=== PATIENT | female | born 1955 | race Caucasian/White ===

== ENCOUNTER → 2020-09-11 09:34 | Outpatient (CLI) | payer MEDICARE, MEDICAID, SELFPAY ==
[2020-09-11 12:25] LABS: Absolute Lymphocyte Count 1.82 X10^3/uL (0.83-4.51); Absolute Neutrophil Count 4.3 X10^3/uL (2.0-7.7); Basophil# 0.05 X10^3/uL; Basophil% 0.7 % (0-1); Eosinophil# 0.11 X10^3/uL; Eosinophils% 1.6 % (0-5); Hematocrit 48.1 % (37-47); Hemoglobin 15.7 g/dL (12.0-15.0); Lymphocyte # 1.82 X10^3/ul (4.0); Lymphocyte % 26.1 % (19-41); Mean Corp Hgb Conc 32.6 g/dL (32-36); Mean Corpuscular Hgb 29.3 pg (27.0-32.0); Mean Corpuscular Volume 89.9 fL (81-99); Mean Platelet Vol. 11.1 fl (6.2-12.0); Monocyte# 0.64 X10^3/uL; Monocyte% 9.2 % (0-10); NRBC Flagged by Analyzer 0 % (0-5); Neutrophil # 4.32 X10^3/uL (2.7-7.7); Neutrophil % 61.8 % (47-70); Platelet Count 268 K/mm3 (150-450); RBC Distribution Width CV 13.7 % (11.6-14.6); RBC Distribution Width SD 45.1 fl (35.1-43.9); Red Blood Count 5.35 M/mm3 (4.2-5.4)
[2020-09-11 13:03] LABS: ALB/GLOB Ratio 0.9 RATIO (0.9-2.4); AST(SGOT) 15 U/L (15-37); Alanine Aminotransfer ALT/SGPT 29 U/L (13-56); Albumin, Serum 3.7 g/dL (3.2-5.0); Alkaline Phosphatase 86 U/L (45-117); Anion Gap 6 (5-15); BUN 16 mg/dL (7-18); BUN/Creat Ratio 22.8 RATIO (10-20); Chloride 103 mmol/L (98-107); Cholesterol 235 mg/dL (200); EST Glomerular Filtration Rate 88 mL/min (>60); Est Glom Filt Rate - Afr Amer 107 mL/min (>60); Globulin 3.9 g/dL (2.2-4.2); Glucose 95 mg/dL (74-106); High Density Lipoprotein 44 mg/dL; Potassium 4.4 mmol/L (3.5-5.1); Protein, Total 7.6 g/dL (6.4-8.2); Sodium Level 137 mmol/L (136-145); Triglycerides 235 mg/dL; Very Low Density Lipoprotein 47 mg/dL (5-40)
== END ==
PROVIDERS: PCP Family Medicine; Visit Provider Family Medicine
DX: I10 Essential (primary) hypertension (principal); J44.9 Chronic obstructive pulmonary disease, unspecified
CPT/HCPCS: 36415; 80053; 80061; 85025

== ENCOUNTER → 2020-10-17 13:01 | Outpatient (CLI) | payer MEDICARE, MEDICAID, SELFPAY ==
--- NOTE | 2020-10-17 13:05 | ART_ITS ---
Reason For Study: pain in RLE with walking Procedure A bilateral lower extremity continuous wave Doppler with analog waveform analysis and ankle brachial indexes. Left Segmental Pressures Left brachial= 149mmHg. Left posterior tibial artery = 156mmHg. Left dorsalis pedis artery = 146mmHg. The left posterior tibial artery waveforms are triphasic. The left dorsalis pedis waveforms are biphasic. Right Segmental Pressures Right brachial= 151mmHg. Right posterior tibial artery = 139mmHg. Right dorsalis pedis artery = 140mmHg. The right dorsalis pedis waveforms are biphasic. The right posterior tibial artery waveforms are biphasic. Indices The right ankle brachial index by the dorsalis pedis is .93. The right ankle brachial index by the posterior tibial artery is .92. The left ankle brachial index by the posterior tibial artery is 1.03. The left ankle brachial index by the dorsalis pedis is .97. VL/Ankle Brachial Index Interpretation Summary Biphasic Doppler waveforms are noted at ankle level on the right. Triphasic and biphasic Doppler waveforms are noted at ankle level on the left. Pulse-volume recordings appear satisfactory at ankle level bilaterally. Resting ankle-brachial indices are normal bilaterally. There is no evidence of significant arterial occlusive disease in the lower ext remities bilaterally. Ordering Physician: Xena Chan Performed By: ZEHRA BOSS RVT
== END ==
PROVIDERS: PCP Family Medicine; Referring Provider Family Medicine; Visit Provider Family Medicine
DX: I73.9 Peripheral vascular disease, unspecified (principal); R52 Pain, unspecified
CPT/HCPCS: 93922

== ENCOUNTER → 2020-10-21 11:48 | Outpatient (CLI) | payer MEDICARE, MEDICAID, SELFPAY ==
--- NOTE | 2020-10-21 13:15 | NEURO_ITS ---
NCS and/or EMG Patient Report Ordering Doctor: Xena Chan DATE OF SERVICE: 10/21/20 Indications: Numbness and pain of the medial left hand as well as digits 4/5. Evaluate for ulnar neuropathy. Findings: Nerve conduction studies were performed in the right upper extremity. The right median motor study recording the abductor pollicis brevis showed a normal amplitude, normal distal latency and normal conduction velocity. The right ulnar motor study recording the abductor digiti minimi showed a normal amplitude, no rmal distal latency and normal conduction velocity. Conduction block and focal slowing was present across the elbow. The right ulnar motor study recording the first dorsal interosseous showed a normal amplitude, normal distal latency and normal conduction velocity. Conduction block and focal slowing was present across the elbow. The right median sensory response recording digit two showed a normal amplitude, latency and conduction velocity. The right ulnar sensory response recording digit five showed a normal amplitude, latency and conduction velocity. The right radial sensory response recording over the extensor snuff box showed a normal amplitude, normal latency and borderline conduction velocity. Needle EMG of the right upper extremity and cervical paraspinal muscles was performed. No denervation was seen in any muscle. Occasional fasciculation potentials were seen in the first dorsal interosseous. In the first dorsal interosseous and flexor digitorum profundus (IV) motor units were normal morphology, but recruitment was mildly reduced. All other examined muscled demonstrated normal motor unit morphology, activation and recruitment patterns. Impression: This is an abnormal study. There is electrophysiologic evidence of an ulnar neuropathy across the left elbow. The pathophysiology is that of acquired demyelination. There are no findings to suggest acute or chronic secondary axonal injury. In addition, there is no electrophysiologic evidence of a median neuropathy or superimposed cervical radiculopathy in the left upper extremity. Salvatore Khan D.O.
== END ==
PROVIDERS: PCP Family Medicine; Referring Provider Family Medicine; Visit Provider Family Medicine
DX: G56.22 Lesion of ulnar nerve, left upper limb (principal)
CPT/HCPCS: 95886; 95910

== ENCOUNTER → 2020-12-17 07:23 | Outpatient (CLI) | payer MEDICARE, MEDICAID, SELFPAY ==
[2020-11-11 13:48] VITALS: BMI 30.4
[2020-12-17 08:53] LABS: Cholesterol 242 mg/dL (200); High Density Lipoprotein 49 mg/dL; Triglycerides 248 mg/dL; Very Low Density Lipoprotein 50 mg/dL (5-40)
== END ==
PROVIDERS: PCP Family Medicine; Visit Provider Family Medicine
DX: E78.5 Hyperlipidemia, unspecified (principal)
CPT/HCPCS: 36415; 80061

== ENCOUNTER → 2021-02-11 13:23 | Outpatient (CLI) | payer MEDICARE, MEDICAID, SELFPAY ==
[2020-11-11 13:48] VITALS: BMI 30.4
--- NOTE | 2021-02-11 13:25 | RAD_ITS ---
STUDY: X-RAY CHEST REASON FOR EXAM: Female, 65 years old. COPD/COVID TECHNIQUE: Frontal and lateral views of the chest. COMPARISON: None. FINDINGS: Lungs are hyperaerated. Increased interstitial markings especially in the lower lung jenkins. There is no demonstrated pleural abnormality. Normal size heart. Normal mediastinum and inge. Normal visualized pulmonary arteries. Normal visualized aortic arch and descending thoracic aorta. Mild kyphosis. Normal visualized ribs, clavicles, and shoulders. There is no demonstrated abnormality of the visualized soft tissue structures of the upper abdomen. RAD/Chest PA and Lateral IMPRESSION: COPD. Possible interstitial lung disease or bibasilar interstitial infiltrates. Electronically Signed: Jorgito Saenz MD at 16:48 EDT , Service support ,
== END ==
PROVIDERS: PCP Family Medicine; Referring Provider Family Medicine; Visit Provider Family Medicine
DX: J44.0 Chronic obstructive pulmonary disease with (acute) lower respiratory infection (principal)
CPT/HCPCS: 71046

== ENCOUNTER → 2021-02-12 | Outpatient (CLI) | payer MEDICARE, MEDICAID, SELFPAY ==
[2020-11-11 13:48] VITALS: BMI 30.4
[2021-02-12 16:56] LABS: Probe Check PASS; Specimen Processing Control PASS
== END | disposition home or self-care (01) ==
PROVIDERS: PCP Family Medicine; Referring Provider Family Medicine; Visit Provider Family Medicine
DX: Z20.828 Contact with and (suspected) exposure to other viral communicable diseases (principal)
CPT/HCPCS: 87635; U0005; U0003

== ENCOUNTER → 2021-04-28 | Outpatient (CLI) | payer MEDICARE, MEDICAID, SELFPAY | END | disposition home or self-care (01) | PROVIDERS: PCP Family Medicine; Referring Provider Family Medicine; Visit Provider Family Medicine | DX: Z20.822 Contact with and (suspected) exposure to COVID-19 (principal) | CPT/HCPCS: 87635; U0005; U0003 ==

== ENCOUNTER → 2021-12-08 | Outpatient (CLI) | payer MEDICARE, MEDICAID, SELFPAY | END | disposition home or self-care (01) | PROVIDERS: PCP Family Medicine; Visit Provider Family Medicine | DX: Z20.822 Contact with and (suspected) exposure to COVID-19 (principal) | CPT/HCPCS: 87635; U0003; U0005 ==

== ENCOUNTER → 2021-12-19 | Outpatient (CLI) | payer MEDICARE, MEDICAID, SELFPAY ==
--- NOTE | 2021-12-19 14:16 | RAD_ITS ---
STUDY: X-RAY CHEST REASON FOR EXAM: Female, 66 years old. COUGH TECHNIQUE: XR Chest 2 Views COMPARISON: 02.11.21 FINDINGS: There is no demonstrated pleural abnormality. Normal size heart. Normal mediastinum and inge. Normal visualized pulmonary arteries. There is atherosclerotic calcification of the aortic arch with tortuosity. There are diffuse degenerative changes of the visualized thoracic spine. There is degenerative osteoarthritis of the bilateral shoulders. There is no demonstrated abnormality of the visualized soft tissue structures of the upper abdomen. RAD/Chest PA and Lateral IMPRESSION: There are no acute findings. Electronically Signed: Ghulam Irvin MD at 16:52 EDT ,
== END | disposition home or self-care (01) ==
PROVIDERS: PCP Family Medicine; Referring Provider Family Medicine; Visit Provider Family Medicine
DX: J20.9 Acute bronchitis, unspecified (principal)
CPT/HCPCS: 71046

== ENCOUNTER → 2022-01-26 | Outpatient (CLI) | payer MEDICARE, MEDICAID, SELFPAY ==
[2022-01-26 13:56] LABS: CREATININE FINGERSTICK < 0.9 mg/dL (0.55-1.02); EGFR FINGERSTICK > 60.0000 mL/min (>60)
--- NOTE | 2022-01-26 14:00 | CT_ITS ---
STUDY: CTA HEAD AND NECK WITH CONTRAST REASON FOR EXAM: Female, 66 years old. VISUAL DISTURBANCE/R/O CAROTID DISEASE/ANEURYSM RADIATION DOSAGE (If Supplied By Facility): CTDIvol = ( 29.61 ) mGy, DLP = ( 1538.00 ) mGycm TECHNIQUE: CT angiography was performed with a multi-detector CT scanner. Data acquisition was obtained from the skull base through the vertex following intravenous administration of IV 100mL Isovue-370. MIP images were reconstructed from the axial data set. Post-processing of the angiographic images was performed, with multiplanar reformation and 3D reconstruction. Individualized dose optimization techniques were used for this CT. COMPARISON: No relevant priors. FINDINGS: Normal bilateral petrous carotid arteries. There is calcified plaque formation of the right cavernous carotid artery, without a cross-sectional luminal stenosis. There is calcified plaque formation of the left cavernous carotid artery, without a cross-sectional luminal stenosis. Normal right A1 segments of the anterior cerebral artery. Normal left A1 segments of the anterior cerebral artery. Normal intact anterior communicating artery (ACOM). Normal bilateral A2 segments of the anterior cerebral arteries. Normal right M1 and M2 segments of the middle cerebral arteries, with a normal M1 bifurcation. Normal left M1 and M2 segments of the middle cerebral arteries, with a normal M1 bifurcation. Normal right posterior communicating artery (PCOM). Normal left posterior communicating artery (PCOM). Normal bilateral vertebral arteries. Normal basilar artery with a normal basilar bifurcation. The visualized bilateral superior cerebellar (SCA) arteries are normal. Normal bilateral P1, P2 and visualized P3 segments of the posterior cerebral arteries. There is no demonstrated aneurysm of the [place]. There is no demonstrated abnormality of the visualized brain. AORTIC ARCH: There is atherosclerotic calcific plaque formation of the aortic arch and great vessels arising from the aortic arch, without a hemodynamically significant stenosis. There is a normal origin of the brachiocephalic, left common carotid, and left subclavian arteries. Atherosclerotic plaque formation at the origin of the left subclavian artery. RIGHT CAROTID ARTERIES: Normal right common carotid artery (CCA). Normal right common carotid bulb. There is mild atherosclerotic plaque formation of the origin of the right internal carotid artery with less than 50% cross sectional diameter stenosis. Normal visualized cervical portion of the right internal carotid artery. Normal origin of the right external carotid artery (ECA). LEFT CAROTID ARTERIES: Normal left common carotid artery (CCA). Normal left common carotid bulb. There is mild atherosclerotic plaque formation of the origin of the left internal carotid artery with less than 50% cross sectional diameter stenosis. Normal visualized cervical portion of the left internal carotid artery. Normal origin of the left external carotid artery (ECA). VERTEBRAL ARTERIES: Normal bilateral vertebral arteries. CT/CTA Head AND Neck W/ Contrast IMPRESSION: Mild atherosclerotic plaque formation at the origin of the right and left internal carotid arteries. Electronically Signed: Rodrick Lizarraga MD at 15:13 EDT ,
--- NOTE | 2022-01-26 14:00 | CT_ITS ---
STUDY: LOW DOSE CT LUNG CANCER SCREENING REASON FOR EXAM: Female, 66 years old. LUNG CA SCREENING RADIATION DOSAGE (If Supplied By Facility): CTDIvol = ( 3.02 ) mGy, DLP = ( 95.53 ) mGycm TECHNIQUE: No contrast was administered. Low dose technique was utilized (average mAS-38 and kVp 120). 1.25 mm axial source images with a slice interval of 1.25-mm were reconstructed in lung windows. 2.5 mm axial source images with a slice interval of 2.5-mm were reconstructed in lung windows. 5.0 mm axial source images with a slice interval of 5.0-mm were reconstructed in soft tissue windows. COMPARISON: None. NODULES: No suspicious nodules are seen. Emphysema: Hyperinflation. Diffuse emphysematous changes with centrilobular emphysema in both lungs worse in the upper lobes. Linear scarring is seen in the lingular segment of the left upper lobe. Mild scarring in the medial aspect of the right middle lobe. Endobronchial lesion: None Aorta: Atherosclerotic plaque calcification. CORONARY ARTERIES: Coronary artery calcification is seen. Heart: Unremarkable Pulmonary artery: Unremarkable Mediastinal nodes: Small mediastinal lymph nodes. Other chest and abdominal findings: CT/Low Dose CT Lung Screening IMPRESSION: Lung-RADS category 2 - Continue annual screening with LDCT in 12 months. IMPORTANT NOTES FOR USE: ACR Lung-RADS Version 1.1 Assessment Categories Release Date: 2018 Category: Coded 0-4 bases on nodule(s) with highest degree of suspicion. Negative screen is defined as categories 1 and 2; a positive screen is defined as categories 3 and 4. Category 3 and 4A nodules that are unchanged on interval CT should be coded as category 2, and individuals returned to screening in 12 months. Category 4X: Category 3 or 4 nodules with additional imaging findings that increase the suspicion of lung cancer, such as spiculation, GGN that doubles in size in 1 year, enlarged lymph notes, etc. Category Modifiers: S (significant finding unrelated to lung cancer) Electronically Signed: Rodrick Lizarraga MD at 15:23 EDT ,
== END | disposition home or self-care (01) ==
LOC: CT 13:12
PROVIDERS: PCP Family Medicine; Visit Provider Family Medicine
DX: I65.23 Occlusion and stenosis of bilateral carotid arteries (principal); Z12.2 Encounter for screening for malignant neoplasm of respiratory organs; H53.9 Unspecified visual disturbance; I25.10 Atherosclerotic heart disease of native coronary artery without angina pectoris; F17.210 Nicotine dependence, cigarettes, uncomplicated
CPT/HCPCS: 70496; 70498; 71271; Q9967

== ENCOUNTER → 2022-02-12 | Outpatient (CLI) | payer MEDICARE, MEDICAID, SELFPAY ==
[2022-02-12 10:38] LABS: Absolute Lymphocyte Count 2.01 X10^3/uL (0.83-4.51); Absolute Neutrophil Count 4.8 X10^3/uL (2.0-7.7); Basophil# 0.06 X10^3/uL; Basophil% 0.8 % (0-1); Eosinophil# 0.15 X10^3/uL; Eosinophils% 1.9 % (0-5); Hematocrit 46.6 % (37-47); Hemoglobin 15.4 g/dL (12.0-15.0); Lymphocyte # 2.01 X10^3/ul (0.83-4.51); Lymphocyte % 25.6 % (19-41); Mean Corpuscular Hgb 29.8 pg (27.0-32.0); Mean Corpuscular Volume 90.1 fL (81-99); Mean Platelet Vol. 10.7 fl (6.2-12.0); Monocyte# 0.74 X10^3/uL; Monocyte% 9.4 % (0-10); NRBC Flagged by Analyzer 0 % (0-5); Neutrophil # 4.84 X10^3/uL (2.7-7.7); Neutrophil % 61.8 % (47-70); Platelet Count 254 K/mm3 (150-450); RBC Distribution Width CV 13.4 % (11.6-14.6); RBC Distribution Width SD 44.6 fl (35.1-43.9); Red Blood Count 5.17 M/mm3 (4.2-5.4); White Blood Count 7.8 K/mm3 (4.4-11.0)
[2022-02-12 11:26] LABS: ALB/GLOB Ratio 0.9 RATIO (0.9-2.4); AST(SGOT) 14 U/L (15-37); Alanine Aminotransfer ALT/SGPT 24 U/L (13-56); Albumin, Serum 3.5 g/dL (3.2-5.0); Alkaline Phosphatase 78 U/L (45-117); Anion Gap 5 (5-15); BUN 14 mg/dL (7-18); BUN/Creat Ratio 19.5 RATIO (10-20); Calcium,Total 8.7 mg/dL (8.5-10.1); Chloride 102 mmol/L (98-107); Cholesterol 215 mg/dL (200); Creatinine, Serum 0.72 mg/dL (0.55-1.02); EST Glomerular Filtration Rate 86 mL/min (>60); Est Glom Filt Rate - Afr Amer 104 mL/min (>60); Glucose 104 mg/dL (74-106); High Density Lipoprotein 47 mg/dL; Potassium 4.5 mmol/L (3.5-5.1); Protein, Total 7.5 g/dL (6.4-8.2); Sodium Level 135 mmol/L (136-145); Triglycerides 263 mg/dL; Very Low Density Lipoprotein 53 mg/dL (5-40)
== END | disposition home or self-care (01) ==
LOC: LAB 09:48
PROVIDERS: PCP Family Medicine; Referring Provider Family Medicine; Visit Provider Family Medicine
DX: I10 Essential (primary) hypertension (principal); E78.5 Hyperlipidemia, unspecified
CPT/HCPCS: 36415; 80053; 80061; 85025

== ENCOUNTER 2022-06-10 20:15 | Inpatient (IN) | payer MEDICARE, MEDICAID, SELFPAY ==
[2022-06-10 20:16] VITALS: BP 137/70; PULSE 99; RESP 18; TEMP 36.8; O2SAT 94; BMI 34.7
--- NOTE | 2022-06-10 22:18 | CT_ITS ---
STUDY: CT ABDOMEN AND PELVIS WITH CONTRAST REASON FOR EXAM: Female, 66 years old. Abdominal pain. Nausea and vomiting. TECHNIQUE: IV Contrast: 100mL Isovue-370 Enteric contrast: Administered. Axial images obtained. Coronal and sagittal reformatted images provided. Individualized dose optimization techniques were used for this CT. COMPARISON: No relevant priors. FINDINGS: Partially visualized lower chest: Severe emphysema partially visible lung bases. Liver: Diffuse steatosis and mild hepatomegaly. No focal lesions are evident. Gallbladder and biliary tree: Status post cholecystectomy. Likely compensatory common bile duct dilation. No gallstones are visible. No biliary ductal dilation. Pancreas: No pancreatic lesions or inflammation. Spleen: Normal size, no splenic lesions. Adrenal glands: No concerning masses. Kidneys and ureters: No hydronephrosis or obstructing renal stones. No concerning masses. No ureteral dilation. Tiny right renal cysts. Punctate nonobstructing stone anterior calyx upper pole left kidney. Bowel: Progressive dilation of fluid-filled small bowel loops which become grouped in the anterior lower abdomen, protruding through a wide necked anterior abdominal wall hernia. Transition point were the bowel enters and then exits a smaller more cephalad right of midline anterior abdominal wall hernia containing a small knuckle of bowel. Decompressed small bowel then extends into the right lower abdomen. More distal ileum decompressed. Right colon mildly distended with stool. Left colon relatively decompressed. Left colonic diverticulosis, no diverticulitis. Distal colonic-colonic gas anastomosis upper rectum. Appendix not identified. No evidence of appendicitis. Urinary bladder: No stones or wall thickening. Reproductive: Status post hysterectomy. No suspicious pelvic mass. Vascular: No abdominal aortic aneurysm. Patent portal, mesenteric veins. Retroperitoneal and peritoneal spaces: No ascites or free air. No retroperitoneal lesions. Osseous: No acute osseous abnormality. Abdominal and pelvic wall: Extensive chronic postoperative changes anterior abdominal wall with diastases recti and wide necked hernia at the level of and below the umbilicus. Any findings described in the findings sections and not included in the impression are incidental and do not require imaging follow-up. CT/Abdomen/Pelvis WITH Contrast IMPRESSION: Small bowel obstruction secondary to a right of midline anterior abdominal wall hernia which contains a knuckle of small bowel. The bowel narrows as it enters and exits this hernia, and is dilated more proximally. Extensive adjacent chronic postoperative changes; there may be superimposed adhesions as well. Electronically Signed: Alvino Montilla MD at 2:00 EST ,
--- NOTE | 2022-06-10 22:19 | ED.VIS.GI ---
HPI HPI - GI History of Present Illness Chief Complaint: Constipation Detail of Chief Complaint: Abdominal pain and constipation Informant: patient Narrative Narrative: Patient presents the emergency department with complaint of not having a bowel movement in more than 4 days. Patient states that she is been using her Linzess and taking laxatives as well as milk of magnesia without any results. Patient started having lower abdominal pain around 4 AM this morning. She has had 1 episode of vomiting and several episodes of dry heaves. She denies fever. She denies urinary symptoms. She denies blood in her stool. Patient does have history of chronic constipation issues. Patient does have history of prior cholecystectomy and hysterectomy as well as history of perforated colon. [facility] Medical History (Updated 06/11/22 @ 06:[address] Urban Cantrell, ) Acute bronchitis, unspecified Aphthous ulcer ARDS (adult respiratory distress syndrome) COPD (chronic obstructive pulmonary disease) H/O sepsis History of coma History of ectopic HTN (hypertension) Hyperlipidemia Pneumonia Home Medications acetaminophen 325 mg capsule 325 mg PO ONCE PRN 11/11/20 [History Last Taken Unknown] albuterol sulfate 90 mcg/actuation aerosol inhaler inhalation 11/11/20 [History Last Taken Unknown] amitriptyline 25 mg tablet mg PO 11/11/20 [History Last Taken Unknown] budesonide-formoterol HFA 160 mcg-4.5 mcg/actuation aerosol inhaler inhalation 11/11/20 [History Last Taken Unknown] calcium carbonate 200 mg calcium (500 mg) chewable tablet (Tums) 200 mg PO BID 11/11/20 [History Last Taken Unknown] candesartan 4 mg tablet mg PO 11/11/20 [History Last Taken Unknown] cyclobenzaprine 10 mg tablet mg PO 11/11/20 [History Last Taken Unknown] docusate sodium 100 mg capsule (Colace) 100 mg PO BID 11/11/20 [History Last Taken Unknown] fluticasone propionate 50 mcg/actuation nasal spray,suspension intranasal 11/11/20 [History Last Taken Unknown] herbalife PO meal replacement 11/11/20 [History Last Taken Unknown] icey hot topical 11/11/20 [History Last Taken Unknown] magnesium oxide 500 mg tablet 500 mg PO DAILY 11/11/20 [History Last Taken Unknown] mecobalamin (vitamin B12) 1,000 mcg chewable tablet 1,000 mcg PO DAILY 11/11/20 [History Last Taken Unknown] phenylephrine HCl 10 mg tablet (Sinus Pressure-Congestion Relief PE) 10 mg PO ONCE 11/11/20 [History Last Taken Unknown] polyethylene glycol 3350 17 gram oral powder packet (ClearLax) 17 g PO DAILY PRN 11/11/20 [History Last Taken Unknown] polyethylene glycol 3350 17 gram oral powder packet (Miralax) 17 g PO DAILY PRN 11/11/20 [History Last Taken Unknown] red yeast rice 600 mg capsule 600 mg PO DAILY 11/11/20 [History Last Taken Unknown] levofloxacin 500 mg tablet 500 mg PO DAILY #10 tabs 03/06/21 [Rx Last Taken Unknown] Allergy/AdvReac Type Severity Reaction Status Date / Time morphine Allergy Swelling, Verified 06/10/22 21:15 Rash, Itching Penicillins Allergy Swelling, Verified 06/10/22 21:15 Rash, Itching All Cycline ATB's Allergy Swelling, Uncoded 06/10/22 21:15 Rash, Itching Family History Mother Hypertension Heart disease Pacemaker Cervical cancer Father Diabetes Aunt Colon cancer Aunt Breast cancer Uncle CHF (congestive heart failure) Surgical History H/O total hysterectomy with removal of both tubes and ovaries H/O tracheostomy H/O: hysterectomy History of cholecystectomy History of colon surgery Social History household members: other details: sister Smoking Status: Current every day smoker tobacco type: cigarettes alcohol intake: never what type of physical activity do you participate in: none do you feel safe at home: Yes ROS ROS ED Review of Systems ROS Unobtainable: other Constitutional Constitutional ED: Reports lethargy; Denies chills, fever(s), sweats or weight loss Eyes Eyes: Denies blurry vision, change in vision or diplopia ENT ENT ED: Denies rhinorrhea or sore throat Cardiovascular Cardiovascular: Denies chest pain, orthopnea or racing heartbeat Respiratory/Chest Respiratory/Chest: Denies cough, dyspnea, dyspnea on exertion, orthopnea or sputum Gastrointestinal Gastrointestinal: Reports abdominal pain, constipation, nausea and vomiting; Denies diarrhea Genitourinary Genitourinary ED: Denies dysuria, hematuria or urinary frequency Musculoskeletal Musculoskeletal: Denies arthralgias, back pain, myalgias or neck pain Integumentary Denies abscess, Abrasions or rash Neurologic Neurologic: Denies headache(s) or weakness Psychiatric Psychiatric: Denies anxiety, depression or suicidal thoughts Endocrine Endocrinology: Denies polydipsia, polyphagia or polyuria Hematologic/Lymphatic Hematologic/Lymphatic: Denies easy bleeding, easy bruising or lymphadenopathy Allergic/Immunologic Allergic/Immunologic ED: Denies mouth swelling, tongue swelling or urticaria EXAM Physical Exam Const Vital Signs: 06/10/22 20:16 06/10/22 23:33 06/11/22 01:30 Temperature 98.3 F Temperature Source Temporal Pulse Rate 99 100 Respiratory Rate 18 18 18 Blood Pressure 137/70 H 154/76 H Blood Pressure Mean 92 102 Pulse Ox 94 98 Oxygen Delivery Method Room Air Room Air Room Air 06/11/22 04:28 Temperature Temperature Source Pulse Rate 84 Respiratory Rate 18 Blood Pressure 136/70 H Blood Pressure Mean 92 Pulse Ox Oxygen Delivery Method Positive well nourished and well developed General Appearance ED: well developed and NAD HEENT Reports TM's clear and moist mucous membranes normocephalic and atraumatic; Negative for trauma or tenderness Tympanic Membrane ED: Yes TM's clear Eyes PERRL and EOMs intact bilaterally General Eye ED: Negative for pale conjunctiva or scleral icterus Neck no lymphadenopathy, supple and no JVD General: Negative for tenderness Chest Wall inspection of chest normal and palpation of chest normal Chest: Negative for tenderness Resp normal respiratory effort and clear to auscultation bilaterally Effort and Inspection: Negative for respiratory distress or pain with movement Auscultation: Negative for rhonchi, wheezes or diminished lung sounds Cardio regular rate, regular rhythm, S1 normal heart sound, S2 normal heart sound and no murmurs Peripheral Pulses: pulses 2+ throughout GI normal to inspection, nondistended, normoactive bowel sounds, soft to palpation, non-distended and no masses GI Narrative: Tenderness palpation over the right lower quadrant as well as left lower quadrant with guarding. There is no rebound, rigidity, or peritoneal signs. Back/Spine no CVA tenderness and no thoracic nor lumbar tenderness Extremity normal to inspection General Extremety ED: Negative for edema General Extremity: Negative for edema Neuro oriented x3, CN's II-XII intact bilaterally, no sensory deficits noted and gait normal Sensorium / Orientation: awake, alert, oriented to person, oriented to place and oriented to time Motor Exam: strength 5/5 throughout and strength abnormal Psych mental status grossly normal Skin no rashes or lesions noted and no wounds MDM MDM MDM Narrative Medical decision making narrative: IV line established on arrival. Patient was medicated with Dilaudid and Zofran. Patient lab work-up obtained showed a white count of 13.9 hemoglobin of 18 and hematocrit of 52 and platelet count of 331. Chemistries unremarkable. Lactate was 1.8. LFTs unremarkable. Lipase was unremarkable. CT scan of the abdomen pelvis with IV and p.o. contrast ordered showed small bowel obstruction secondary to right midline anterior abdominal wall hernia which contains a knuckle of small bowel. Case was discussed with general surgeon on-call Dr. Fidel Nicole who evaluated patient in the emergency department and recommended transfer to higher level of care for definitive care. Patient did have an NG placed to low intermittent suction. Patient was not sure that she wanted to be transferred and is requesting time to decide if she wants anything done. Patient states she has been through multiple surgeries and is not sure that she wants to go through another one potentially. I did discuss case with [facility] transfer line and patient was accepted for transfer to their facility for definitive care. Patient was remedicated with Dilaudid and Zofran as she continued to have pain. Her NG was to low intermittent suction. At this time patient would also like to speak with somebody regarding her Medicaid and Medicare insurance as she has concerns about payment for the ambulance to [facility] and her treatment there. At this time we are awaiting a bed at [facility]. Care of patient turned over to morning physician awaiting transfer to their facility. Patient understands that she cannot remain here at [facility] given that our surgeon here determine patient requires treatment at a tertiary care center for her complicated condition. If patient refuses transfer she will have to sign out AGAINST MEDICAL ADVICE. Lab Data Labs: Laboratory Results - last 24 hr 06/10/22 06/10/22 06/10/22 23:07 23:07 23:07 WBC 13.9 H RBC 6.02 H Hgb 18.1 H* Hct 51.8 H MCV 86.0 MCH 30.1 MCHC 34.9 RDW Std Deviation 41.2 RDW Coeff of Chrissy 13.2 Plt Count 331 MPV 10.6 Immature Gran % (Auto) 1.200 H Neut % (Auto) 79.1 H Lymph % (Auto) 10.9 L [place] % (Auto) 8.3 Eos % (Auto) 0.1 Baso % (Auto) 0.4 Absolute Neuts (auto) 11.0 H Absolute Lymphs (auto) 1.51 Nucleated RBC % 0 Differential Comment SCANNED Diff Path Review May foll Sodium 132 L Potassium 4.0 Chloride 97 L Carbon Dioxide 30.0 Anion Gap 5 BUN 20 H Creatinine 0.82 Estim Creat Clear Calc 47.16 Est GFR (MDRD) Af Amer 89 Est GFR (MDRD) Non-Af 74 BUN/Creatinine Ratio 24.4 H Glucose 137 H Lactic Acid 1.8 Calcium 9.9 Total Bilirubin 0.40 AST 18 ALT 31 Alkaline Phosphatase 86 Total Protein 8.1 Albumin 3.8 Globulin 4.3 H Albumin/Globulin Ratio 0.9 Lipase 70 L Urine Color Urine Clarity Urine pH Ur Specific [place] Urine Protein Urine Glucose (UA) Urine Ketones Urine Occult Blood Urine Nitrite Urine Bilirubin Urine Urobilinogen Ur Leukocyte Esterase Urine RBC Urine WBC Ur Squamous Epith Cells Ur Renal Epithelial Cell Urine Bacteria Hyaline Casts Urine Mucus 06/11/22 00:44 WBC RBC Hgb Hct MCV MCH MCHC RDW Std Deviation RDW Coeff of Chrissy Plt Count MPV Immature Gran % (Auto) Neut % (Auto) Lymph % (Auto) [place] % (Auto) Eos % (Auto) Baso % (Auto) Absolute Neuts (auto) Absolute Lymphs (auto) Nucleated RBC % Differential Comment Diff Path Review Sodium Potassium Chloride Carbon Dioxide Anion Gap BUN Creatinine Estim Creat Clear Calc Est GFR (MDRD) Af Amer Est GFR (MDRD) Non-Af BUN/Creatinine Ratio Glucose Lactic Acid Calcium Total Bilirubin AST ALT Alkaline Phosphatase Total Protein Albumin Globulin Albumin/Globulin Ratio Lipase Urine Color Yellow Urine Clarity Clear Urine pH 6.0 Ur Specific [place] 1.020 Urine Protein 30 H Urine Glucose (UA) Normal Urine Ketones 5 H Urine Occult Blood 50 H Urine Nitrite Negative Urine Bilirubin 1 H Urine Urobilinogen Normal Ur Leukocyte Esterase 500 H Urine RBC 0-5 SEEN Urine WBC 5-10 SEEN Ur Squamous Epith Cells 0-5 SEEN Ur Renal Epithelial Cell 0-5 SEEN Urine Bacteria 1+ Hyaline Casts 10-25 SEEN Urine Mucus 0 SEEN Radiography Diagnostic Testing: Clinical Impression(s) from Imaging Studies Abdomen/Pelvis CT 06/10/22 22:18 IMPRESSION: Small bowel obstruction secondary to a right of midline anterior abdominal wall hernia which contains a knuckle of small bowel. The bowel narrows as it enters and exits this hernia, and is dilated more proximally. Extensive adjacent chronic postoperative changes; there may be superimposed adhesions as well. Electronically Signed: Alvino Montilla MD at 2:00 EST Reading Location ID and State: [address] [place] [address] Tel , Service support , KUB X-Ray 06/11/22 02:37 IMPRESSION: Interval placement of an enteric tube with the tip directed inferiorly in the mid stomach in the left mid abdomen. Electronically Signed: Alvino Montilla MD at 3:53 EST Reading Location ID and State: [address] [place] [address] Tel , Service support , 1 view KUB obtained interpreted myself as good placement of NG tube in the stomach. Radiology in agreement. Discharge Plan Triage Chief Complaint: Constipation ED Provider: Urban Cantrell Dx/Rx/DC Orders Clinical Impression: Abdominal pain, Complete small bowel obstruction, Abdominal wall hernia, Leukocytosis Prescriptions: No Action albuterol sulfate 90 mcg/actuation HFA aerosol inhaler inhalation amitriptyline 25 mg tablet PO candesartan 4 mg tablet PO cyclobenzaprine 10 mg tablet PO fluticasone propionate 50 mcg/actuation spray,suspension intranasal budesonide-formoterol 160-4.5 mcg/actuation HFA aerosol inhaler inhalation polyethylene glycol 3350 [Miralax] 17 gram powder in packet 17 g PO DAILY PRN polyethylene glycol 3350 [ClearLax] 17 gram powder in packet 17 g PO DAILY PRN docusate sodium [Colace] 100 mg capsule 100 mg PO BID magnesium oxide 500 mg tablet 500 mg PO DAILY mecobalamin (vitamin B12) 1,000 mcg tablet,chewable 1,000 mcg PO DAILY red yeast rice 600 mg capsule 600 mg PO DAILY Rx Instructions: give with meal/snack acetaminophen 325 mg capsule 325 mg PO ONCE PRN phenylephrine HCl [Sinus Pressure-Robe Relief PE] 10 mg tablet 10 mg PO ONCE herbalife PO icey hot topical calcium carbonate [Tums] 200 mg calcium (500 mg) tablet,chewable 200 mg PO BID levofloxacin 500 mg tablet 500 mg PO DAILY Qty: 10 0RF Primary Care Provider: Xena Chan Referrals: Xena Chan MD [Primary Care Provider] - Disposition Disposition: DC/Tx to Another Type of HCF
[2022-06-10] MEDS: 0.9% Normal Saline 1,000 ML 125 ML IV (23:16)
[2022-06-10] MEDS: Ondansetron 4 MG/2 ML Vial IV (23:17)
[2022-06-10] MEDS: HYDROmorphone 1 MG/ML Syringe IV (23:22)
[2022-06-10 23:29] LABS: Absolute Lymphocyte Count 1.51 X10^3/uL (0.83-4.51); Basophil# 0.06 X10^3/uL; Basophil% 0.4 % (0-1); Eosinophil# 0.02 X10^3/uL; Eosinophils% 0.1 % (0-5); Hematocrit 51.8 % (37-47); Lymphocyte # 1.51 X10^3/ul (0.83-4.51); Lymphocyte % 10.9 % (19-41); Mean Corp Hgb Conc 34.9 g/dL (32-36); Mean Corpuscular Hgb 30.1 pg (27.0-32.0); Mean Platelet Vol. 10.6 fl (6.2-12.0); Monocyte# 1.16 X10^3/uL; Monocyte% 8.3 % (0-10); NRBC Flagged by Analyzer 0 % (0-5); Neutrophil # 10.99 X10^3/uL (2.7-7.7); Neutrophil % 79.1 % (47-70); Platelet Count 331 K/mm3 (150-450); RBC Distribution Width CV 13.2 % (11.6-14.6); RBC Distribution Width SD 41.2 fl (35.1-43.9); Red Blood Count 6.02 M/mm3 (4.2-5.4); White Blood Count 13.9 K/mm3 (4.4-11.0)
[2022-06-10 23:31] LABS: ALB/GLOB Ratio 0.9 RATIO (0.9-2.4); AST(SGOT) 18 U/L (15-37); Alanine Aminotransfer ALT/SGPT 31 U/L (13-56); Albumin, Serum 3.8 g/dL (3.2-5.0); Alkaline Phosphatase 86 U/L (45-117); Anion Gap 5 (5-15); BUN 20 mg/dL (7-18); BUN/Creat Ratio 24.4 RATIO (10-20); Calcium,Total 9.9 mg/dL (8.5-10.1); Chloride 97 mmol/L (98-107); Creatinine, Serum 0.82 mg/dL (0.55-1.02); EST Glomerular Filtration Rate 74 mL/min (>60); Est Glom Filt Rate - Afr Amer 89 mL/min (>60); Estimated Creatinine Clearance 47.16 ml/min; Globulin 4.3 g/dL (2.2-4.2); Glucose 137 mg/dL (74-106); Lipase 70 U/L (73-393); Protein, Total 8.1 g/dL (6.4-8.2); Sodium Level 132 mmol/L (136-145)
[2022-06-10 23:33] VITALS: BP 154/76; PULSE 100; RESP 18; O2SAT 98
[2022-06-10 23:40] LABS: Differential Indicated SCAN CRITERIA MET; Hemoglobin 18.1 g/dL (12.0-15.0)
[2022-06-10 23:48] LABS: Lactic Acid 1.8 mmol/L (0.4-1.9)
[2022-06-11] VITALS (11 sets, daily range): BP systolic 123–148; BP diastolic 55–88; PULSE 75–99; RESP 15–18; TEMP 36.6–36.7; O2SAT 92–98; BMI 33.1
[2022-06-11 00:39] LABS: Differential Comment SCANNED
[2022-06-11 01:26] LABS: Mucous, Urine 0 SEEN /hpf (<or=2+)
[2022-06-11 01:28] LABS: Color, Urine Yellow (Yellow); Glucose, Dipstick Normal (Normal); Ketone-Dipstick 5 mg/dl (Negative); Leukocyte Esterase-Dipstick 500 /ul (Negative); Nitrite-Dipstick Negative (Negative); Occult Blood-Urine 50 /ul (Negative); Protein-Dipstick 30 mg/dl (Negative); Urine Clarity Clear (Clear); Urine Urobilinogen Normal (Normal)
[2022-06-11 01:42] LABS: Urine Bilirubin Dipstick 1 mg/dL (Negative)
[2022-06-11 01:51] LABS: Bacteria 1+ /hpf (None Seen); Hyaline Cast 10-25 SEEN /lpf (0-5); Red Blood Cells-Urine 0-5 SEEN /hpf (0-5); Renal Epithelial Cells 0-5 SEEN /hpf (0-5); Squamous Epithelial Cells - UA 0-5 SEEN /hpf (5-10); White Blood Cells 5-10 SEEN /hpf (0-5)
--- NOTE | 2022-06-11 02:37 | RAD_ITS ---
STUDY: RADIOGRAPH- ABDOMEN/PELVIS REASON FOR EXAM: Female, 66 years old. NG Insertion TECHNIQUE: AP portable upright COMPARISON: CT abdomen and pelvis same date FINDINGS: Interval placement of an enteric tube with the tip directed inferiorly in the mid stomach in the left mid abdomen. No apparent free air. Emphysematous changes lumbar bases. RAD/Abdomen Single View (Portable) IMPRESSION: Interval placement of an enteric tube with the tip directed inferiorly in the mid stomach in the left mid abdomen. Electronically Signed: Alvino Montilla MD at 3:53 EST Reading Location ID and State: [facility] / [place] Tel , Service support ,
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
[2022-06-11] MEDS: 0.9% Normal Saline 1,000 ML 125 ML IV ×3 (07:10→17:24)
[2022-06-11] MEDS: Ondansetron 4 MG/2 ML Vial IV ×3 (07:11→21:35)
[2022-06-11] MEDS: HYDROmorphone 1 MG/ML Syringe IV ×3 (07:12→23:39)
--- NOTE | 2022-06-11 07:43 | NURSING ---
CALLED [facility] TRANSFER LINE, TALKED TO RADHA. NO BED YET, THEY ARE FULL. WAITING ON DISCHARGES
--- NOTE | 2022-06-11 13:17 | PCM.HP.STD ---
HPI - General General Date of Admission: 06/11/22 Date of Service: 06/11/22 Chief Complaint: SBO HPI Narrative VIVEK ONEILL, is a 66 F who presents with the above. Patient is being admitted awaiting a bed to [facility] for surgical evaluation. Patient has past medical history of COPD, hypertension, history of multiple surgeries, initially for colon surgeries, bowel obstructions. Her surgeries were done in [place]. She moved up to [place] a couple of years ago. She comes in with constipation ongoing for 4 days. Patient stated that she has been using her Linzess and laxatives with no results. She had an episode of vomiting and dry heaving. Denied any fever or chills. She denies any chest pain or dizziness or palpitations In the ED, her vitals were stable. WBC count 13.9, hemoglobin 18.1, platelet count 331. Sodium is 132, potassium 4.2, chloride 97, bicarbonate 30, BUN 20, creatinine 0.82. LFTs are unremarkable. UA is unremarkable. CT abdominal pelvis shows small bowel obstruction secondary to midline anterior abdominal wall hernia. Patient was seen by general surgery in the emergency room and recommended to be transferred to tertiary institution. Patient has been accepted by the [facility] and is awaiting a bed. Patient has since been n.p.o., has an NG tube, being given pain meds as well as antiemetics. I explained to her very clearly that the general surgeon recommended that transfer to a tertiary institution. She knows that in the event of any worsening, she is at risk of worse complication including . I reached out to the [facility] transfer line and was told that there were no beds available today. Patient is being admitted per agreement between hospital medicine and the emergency room to accept patients pending bed availability and transfer. PFSH Medical History Acute bronchitis, unspecified Aphthous ulcer ARDS (adult respiratory distress syndrome) Cancer COPD (chronic obstructive pulmonary disease) DVT (deep venous thrombosis) H/O sepsis History of coma History of ectopic HTN (hypertension) Hyperlipidemia Pneumonia Smoker Home Medications acetaminophen 325 mg capsule 1,000 mg PO ONCE PRN Pain 11/11/20 [History Last Taken 06/10/22] albuterol sulfate 90 mcg/actuation aerosol inhaler 2 puff inhalation Q2H PRN PRN Shortness Of Breath 11/11/20 [History Last Taken 06/10/22] amitriptyline 25 mg tablet 25 mg PO QHS sleep 11/11/20 [History Last Taken 06/10/22] budesonide-formoterol HFA 160 mcg-4.5 mcg/actuation aerosol inhaler 1 puff inhalation BID copd 11/11/20 [History Last Taken 06/10/22] calcium carbonate 200 mg calcium (500 mg) chewable tablet (Tums) 200 mg PO Q2H PRN PRN gerd 11/11/20 [History Last Taken Unknown] candesartan 4 mg tablet 4 mg PO QHS bp 11/11/20 [History Last Taken 06/09/22] cyclobenzaprine 10 mg tablet 10 mg PO TID pain 11/11/20 [History Last Taken 06/09/22] docusate sodium 100 mg capsule (Colace) 100 mg PO BID PRN Constipation 11/11/20 [History Last Taken 06/09/22] fluticasone propionate 50 mcg/actuation nasal spray,suspension 2 spray intranasal DAILY allergies 11/11/20 [History Last Taken 06/09/22] herbalife PO meal replacement 11/11/20 [History Last Taken Unknown] icey hot topical 11/11/20 [History Last Taken Unknown] mecobalamin (vitamin B12) 1,000 mcg chewable tablet 1,000 mcg PO DAILY supplement 11/11/20 [History Last Taken 06/09/22] polyethylene glycol 3350 17 gram oral powder packet (Miralax) 17 g PO DAILY PRN Constipation 11/11/20 [History Last Taken Unknown] red yeast rice 600 mg capsule 600 mg PO DAILY supplment 11/11/20 [History Last Taken 06/09/22] linaclotide 290 mcg capsule (Linzess) 290 mcg PO DAILY constipation 06/11/22 [History Last Taken 06/09/22] Allergy/AdvReac Type Severity Reaction Status Date / Time morphine Allergy Swelling, Verified 06/10/22 21:15 Rash, Itching Penicillins Allergy Swelling, Verified 06/10/22 21:15 Rash, Itching All Cycline ATB's Allergy Swelling, Uncoded 06/10/22 21:15 Rash, Itching Family History Mother Hypertension Heart disease Pacemaker Cervical cancer Father Diabetes Aunt Colon cancer Aunt Breast cancer Uncle CHF (congestive heart failure) Surgical History H/O total hysterectomy with removal of both tubes and ovaries H/O tracheostomy H/O: hysterectomy History of cholecystectomy History of colon surgery Social History household members: other details: sister Smoking Status: Current every day smoker tobacco type: cigarettes alcohol intake: never what type of physical activity do you participate in: none do you feel safe at home: Yes ROS ROS Narrative Constitutional: Denies: Anorexia, Chills, Fever, Night Sweats, Weight Change Eyes: Denies: Blurred vision, Cataracts, Conjunctivae Inflammation, Pain, Redness, Vision Change HEENT: Denies: Difficulty Hearing, Difficulty Swallowing, Head Aches, Hearing Changes, Sinus Congestion, Sinus Drainage Cardiovascular: Denies: Chest Pain, Orthopnea, Palpitations Respiratory: Denies: Cough, Shortness of breath at rest, Sputum production Gastrointestinal: See HPI Genitourinary: Denies: Dysuria Musculoskeletal: Denies: Joint Pain, Joint stiffness, Joint swelling, Joint Tenderness Skin: Denies: Rash, Wounds Neurological: Denies: Numbness, Tingling, Focal weakness Vital Signs Vital Signs Vital Signs: 06/10/22 20:16 06/10/22 23:33 06/11/22 01:30 Temperature 98.3 F Temperature Source Temporal Pulse Rate 99 100 Respiratory Rate 18 18 18 Blood Pressure 137/70 H 154/76 H Blood Pressure Mean 92 102 Pulse Ox 94 98 Oxygen Delivery Method Room Air Room Air Room Air 06/11/22 04:28 06/11/22 08:37 06/11/22 11:14 Temperature Temperature Source Pulse Rate 84 76 75 Respiratory Rate 18 15 16 Blood Pressure 136/70 H 139/88 H 142/69 H Blood Pressure Mean 92 105 93 Pulse Ox 98 97 Oxygen Delivery Method Room Air Weight Weight: 80.739 kg Body Mass Index (BMI) 34.7 Physical Exam Narrative Physical exam: General: Alert, Oriented x3, Cooperative, appears unwell, NG tube in side, dark reddish aspirate HEENT: Atraumatic Oral: Moist Mucosa Neck: Supple Lungs: Diminished to auscultation Cardiovascular: HS I+II, regular, no murmurs Abdomen: Midline scar, obese anterior abdominal wall, slight tenderness in the right lower abdomen bowel Sounds hypoactive, Soft, Extremities: No edema Skin: No rashes, No breakdown Neurological: Grossly intact Psych/Mental Status: Appropriate Results Lab / Micro Data Result Diagrams: 06/10/22 23:07 06/10/22 23:07 Labs: Laboratory Results - last 24 hr 06/10/22 23:07: WBC 13.9 H, RBC 6.02 H, Hgb 18.1 H*, Hct 51.8 H, MCV 86.0, MCH 30.1, MCHC 34.9, RDW Std Deviation 41.2, RDW Coeff of Chrissy 13.2, Plt Count 331, MPV 10.6, Immature Gran % (Auto) 1.200 H, Neut % (Auto) 79.1 H, Lymph % (Auto) 10.9 L, [place] % (Auto) 8.3, Eos % (Auto) 0.1, Baso % (Auto) 0.4, Absolute Neuts (auto) 11.0 H, Absolute Lymphs (auto) 1.51, Nucleated RBC % 0, Differential Comment SCANNED, Diff Path Review November06/10/22 23:07: Sodium 132 L, Potassium 4.0, Chloride 97 L, Carbon Dioxide 30.0, Anion Gap 5, BUN 20 H, Creatinine 0.82, Estim Creat Clear Calc 47.16, Est GFR (MDRD) Af Amer 89, Est GFR (MDRD) Non-Af 74, BUN/Creatinine Ratio 24.4 H, Glucose 137 H, Calcium 9.9, Total Bilirubin 0.40, AST 18, ALT 31, Alkaline Phosphatase 86, Total Protein 8.1, Albumin 3.8, Globulin 4.3 H, Albumin/Globulin Ratio 0.9, Lipase 70 L 06/10/22 23:07: Lactic Acid 1.8 06/11/22 00:44: Urine Color Yellow, Urine Clarity Clear, Urine pH 6.0, Ur Specific [place] 1.020, Urine Protein 30 H, Urine Glucose (UA) Normal, Urine Ketones 5 H, Urine Occult Blood 50 H, Urine Nitrite Negative, Urine Bilirubin 1 H, Urine Urobilinogen Normal, Ur Leukocyte Esterase 500 H, Urine RBC 0-5 SEEN, Urine WBC 5-10 SEEN, Ur Squamous Epith Cells 0-5 SEEN, Ur Renal Epithelial Cell 0-5 SEEN, Urine Bacteria 1+, Hyaline Casts 10-25 SEEN, Urine Mucus 0 SEEN Micro: Microbiology 06/11/22 04:20 Nasal Secretion SARS-CoV-2 Antigen (Rapid) - Final Radiology Impression Abdomen/Pelvis CT 06/10/22 22:18 IMPRESSION: Small bowel obstruction secondary to a right of midline anterior abdominal wall hernia which contains a knuckle of small bowel. The bowel narrows as it enters and exits this hernia, and is dilated more proximally. Extensive adjacent chronic postoperative changes; there may be superimposed adhesions as well. Electronically Signed: Alvino Montilla MD at 2:00 EST Reading Location ID and State: [address] [place] [address] Tel , Service support , KUB X-Ray 06/11/22 02:37 IMPRESSION: Interval placement of an enteric tube with the tip directed inferiorly in the mid stomach in the left mid abdomen. Electronically Signed: Alvino Montilla MD at 3:53 EST Reading Location ID and State: [facility] Tel , Service support , Assessment & Plan Assessment/Plan (1) Incisional hernia of anterior abdominal wall with obstruction: PLAN: Plan 1. Acute SBO secondary to anterior abdominal wall hernia Seen on CT abdomen/pelvis, status post NG tube placement Patient was seen by general surgery and recommended transfer to [facility]; awaiting bed We will keep n.p.o., continue with IV fluids, pain control, repeat blood work in a.m. 2. COPD, not in acute exacerbation, Continue with as needed breathing treatments 3. Hypertension, controlled, will hold candersartan, Will monitor with hydralazine prn 4. DVT PPx- Lovenox SC Charges/Coding Visit Charges Inpatient E&M: 49503 Init Hosp L3
--- NOTE | 2022-06-11 13:25 | NURSING ---
DR OTIS MEJIAS
--- NOTE | 2022-06-11 13:37 | NURSING ---
DR BERG IN ROOM
--- NOTE | 2022-06-11 13:44 | NURSING ---
CALLED [facility] ABOUT BED STATUS. TALKED TO JOCELYNE.
--- NOTE | 2022-06-11 14:46 | NURSING ---
[facility]
[2022-06-12] VITALS (7 sets, daily range): BP systolic 135–152; BP diastolic 65–72; PULSE 82–86; RESP 16–17; TEMP 36.6–37.1; O2SAT 89–98
[2022-06-12] MEDS: 0.9% Normal Saline 1,000 ML 125 ML IV ×3 (01:19→17:01)
[2022-06-12] MEDS: Ondansetron 4 MG/2 ML Vial IV ×2 (05:26→17:06)
[2022-06-12] MEDS: HYDROmorphone 1 MG/ML Syringe IV ×2 (05:27→17:00)
--- NOTE | 2022-06-12 06:03 | PN.SURG_ITS ---
Subjective Subjective The patient notes that 2 canisters of NG tube fluid have been removed. She notes resumption of significant flatus per rectum. She notes generalized improved abdominal discomfort but still complains of mild generalized soreness and point focal soreness right periumbilical mid abdomen at site of incision suspected incarcerated hernia Objective Data Objective Data Vital Signs: Vital Signs Temp Pulse Resp BP Pulse Ox O2 Del Method O2 Flow Rate 97.8 F 82 17 151/71 H 94 Nasal Cannula 2 06/12/22 02:40 06/12/22 02:40 06/12/22 02:40 06/12/22 02:40 06/12/22 02:40 06/12/22 02:45 06/12/22 02:45 Oxygen Flow Rate (L/min) 2 Oxygen Delivery Method Nasal Cannula Weight: 184 lb Body Mass Index (BMI) 33.1 Intake & Output: Intake and Output for Last 24 Hours 06/10/22 06/11/22 06/12/22 23:59 23:59 23:59 Intake Total 2280.83 / 2280.83 989.58 / 989.58 Output Total 900 / 1600 700 / 700 Balance 1380.83 / 680.83 289.58 / 289.58 Lab / Micro Data Result Diagrams: 06/10/22 23:07 06/10/22 23:07 Labs: Laboratory Results - last 24 hr 06/12/22 05:22: WBC Cancelled, Corrected WBC Cancelled, RBC Cancelled, Hgb Cancelled, Hct Cancelled, MCV Cancelled, MCH Cancelled, MCHC Cancelled, RDW Std Deviation Cancelled, RDW Coeff of Chrissy Cancelled, Plt Count Cancelled, MPV Cancelled, Immature Gran % (Auto) Cancelled, Neut % (Auto) Cancelled, Lymph % (Auto) Cancelled, [place] % (Auto) Cancelled, Eos % (Auto) Cancelled, Baso % (Auto) Cancelled, Absolute Neuts (auto) Cancelled, Absolute Lymphs (auto) Cancelled, Total Counted Cancelled, Neutrophils % (Manual) Cancelled, Band Neutrophils % Cancelled, Lymphocytes % (Manual) Cancelled, Monocytes % (Manual) Cancelled, Eosinophils % (Manual) Cancelled, Basophils % (Manual) Cancelled, Metamyelocytes % Cancelled, Myelocytes % Cancelled, Promyelocytes % Cancelled, Blast Cells % Cancelled, Plasma Cell % (Manual) Cancelled, Other Cells % Cancelled, Nucleated RBC % Cancelled, Nucleated RBCs/100 WBC Cancelled, Differential Comment Cancelled, Diff Path Review Cancelled, Hypersegmented Neuts Cancelled, Atypical Lymphocytes Cancelled, Reactive Lymphocytes Cancelled, Smudge Cells Cancelled, Toxic Granulation Cancelled, Toxic Vacuolation Cancelled, Dohle Bodies Cancelled, [place] Rods Cancelled, Platelet Estimate Cancelled, Plt Morphology Comment Cancelled, RBC Morphology Cancelled, Polychromasia Cancelled, Hypochromasia Cancelled, Poikilocytosis Cancelled, Basophilic Stippling Cancelled, Anisocytosis Cancelled, Microcytosis Cancelled, Macrocytosis Cancel led, Spherocytes Cancelled, Sickle Cells Cancelled, Target Cells Cancelled, Tear Drop Cells Cancelled, Ovalocytes Cancelled, Stomatocytes Cancelled, [place] Bodies Cancelled, [place] Cells Cancelled, Bite Cells Cancelled, Crenated Cell Cancelled, Acanthocytes (Spur) Cancelled, Rouleaux Cancelled, Schistocytes Cancelled Micro: Microbiology 06/11/22 04:20 Nasal Secretion SARS-CoV-2 Antigen (Rapid) - Final Physical Exam GI GI Narrative: Abdomen is clearly less distended and clearly less tender. Mild focal point tenderness right periumbilical at suspected site of incarcerated bowel. Bowel sounds are currently present and much more active. Bilious NG tube return noted Assessment & Plan Assessment/Plan (1) Incisional hernia of anterior abdominal wall with obstruction: PLAN: 20-minute consultative appointment with the patient Clearly she is improved. The area of suspected incarcerated small bowel right periumbilical remains tender to palpation. Still awaiting tertiary transfer Fidel Nicole M.D., F.A.C.S.
[2022-06-12 06:51] LABS: Absolute Lymphocyte Count 1.71 X10^3/uL (0.83-4.51); Absolute Neutrophil Count 4.4 X10^3/uL (2.0-7.7); Basophil# 0.05 X10^3/uL; Basophil% 0.7 % (0-1); Eosinophil# 0.12 X10^3/uL; Eosinophils% 1.7 % (0-5); Hematocrit 41.6 % (37-47); Hemoglobin 13.5 g/dL (12.0-15.0); Lymphocyte # 1.71 X10^3/ul (0.83-4.51); Lymphocyte % 23.9 % (19-41); Mean Corp Hgb Conc 32.5 g/dL (32-36); Mean Corpuscular Hgb 29.9 pg (27.0-32.0); Mean Corpuscular Volume 92.2 fL (81-99); Mean Platelet Vol. 10.6 fl (6.2-12.0); Monocyte# 0.81 X10^3/uL; Monocyte% 11.3 % (0-10); NRBC Flagged by Analyzer 0 % (0-5); Neutrophil # 4.44 X10^3/uL (2.7-7.7); Neutrophil % 62.1 % (47-70); Platelet Count 196 K/mm3 (150-450); RBC Distribution Width CV 13.6 % (11.6-14.6); RBC Distribution Width SD 46.9 fl (35.1-43.9); Red Blood Count 4.51 M/mm3 (4.2-5.4); White Blood Count 7.2 K/mm3 (4.4-11.0)
[2022-06-12 07:16] LABS: ALB/GLOB Ratio 0.9 RATIO (0.9-2.4); AST(SGOT) 15 U/L (15-37); Alanine Aminotransfer ALT/SGPT 24 U/L (13-56); Albumin, Serum 2.8 g/dL (3.2-5.0); Alkaline Phosphatase 61 U/L (45-117); Anion Gap 4 (5-15); BUN 12 mg/dL (7-18); BUN/Creat Ratio 21.9 RATIO (10-20); Calcium,Total 7.6 mg/dL (8.5-10.1); Chloride 108 mmol/L (98-107); Creatinine, Serum 0.55 mg/dL (0.55-1.02); EST Glomerular Filtration Rate 117 mL/min (>60); Est Glom Filt Rate - Afr Amer 141 mL/min (>60); Estimated Creatinine Clearance 42.59 ml/min; Globulin 3.1 g/dL (2.2-4.2); Glucose 110 mg/dL (74-106); Potassium 3.8 mmol/L (3.5-5.1); Protein, Total 5.9 g/dL (6.4-8.2); Sodium Level 139 mmol/L (136-145)
[2022-06-12 09:48] LABS: Pathologist Review Reviewed
[2022-06-12] MEDS: Fluticasone 0.05% 1 SPRAY NASAL.SRY 2 SPRAY NASAL (10:28)
[2022-06-12] MEDS: Enoxaparin 40 MG/0.4 ML Syringe SC (10:34)
--- NOTE | 2022-06-12 10:53 | CASEMGMT ---
RN CM assessment deferred as pt is transferring to tertiary facility.
--- NOTE | 2022-06-12 15:21 | PCM.PN.HOSP ---
Subjective Subjective Feeling much better today, she has been passing gas and her NG output has slowed down. Objective Data Objective Data Vital Signs: Vital Signs Temp Pulse Resp BP Pulse Ox O2 Del Method O2 Flow Rate 98.5 F 83 16 135/65 H 89 Room Air 2 06/12/22 14:11 06/12/22 14:11 06/12/22 14:11 06/12/22 14:11 06/12/22 14:11 06/12/22 14:11 06/12/22 09:00 Oxygen Flow Rate (L/min) 2 Oxygen Delivery Method Room Air Weight: 184 lb Body Mass Index (BMI) 33.1 Intake & Output: Intake and Output for Last 24 Hours 06/11/22 06/12/22 06/13/22 03:59 03:59 03:59 Intake Total 3270.41 / 3270.41 1110 / 1110 Output Total 1600 / 1600 400 / 400 Balance 1670.41 / 1670.41 710 / 710 Lab / Micro Data Result Diagrams: 06/12/22 06:40 06/12/22 06:40 Labs: Laboratory Results - last 24 hr 06/10/22 23:07: Diff Path Review Reviewed 06/12/22 05:22: WBC Cancelled, Corrected WBC Cancelled, RBC Cancelled, Hgb Cancelled, Hct Cancelled, MCV Cancelled, MCH Cancelled, MCHC Cancelled, RDW Std Deviation Cancelled, RDW Coeff of Chrissy Cancelled, Plt Count Cancelled, MPV Cancelled, Immature Gran % (Auto) Cancelled, Neut % (Auto) Cancelled, Lymph % (Auto) Cancelled, [place] % (Auto) Cancelled, Eos % (Auto) Cancelled, Baso % (Auto) Cancelled, Absolute Neuts (auto) Cancelled, Absolute Lymphs (auto) Cancelled, Total Counted Cancelled, Neutrophils % (Manual) Cancelled, Band Neutrophils % Cancelled, Lymphocytes % (Manual) Cancelled, Monocytes % (Manual) Cancelled, Eosinophils % (Manual) Cancelled, Basophils % (Manual) Cancelled, Metamyelocytes % Cancelled, Myelocytes % Cancelled, Promyelocytes % Cancelled, Blast Cells % Cancelled, Plasma Cell % (Manual) Cancelled, Other Cells % Cancelled, Nucleated RBC % Cancelled, Nucleated RBCs/100 WBC Cancelled, Differential Comment Cancelled, Diff Path Review Cancelled, Hypersegmented Neuts Cancelled, Atypical Lymphocytes Cancelled, Reactive Lymphocytes Cancelled, Smudge Cells Cancelled, Toxic Granulation Cancelled, Toxic Vacuolation Cancelled, Dohle Bodies Cancelled, Tigre Rods Cancelled, Platelet Estimate Cancelled, Plt Morphology Comment Cancelled, RBC Morphology Cancelled, Polychromasia Cancelled, Hypochromasia Cancelled, Poikilocytosis Cancelled, Basophilic Stippling Cancelled, Anisocytosis Cancelled, Microcytosis Cancelled, Macrocytosis Cancelled, Spherocytes Cancelled, Sickle Cells Cancelled, Target Cells Cancelled, Tear Drop Cells Cancelled, Ovalocytes Cancelled, Stomatocytes Cancelled, [place] Bodies Cancelled, [place] Cells Cancelled, Bite Cells Cancelled, Crenated Cell Cancelled, Acanthocytes (Spur) Cancelled, Rouleaux Cancelled, Schistocytes Cancelled 06/12/22 05:22: Sodium Cancelled, Potassium Cancelled, Chloride Cancelled, Carbon Dioxide Cancelled, Anion Gap Cancelled, BUN Cancelled, Creatinine Cancelled, Estim Creat Clear Calc Cancelled, Est GFR (MDRD) Af Amer Cancelled, Est GFR (MDRD) Non-Af Cancelled, BUN/Creatinine Ratio Cancelled, Glucose Cancelled, Calcium Cancelled, Total Bilirubin Cancelled, AST Cancelled, ALT Cancelled, Alkaline Phosphatase Cancelled, Total Protein Cancelled, Albumin Cancelled, Globulin Cancelled, Albumin/Globulin Ratio Cancelled 06/12/22 06:40: WBC 7.2, RBC 4.51, Hgb 13.5, Hct 41.6, MCV 92.2 D, MCH 29.9, MCHC 32.5 D, RDW Std Deviation 46.9 H, RDW Coeff of Chrissy 13.6, Plt Count 196, MPV 10.6, Immature Gran % (Auto) 0.300, Neut % (Auto) 62.1, Lymph % (Auto) 23.9, [place] % (Auto) 11.3 H, Eos % (Auto) 1.7, Baso % (Auto) 0.7, Absolute Neuts (auto) 4.4, Absolute Lymphs (auto) 1.71, Nucleated RBC % 0 06/12/22 06:40: Sodium 139, Potassium 3.8, Chloride 108 H, Carbon Dioxide 27.0, Anion Gap 4 L, BUN 12, Creatinine 0.55, Estim Creat Clear Calc 42.59, Est GFR (MDRD) Af Amer 141, Est GFR (MDRD) Non-Af 117, BUN/Creatinine Ratio 21.9 H, Glucose 110 H, Calcium 7.6 L, Total Bilirubin 0.30, AST 15, ALT 24, Alkaline Phosphatase 61, Total Protein 5.9 L, Albumin 2.8 L, Globulin 3.1, Albumin/Globulin Ratio 0.9 Micro: Microbiology 06/11/22 04:20 Nasal Secretion SARS-CoV-2 Antigen (Rapid) - Final Physical Exam Narrative General: Alert, Oriented x3, Cooperative, No apparent distress HEENT: Atraumatic, PERRLA, EOMI, Normocephalic Oral: Moist Mucosa, NG tube in place Neck: Supple, No JVD Lungs: Clear to auscultation, Normal air movement, No rhonchi, No wheeze, No rales Cardiovascular: Regular rate, Regular Rhythm, Normal S1, Normal S2, No murmurs Abdomen: Soft, Non Tender, Non-Distended, No Hepato-splenomegaly, fascial defect lateral to midline scar Extremities: No edema, Capillary Refill Less than 3 Seconds Skin: No rashes, No breakdown Musculoskeletal: No Tenderness to Palpation of Joints or Extremities Neurological: Cranial nerves II-XII grossly intact, Motor Exam 5/5 strength throughout, Sensory exam intact to light touch and pain Psych/Mental Status: Normal Affect, Appropriate Assessment & Plan Assessment/Plan (1) Incisional hernia of anterior abdominal wall with obstruction: PLAN: Plan 1. Acute SBO secondary to anterior abdominal wall hernia ? Continue with NG tube to low intermittent wall suction ? Appreciate surgery's backup while awaiting transfer to [facility] ? We will allow her to take her amitriptyline at night as she is not sleeping but otherwise she will be strict n.p.o. ? Continue with PPI 2. COPD, not in acute exacerbation, ?Stable ? Continue with as needed breathing treatments 3. Hypertension ? Will hold candersartan as she is n.p.o. will monitor ?Continue with as needed hydralazine DVT: Lovenox Charges/Coding Visit Charges Inpatient E&M: 43256 Subs Hosp L2
[2022-06-12] MEDS: 0.9% Saline Lock 10 ML Syringe IV (17:00)
[2022-06-12] MEDS: Amitriptyline 100 MG Tablet PO (22:28)
[2022-06-13 04:15] VITALS: BP 158/81; PULSE 84; RESP 16; TEMP 36.8; O2SAT 92
--- NOTE | 2022-06-13 05:35 | PN.SURG_ITS ---
Subjective Subjective Pt passing flatus, much less uncomfortable. Some residual c/o pain but more of a mild diffuse tenderness Objective Data Objective Data Vital Signs: Vital Signs Temp Pulse Resp BP Pulse Ox O2 Del Method O2 Flow Rate 98.7 F 86 17 152/70 H 94 Room Air 2 06/12/22 22:15 06/12/22 22:15 06/12/22 22:15 06/12/22 22:15 06/12/22 22:15 06/12/22 22:15 06/12/22 16:00 Oxygen Flow Rate (L/min) 2 Oxygen Delivery Method Room Air Weight: 184 lb Body Mass Index (BMI) 33.1 Intake & Output: Intake and Output for Last 24 Hours 06/11/22 06/12/22 06/13/22 23:59 23:59 23:59 Intake Total 2280.83 / 2280.83 3624.16 / 3624.16 0 / 0 Output Total 900 / 1600 1300 / 1350 50 / 50 Balance 1380.83 / 680.83 2324.16 / 2274.16 -50 / -50 Lab / Micro Data Result Diagrams: 06/12/22 06:40 06/12/22 06:40 Labs: Laboratory Results - last 24 hr 06/10/22 23:07: Diff Path Review Reviewed 06/12/22 05:22: WBC Cancelled, Corrected WBC Cancelled, RBC Cancelled, Hgb Cancelled, Hct Cancelled, MCV Cancelled, MCH Cancelled, MCHC Cancelled, RDW Std Deviation Cancelled, RDW Coeff of Chrissy Cancelled, Plt Count Cancelled, MPV Cancelled, Immature Gran % (Auto) Cancelled, Neut % (Auto) Cancelled, Lymph % (Auto) Cancelled, [place] % (Auto) Cancelled, Eos % (Auto) Cancelled, Baso % (Auto) Cancelled, Absolute Neuts (auto) Cancelled, Absolute Lymphs (auto) Cancelled, Total Counted Cancelled, Neutrophils % (Manual) Cancelled, Band Neutrophils % Cancelled, Lymphocytes % (Manual) Cancelled, Monocytes % (Manual) Cancelled, Eosinophils % (Manual) Cancelled, Basophils % (Manual) Cancelled, Metamyelocytes % Cancelled, Myelocytes % Cancelled, Promyelocytes % Cancelled, Blast Cells % Cancelled, Plasma Cell % (Manual) Cancelled, Other Cells % Cancelled, Nucleated RBC % Cancelled, Nucleated RBCs/100 WBC Cancelled, Differential Comment Cancelled, Diff Path Review Cancelled, Hypersegmented Neuts Cancelled, Atypical Lymphocytes Cancelled, Reactive Lymphocytes Cancelled, Smudge Cells Cancelled, Toxic Granulation Cancelled, Toxic Vacuolation Cancelled, Dohle Bodies Cancelled, [place]re Rods Cancelled, Platelet Estimate Cancelled, Plt Morphology Comment Cancelled, RBC Morphology Cancelled, Polychromasia Cancelled, Hypochromasia Cancelled, Poikilocytosis Cancelled, Basophilic Stippling Cancelled, Anisocytosis Cancelled, Microcytosis Cancelled, Macrocytosis Cancelled, Spherocytes Cancelled, Sickle Cells Cancelled, Target Cells Cancelled, Tear Drop Cells Cancelled, Ovalocytes Cancelled, Stomatocytes Cancel led, [place] Bodies Cancelled, [place] Cells Cancelled, Bite Cells Cancelled, Crenated Cell Cancelled, Acanthocytes (Spur) Cancelled, Rouleaux Cancelled, Schistocytes Cancelled 06/12/22 05:22: Sodium Cancelled, Potassium Cancelled, Chloride Cancelled, Carbon Dioxide Cancelled, Anion Gap Cancelled, BUN Cancelled, Creatinine Cancelled, Estim Creat Clear Calc Cancelled, Est GFR (MDRD) Af Amer Cancelled, Est GFR (MDRD) Non-Af Cancelled, BUN/Creatinine Ratio Cancelled, Glucose Cancelled, Calcium Cancelled, Total Bilirubin Cancelled, AST Cancelled, ALT Cancelled, Alkaline Phosphatase Cancelled, Total Protein Cancelled, Albumin Cancelled, Globulin Cancelled, Albumin/Globulin Ratio Cancelled 06/12/22 06:40: WBC 7.2, RBC 4.51, Hgb 13.5, Hct 41.6, MCV 92.2 D, MCH 29.9, MCHC 32.5 D, RDW Std Deviation 46.9 H, RDW Coeff of Chrissy 13.6, Plt Count 196, MPV 10.6, Immature Gran % (Auto) 0.300, Neut % (Auto) 62.1, Lymph % (Auto) 23.9, [place] % (Auto) 11.3 H, Eos % (Auto) 1.7, Baso % (Auto) 0.7, Absolute Neuts (auto) 4.4, Absolute Lymphs (auto) 1.71, Nucleated RBC % 0 06/12/22 06:40: Sodium 139, Potassium 3.8, Chloride 108 H, Carbon Dioxide 27.0, Anion Gap 4 L, BUN 12, Creatinine 0.55, Estim Creat Clear Calc 42.59, Est GFR (MDRD) Af Amer 141, Est GFR (MDRD) Non-Af 117, BUN/Creatinine Ratio 21.9 H, Glucose 110 H, Calcium 7.6 L, Total Bilirubin 0.30, AST 15, ALT 24, Alkaline Phosphatase 61, Total Protein 5.9 L, Albumin 2.8 L, Globulin 3.1, Albumin/Globulin Ratio 0.9 Micro: Microbiology 06/11/22 04:20 Nasal Secretion SARS-CoV-2 Antigen (Rapid) - Final Physical Exam GI GI Narrative: soft, low BS, very mild diffuse tenderness, focal hernia site asphalt still operator to deeper palpation Assessment & Plan Assessment/Plan (1) Incisional hernia of anterior abdominal wall with obstruction: PLAN: I recommend removing the NG tube and initiating her on clear liquids. The NG tube output has significantly diminished. She continues to actively pass flatus. We will then plan advancing her diet to full liquids. If she tolerates that well then I would think that she could potentially be discharged later today. Would then recommend a follow-up outpatient appointment/consultation with Dr. Chidi Gonzalez at the [facility] regarding her incisional hernia. Obviously if she fails the clear liquid challenge then maintaining the more ur gent transfer to [facility] would be pertinent I appreciate the opportunity of assisting with her surgical care. I will not be available for rounds tomorrow. I will be back on June 15 if needed Fidel Nicole M.D., F.A.C.S.
[2022-06-13 07:46] LABS: Absolute Lymphocyte Count 1.08 X10^3/uL (0.83-4.51); Absolute Neutrophil Count 6.1 X10^3/uL (2.0-7.7); Basophil# 0.04 X10^3/uL; Basophil% 0.5 % (0-1); Eosinophil# 0.13 X10^3/uL; Eosinophils% 1.6 % (0-5); Hematocrit 38.5 % (37-47); Hemoglobin 12.5 g/dL (12.0-15.0); Lymphocyte # 1.08 X10^3/ul (0.83-4.51); Lymphocyte % 13.2 % (19-41); Mean Corp Hgb Conc 32.5 g/dL (32-36); Mean Corpuscular Hgb 29.3 pg (27.0-32.0); Mean Corpuscular Volume 90.2 fL (81-99); Mean Platelet Vol. 10.9 fl (6.2-12.0); Monocyte# 0.76 X10^3/uL; Monocyte% 9.3 % (0-10); NRBC Flagged by Analyzer 0 % (0-5); Neutrophil # 6.08 X10^3/uL (2.7-7.7); Neutrophil % 74.5 % (47-70); Platelet Count 189 K/mm3 (150-450); RBC Distribution Width CV 13.3 % (11.6-14.6); RBC Distribution Width SD 43.8 fl (35.1-43.9); Red Blood Count 4.27 M/mm3 (4.2-5.4); White Blood Count 8.2 K/mm3 (4.4-11.0)
--- NOTE | 2022-06-13 07:47 | PCA ---
Call placed to [facility] transfer line to check on bed status, still waiting for a bed. .
[2022-06-13] MEDS: Fluticasone 0.05% 1 SPRAY NASAL.SRY 2 SPRAY NASAL (08:01)
[2022-06-13] MEDS: Enoxaparin 40 MG/0.4 ML Syringe SC (08:01)
[2022-06-13 08:09] LABS: Anion Gap 5 (5-15); BUN 7 mg/dL (7-18); Calcium,Total 7.7 mg/dL (8.5-10.1); Chloride 108 mmol/L (98-107); EST Glomerular Filtration Rate 130 mL/min (>60); Est Glom Filt Rate - Afr Amer 157 mL/min (>60); Estimated Creatinine Clearance 42.59 ml/min; Glucose 100 mg/dL (74-106); Potassium 3.6 mmol/L (3.5-5.1); Sodium Level 138 mmol/L (136-145)
[2022-06-13 08:20] VITALS: BP 169/75; PULSE 81; RESP 18; TEMP 36.8; O2SAT 94
[2022-06-13 09:36] VITALS: BP 169/75; PULSE 81; RESP 18; TEMP 36.8; O2SAT 94
[2022-06-13] MEDS: 0.9% Normal Saline 1,000 ML 125 ML IV (12:56)
--- NOTE | 2022-06-13 13:43 | PCM.DC ---
Discharge Instructions Diet Discharge Diet: Light diet - advance as tolerated Activity Discharge Activity: Return to Normal Activity Dressing / Incision Call your doctor if you observe: Fever of 101 or Higher, Shortness of breath, Dizziness, Fainting spells, Swelling in the ankles, Chest pain and Increased palpitations (irregular heartbeat) Follow Up Care Test Results: Test results from this visit will be discussed in further detail at your follow-up appointment, if applicable. Discharge Plan Admission Admit Date/Time: 06/11/22 13:14 Attending Provider: Tejinder Minor Primary Care Provider: Xena Chan Consulting Providers: Fidel Nicole Ama Discharge Orders/Prescriptions Prescriptions: Continued albuterol sulfate 90 mcg/actuation HFA aerosol inhaler 2 puff inhalation Q2H PRN PRN (Reason: Shortness Of Breath) amitriptyline 25 mg tablet 100 mg PO QHS candesartan 4 mg tablet 4 mg PO QHS cyclobenzaprine 10 mg tablet 10 mg PO TID fluticasone propionate 50 mcg/actuation spray,suspension 2 spray intranasal DAILY budesonide-formoterol 160-4.5 mcg/actuation HFA aerosol inhaler 1 puff inhalation BID polyethylene glycol 3350 [Miralax] 17 gram powder in packet 17 g PO DAILY PRN (Reason: Constipation) docusate sodium [Colace] 100 mg capsule 100 mg PO BID PRN (Reason: Constipation) mecobalamin (vitamin B12) 1,000 mcg tablet,chewable 1,000 mcg PO DAILY red yeast rice 600 mg capsule 600 mg PO DAILY Rx Instructions: give with meal/snack acetaminophen 325 mg capsule 1,000 mg PO ONCE PRN (Reason: Pain) herbalife PO icey hot topical calcium carbonate [Tums] 200 mg calcium (500 mg) tablet,chewable 200 mg PO Q2H PRN PRN (Reason: gerd) Linzess 290 mcg Capsule 290 mcg PO DAILY Referrals / Follow Up: Chidi Gonzalez [Other] - Within 3 Months ([facility]) Xena Chan MD [Primary Care Provider] - Within 1 Week Disposition Disposition (needs filled in before D/C Order can be placed): Home, Self Care
[2022-06-13 14:15] VITALS: BP 163/74; PULSE 86; RESP 18; TEMP 36.4; O2SAT 93
--- NOTE | 2022-06-13 14:18 | PCM.DC.SUM ---
Providers Date of Admission: 06/11/22 Primary Care Physician: Dr. Xena Chan MD Consultations 06/11/22 16:06 Consult: General Surgery Routine Consulting Provider: Fidel Nicole Reason for Consult: SBO EMERGENT Consult: No MD Notified: Yes Date Notified: 06/11/22 Time Notified: 16:03 Method of Notification: ED Physician Initiated Reason For Visit: SBO Diagnosis Discharge Diagnosis (1) Incisional hernia of anterior abdominal wall with obstruction: Status: Acute Code(s): K43.0 - Incisional hernia with obstruction, without gangrene Plan 1. Acute SBO secondary to anterior abdominal wall hernia ? Continue with NG tube to low intermittent wall suction ? Appreciate surgery's backup while awaiting transfer to [facility] ? We will allow her to take her amitriptyline at night as she is not sleeping but otherwise she will be strict n.p.o. ? Continue with PPI 2. COPD, not in acute exacerbation, ?Stable ? Continue with as needed breathing treatments 3. Hypertension ? Will hold candersartan as she is n.p.o. will monitor ?Continue with as needed hydralazine DVT: Lovenox Medications at Discharge Home Medications acetaminophen 325 mg capsule 1,000 mg PO ONCE PRN Pain 11/11/20 albuterol sulfate 90 mcg/actuation aerosol inhaler 2 puff inhalation Q2H PRN PRN Shortness Of Breath 11/11/20 amitriptyline 25 mg tablet 100 mg PO QHS sleep 11/11/20 budesonide-formoterol HFA 160 mcg-4.5 mcg/actuation aerosol inhaler 1 puff inhalation BID copd 11/11/20 calcium carbonate 200 mg calcium (500 mg) chewable tablet (Tums) 200 mg PO Q2H PRN PRN gerd 11/11/20 candesartan 4 mg tablet 4 mg PO QHS bp 11/11/20 cyclobenzaprine 10 mg tablet 10 mg PO TID pain 11/11/20 docusate sodium 100 mg capsule (Colace) 100 mg PO BID PRN Constipation 11/11/20 fluticasone propionate 50 mcg/actuation nasal spray,suspension 2 spray intranasal DAILY allergies 11/11/20 herbalife PO meal replacement 11/11/20 icey hot topical 11/11/20 mecobalamin (vitamin B12) 1,000 mcg chewable tablet 1,000 mcg PO DAILY supplement 11/11/20 polyethylene glycol 3350 17 gram oral powder packet (Miralax) 17 g PO DAILY PRN Constipation 11/11/20 red yeast rice 600 mg capsule 600 mg PO DAILY supplment 11/11/20 linaclotide 290 mcg capsule (Linzess) 290 mcg PO DAILY constipation 06/11/22 Hospital Course Operations None Procedures None Summary of Care Provided Minutes Spent on Discharge: 40 Hospital Course: Per HPI: VIVEK ONEILL, is a 66 F who presents with the above.? Patient is being admitted awaiting a bed to [facility] for surgical evaluation.? Patient has past medical history of COPD, hypertension, history of multiple surgeries, initially for colon surgeries, bowel obstructions.? Her surgeries were done in [place].? She moved up to [place] a couple of years ago. She comes in with constipation ongoing for 4 days.? Patient stated that she has been using her Linzess and laxatives with no results.? She had an episode of vomiting and dry heaving.? Denied any fever or chills.? She denies any chest pain or dizziness or palpitations In the ED, her vitals were stable.? WBC count 13.9, hemoglobin 18.1, platelet count 331.? Sodium is 132, potassium 4.2, chloride 97, bicarbonate 30, BUN 20, creatinine 0.82.? LFTs are unremarkable.? UA is unremarkable. CT abdominal pelvis shows small bowel obstruction secondary to midline anterior abdominal wall hernia. Patient was seen by general surgery in the emergency room and recommended to be transferred to tertiary institution.? Patient has been accepted by the [facility] and is awaiting a bed.? Patient has since been n.p.o., has an NG tube, being given pain meds as well as antiemetics.? I explained to her very clearly that the general surgeon recommended that transfer to a tertiary institution.? She knows that in the event of any worsening, she is at risk of worse complication including . I reached out to the [facility] transfer line and was told that there were no beds available today.? Patient is being admitted per agreement between hospital medicine and the emergency room to accept patients pending bed availability and transfer. Hospital Course: 1. Acute SBO secondary to anterior abdominal wall hernia?66-year-old female with a history of small bowel obstructions as well as previous hernia repairs presents to the hospital with another small bowel obstruction. She was pending transfer to [facility] given the high acuity of her abdomen and the fact that she would need probably be more intensive surgical care, she was admitted secondary to a lack of beds and was placed on conservative management with an NG tube and n.p.o. She had significant output from her NG tube, upon insertion by the next day she was having return of bowel function with flatus. On the day of discharge surgery evaluated her and given her soft abdomen and her lack of nausea and continued bowel function, the NG tube was pulled and she was started on a clear liquid diet. She is tolerated the clear liquid diet for breakfast and was advanced to a full liquid diet which she also tolerated. Surgery felt that if she was able to tolerate the full liquid diet for lunch that she would be stable for discharge. I discussed with her the plan for discharge today and she expressed understanding of the risk and benefits of going home and would like to go home today. She will need to see a general surgeon the [facility] system specializes in hernia repairs and his name has been provided to her. I recommend that she follow-up with her PCP in 3 to 5 days. 2. COPD, hypertension all chronic medical conditions which complicate her care. Her home medications were continued where appropriate Physical Exam Narrative General: Alert, Oriented x3, Cooperative, No apparent distress HEENT: Atraumatic, PERRLA, EOMI, Normocephalic Oral: Moist Mucosa, NG tube in place Neck: Supple, No JVD Lungs: Clear to auscultation, Normal air movement, No rhonchi, No wheeze, No rales Cardiovascular: Regular rate, Regular Rhythm, Normal S1, Normal S2, No murmurs Abdomen: Soft, Non Tender, Non-Distended, No Hepato-splenomegaly, fascial defect lateral to midline scar Extremities: No edema, Capillary Refill Less than 3 Seconds Skin: No rashes, No breakdown Musculoskeletal: No Tenderness to Palpation of Joints or Extremities Neurological: Cranial nerves II-XII grossly intact, Motor Exam 5/5 strength throughout, Sensory exam intact to light touch and pain Psych/Mental Status: Normal Affect, Appropriate Weight / BMI Weight Weight: 187 lb 6.287 oz Body Mass Index (BMI) 33.1 ABG / Lab / Microbiology Data Result Diagrams: 06/13/22 07:12 06/13/22 07:12 Laboratory: Laboratory Results - last 24 hr 06/13/22 07:12: WBC 8.2, RBC 4.27, Hgb 12.5, Hct 38.5, MCV 90.2, MCH 29.3, MCHC 32.5, RDW Std Deviation 43.8, RDW Coeff of Chrissy 13.3, Plt Count 189, MPV 10.9, Immature Gran % (Auto) 0.900, Neut % (Auto) 74.5 H, Lymph % (Auto) 13.2 L, Izard % (Auto) 9.3, Eos % (Auto) 1.6, Baso % (Auto) 0.5, Absolute Neuts (auto) 6.1, Absolute Lymphs (auto) 1.08, Nucleated RBC % 0 06/13/22 07:12: Sodium 138, Potassium 3.6, Chloride 108 H, Carbon Dioxide 25.0, Anion Gap 5, BUN 7, Creatinine 0.50 L, Estim Creat Clear Calc 42.59, Est GFR (MDRD) Af Amer 157, Est GFR (MDRD) Non-Af 130, BUN/Creatinine Ratio 14.0, Glucose 100, Calcium 7.7 L Microbiology: Microbiology 06/11/22 04:20 Nasal Secretion SARS-CoV-2 Antigen (Rapid) - Final D/C Instructions Discharge Diet: Light diet - advance as tolerated Call your doctor if you observe: Fever of 101 or Higher, Shortness of breath, Dizziness, Fainting spells, Swelling in the ankles, Chest pain and Increased palpitations (irregular heartbeat) Meaningful Use Info Meaningful Use Diagnoses (Choose all that apply): None applicable Discharge Plan Admission Admit Date/Time: 06/11/22 13:14 Attending Provider: Tejinder Minor Primary Care Provider: Xena Chan Consulting Providers: Fidel Nicole Ama Discharge Orders/Prescriptions Prescriptions: Continued albuterol sulfate 90 mcg/actuation HFA aerosol inhaler 2 puff inhalation Q2H PRN PRN (Reason: Shortness Of Breath) amitriptyline 25 mg tablet 100 mg PO QHS candesartan 4 mg tablet 4 mg PO QHS cyclobenzaprine 10 mg tablet 10 mg PO TID fluticasone propionate 50 mcg/actuation spray,suspension 2 spray intranasal DAILY budesonide-formoterol 160-4.5 mcg/actuation HFA aerosol inhaler 1 puff inhalation BID polyethylene glycol 3350 [Miralax] 17 gram powder in packet 17 g PO DAILY PRN (Reason: Constipation) docusate sodium [Colace] 100 mg capsule 100 mg PO BID PRN (Reason: Constipation) mecobalamin (vitamin B12) 1,000 mcg tablet,chewable 1,000 mcg PO DAILY red yeast rice 600 mg capsule 600 mg PO DAILY Rx Instructions: give with meal/snack acetaminophen 325 mg capsule 1,000 mg PO ONCE PRN (Reason: Pain) herbalife PO icey hot topical calcium carbonate [Tums] 200 mg calcium (500 mg) tablet,chewable 200 mg PO Q2H PRN PRN (Reason: gerd) Linzess 290 mcg Capsule 290 mcg PO DAILY Referrals / Follow Up: Chidi Gonzalez [Other] - Within 3 Months ([facility]) Xena Chan MD [Primary Care Provider] - Within 1 Week Disposition Disposition (needs filled in before D/C Order can be placed): Home, Self Care Charges/Coding Visit Charges Inpatient E&M: 84156 Disch Hosp
== END 2022-06-13 15:00 | disposition home or self-care (01) | DRG 395 ==
LOC: ED 06-11 14:30 → MS3 06-11 14:54
PROVIDERS: Admitting Provider Internal Medicine; Emergency Provider Emergency Medicine; PCP Family Medicine; Visit Provider Family Medicine
DX: K43.0 Incisional hernia with obstruction, without gangrene (principal); E78.5 Hyperlipidemia, unspecified; J44.9 Chronic obstructive pulmonary disease, unspecified; I10 Essential (primary) hypertension; F17.210 Nicotine dependence, cigarettes, uncomplicated; T21.12XA Burn of first degree of abdominal wall, initial encounter; X16.XXXA Contact with hot heating appliances, radiators and pipes, initial encounter; Z20.822 Contact with and (suspected) exposure to COVID-19; Z79.899 Other long term (current) drug therapy; Z90.49 Acquired absence of other specified parts of digestive tract; Z90.710 Acquired absence of both cervix and uterus
CPT/HCPCS: 36415; 74018; 74177; 80048; 80053; 81001; 83605; 83690; 85025; 87811; 96374; 96375; 97802; 99251; 99285; J7030; Q9967; A4216; G0463; J2405

== ENCOUNTER 2022-06-16 00:29 | Emergency (ER) | payer MEDICARE, MEDICAID, SELFPAY ==
[2022-06-16 00:30] VITALS: BP 174/88; PULSE 92; RESP 15; TEMP 36.1; O2SAT 97; BMI 36.1
--- NOTE | 2022-06-16 03:14 | ED.VIS.GI ---
HPI HPI - GI History of Present Illness Chief Complaint: Constipation Informant: patient Abdominal Pain/Flank Pain Onset: Yesterday Context: Gradual Onset Timing: Intermittent Quality: Aching Location: - (Lower abdomen when my colon spasms) Current Severity: Mild Maximum Severity: Mild Worsened by: - (Trying to have BM) Relieved by: Nothing Nausea/Vomiting/Emesis GI Symptom: Negative for Nausea or Vomiting Diarrhea/Melena/Hematochezia GI Symptom: Positive for Hematochezia (Small amount only after patient try to disimpact herself manually and felt like she scratched herself perianally); Negative for Diarrhea or Melena Onset: Today Associated Symptoms Associated Symptoms: Negative for Dysuria, Frequency, Hematuria or Urgency Narrative Narrative: Patient states she has a longstanding history of constipation related to prior abdominal surgeries and adhesions. She states she was recently admitted for a bowel obstruction had an NG tube, discharged 3 days ago or so. She states since then she feels like her bowels are trying to move, she has had several bowel movements but now feels like there is a very large amount of stool in her distal colon that she cannot get out, she is having some bowel spasms but no nausea or vomiting or symptoms like when she had the bowel obstruction. She did not have surgery this past week when she was admitted. She states she feels like she needs to be disimpacted. PFSH PFSH Medical History Acute bronchitis, unspecified Aphthous ulcer ARDS (adult respiratory distress syndrome) Cancer COPD (chronic obstructive pulmonary disease) DVT (deep venous thrombosis) H/O sepsis History of coma History of ectopic HTN (hypertension) Hyperlipidemia Pneumonia Smoker Home Medications acetaminophen 325 mg capsule 1,000 mg PO ONCE PRN Pain 11/11/20 [History Last Taken 06/10/22] albuterol sulfate 90 mcg/actuation aerosol inhaler 2 puff inhalation Q2H PRN PRN Shortness Of Breath 11/11/20 [History Last Taken 06/10/22] amitriptyline 25 mg tablet 100 mg PO QHS sleep 11/11/20 [History Last Taken 06/10/22] budesonide-formoterol HFA 160 mcg-4.5 mcg/actuation aerosol inhaler 1 puff inhalation BID copd 11/11/20 [History Last Taken 06/10/22] calcium carbonate 200 mg calcium (500 mg) chewable tablet (Tums) 200 mg PO Q2H PRN PRN gerd 11/11/20 [History Last Taken Unknown] candesartan 4 mg tablet 4 mg PO QHS bp 11/11/20 [History Last Taken 06/09/22] cyclobenzaprine 10 mg tablet 10 mg PO TID pain 11/11/20 [History Last Taken 06/09/22] docusate sodium 100 mg capsule (Colace) 100 mg PO BID PRN Constipation 11/11/20 [History Last Taken 06/09/22] fluticasone propionate 50 mcg/actuation nasal spray,suspension 2 spray intranasal DAILY allergies 11/11/20 [History Last Taken 06/09/22] herbalife PO meal replacement 11/11/20 [History Last Taken Unknown] icey hot topical 11/11/20 [History Last Taken Unknown] mecobalamin (vitamin B12) 1,000 mcg chewable tablet 1,000 mcg PO DAILY supplement 11/11/20 [History Last Taken 06/09/22] polyethylene glycol 3350 17 gram oral powder packet (Miralax) 17 g PO DAILY PRN Constipation 11/11/20 [History Last Taken Unknown] red yeast rice 600 mg capsule 600 mg PO DAILY supplment 11/11/20 [History Last Taken 06/09/22] linaclotide 290 mcg capsule (Linzess) 290 mcg PO DAILY constipation 06/11/22 [History Last Taken 06/09/22] Allergy/AdvReac Type Severity Reaction Status Date / Time morphine Allergy Swelling, Verified 06/16/22 00:32 Rash, Itching Penicillins Allergy Swelling, Verified 06/16/22 00:32 Rash, Itching All Cycline ATB's Allergy Swelling, Uncoded 06/16/22 00:32 Rash, Itching Family History Mother Hypertension Heart disease Pacemaker Cervical cancer Father Diabetes Aunt Colon cancer Aunt Breast cancer Uncle CHF (congestive heart failure) Surgical History H/O total hysterectomy with removal of both tubes and ovaries H/O tracheostomy H/O: hysterectomy History of cholecystectomy History of colon surgery Social History household members: other details: sister Smoking Status: Current every day smoker tobacco type: cigarettes alcohol intake: never what type of physical activity do you participate in: none do you feel safe at home: Yes ROS ROS ED Constitutional Constitutional ED: Denies chills or fever(s) Eyes Eyes: Denies change in vision or diplopia ENT ENT ED: Denies rhinorrhea or sore throat Cardiovascular Cardiovascular: Denies chest pain or palpitations Respiratory/Chest Respiratory/Chest: Denies cough or dyspnea Gastrointestinal Gastrointestinal: Reports abdominal pain and constipation; Denies diarrhea, nausea or vomiting Genitourinary Genitourinary ED: Denies dysuria or hematuria Musculoskeletal Musculoskeletal: Denies back pain or neck pain Integumentary Denies abscess or rash Neurologic Neurologic: Denies headache(s), paresthesias or weakness Psychiatric Psychiatric: Denies anxiety or suicidal thoughts EXAM Physical Exam Const Vital Signs: 06/16/22 00:30 Temperature 96.9 F L Temperature Source Temporal Pulse Rate 92 Respiratory Rate 15 Blood Pressure 174/88 H Blood Pressure Mean 116 Pulse Ox 97 Oxygen Delivery Method Room Air Positive well nourished, well developed and obese General Appearance ED: well developed and NAD Nutritional Appearance: obese HEENT Reports moist mucous membranes normocephalic and atraumatic Eyes PERRL and EOMs intact bilaterally Neck full ROM and supple Resp normal respiratory effort and clear to auscultation bilaterally Cardio regular rate, regular rhythm and no murmurs GI non-tender and non-distended GI Narrative: On rectal exam, there is no evidence of a perianal injury or fissure or blood or melena. No tenderness. No palpable hard stool in the short distance I am able to insert my finger. Examined with assistant oceanographer. Auscultation: normoactive bowel sounds Palpation: soft Back/Spine no CVA tenderness General Back: other FROM Extremity normal to inspection General Extremety ED: Negative for edema, pulses abnormal or tenderness General Extremity: Negative for edema or pulses abnormal Neuro oriented x3, CN's II-XII intact bilaterally and no sensory deficits noted Sensorium / Orientation: awake and alert Motor Exam: strength 5/5 throughout Skin no rashes or lesions noted and no wounds MDM MDM MDM Narrative Medical decision making narrative: Patient states this is happened many times or in the past. She feels like she just needs to have an enema to clean things out. Rectal exam I was not able to palpate any hard stool. She was initially given half of a bag of soapsuds enema, she passed a small amount of stool but did not have major relief. Tried the rectal exam and it was uneventful no palpable hard stool there, so we repeated the soapsuds enema without significant effect. I reviewed the patient's recent hospital stay, it appears she had a small right abdominal incisional hernia causing small bowel obstruction, surgery recommended transfer to a specialty center [facility] but they did not have any beds available so she was admitted here and observed and treated until a bed became available, which never happened. She began passing clears and having flatus and was discharged, and sounds like she was improving at home until the last day or so. She states she is not having that pain anymore, it was terrible pain that she was having then, and her abdomen is benign now. Since she is not able to pass anything and she does not have obstipation that is palpable in her rectum I began discussing repeating her CT/work-up considering other possible causes such as a bowel obstruction but the patient refuses and states she has had this off and on for 10 years and knows that she just has a large stool ball in her colon that she is having trouble passing. She wants to try another enema, and just prior to this she dug some more stool out of her own rectum and said that she was feeling much better as a result. Therefore I instructed nursing to give her the soapsuds enema and left lateral decubitus and some light Trendelenburg positioning to try to increase its efficacy and hold it in as long she is able, at least 30 minutes if able. Patient did this, she passed more stool, she felt much better, she had no abdominal pain or tenderness, and wants to go home which I think is fine, follow-up advised. Discharge Plan Triage Chief Complaint: Constipation ED Provider: Aba Lam Dx/Rx/DC Orders Clinical Impression: Constipation, Fecal impaction in rectum Instructions: ED Fecal Impaction, Treated Prescriptions: No Action albuterol sulfate 90 mcg/actuation HFA aerosol inhaler 2 puff inhalation Q2H PRN PRN (Reason: Shortness Of Breath) amitriptyline 25 mg tablet 100 mg PO QHS candesartan 4 mg tablet 4 mg PO QHS cyclobenzaprine 10 mg tablet 10 mg PO TID fluticasone propionate 50 mcg/actuation spray,suspension 2 spray intranasal DAILY budesonide-formoterol 160-4.5 mcg/actuation HFA aerosol inhaler 1 puff inhalation BID polyethylene glycol 3350 [Miralax] 17 gram powder in packet 17 g PO DAILY PRN (Reason: Constipation) docusate sodium [Colace] 100 mg capsule 100 mg PO BID PRN (Reason: Constipation) mecobalamin (vitamin B12) 1,000 mcg tablet,chewable 1,000 mcg PO DAILY red yeast rice 600 mg capsule 600 mg PO DAILY Rx Instructions: give with meal/snack acetaminophen 325 mg capsule 1,000 mg PO ONCE PRN (Reason: Pain) herbalife PO icey hot topical calcium carbonate [Tums] 200 mg calcium (500 mg) tablet,chewable 200 mg PO Q2H PRN PRN (Reason: gerd) Linzess 290 mcg Capsule 290 mcg PO DAILY Primary Care Provider: Xena Chan Referrals: Xena Chan MD [Primary Care Provider] - 1-2 Days if not improving Disposition Disposition: Home, Self Care
--- NOTE | 2022-06-16 05:35 | ED.RN ---
Pt retained total of 1800 cc of soap suds enema over multiple attempts. Pt digitally removed small ball of stool herself after last attempt with enema.
[2022-06-16 05:48] VITALS: BP 138/75; PULSE 78; RESP 18; O2SAT 96
== END 2022-06-16 05:49 | disposition home or self-care (01) ==
PROVIDERS: Emergency Provider Emergency Medicine; PCP Family Medicine; Visit Provider Emergency Medicine
DX: K56.41 Fecal impaction (principal); J44.9 Chronic obstructive pulmonary disease, unspecified; I10 Essential (primary) hypertension; K43.2 Incisional hernia without obstruction or gangrene; E78.5 Hyperlipidemia, unspecified; E66.9 Obesity, unspecified; F17.210 Nicotine dependence, cigarettes, uncomplicated
CPT/HCPCS: 99285

== ENCOUNTER → 2022-08-31 | Outpatient (CLI) | payer MEDICARE, MEDICAID, SELFPAY ==
--- NOTE | 2022-08-31 12:47 | CDU_ITS ---
Reason For Study: Carotid stenosis Rt. Velocities/BP Lt. Velocities/BP Prox CCA 80.6/15.4 cm/sec. Prox CCA 87.6/18.8 cm/sec. Mid CCA 85.3/18.2 cm/sec. Mid CCA 75.3/13.9 cm/sec. Dist CCA 78.7/17.3 cm/sec. Dist CCA 75.3/22.5 cm/sec. Prox ICA 69.6/13.5 cm/sec. Prox ICA 65.2/14.6 cm/sec. Mid ICA 64.1/20.1 cm/sec. Mid ICA 76.9/19 cm/sec. Dist ICA 58.6/19 cm/sec. Dist ICA 64.1/20.1 cm/sec. Rt. ICA/CCA = 0.86. Lt. ICA/CCA = 1.02. Prox ECA 93.8/13.5 cm/sec. Prox ECA 128.4/17 cm/sec. Rt. Vert. 55.3/11.3 cm/sec. Lt. Vert. 86.1/20.1 cm/sec. Right Extracranial There is homogeneous, smooth atherosclerotic plaque noted in the right common carotid artery. There is heterogeneous, irregular atherosclerotic plaque noted in the right internal carotid artery. There is intimal thickening but no significant atherosclerotic plaque noted in the right external carotid artery. Antegrade flow is noted in the right vertebral artery. Left Extracranial There is homogeneous, smooth atherosclerotic plaque noted in the left common carotid artery. There is heterogeneous, irregular atherosclerotic plaque noted in the left internal carotid artery. There is heterogeneous, irregular atherosclerotic plaque noted in the left external carotid artery. Antegrade flow is noted in the left vertebral artery. Procedure Carotid Duplex 02138. This is a Carotid Duplex examination using B-mode, color flow and specral Doppler. This is a venous duplex using B-mode, color flow and spectral Doppler. VL/Carotid Duplex Ultrasound Interpretation Summary Heterogenous irregular plaque at the proximal right internal carotid artery wit h less than 50% stenosis Less than 50% stenosis right external carotid artery Irregular plaque at the proximal left internal carotid artery with less than 50 % stenosis Less than 50% stenosis left external carotid artery Patent and antegrade vertebral arteries bilaterally Ordering Physician: Lawrence Chan Referring Physician: Xena Chan Performed By: Maegan Deal RVT
== END | disposition home or self-care (01) ==
PROVIDERS: PCP Family Medicine; Referring Provider Ophthalmology; Visit Provider Ophthalmology
DX: I65.23 Occlusion and stenosis of bilateral carotid arteries (principal); H53.10 Unspecified subjective visual disturbances
CPT/HCPCS: 93880

== ENCOUNTER → 2022-09-10 | Outpatient (CLI) | payer MEDICARE, MEDICAID, SELFPAY ==
--- NOTE | 2022-09-10 15:32 | MRI_ITS ---
EXAM: MR HEAD WITHOUT AND WITH INTRAVENOUS CONTRAST CLINICAL INDICATION: VISUAL DISTURBANCES TECHNIQUE: Multiplanar and multisequence MR images of the brain were obtained without and with intravenous contrast. This report was created using [employer] report generation technology. CONTRAST: 15ML IV CLARISCAN COMPARISON: None. FINDINGS: BRAIN AND EXTRA-AXIAL SPACES: Periventricular small vessel ischemic change. No midline shift or hydrocephalus. Diffuse parenchymal atrophy. Posterior fossa structures are unremarkable. Basal cisterns are patent. No acute intracranial hemorrhage, mass effect or edema. No evidence of acute cortical stroke. SELLA: Unremarkable. Normal sella turcica, pituitary gland, infundibular stalk, optic chiasm and hypothalamus. AUDITORY SYSTEM: Unremarkable. The internal auditory canals are patent. BONES/JOINTS: Unremarkable. No discrete lytic or blastic abnormalities. SINUSES: Unremarkable as visualized. Clear. MASTOID AIR CELLS: Visualized sinuses and mastoid air cells are clear. ORBITS: Unremarkable as visualized. Both globes, extraocular muscles, optic nerves and retrobulbar fat appear unremarkable. VASCULATURE: Unremarkable as visualized. Normal flow voids in the major intracranial circulation. MRI/Brain W/WO Contrast IMPRESSION: 1. No evidence of acute intracranial pathology. 2. Diffuse involutional changes and chronic ischemic small vessel white matter disease. Electronically Signed: Omari Lal MD at 22:39 EST ,
== END | disposition home or self-care (01) ==
LOC: MRI 15:17
PROVIDERS: PCP Family Medicine; Visit Provider Ophthalmology
DX: H53.9 Unspecified visual disturbance (principal); R51.9 Headache, unspecified
CPT/HCPCS: 70553; A9575

== ENCOUNTER 2024-12-18 05:45 | Emergency (ER) | payer MEDICARE, MEDICAID, SELFPAY ==
[2024-12-18 05:47] VITALS: BP 151/74; PULSE 82; RESP 22; TEMP 36.7; O2SAT 94; O2SAT 96; BMI 33.3
--- NOTE | 2024-12-18 06:16 | CT_ITS ---
PROCEDURE: ABDOMEN/PELVIS W IV CONT ONLY 12/18/2024 REASON FOR EXAM: ABD PAIN ?? SBO VS OTHER TECHNIQUE: ABDOMEN/PELVIS W IV CONT ONLY. Coronal and Sagittal reconstruction series were provided. ORAL CONTRAST TYPE: None. AMOUNT: mL CONTRAST: Isovue-350 VOLUME: 100 mL One or more dose reduction techniques were used (e.g., Automated exposure control, adjustment of the mA and/or kV according to patient size, use of iterative reconstruction technique. RADIATION DOSE SUMMARY: CTDlvol: 22.7 mGy DLP: 1144 mGycm COMPARISON: 06/11/2022. FINDINGS: Prior cholecystectomy. Moderate recurrent partial small bowel obstruction. Transition zone in the right lower quadrant without evidence of bowel perforation or pneumatosis intestinalis. Moderate amount of fecal residue in the large bowels. Calcified atheromatous plaques of the aorta and iliac arteries. Scattered right renal simple cysts are noted with the largest measuring 1.2 cm. Benign chronic finding. No follow-up is needed. Left lateral anterior abdominal wall hernia containing nonincarcerated segment of the descending colon on the current exam. Infraumbilical anterior abdominal wall hernia containing nonincarcerated small bowel loop. Surgical changes of the anterior abdominal wall. Prior cholecystectomy. Surgical changes of the distal colon, unchanged. Diffuse spondylosis. Mild emphysema. Normal liver. Normal spleen. Normal pancreas. Normal bilateral adrenal glands. Normal size of the right kidney. There is no right renal mass. There are no right renal calculi. There is no right hydronephrosis. Normal visualized right ureter. Normal size of the left kidney. There is no left renal mass. There are no left renal calculi. There is no left hydronephrosis. Normal visualized left ureter. There is no demonstrated peritoneal fluid. Normal inferior vena cava. Normal retroperitoneum. Normal urinary bladder. There is no pelvic mass lesion or lymphadenopathy. There is no pelvic fluid. CT/Abdomen/Pelvis W IV Cont ONLY IMPRESSION: Prior cholecystectomy. Moderate recurrent partial small bowel obstruction. Transition zone in the right lower quadrant without evidence of bowel perforati on or pneumatosis intestinalis. Moderate amount of fecal residue in the large bowels. Calcified atheromatous plaques of the aorta and iliac arteries. Scattered right renal simple cysts are noted with the largest measuring 1.2 cm. Benign chronic finding. No follow-up is needed. Left lateral anterior abdominal wall hernia containing nonincarcerated segment of the descending colon on the current exam. Infraumbilical anterior abdominal wall hernia containing nonincarcerated small bowel loop. Surgical changes of the anterior abdominal wall. Prior cholecystectomy. Surgical changes of the distal colon, unchanged. Diffuse spondylosis. Reading Location: [place] [id number]
--- NOTE | 2024-12-18 06:18 | CT_ITS ---
PROCEDURE: BRAIN/HEAD WITHOUT CONTRAST 12/18/2024 REASON FOR EXAM: FALL WITH POSTERIOR HEAD TRAUMA. SCALP HEMATOMA. TECHNIQUE: BRAIN/HEAD WITHOUT CONTRAST Coronal and Sagittal reconstruction series were provided. One or more dose reduction techniques were used (e.g., Automated exposure control, adjustment of the mA and/or kV according to patient size, use of iterative reconstruction technique. RADIATION DOSE SUMMARY: CTDlvol: 8.3 MGy DLP: 812.98 mGycm COMPARISON: MRI of the head on 09/10/2022. FINDINGS: Mild right parietal acute subgaleal soft tissue hematoma. Mild diffuse cortical atrophy, commensurate with the patient's age. Scattered hypodense foci in the periventricular and subcortical white matter suggestive of chronic ischemic white matter disease. Normal size of the ventricles and extra-axial spaces for the patient's age. Normal basal ganglia and thalami. Normal brainstem. Normal cerebellum. There is no demonstrated extra-axial, intraparenchymal, or intraventricular hemorrhage. There are no findings of an acute ischemic infarction. Normal calvarium. There is no demonstrated fracture. Normal soft tissue structures. Normal visualized paranasal sinuses. CT/Brain/Head without Contrast IMPRESSION: Mild right parietal acute subgaleal soft tissue hematoma. No CT evidence of an acute traumatic brain abnormality. Reading Location: [id number]
--- NOTE | 2024-12-18 06:19 | EDS_ITS ---
HPI HPI - GI History of Present Illness Chief Complaint: Fall Detail of Chief Complaint: Abdominal pain and fall. Informant: patient Abdominal Pain/Flank Pain Onset: Today Context: Gradual Onset Timing: Continuous Quality: Aching Location: Diffuse Current Severity: Moderate Maximum Severity: Moderate Worsened by: Nothing Relieved by: Nothing Nausea/Vomiting/Emesis GI Symptom: Positive for Nausea Onset: Today Severity: Mild Diarrhea/Melena/Hematochezia GI Symptom: Positive for - (Chronic constipation history. Last bowel movement yesterday.); Negative for Diarrhea, Melena or Hematochezia Associated Symptoms Associated Symptoms: Negative for Dysuria, Frequency, Hematuria or Urgency Narrative Narrative: 69-year-old female history of COPD chronic constipation prior bowel o bstructions. Prior cholecystectomy and hysterectomy. States she still has her appendix. She has been constipated. She took 3 suppositories at home without relief. She states 11 PM last night pain got a lot worse. Pain is diffuse. Aching. Also epigastric. Denies any dysuria. Her last significant bowel movement was yesterday. She denies any fever. She has had 8 prior abdominal surgeries she states. Prior similar symptoms: No Recent Illness/Hospitalization: No PFSH PFS Medical History Cancer DVT (deep venous thrombosis) Smoker Incisional hernia of anterior abdominal wall with obstruction Aphthous ulcer Acute bronchitis, unspecified ARDS (adult respiratory distress syndrome) Pneumonia COPD (chronic obstructive pulmonary disease) Hyperlipidemia HTN (hypertension) History of coma H/O sepsis History of ectopic Home Medications ?Medication ?Instructions ?Recorded ?Last Taken ?Type acetaminophen 325 mg capsule 1,000 mg PO ONCE PRN Pain 11/11/20 06/10/22 History albuterol sulfate 90 mcg/actuation 2 puff inhalation Q 2H PRN PRN 11/11/20 06/10/22 History aerosol inhaler Shortness Of Breath amitriptyline 25 mg tablet 100 mg PO QHS sleep 1 06/10/22 History budesonide-formoterol HFA 160 1 puff inhalation BID co pd 11/11/20 06/10/22 History mcg-4.5 mcg/actuation aerosol inhaler calcium carbonate (Tums) 200 mg PO Q2H PRN PRN gerd 0 11/11/20 Unknown History candesartan 4 mg tablet 4 mg PO QHS bp 11/11/20 12/0 12/24 History cyclobenzaprine 10 mg tablet 10 mg PO TID pain 1 06/09/22 History docusate sodium 100 mg capsule 100 mg PO BID PRN Const ipation 11/11/20 06/09/22 History (Colace) fluticasone propionate 50 2 spray intranasal DAILY all ergies 11/11/20 06/09/22 History mcg/actuation nasal spray,suspension herbalife PO meal replacement 11/11/20 Unknown History icey hot topical 11/11/20 Unknown His tory mecobalamin (vitamin B12) 1,000 1,000 mcg PO DAILY sup plement 11/11/20 06/09/22 History mcg chewable tablet polyethylene glycol 3350 17 gram 17 g PO DAILY PRN Con stipation 11/11/20 Unknown History oral powder packet (Miralax) red yeast rice 600 mg capsule 600 mg PO DAILY supplmen t 11/11/20 06/09/22 History linaclotide 290 mcg capsule 290 mcg PO DAILY constipat ion 06/11/22 06/09/22 History (Linzess) Allergy/AdvReac Type Severity Reaction Status Date / Time morphine Allergy Swelling, Verified 12/18/24 05:46 Rash, Itching Penicillins Allergy Swelling, Verified 12/18/24 05:46 Rash, Itching Family History Mother Hypertension Heart disease Pacemaker Cervical cancer Father Diabetes Aunt Colon cancer Aunt Breast cancer Uncle CHF (congestive heart failure) Surgical History H/O tracheostomy History of colon surgery H/O: hysterectomy H/O total hysterectomy with removal of both tubes and ovaries History of cholecystectomy Social History household members: other details: sister Smoking Status: Current every day smoker tobacco type: cigarettes alcohol intake: never what type of physical activity do you participate in: none do you feel safe at home: Yes ROS ROS ED ROS Narrative Abdominal pain. Nausea. Fall with head injury. Brief LOC. Constitutional Constitutional ED: Denies chills or fever(s) ENT ENT ED: Denies ear pain Cardiovascular Cardiovascular: Denies chest pain Respiratory/Chest Respiratory/Chest: Denies cough or dyspnea Gastrointestinal Gastrointestinal: Reports abdominal pain, constipation and nausea; Denies diarrhea, melena or vomiting Genitourinary Genitourinary ED: Denies dysuria, hematuria or urinary frequency Musculoskeletal Musculoskeletal: Denies arthralgias or back pain Integumentary Denies abscess Neurologic Neurologic: Denies paresthesias Psychiatric Psychiatric: Denies anxiety or depression Endocrine Endocrinology: Denies polydipsia Hematologic/Lymphatic Hematologic/Lymphatic: Denies easy bleeding or easy bruising Allergic/Immunologic Allergic/Immunologic ED: Denies mouth swelling, tongue swelling or urticaria EXAM Physical Exam Narrative Exam Narrative: 69-year-old female vital signs are stable afebrile. Pulse ox 94% on room air no hypoxia. H EENT exam pupils round react to light. Moist mucous membranes. No trauma to her face. Posterior scalp has a 2 inch hematoma. No laceration. No blood. C-spine and neck nontender. Back and spine nontender. Lungs clear to auscultation bilaterally. Heart regular rhythm rate about 80 no murmur. Chest wall ribs nontender. Abdomen soft diffusely tender. Mildly distended. Positive bowel sounds. No mass. No pulsatile mass. Moving all 4 extremities. Nontender no deformity. Normal community engagement manager strength. Normal dorsi plantarflexion. Neurologically she is awake alert. Answer questions following commands. GCS of 15. Const Vital Signs: 12/18/24 05:47 12/18/24 05:47 Temperature 98.1 F Temperature Source Oral Pulse Rate 82 Respiratory Rate 22 H Respiratory Effort Normal Respiratory Depth Normal Respiratory Pattern Normal Blood Pressure 151/74 H Blood Pressure Mean 99 Pulse Ox 94 96 Oxygen Delivery Method Room Air Positive well nourished and well developed; Negative for cachectic, contractures or unkempt General Appearance ED: well developed and NAD; Negative for unkempt, cachectic or contractures Nutritional Appearance: Negative for cachectic HEENT Reports moist mucous membranes HEENT Narrative: Posterior scalp 2 inch diameter hematoma no laceration. Tender. normocephalic, trauma and tenderness Eyes PERRL and EOMs intact bilaterally General Eye ED: Negative for pale conjunctiva or scleral icterus Neck no lymphadenopathy, supple and no JVD General: Negative for tenderness Carotids: Negative for other Resp normal respiratory effort and clear to auscultation bilaterally Effort and Inspection: Negative for respiratory distress Auscultation: Negative for rales, rhonchi or wheezes Cardio regular rate, regular rhythm, S1 normal heart sound, S2 normal heart sound and no murmurs Rate: Negative for bradycardia or tachycardic Rhythm: Negative for abnormal rhythm GI no masses; Negative for non-tender or non-distended GI Narrative: Mildly distended tender abdomen. Diffusely tender. Bowel sounds present. No pulsatile mass. No right upper or right lower quadrant specific tenderness. Inspection: abdominal distention Auscultation: hypoactive bowel sounds Palpation: soft and tender; Negative for guarding, rigid, hepatomegaly, splenomegaly, hernia, mass, pulsatile mass or rebound tenderness present Back/Spine no CVA tenderness General Back: Negative for CVA tenderness Cervical Spine: Negative for cervical spine tenderness Thoracic Spine / Upper Back: Negative for thoracic spinal tenderness Lumbar Spine / Lower Back: Negative for lumbar spinal tenderness Extremity full ROM General Extremety ED: Negative for edema or tenderness General Extremity: Negative for edema Neuro CN's II-XII intact bilaterally and moves all extremities Sensorium / Orientation: alert, oriented to person, oriented to place and hiren ented to time; Negative for orientation impaired, confused or lethargic Motor Exam: strength 5/5 throughout Psych mental status grossly normal and thought process normal Appearance: Negative for unkempt Attitude: No agitated Mood & Affect: Negative for depressed, anxious or tearful Skin no wounds General Skin Exam: Negative for jaundice Lesions: no lesions Rashes: no rashes MDM MDM MDM Narrative Medical decision making narrative: 69-year-old female tripped and fell going in the bathroom hit the back of her head with a hematoma. Brief LOC. Obtain a CAT scan of her brain. Primary reason she is here though is that she has had abdominal pain since 11 PM last night. She has a history of bowel obstructions and multiple abdominal surgeries. CAT scan and labs will be obtained for that. She will be given Dilaudid for pain and Zofran for nausea. Repeat exam patient is doing better at 7:30 AM. She did have a small amount of emesis. We are awaiting her CAT scan interpretations. I did review them. She also requested she had outpatient labs ordered which we have already done a CBC and a CMP. She was open we could do the lipid profile and a TSH which I added to her labs but are not specific to today's workup. This can be followed up as an outpatient by her primary care physician. Awaiting CT abdomen results. Patient be turned over to the a.m. physician. He will check the official CAT scan read from the radiologist to make final disposition. History & Record Review Discussion w/independent historian: Patient Additional record(s) reviewed:: Prior inpatient record, Prior outpatient record, Prior ED visit and Prior labs Lab Data Attestation: I reviewed the patient's lab results. Lab results narrative: CBC shows an elevated white count of 15.8. H&H of 17 and 51. Platelets 276. Chemistry shows sodium 134. Gap 15. Normal BUN and creatinine of 18 and 0.7. Glucose 123. Liver enzymes are normal. Amylase 60. Lipase normal at 19. CT brain shows soft tissue hematoma posterior scalp. No acute bleed. Reviewed by me and read by the radiologist. Labs: Laboratory Results - last 24 hr 12/18/24 06:38 WBC 15.8 H RBC 5.91 H Hgb 17.8 H Hct 51.7 H MCV 87.5 MCH 30.1 MCHC 34.4 RDW Std Deviation 42.9 RDW Coeff of Chrissy 13.4 Plt Count 276 MPV 10.7 Immature Gran % (Auto) 0.600 Neut % (Auto) 84.4 H Lymph % (Auto) 8.0 L [place] % (Auto) 5.9 Eos % (Auto) 0.3 Baso % (Auto) 0.8 Absolute Neuts (auto) 13.4 H Absolute Lymphs (auto) 1.26 Nucleated RBC % 0 Sodium 134 Potassium 4.5 Chloride 97 L Carbon Dioxide 22.1 Anion Gap 15 BUN 18 Creatinine 0.76 Estim Creat Clear Calc 64.25 Est GFR (MDRD) Non-Af 84 BUN/Creatinine Ratio 23.6 H Glucose 123 H Lactic Acid 1.7 Calcium 10.0 Total Bilirubin 0.26 AST 21 ALT 20 Alkaline Phosphatase 85 Total Protein 7.8 Albumin 4.4 Globulin 3.4 Albumin/Globulin Ratio 1.3 Amylase 60 Lipase 19 Radiography Diagnostic Testing: Clinical Impression(s) from Imaging Studies Abdomen/Pelvis CT 12/18/24 06:16 IMPRESSION: Prior cholecystectomy. Moderate recurrent partial small bowel obstruction. Transition zone in the right lower quadrant without evidence of bowel perforation or pneumatosis intestinalis. Moderate amount of fecal residue in the large bowels. Calcified atheromatous plaques of the aorta and iliac arteries. Scattered right renal simple cysts are noted with the largest measuring 1.2 cm. Benign chronic finding. No follow-up is needed. Left lateral anterior abdominal wall hernia containing nonincarcerated segment of the descending colon on the current exam. Infraumbilical anterior abdominal wall hernia containing nonincarcerated small bowel loop. Surgical changes of the anterior abdominal wall. Prior cholecystectomy. Surgical changes of the distal colon, unchanged. Diffuse spondylosis. Reading Location: [id number] Brain CT 12/18/24 06:18 IMPRESSION: Mild right parietal acute subgaleal soft tissue hematoma. No CT evidence of an acute traumatic brain abnormality. Reading Location: [id number] Discharge Plan Dx/Rx/DC Orders Clinical Impression: Fall, Abdominal pain, Acute head trauma, Contusion of scalp, Leukocytosis Disposition Disposition: Acute Care Hospital [facility]
--- OUTSIDE RECORDS SUMMARY | 2024-12-18 06:24 | XMS RPT_ITS | CCD ---
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 Comment: Speci men Type: BLOOD SPECIMENOrdering Facility: [facility] Address: [address] Performed By: #### 2 777-1, , ####[facility] [id number] [place] [address] [place] ESTIMATED GLOMERULAR FILTRATION RATE 95 mL/min/1.73m??? Normal >=60 [facility] Comment on above: Order Comment: Speci men Type: BLOOD SPECIMENOrdering Facility: [facility] Address: [address] [address] Result Comment: Annmarie mated Glomerular Filtration Rate (eGFR) is calculated using the 2020 CKD-EPI creatinine equation. This equation utilizes serum creatinine, sex, and age as parameters. The creatinine assay has traceable calibration to isotope dilution-mass spectrometry. Refer to KDIGO guidelines for clinical interpretation. In patients with unstable renal function, e.g. those with acute kidney injury, the eGFR may not accurately reflect actual GFR. Performed By: #### 2 777-1, , ####[facility] LABIA [id number] [place] [address] [place] Glucose [Mass/Vol] 133 mg/dL High 74-99 [facility] Comment on above: Order Comment: Speci men Type: BLOOD SPECIMENOrdering Facility: [facility] Address: [address] Result Comment: The [place] [employer] (ADA) provides guidance for cutoff values for fasting glucose and random glucose. The ADA defines fasting as no caloric intake for at least 8 hours. Fasting plasma glucose results between 100 to 125 mg/dL indicate increased risk for diabetes (prediabetes). Fasting plasma glucose results greater than or equal to 126 mg/dL meet the criteria for diagnosis of diabetes. In the absence of unequivocal hyperglycemia, results should be confirmed by repeat testing. In a patient with classic symptoms of hyperglycemia or hyperglycemic crisis, random plasma glucose results greater than or equal to 200 mg/dL meet the criteria for diagnosis of diabetes. Reference: Standards of Medical Care in Diabetes 2016, [place] [employer]. Diabetes Care. 2016.39(Suppl 1). Performed By: #### 2 777-1, , ####[facility] LABIA [id number] [place] [address] [place] Potassium [Moles/Vol] 3.6 mmol/L Low 3.7-5.1 [facility] Comment on above: Order Comment: Speci men Type: BLOOD SPECIMENOrdering Facility: [facility] Address: [address] [place] [address] Performed By: #### 2 777-1, , ####[facility] LABIA [id number] [place] [address] [place] Protein [Mass/Vol] 5.9 g/dL Low 6.3-8.0 [facility] Comment on above: Order Comment: Speci men Type: BLOOD SPECIMENOrdering Facility: [facility] Address: [address] [phone] Performed By: #### 2 777-1, , ####[facility] LABIA [id number] [place] [address] [place] Sodium [Moles/Vol] 137 mmol/L Normal 136-144 [facility] Comment on above: Order Comment: Speci men Type: BLOOD SPECIMENOrdering Facility: [facility] Address: [address] [place] Performed By: #### 2 777-1, , ####[facility] LABCLIA [id number] [place] [address] [place] Urea nitrogen [Mass/Vol] 10 mg/dL Normal 7-21 [facility] Comment on above: Order Comment: Speci men Type: BLOOD SPECIMENOrdering Facility: [facility] Address: [address] [place] [address] Performed By: #### 2 777-1, , ####[facility] LABIA [id number] [place] [id number] [place] Magnesium SerPl-ncon 11-06 Magnesium [Mass/Vol] 2.1 mg/dL Normal 1.7-2.3 [facility] Comment on above: Order Comment: Speci men Type: BLOOD SPECIMENOrdering Facility: [facility] Address: [address] [place] [address] Performed By: #### 2 777-1, , ####[facility] LABIA [id number] [address] [place] Phosphate SerPl-mCncon 11-06 Phosphate [Mass/Vol] 2.0 mg/dL Low 2.7-4.8 [facility] Comment on above: Order Comment: Speci men Type: BLOOD SPECIMENOrdering Facility: [facility] Address: [address] [place], [place] [address] Performed By: #### 2 777-1, , ####[facility] LABIA [id number] [place] [address] [place] CBC panel Auto (Bld)on 11-05 Erythrocyte distribution width (RBC) [Ratio] 12.8 % Normal 11.5-15.0 [facility] Comment on above: Order Comment: Speci men Type: BLOOD SPECIMENOrdering Facility: [facility] Address: [address] Performed By: #### 5 8410-2 ####[facility] LABCLIA [id number] [address] OF [facility] Hematocrit (Bld) [Volume fraction] 40.2 % Normal 36.0-46.0 [facility] Comment on above: Order Comment: Speci men Type: BLOOD SPECIMENOrdering Facility: [facility] Address: [address] [address] Performed By: #### 5 8410-2 ####[facility] LABIA [id number] [address] [place] Hemoglobin (Bld) [Mass/Vol] 13.5 g/dL Normal 11.5-15.5 [facility] Comment on above: Order Comment: Speci men Type: BLOOD SPECIMENOrdering Facility: [facility] Address: [address] [place] [address] Performed By: #### 5 8410-2 ####[facility] LABIA [id number] [address] [place] MCH (RBC) [Entitic mass] 29.5 pg Normal 26.0-34.0 [facility] Comment on above: Order Comment: Speci men Type: BLOOD SPECIMENOrdering Facility: [facility] Address: [address] Performed By: #### 5 8410-2 ####[facility] LABCLIA [id number] [place] [address] [place] MCHC (RBC) [Mass/Vol] 33.6 g/dL Normal 30.5-36.0 [facility] Comment on above: Order Comment: Speci men Type: BLOOD SPECIMENOrdering Facility: [facility] Address: [address] [place], [place] [address] Performed By: #### 5 8410-2 ####[facility] LABCLIA [id number] [place] [address] [place] MCV (RBC) [Entitic vol] 88.0 fL Normal 80.0-100.0 [facility] Comment on above: Order Comment: Speci men Type: BLOOD SPECIMENOrdering Facility: [facility] Address: [address] [place] [address] Performed By: #### 5 8410-2 ####[facility] LABIA [id number] [address] [place] Nucleated RBC (Bld) [#/Vol] 10*3/uL Normal <0.01 [facility] Comment on above: Order Comment: Speci men Type: BLOOD SPECIMENOrdering Facility: [facility] Address: [address] [place] [address] Performed By: #### 5 8410-2 ####[facility] [id number] [address] OF [facility] Platelet mean volume (Bld) [Entitic vol] 10.8 fL Normal 9.0-12.7 [facility] Comment on above: Order Comment: Speci men Type: BLOOD SPECIMENOrdering Facility: [facility] Address: [address] [place], [place] [address] Performed By: #### 5 8410-2 ####[facility] [id number] [address] [place] Platelets (Bld) [#/Vol] 187 10*3/uL Normal 150-400 [facility] Comment on above: Order Comment: Speci men Type: BLOOD SPECIMENOrdering Facility: [facility] Address: [address] [place], [place] [address] Performed By: #### 5 8410-2 ####[facility] LABW[facility] [id number] [place] [address] [place] RBC (Bld) [#/Vol] 4.57 10*6/uL Normal 3.90-5.20 [facility] Comment on above: Order Comment: Speci men Type: BLOOD SPECIMENOrdering Facility: [facility] Address: [address] [place], [place] [address] Performed By: #### 5 8410-2 ####[facility] LABCLIA [id number] [place] [address] [place] [facility] WBC (Bld) [#/Vol] 7.42 10*3/uL Normal 3.70-11.00 [facility] Comment on above: Order Comment: Speci men Type: BLOOD SPECIMENOrdering Facility: [facility] Address: [address] [place] [address] Performed By: #### 5 8410-2 ####[facility] LABCLIA [id number] [place] [address] [place] [facility] Comprehensive metabolic 2000 panelon 11-05-2022 Albumin [Mass/Vol] 3.5 g/dL Low 3.9-4.9 [facility] Comment on above: Order Comment: Speci men Type: BLOOD SPECIMENOrdering Facility: [facility] Address: [address] [place], [place] [address] Performed By: #### 2 4323-8, , 2776- ####[facility] LABCLIA [id number] [place] [address] [place] ALP [Catalytic activity/Vol] 75 U/L Normal 34-123 [facility] Comment on above: Order Comment: Speci men Type: BLOOD SPECIMENOrdering Facility: [facility] Address: [address] [place], [place] [address] Performed By: #### 2 4323-8, , 2776- ####[facility] LABCLIA [id number] [place] [address] [place] ALT [Catalytic activity/Vol] 48 U/L High 7-38 [facility] Comment on above: Order Comment: Speci men Type: BLOOD SPECIMENOrdering Facility: [facility] Address: [address] [address] Result Comment: Resu lts may be falsely increased due to interference from hemolysis. Suggest reorder as clinically indicated. Performed By: #### 2 4323-8, , 2776- ####[facility] LABCLIA [id number] [place] [address] [place] Anion gap [Moles/Vol] 12 mmol/L Normal 9-18 [facility] Comment on above: Order Comment: Speci men Type: BLOOD SPECIMENOrdering Facility: [facility] Address: [address] [place] [address] Performed By: #### 2 4323-8, , 2776-07 ####[facility] LABCLIA [id number] [place] [address] [place] AST [Catalytic activity/Vol] 44 U/L High 13-35 [facility] Comment on above: Order Comment: Speci men Type: BLOOD SPECIMENOrdering Facility: [facility] Address: [address] [address] Result Comment: Resu lts may be falsely increased due to interference from hemolysis. Suggest reorder as clinically indicated. Performed By: #### 2 4323-8, , 2776-07 ####[facility] LABCLIA [id number] [place] [address] [place] Bilirubin [Mass/Vol] 0.4 mg/dL Normal 0.2-1.3 [facility] Comment on above: Order Comment: Speci men Type: BLOOD SPECIMENOrdering Facility: [facility] Address: [address] [place] [address] Performed By: #### 2 4323-8, , 2776-07 ####[facility] LABCLIA [id number] [place] [address] [place] Calcium [Mass/Vol] 8.8 mg/dL Normal 8.5-10.2 [facility] Comment on above: Order Comment: Speci men Type: BLOOD SPECIMENOrdering Facility: [facility] Address: [address] [place] [address] Performed By: #### 2 4323-8, , 2776-07 ####[facility] LABCLIA [id number] [place] [address] [place] Chloride [Moles/Vol] 99 mmol/L Normal 97-105 [facility] Comment on above: Order Comment: Speci men Type: BLOOD SPECIMENOrdering Facility: [facility] Address: [address] [place] [address] Performed By: #### 2 432-8, , 2776-07 ####[facility] LABCLIA [id number] [place] [address] [place] CO2 [Moles/Vol] 27 mmol/L Normal 22-30 [facility] Comment on above: Order Comment: Speci men Type: BLOOD SPECIMENOrdering Facility: [facility] Address: [address] [place] [address] Performed By: #### 2 4323-8, , 2776-07 ####[facility] LABCLIA [id number] [place] [address] [place] Creatinine [Mass/Vol] 0.61 mg/dL Normal 0.58-0.96 [facility] Comment on above: Order Comment: Speci men Type: BLOOD SPECIMENOrdering Facility: [facility] Address: [address] [place], [place] [address] Performed By: #### 2 4323-8, , 2776-07 ####[facility] LABCLIA [id number] [place] [address] [place] ESTIMATED GLOMERULAR FILTRATION RATE 97 mL/min/1.73m??? Normal >=60 [facility] Comment on above: Order Comment: Jessica rich Type: BLOOD SPECIMENOrdering Facility: [facility] Address: [address] [place] [phone] Result Comment: Annmarie mated Glomerular Filtration Rate (eGFR) is calculated using the 2020 CKD-EPI creatinine equation. This equation utilizes serum creatinine, sex, and age as parameters. The creatinine assay has traceable calibration to isotope dilution-mass spectrometry. Refer to KDIGO guidelines for clinical interpretation. In patients with unstable renal function, e.g. those with acute kidney injury, the eGFR may not accurately reflect actual GFR. Performed By: #### 2 4323-8, , 2776-07 ####[facility] LABIA [id number] [place] [id number] [place] Glucose [Mass/Vol] 70 mg/dL Low 74-99 [facility] Comment on above: Order Comment: Jessica rich Type: BLOOD SPECIMENOrdering Facility: [facility] Address: [address] [place] [phone] Result Comment: The [place] Diabetes Association (ADA) provides guidance for cutoff values for fasting glucose and random glucose. The ADA defines fasting as no caloric intake for at least 8 hours. Fasting plasma glucose results between 100 to 125 mg/dL indicate increased risk for diabetes (prediabetes). Fasting plasma glucose results greater than or equal to 126 mg/dL meet the criteria for diagnosis of diabetes. In the absence of unequivocal hyperglycemia, results should be confirmed by repeat testing. In a patient with classic symptoms of hyperglycemia or hyperglycemic crisis, random plasma glucose results greater than or equal to 200 mg/dL meet the criteria for diagnosis of diabetes. Reference: Standards of Medical Care in Diabetes 2016, [place] [employer]. Diabetes Care. 2016.39(Suppl 1). Performed By: #### 2 4323-8, 64641-4, 2776- ####[facility] LABIA [id number] [address] [address] [place] Potassium [Moles/Vol] Normal [facility] Comment on above: Order Comment: Speci men Type: BLOOD SPECIMENOrdering Facility: [facility] Address: [address] [address] Result Comment: Unab le to assay due to interference from hemolysis. Suggest reorder as clinically indicated. Performed By: #### 2 4323-8, , 2776-07 ####[facility] LABCLIA [id number] [place] [address] [place] Protein [Mass/Vol] 6.2 g/dL Low 6.3-8.0 [facility] Comment on above: Order Comment: Speci men Type: BLOOD SPECIMENOrdering Facility: [facility] Address: [address] [place] [address] Performed By: #### 2 4323-8, , 2776-07 ####[facility] LABCLIA [id number] [place] [address] [place] Sodium [Moles/Vol] 138 mmol/L Normal 136-144 [facility] Comment on above: Order Comment: Speci men Type: BLOOD SPECIMENOrdering Facility: [facility] Address: [address] [place] [address] Performed By: #### 2 4323-8, , 2776-07 ####[facility] LABCLIA [id number] [place] [address] [place] Urea nitrogen [Mass/Vol] 11 mg/dL Normal 7-21 [facility] Comment on above: Order Comment: Speci men Type: BLOOD SPECIMENOrdering Facility: [facility] Address: [address] [address] Performed By: #### 2 4323-8, , 2776-07 ####[facility] LABCLIA [id number] [place] [id number] [place] ECG COMPLETEon 11-05-2022 ECG COMPLETE Ventricular Rate : 7 9 BPM Atrial Rate : 79 BPM P-R Interval : 150 ms QRS Duration : 92 ms Q-T Interval : 378 ms QTC Calculation(Bazett) : 433 ms Calculated P [place] : 86 degrees Calculated R [place] : 3 degrees Calculated T [place] : 49 degrees NORMAL SINUS RHYTHM WITH SINUS ARRHYTHMIA NORMAL ECG Confirmed by MD ORTIZ TAMANNA ([id number]) on 11/09/2022 11:28:23 AM NAME : LIDIA ONEILL PID : [id number] : 1955 Gender : Female Race : ORD : [id number] Procedure Date : Nov 05 2022 02:48:57 Edit Date : Nov 09 2022 11:28:24 Diagnosis: NORMAL SINUS RHYTHM WITH SINUS ARRHYTHMIA NORMAL ECG Confirmed by MD ORTIZ TAMANNA ([id number]) on 11/09/2022 11:28:23 AM Test Reason : Chest Pain Location : 97 : G90 G090-29 Overread By : MD ORTIZ TAMANNA Edited By : MD ORTIZ TAMANNA Referred By : , Acquired by : SALVATORE TORRES Normal [facility] Magn[facility] Magnesium [Mass/Vol] 2.2 mg/dL Normal 1.7-2.3 [facility] Comment on above: Order Comment: Speci men Type: BLOOD SPECIMENOrdering Facility: [facility] Address: [address] [place] [address] Performed By: #### 2 4323-8, 64242-0, 2777-1 ####[facility] LABCLIA [id number] [place] [address] [place] NURSING PROGon 11-05-2022 NURSING PROG HNO ID: [id number] Author: Trevin Nunez RN Service: ? Author Type: Registered Nurse Type: Nursing Progress Note Filed: 11/05/2022 6:25 AM Note Text: Patient denies any chest pain/discomfort, only complaint is moderate back pain which is not new. Repositioned patient to provide relief of back pain. Normal [facility] NURSING PROG HNO ID: [id number] Author: Trevin Nunez RN Service: ? Author Type: Registered Nurse Type: Nursing Progress Note Filed: 11/05/2022 2:35 AM Note Text: Patient complaining of chest pain between breast rates 6/10 worsens with inspiration. Patient describes pain feeling as like indigestion. Vital signs WNL. Pager [phone] made aware, orders placed. Normal [facility] Phosphate SerPl-mCncon 11-05 Phosphate [Mass/Vol] 2.9 mg/dL Normal 2.7-4.8 [facility] Comment on above: Order Comment: Speci men Type: BLOOD SPECIMENOrdering Facility: [facility] Address: [address] [place] [address] Performed By: #### 2 4323-8, 18396-7, 2777-1 ####[facility] LABIA [id number] [place] [address] [place] CBC panel Auto (Bld)on 11-04 Erythrocyte distribution width (RBC) [Ratio] 13.2 % Normal 11.5-15.0 [facility] Comment on above: Order Comment: Speci men Type: BLOOD SPECIMENOrdering Facility: [facility] Address: [address] [place] [address] Performed By: #### 5 8410-2 ####[facility] LABIA [id number] [place] [address] [place] Hematocrit (Bld) [Volume fraction] 41.5 % Normal 36.0-46.0 [facility] Comment on above: Order Comment: Speci men Type: BLOOD SPECIMENOrdering Facility: [facility] Address: [address] [place] [address] Performed By: #### 5 8410-2 ####[facility] LABIA [id number] [place] [address] [place] Hemoglobin (Bld) [Mass/Vol] 13.9 g/dL Normal 11.5-15.5 [facility] Comment on above: Order Comment: Speci men Type: BLOOD SPECIMENOrdering Facility: [facility] Address: [address] [place] [address] Performed By: #### 5 8410-2 ####[facility] [id number] [address] [place] [facility] MCH (RBC) [Entitic mass] 29.4 pg Normal 26.0-34.0 [facility] Comment on above: Order Comment: Speci men Type: BLOOD SPECIMENOrdering Facility: [facility] Address: [address] [place] [address] Performed By: #### 5 8410-2 ####[facility] [id number] [address] [place] MCHC (RBC) [Mass/Vol] 33.5 g/dL Normal 30.5-36.0 [facility] Comment on above: Order Comment: Speci men Type: BLOOD SPECIMENOrdering Facility: [facility] Address: [address] [place] [address] Performed By: #### 5 8410-2 ####[facility] [id number] [address] [place] MCV (RBC) [Entitic vol] 87.9 fL Normal 80.0-100.0 [facility] Comment on above: Order Comment: Speci men Type: BLOOD SPECIMENOrdering Facility: [facility] Address: [address] [place] [phone] Performed By: #### 5 8410-2 ####[facility] [id number] [address] Nucleated RBC (Bld) [#/Vol] 10*3/uL Normal <0.01 [facility] Comment on above: Order Comment: Speci men Type: BLOOD SPECIMENOrdering Facility: [facility] Address: [address] [place] [address] Performed By: #### 5 8410-2 ####[facility] [id number] [address] [id number] [address] [place] Platelet mean volume (Bld) [Entitic vol] 10.4 fL Normal 9.0-12.7 [facility] Comment on above: Order Comment: Speci men Type: BLOOD SPECIMENOrdering Facility: [facility] Address: [address] [place] [address] Performed By: #### 5 8410-2 ####[facility] LABCLIA [id number] [place] [address] [place] Platelets (Bld) [#/Vol] 197 10*3/uL Normal 150-400 [facility] Comment on above: Order Comment: Speci men Type: BLOOD SPECIMENOrdering Facility: [facility] Address: [address] [place], [place] [address] Performed By: #### 5 8410-2 ####[facility] LABIA [id number] [place] [address] [place] RBC (Bld) [#/Vol] 4.72 10*6/uL Normal 3.90-5.20 [facility] Comment on above: Order Comment: Speci men Type: BLOOD SPECIMENOrdering Facility: [facility] Address: [address] [place], [place] [address] Performed By: #### 5 8410-2 ####[facility] LABIA [id number] [place] [address] [place] WBC (Bld) [#/Vol] 6.84 10*3/uL Normal 3.70-11.00 [facility] Comment on above: Order Comment: Speci men Type: BLOOD SPECIMENOrdering Facility: [facility] Address: [address] [place], [place] [address] Performed By: #### 5 8410-2 ####[facility] LABCLIA [id number] [place] [address] [place] CONSULT PROGon 11-04-2022 CONSULT PROG HNO ID: [id number] Author: Kassandra Banks MD Service: General Surgery Author Type: Resident Type: Consult Progress Note Filed: 11/04/2022 10:46 AM Note Text: GENERAL SURGERY PROGRESS NOTE Service Date: November 04, 2022 Assessment and Plan: Lidia Oneill is a 67 year old female admitted for SBO 2/2 incarcerated ventral pelvic hernia. She has a complex abdominal surgical history including xlap x 4, partial colectomies with ostomy creation s/p takedown x2, ventral hernia repair with mesh, and recent SBO managed nonoperatively 06/25. We will aim for non-operative management if at all possible with NG decompression, bowel rest. Interval: -S/P SBFT showing resolving SBO, however she is not yet showing signs of ROBF and NG remains high output. Plan: - maintain NPO, NG to LIWS - Will attempt clamp trial when having some ROBF - mIVF - MM pain control - [facility] Kassandra Banks MD Acute Care Surgery ([facility]) Day Floor Pager: [phone] Acute Care Surgery ([facility]) Day Consults Pager: [phone] On nights (6 pm to 6 am) and on Weekends/Holidays, please page the on-call pager: [phone] Subjective: Denies N/V gas or BM Pain under control, improved from days prior Physical Exam: BP 118/51 Pulse 91 Temp (Src) 97.9 (Oral) Resp 18 Ht 5' 2.5 (1.59m) Wt 183 lb 13.8 oz (83.4kg) SpO2 96% BMI 33.07 kg/(m2). O2 Therapy: Nasal Cannula GENERAL: awake; alert and oriented; no acute distress LUNGS: non-labored breathing, no shortness of breath CARDIAC: RRR, warm and well perfused throughout ABDOMEN: soft, tender in the lower midline over hernia, non distended, numerous well healed surgical incisions Labs: CBC, BMP, MG, PHOS Recent Labs 11/04/22 0519 11/03/22 0632 11/02/22 1222 WBC 6.84 9.68 19.77* HB 13.9 15.8* 18.1* HCT 41.5 47.0* 51.2* PLT 197 289 352 NA 138 136 132* K 4.0 4.4 5.0 CHLOR 102 98 93* CO2 25 20* 22 BUN 13 15 21 CREAT 0.70 0.76 0.83 GLUC 85 120* 159* CA 8.8 9.5 10.9* MG 2.1 2.0 -- P 2.6* 3.8 -- Liver Function, Amylase, AND Lipase Recent Labs 11/04/22 0519 11/03/22 0632 11/02/22 1612 11/02/22 1222 TPROT 6.1* 6.6 -- 8.2* ALB 3.3* 3.8* -- 4.7 ALT 28 29 -- 32 AST 20 25 -- 28 ALKPHOS 71 73 -- 94 TBILI 0.4 0.4 -- 0.4 LACT -- -- 2.1* -- Coags Recent Labs 11/02/22 1222 APTT 30.0 INR 1.1 Cardiac Enzymes Imaging: SBFT: IMPRESSION: LOW-GRADE/RESOLVING SMALL BOWEL OBSTRUCTION. Intake and Output: Date 11/03/22699 - 11/04/2265811/04/22699 - 11/05/22 0659 Shift 1876-8290 2857-3595 7022-0328 24 Hour Total 0002-7506 9773-8253 8032-8418 24 Hour Total INTAKE IV 400 267 959 2159 Volume (mL) (lactated ringers iv infusion) 400 692 311 5544 Shift Total 400 296 541 0570 OUTPUT Urine 200 400 600 Void (ml) 200 400 600 Urine Not Saved. 1 x 1 x 1 x 1 x Tubes 0 700 200 900 Output (GI Feed 11/02/22 1642 Assessment Gastric Left Naris 16 Fr) 0 700 200 900 Shift Total 0 256 044 0466 Weight (kg) 83.4 83.4 83.4 83.4 83.4 83.4 83.4 83.4 Current Medications: Current Facility-Administered Medications Medication Dose Route Frequency iv contrast (radiology procedure) INTRAVENOUS DIRECTED PRN nicotine 21 mg/24 hr 1 Patch (NICODERM) 1 Patch TRANSDERMAL DAILY And nicotine -- REMOVE patch OTHER DAILY And nicotine - verify patch OTHER q 8 H NaCl 0.9% iv flush bag 20 mL INTRAVENOUS PRN amitriptyline 75 mg tab(s) (ELAVIL) 75 mg ORAL AT BEDTIME potassium chloride ER 20-40 mEq tab(s) (KLOR-CON) 20-40 mEq ORAL PRN Or potassium chloride iv piggyback 20 mEq/100 mL 20 mEq INTRAVENOUS PRN magnesium sulfate iv piggyback in sterile water 2 g 50 mL 2 g INTRAVENOUS PRN(NO DISPENSE) phosphorus 500 mg tab(s) (K PHOS NEUTRAL) 500 mg ORAL/FEEDING TUBE PRN(NO DISPENSE) heparin 5,000 Units injection 5,000 Units SUBCUTANEOUS q 12 H lactated ringers iv infusion 100 mL/hr INTRAVENOUS CONTINUOUS ondansetron (PF) 4 mg injection (ZOFRAN) 4 mg INTRAVENOUS q 6 H PRN metoclopramide HCl 5 mg injection (REGLAN) 5 mg INTRAVENOUS q 6 H PRN albuterol 2.5 mg /3 mL (0.083 %) 2.5 mg (PROVENTIL) 2.5 mg INHALATION q 4 H PRN hydrALAZINE 10 mg injection (APRESOLINE) 10 mg INTRAVENOUS q 3 H PRN metoprolol 10 mg injection (LOPRESSOR) 10 mg INTRAVENOUS q 4 H PRN acetaminophen 650 mg tab(s) (TYLENOL) 650 mg ORAL q 6 H PRN fentaNYL 50 mcg/mL 25 mcg injection (SUBLIMAZE) 25 mcg INTRAVENOUS q 2 H PRN lidocaine 4 % 1 Patch (SALONPAS) 1 Patch TRANSDERMAL DAILY AT 9 PM And lidocaine patch - REMOVE OTHER DAILY And lidocaine - VERIFY PATCH OTHER q 8 H Normal [facility] metabolic 2000 panelon 11-04-2022 Albumin [Mass/Vol] 3.3 g/dL Low 3.9-4.9 [facility] Comment on above: Order Comment: Speci men Type: BLOOD SPECIMENOrdering Facility: [facility] Address: [address] [address] Performed By: #### 2 4323-8, 64145-0, 2776- ####[facility] LABCLIA [id number] [place] [address] [place] ALP [Catalytic activity/Vol] 71 U/L Normal 34-123 [facility] Comment on above: Order Comment: Speci men Type: BLOOD SPECIMENOrdering Facility: [facility] Address: [address] [address] Performed By: #### 2 4323-8, , 2776-07 ####[facility] LABCLIA [id number] [address] [place] ALT [Catalytic activity/Vol] 28 U/L Normal 7-38 [facility] Comment on above: Order Comment: Speci men Type: BLOOD SPECIMENOrdering Facility: [facility] Address: [address] [place] [address] Performed By: #### 2 4323-8, , 2776-07 ####[facility] LABIA [id number] [place] [address] [place] Anion gap [Moles/Vol] 11 mmol/L Normal 9-18 [facility] Comment on above: Order Comment: Speci men Type: BLOOD SPECIMENOrdering Facility: [facility] Address: [address] [place], [place] [address] Performed By: #### 2 4323-8, , 2776-07 ####[facility] LABCLIA [id number] [place] [address] [place] AST [Catalytic activity/Vol] 20 U/L Normal 13-35 [facility] Comment on above: Order Comment: Speci men Type: BLOOD SPECIMENOrdering Facility: [facility] Address: [address] Performed By: #### 2 4323-8, , 2776-07 ####[facility] LABCLIA [id number] [place] [address] [place] Bilirubin [Mass/Vol] 0.4 mg/dL Normal 0.2-1.3 [facility] Comment on above: Order Comment: Speci men Type: BLOOD SPECIMENOrdering Facility: [facility] Address: [address] Performed By: #### 2 432-8, , 2776-07 ####[facility] LABCLIA [id number] [place] [address] [place] Calcium [Mass/Vol] 8.8 mg/dL Normal 8.5-10.2 [facility] Comment on above: Order Comment: Speci men Type: BLOOD SPECIMENOrdering Facility: [facility] Address: [address] Performed By: #### 2 432-8, , 2776-07 ####[facility] LABCLIA [id number] [place] [address] [place] Chloride [Moles/Vol] 102 mmol/L Normal 97-105 [facility] Comment on above: Order Comment: Speci men Type: BLOOD SPECIMENOrdering Facility: [facility] Address: [address] [place], [place] [address] Performed By: #### 2 432-8, , 2776-07 ####[facility] LABCLIA [id number] [place] [address] [place] CO2 [Moles/Vol] 25 mmol/L Normal 22-30 [facility] Comment on above: Order Comment: Speci men Type: BLOOD SPECIMENOrdering Facility: [facility] Address: [address] Performed By: #### 2 4323-8, , 2776-07 ####[facility] LABCLIA [id number] [address] [address] [place] Creatinine [Mass/Vol] 0.70 mg/dL Normal 0.58-0.96 [facility] Comment on above: Order Comment: Jessica rich Type: BLOOD SPECIMENOrdering Facility: [facility] Address: [address] [address] Performed By: #### 2 4323-8, , 2776-07 ####[facility] LABCLIA [id number] [place] [address] [place] ESTIMATED GLOMERULAR FILTRATION RATE 94 mL/min/1.73m??? Normal >=60 [facility] Comment on above: Order Comment: Jessica rich Type: BLOOD SPECIMENOrdering Facility: [facility] Address: [address] [address] Result Comment: Annmarie mated Glomerular Filtration Rate (eGFR) is calculated using the 2020 CKD-EPI creatinine equation. This equation utilizes serum creatinine, sex, and age as parameters. The creatinine assay has traceable calibration to isotope dilution-mass spectrometry. Refer to KDIGO guidelines for clinical interpretation. In patients with unstable renal function, e.g. those with acute kidney injury, the eGFR may not accurately reflect actual GFR. Performed By: #### 2 4323-8, , 2776-07 ####[facility] LABIA [id number] [address] [place] [id number] [place] Glucose [Mass/Vol] 85 mg/dL Normal 74-99 [facility] Comment on above: Order Comment: Speci hilario Type: BLOOD SPECIMENOrdering Facility: [facility] Address: [address] [address] Result Comment: The [place] [employer] (ADA) provides guidance for cutoff values for fasting glucose and random glucose. The ADA defines fasting as no caloric intake for at least 8 hours. Fasting plasma glucose results between 100 to 125 mg/dL indicate increased risk for diabetes (prediabetes). Fasting plasma glucose results greater than or equal to 126 mg/dL meet the criteria for diagnosis of diabetes. In the absence of unequivocal hyperglycemia, results should be confirmed by repeat testing. In a patient with classic symptoms of hyperglycemia or hyperglycemic crisis, random plasma glucose results greater than or equal to 200 mg/dL meet the criteria for diagnosis of diabetes. Reference: Standards of Medical Care in Diabetes 2016, [place] [employer]. Diabetes Care. 2016.39(Suppl 1). Performed By: #### 2 4323-8, , 2776-07 ####[facility] LABCLIA [id number] [address] [address] [place] Potassium [Moles/Vol] 4.0 mmol/L Normal 3.7-5.1 [facility] Comment on above: Order Comment: Speci men Type: BLOOD SPECIMENOrdering Facility: [facility] Address: [address] [place] [address] Performed By: #### 2 4323-8, , 2776-07 ####[facility] LABCLIA [id number] [place] [address] [place] Protein [Mass/Vol] 6.1 g/dL Low 6.3-8.0 [facility] Comment on above: Order Comment: Jessica rich Type: BLOOD SPECIMENOrdering Facility: [facility] Address: [address] [place], [place] [address] Performed By: #### 2 4323-8, , 2776-07 ####[facility] LABCLIA [id number] [place] [address] [place] Sodium [Moles/Vol] 138 mmol/L Normal 136-144 [facility] Comment on above: Order Comment: Speci men Type: BLOOD SPECIMENOrdering Facility: [facility] Address: [address] [place], [place] [address] Performed By: #### 2 4323-8, , 2776-07 ####[facility] LABCLIA [id number] [place] [address] OF [facility] Urea nitrogen [Mass/Vol] 13 mg/dL Normal 7-21 [facility] Comment on above: Order Comment: Speci men Type: BLOOD SPECIMENOrdering Facility: [facility] Address: [address] [address] Performed By: #### 2 4323-8, 75927-5, 2777-1 ####[facility] LABCLIA [id number] [address] OF [facility] MEDICAL EMERon 11-04-2022 [facility] [place] HNO ID: [id number] Author: Abhilash Bland APRN.CNP Service: Sepsis Emergency Response Team Author Type: Nurse Practitioner Type: Chg in Clinical Condition Filed: 11/04/2022 1:12 AM Note Text: SERT (SEPSIS EMERGENCY RESPONSE TEAM) 24 HOUR FOLLOW-UP NOTE Date/Time of Last Fired SERT BPA: 11/03/2022 3:14 AM 24 HOUR FOLLOW-UP: Date and Time: 11/04/2022 1:11 AM Sepsis Identified During SERT Activation: No At Time of 24 Hour Review, Agree With Assessment at SERT Activation: Yes Comments: Leukocytosis resolved (19k>9k). BP, HR, SpO2 all improved. Off antibiotics. SERT to signoff at this time. SERT BPA in Last 24 Hours Sepsis SERT Notifications Date Triggers 11/03/22 0314 File Doc Flowsheets Pulse: 108 Pulse: 113 MAP Non Invasive (Mean Arterial Pressure): 63 MAP Non Invasive (Mean Arterial Pressure): 63 BP: 165 BP: 114 Rule: [facility] NO DISCHARGE DATE [912567] WBC result: 19.77 k/uL SIGNATURE: Abhilash Bland APRN.PULLMAN CLERK PATIENT NAME: Lidia Oneill DATE: November 04, 2022 TIME: 1:11 AM Normal [facility] Magnesium SerPl-mCncon 11-04 Magnesium [Mass/Vol] 2.1 mg/dL Normal 1.7-2.3 [facility] Comment on above: Order Comment: Speci men Type: BLOOD SPECIMENOrdering Facility: [facility] Address: [address] [phone] Performed By: #### 2 4323-8, 77673-3, 2777-1 ####[facility] LABCLIA [id number] [place] [address] [place] Phosphate SerPl-mCncon 11-04 Phosphate [Mass/Vol] 2.6 mg/dL Low 2.7-4.8 [facility] Comment on above: Order Comment: Speci men Type: BLOOD SPECIMENOrdering Facility: [facility] Address: [address] Performed By: #### 2 4323-8, 69955-0, 2777-1 ####[facility] LABIA [id number] [address] [place] CBC panel Auto (Bld)on 11-03 Erythrocyte distribution width (RBC) [Ratio] 13.3 % Normal 11.5-15.0 [facility] Comment on above: Order Comment: Speci men Type: BLOOD SPECIMENOrdering Facility: [facility] Address: [address] [place] [address] Performed By: #### 5 8410-2 ####[facility] LABIA [id number] [address] [place] Hematocrit (Bld) [Volume fraction] 47.0 % High 36.0-46.0 [facility] Comment on above: Order Comment: Speci men Type: BLOOD SPECIMENOrdering Facility: [facility] Address: [address] Performed By: #### 5 8410-2 ####[facility] LABIA [id number] [place] [address] [place] Hemoglobin (Bld) [Mass/Vol] 15.8 g/dL High 11.5-15.5 [facility] Comment on above: Order Comment: Speci men Type: BLOOD SPECIMENOrdering Facility: [facility] Address: [address] Performed By: #### 5 8410-2 ####[facility] LABIA [id number] [address] MCH (RBC) [Entitic mass] 29.7 pg Normal 26.0-34.0 [facility] Comment on above: Order Comment: Speci men Type: BLOOD SPECIMENOrdering Facility: [facility] Address: [address] [address] Performed By: #### 5 8410-2 ####[facility] LABIA [id number] [address] [place] MCHC (RBC) [Mass/Vol] 33.6 g/dL Normal 30.5-36.0 [facility] Comment on above: Order Comment: Speci men Type: BLOOD SPECIMENOrdering Facility: [facility] Address: [address] [place], [place] [address] Performed By: #### 5 8410-2 ####[facility] LABIA [id number] [address] [place] MCV (RBC) [Entitic vol] 88.3 fL Normal 80.0-100.0 [facility] Comment on above: Order Comment: Speci men Type: BLOOD SPECIMENOrdering Facility: [facility] Address: [address] [place], [place] [address] Performed By: #### 5 8410-2 ####[facility] LABIA [id number] [address] [place] Nucleated RBC (Bld) [#/Vol] 10*3/uL Normal <0.01 [facility] Comment on above: Order Comment: Speci men Type: BLOOD SPECIMENOrdering Facility: [facility] Address: [address] [place] [address] Performed By: #### 5 8410-2 ####[facility] LABCLIA [id number] [place] [address] [place] Platelet mean volume (Bld) [Entitic vol] 10.5 fL Normal 9.0-12.7 [facility] Comment on above: Order Comment: Speci men Type: BLOOD SPECIMENOrdering Facility: [facility] Address: [address] [place] [address] Performed By: #### 5 8410-2 ####[facility] LABCLIA [id number] [place] [address] [place] Platelets (Bld) [#/Vol] 289 10*3/uL Normal 150-400 [facility] Comment on above: Order Comment: Speci men Type: BLOOD SPECIMENOrdering Facility: [facility] Address: [address] [place], [place] [address] Performed By: #### 5 8410-2 ####[facility] LABIA [id number] [place] [address] [place] RBC (Bld) [#/Vol] 5.32 10*6/uL High 3.90-5.20 [facility] Comment on above: Order Comment: Speci men Type: BLOOD SPECIMENOrdering Facility: [facility] Address: [address] [place], [place] [address] Performed By: #### 5 8410-2 ####[facility] LABIA [id number] [place] [address] [place] WBC (Bld) [#/Vol] 9.68 10*3/uL Normal 3.70-11.00 [facility] Comment on above: Order Comment: Speci men Type: BLOOD SPECIMENOrdering Facility: [facility] Address: [address] [place], [place] [address] Performed By: #### 5 8410-2 ####[facility] LABCLIA [id number] [place] [address] [place] CONSULT PROGon 11-03-2022 CONSULT PROG HNO ID: [id number] Author: Kassandra Banks MD Service: General Surgery Author Type: Resident Type: Consult Progress Note Filed: 11/03/2022 11:55 AM Note Text: GENERAL SURGERY PROGRESS NOTE Service Date: November 03, 2022 Assessment and Plan: Lidia Oneill is a 67 year old female admitted for SBO 08/06 incarcerated ventral pelvic hernia. She has a complex abdominal surgical history including xlap x 4, partial colectomies with ostomy creation s/p takedown x2, ventral hernia repair with mesh, and recent SBO managed nonoperatively 06/25. We will aim for non-operative management if at all possible with NG decompression, bowel rest. Interval: -SBFT ordered 11/03 Plan: - maintain NPO, NG to LIWS - f/u SBFT - mIVF - MM pain control - [facility] Kassandra Banks MD Acute Care Surgery (ACS) Day Floor Pager: [phone] Acute Care Surgery ([facility]) Day Consults Pager: [phone] On nights (6 pm to 6 am) and on Weekends/Holidays, please page the on-call pager: [phone] Subjective: Patient complaining of significant pain today on exam of hernia. No N/V. Physical Exam: BP 114/55 Pulse 100 Temp (Src) 97.9 (Oral) Resp 18 Ht 5' 2.5 (1.59m) Wt 183 lb 13.8 oz (83.4kg) SpO2 94% BMI 33.07 kg/(m2). O2 Therapy: Room Air, Liters: 2.00 GENERAL: awake; alert and oriented; no acute distress LUNGS: non-labored breathing, no shortness of breath CARDIAC: RRR, warm and well perfused throughout ABDOMEN: soft, tender in the lower midline over hernia, non distended, numerous well healed surgical incisions Labs: CBC, BMP, MG, PHOS Recent Labs 11/03/22 0632 11/02/22 1222 WBC 9.68 19.77* HB 15.8* 18.1* HCT 47.0* 51.2* PLT 289 352 NA 136 132* K 4.4 5.0 CHLOR 98 93* CO2 20* 22 BUN 15 21 CREAT 0.76 0.83 GLUC 120* 159* CA 9.5 10.9* MG 2.0 -- P 3.8 -- Liver Function, Amylase, AND Lipase Recent Labs 11/03/22 0632 11/02/22 1612 11/02/22 1222 TPROT 6.6 -- 8.2* ALB 3.8* -- 4.7 ALT 29 -- 32 AST 25 -- 28 ALKPHOS 73 -- 94 TBILI 0.4 -- 0.4 LACT -- 2.1* -- Coags Recent Labs 11/02/22 1222 APTT 30.0 INR 1.1 Cardiac Enzymes Imaging: IMPRESSION: Small bowel obstruction with transition point in the region of the midline ventral pelvic hernia as described. Mild associated enteritis of the involved segments. Intake and Output: Date 11/02/22699 - 11/03/2265811/03/22 07 - 11/04/22 0659 Shift 4994-7008 0546-4094 1945-1877 24 Hour Total 2834-3535 1127-1730 0722-6466 24 Hour Total INTAKE IV 400 400 Volume (mL) (lactated ringers iv infusion) 400 400 Shift Total 400 400 OUTPUT Urine 400 400 Void (ml) 400 400 Tubes 500 500 Output (GI Feed 11/02/22 1642 Assessment Gastric Left Naris 16 Fr) 500 500 Shift Total 900 900 Weight (kg) 79.8 79.8 83.4 83.4 83.4 83.4 83.4 83.4 Current Medications: Current Facility-Administered Medications Medication Dose Route Frequency iv contrast (radiology procedure) INTRAVENOUS DIRECTED PRN And enteric contrast (radiology procedure) ORAL DIRECTED PRN nicotine 21 mg/24 hr 1 Patch (NICODERM) 1 Patch TRANSDERMAL DAILY And nicotine -- REMOVE patch OTHER DAILY And nicotine - verify patch OTHER q 8 H NaCl 0.9% iv flush bag 20 mL INTRAVENOUS PRN amitriptyline 75 mg tab(s) (ELAVIL) 75 mg ORAL AT BEDTIME potassium chloride ER 20-40 mEq tab(s) (KLOR-CON) 20-40 mEq ORAL PRN Or potassium chloride iv piggyback 20 mEq/100 mL 20 mEq INTRAVENOUS PRN magnesium sulfate iv piggyback in sterile water 2 g 50 mL 2 g INTRAVENOUS PRN(NO DISPENSE) phosphorus 500 mg tab(s) (K PHOS NEUTRAL) 500 mg ORAL/FEEDING TUBE PRN(NO DISPENSE) heparin 5,000 Units injection 5,000 Units SUBCUTANEOUS q 12 H lactated ringers iv infusion 100 mL/hr INTRAVENOUS CONTINUOUS ondansetron (PF) 4 mg injection (ZOFRAN) 4 mg INTRAVENOUS q 6 H PRN metoclopramide HCl 5 mg injection (REGLAN) 5 mg INTRAVENOUS q 6 H PRN albuterol 2.5 mg /3 mL (0.083 %) 2.5 mg (PROVENTIL) 2.5 mg INHALATION q 4 H PRN hydrALAZINE 10 mg injection (APRESOLINE) 10 mg INTRAVENOUS q 3 H PRN metoprolol 10 mg injection (LOPRESSOR) 10 mg INTRAVENOUS q 4 H PRN acetaminophen 650 mg tab(s) (TYLENOL) 650 mg ORAL q 6 H PRN fentaNYL 50 mcg/mL 25 mcg injection (SUBLIMAZE) 25 mcg INTRAVENOUS q 2 H PRN lidocaine 4 % 1 Patch (SALONPAS) 1 Patch TRANSDERMAL DAILY AT 9 PM And [START ON 11/04/2022] lidocaine patch - REMOVE OTHER DAILY And lidocaine - VERIFY PATCH OTHER q 8 H Normal [facility] Comprehensive metabolic 2000 panelon 11-03-2022 Albumin [Mass/Vol] 3.8 g/dL Low 3.9-4.9 [facility] Comment on above: Order Comment: Speci men Type: BLOOD SPECIMENOrdering Facility: [facility] Address: [address] [place] [address] Performed By: #### 2 4323-8, 17051-5, 2777-1 ####[facility] LABCLIA [id number] [place] [address] [place] ALP [Catalytic activity/Vol] 73 U/L Normal 34-123 [facility] Comment on above: Order Comment: Speci men Type: BLOOD SPECIMENOrdering Facility: [facility] Address: [address] [place] [address] Performed By: #### 2 4323-8, 03176-1, 2776- ####[facility] LABCLIA [id number] [address] [place] ALT [Catalytic activity/Vol] 29 U/L Normal 7-38 [facility] Comment on above: Order Comment: Speci men Type: BLOOD SPECIMENOrdering Facility: [facility] Address: [address] [place] [address] Performed By: #### 2 4323-8, , 2776- ####[facility] LABCLIA [id number] [place] [address] [place] Anion gap [Moles/Vol] 18 mmol/L Normal 9-18 [facility] Comment on above: Order Comment: Speci men Type: BLOOD SPECIMENOrdering Facility: [facility] Address: [address] [place] [address] Performed By: #### 2 4323-8, , 2776-07 ####[facility] LABIA [id number] [address] STATES OF [facility] AST [Catalytic activity/Vol] 25 U/L Normal 13-35 [facility] Comment on above: Order Comment: Speci men Type: BLOOD SPECIMENOrdering Facility: [facility] Address: [address] [place] [address] Result Comment: Resu lts may be falsely increased due to interference from hemolysis. Suggest reorder as clinically indicated. Performed By: #### 2 4323-8, 89628-6, 277- ####[facility] LABCLIA [id number] [place] [address] [place] Bilirubin [Mass/Vol] 0.4 mg/dL Normal 0.2-1.3 [facility] Comment on above: Order Comment: Speci men Type: BLOOD SPECIMENOrdering Facility: [facility] Address: [address] [place] [address] Performed By: #### 2 4323-8, , 2776-07 ####[facility] LABCLIA [id number] [place] [address] [place] Calcium [Mass/Vol] 9.5 mg/dL Normal 8.5-10.2 [facility] Comment on above: Order Comment: Speci men Type: BLOOD SPECIMENOrdering Facility: [facility] Address: [address] [place] [address] Performed By: #### 2 432-8, , 2776-07 ####[facility] LABCLIA [id number] [place] [address] [place] Chloride [Moles/Vol] 98 mmol/L Normal 97-105 [facility] Comment on above: Order Comment: Speci men Type: BLOOD SPECIMENOrdering Facility: [facility] Address: [address] [place] [address] Performed By: #### 2 4323-8, , 2776-07 ####[facility] LABCLIA [id number] [place] [address] [place] CO2 [Moles/Vol] 20 mmol/L Low 22-30 [facility] Comment on above: Order Comment: Speci men Type: BLOOD SPECIMENOrdering Facility: [facility] Address: [address] [place], [place] [address] Performed By: #### 2 4323-8, , 2776-07 ####[facility] LABCLIA [id number] [place] [address] [place] [facility] Creatinine [Mass/Vol] 0.76 mg/dL Normal 0.58-0.96 [facility] Comment on above: Order Comment: Jessica rich Type: BLOOD SPECIMENOrdering Facility: [facility] Address: [address] [place] [address] Performed By: #### 2 4323-8, 58736-8, 2776-07 ####[facility] LABCLIA [id number] [address] OF [facility] ESTIMATED GLOMERULAR FILTRATION RATE 85 mL/min/1.73m??? Normal >=60 [facility] Comment on above: Order Comment: Jessica rich Type: BLOOD SPECIMENOrdering Facility: [facility] Address: [address] [place] [address] Result Comment: Annmarie mated Glomerular Filtration Rate (eGFR) is calculated using the 2020 CKD-EPI creatinine equation. This equation utilizes serum creatinine, sex, and age as parameters. The creatinine assay has traceable calibration to isotope dilution-mass spectrometry. Refer to KDIGO guidelines for clinical interpretation. In patients with unstable renal function, e.g. those with acute kidney injury, the eGFR may not accurately reflect actual GFR. Performed By: #### 2 4323-8, , 2776-07 ####[facility] LABCLIA [id number] [address] [place] Glucose [Mass/Vol] 120 mg/dL High 74-99 [facility] Comment on above: Order Comment: Jessica rich Type: BLOOD SPECIMENOrdering Facility: [facility] Address: [address] [place] [address] Result Comment: The [place] Diabetes Association (ADA) provides guidance for cutoff values for fasting glucose and random glucose. The ADA defines fasting as no caloric intake for at least 8 hours. Fasting plasma glucose results between 100 to 125 mg/dL indicate increased risk for diabetes (prediabetes). Fasting plasma glucose results greater than or equal to 126 mg/dL meet the criteria for diagnosis of diabetes. In the absence of unequivocal hyperglycemia, results should be confirmed by repeat testing. In a patient with classic symptoms of hyperglycemia or hyperglycemic crisis, random plasma glucose results greater than or equal to 200 mg/dL meet the criteria for diagnosis of diabetes. Reference: Standards of Medical Care in Diabetes 2016, [place] [employer] Association. Diabetes Care. 2016.39(Suppl 1). Performed By: #### 2 4323-8, , 2776-07 ####[facility] LABCLIA [id number] [address] [address] [place] Potassium [Moles/Vol] 4.4 mmol/L Normal 3.7-5.1 [facility] Comment on above: Order Comment: Speci men Type: BLOOD SPECIMENOrdering Facility: [facility] Address: [address] [place], [place] [address] Performed By: #### 2 432-8, , 2776-07 ####[facility] LABCLIA [id number] [place] [address] [place] Protein [Mass/Vol] 6.6 g/dL Normal 6.3-8.0 [facility] Comment on above: Order Comment: Speci men Type: BLOOD SPECIMENOrdering Facility: [facility] Address: [address] [address] Performed By: #### 2 8, , 2776-07 ####[facility] LABCLIA [id number] [place] [address] [place] Sodium [Moles/Vol] 136 mmol/L Normal 136-144 [facility] Comment on above: Order Comment: Speci men Type: BLOOD SPECIMENOrdering Facility: [facility] Address: [address] [place] [address] Performed By: #### 2 432-8, , 2776-07 ####[facility] LABCLIA [id number] [address] [address] [place] Urea nitrogen [Mass/Vol] 15 mg/dL Normal 7-21 [facility] Comment on above: Order Comment: Speci men Type: BLOOD SPECIMENOrdering Facility: [facility] Address: [address] [place] [address] Performed By: #### 2 4323-8, 71903-8, 2777-1 ####[facility] LABCLIA [id number] PAM NEUMANN [address] [place] MEDICAL EMERon 11-03-2022 MEDICAL [place] HNO ID: [id number] Author: Fauzia Mansfield APRN.PULLMAN CLERK Service: Sepsis Emergency Response Team Author Type: Nurse Practitioner Type: Chg in Clinical Condition Filed: 11/03/2022 3:41 AM Note Text: SERT (SEPSIS EMERGENCY RESPONSE TEAM) SCREENING NOTE Date and Time: 11/03/2022 3:18 AM Patient has been electronically reviewed by the Sepsis Emergency Response Team. After discussion with primary team, no indication for SERT activation at this time; will defer to primary team regarding continued monitoring and intervention. Briefly, this is a 67 yo female with a PMHx significant for HTN, COPD, and multiple prior abdominal surgeries ( hysterectomy, colon resection, open abdomen, hernia repair with mesh, fistulas). Sepsis BPA fired for HR 108-113, MAP 63, BP 114-165, WBC 19.77. Afebrile. HR on tele 98. Called and spoke with primary team. No concerns for sepsis at this time, believe all related to disease process/ dehydration. Given elevated WBC with no explanation (other than possible hemoconcentration), SERT will follow. SERT BPA in Last 24 Hours Sepsis SERT Notifications Date Triggers 11/03/22313 File Doc Flowsheets Pulse: 108 Pulse: 113 MAP Non Invasive (Mean Arterial Pressure): 63 MAP Non Invasive (Mean Arterial Pressure): 63 BP: 165 BP: 114 Rule: [facility] NO DISCHARGE DATE [677205] WBC result: 19.77 k/uL Trending of last 3 clinical abnormalities associated with Severe Sepsis or Septic Shock 11/02/2022 2330 11/03/2022 0046 11/03/2022313 Temp: -- 36.5 ?C (97.7 ?F) -- Pulse: 100 99 108 Resp: 17 -- BP: 181/86 165/84 114/48 MAP: 124 103 63 O2 Sat: 93 % 93 % -- Abnormal Labs Indicating Infection/Organ Failure in the Last 24 Hours WBC (k/uL) Date Value 11/02/2022 19.77 (H) Lactate (POCT) (mmol/L) Date Value 11/02/2022 2.1 (A) SIGNATURE: Fauzia Mansfield APRN.CNP PATIENT NAME: Lidia Oneill DATE: November 03, 2022 TIME: 3:37 AM Normal [facility] Magnesium SerPl-mCncon 11-03 Magnesium [Mass/Vol] 2.0 mg/dL Normal 1.7-2.3 [facility] Comment on above: Order Comment: Jessica rich Type: BLOOD SPECIMENOrdering Facility: [facility] Address: [address] [place] [address] Performed By: #### 2 4323-8, 42844-1, 2777-1 ####[facility] LABIA [id number] [address] OF [facility] Phosphate SerPl-mCncon 11-03 Phosphate [Mass/Vol] 3.8 mg/dL Normal 2.7-4.8 [facility] Comment on above: Order Comment: Jessica rich Type: BLOOD SPECIMENOrdering Facility: [facility] Address: [address] [place] [address] Performed By: #### 2 4323-8, 85214-1, 2777-1 ####[facility] LABIA [id number] [place] [address] [place] XR SMALL BOWEL SERIESon 050 XR SMALL BOWEL SERIES * * *Final Report* * * DATE OF EXAM: Nov 03 2022 3:30PM HGX [id number] - XR SMALL BOWEL SERIES / PROCEDURE REASON: Bowel obstruction suspected * * * * Physician Interpretation * * * * SMALL BOWEL SERIES (Timed small bowel protocol) CLINICAL INFORMATION: 67-year-old woman with a small bowel obstruction at the level of a ventral pelvic hernia on CT 11/02/2022. TECHNIQUE: Overhead images were obtained after the NG tube instillation of contrast material. Contrast: OTHER: 150 ml of OMNIPAQUE 350 RESULT: Tool Pusher radiograph: NG/OG tube terminates at the gastric body, with subdiaphragmatic sidehole. No dilated bowel. Right upper quadrant surgical clips. - Maximum small bowel diameter: 3.5 cm (rounded to nearest 0.5 cm) - Fold thickness: Normal - Time to colon: 120 mins - Transition point: Not visualized on the current exam, but a transition point was present in the anterior pelvis on CT 11/02/2022. IMPRESSION: LOW-GRADE/RESOLVING SMALL BOWEL OBSTRUCTION. Global Account Executive: PSCTonie Transcribe Date/Time: Nov 03 2022 3:34P Dictated by : CINDY ZARAGOZA MD This examination was interpreted and the report reviewed and electronically signed by: CINDY ZARAGOZA MD on Nov 03 2022 3:36PM EST [id number] Normal [facility] CBC W Auto Differential pane l (Bld)on 11-02-2022 Basophils (Bld) [#/Vol] 0.08 10*3/uL Normal <0.11 [facility] Comment on above: Order Comment: Speci men Type: BLOOD SPECIMENOrdering Facility: [facility] Address: [address] [place] [address] Performed By: #### 5 7021-8 ####[facility] LABCLIA [id number] [place] [address] [place] Basophils/100 WBC (Bld) 0.4 % Normal [facility] Comment on above: Order Comment: Speci men Type: BLOOD SPECIMENOrdering Facility: [facility] Address: [address] [place] [address] Performed By: #### 5 7021-8 ####[facility] LABCLIA [id number] [place] [address] [place] Differential cell count method Nom (Bld) Auto Normal [facility] Comment on above: Order Comment: Speci men Type: BLOOD SPECIMENOrdering Facility: [facility] Address: [address] [place] [address] Performed By: #### 5 7021-8 ####[facility] LABCLIA [id number] [place] [address] [place] Eosinophils (Bld) [#/Vol] 10*3/uL Normal <0.46 [facility] Comment on above: Order Comment: Speci men Type: BLOOD SPECIMENOrdering Facility: [facility] Address: [address] Performed By: #### 5 7021-8 ####[facility] LABCLIA [id number] [address] [place] Eosinophils/100 WBC (Bld) 0.0 % Normal [facility] Comment on above: Order Comment: Speci men Type: BLOOD SPECIMENOrdering Facility: [facility] Address: [address] Performed By: #### 5 7021-8 ####[facility] LABCLIA [id number] [place] [address] [place] Erythrocyte distribution width (RBC) [Ratio] 13.1 % Normal 11.5-15.0 [facility] Comment on above: Order Comment: Speci men Type: BLOOD SPECIMENOrdering Facility: [facility] Address: [address] Performed By: #### 5 7021-8 ####[facility] LABCLIA [id number] [address] [place] Hematocrit (Bld) [Volume fraction] 51.2 % High 36.0-46.0 [facility] Comment on above: Order Comment: Speci men Type: BLOOD SPECIMENOrdering Facility: [facility] Address: [address] Performed By: #### 5 7021-8 ####[facility] LABCLIA [id number] [place] [address] [id number] [address] [place] Hemoglobin (Bld) [Mass/Vol] 18.1 g/dL High 11.5-15.5 [facility] Comment on above: Order Comment: Speci men Type: BLOOD SPECIMENOrdering Facility: [facility] Address: [address] [place] [address] Performed By: #### 5 7021-8 ####[facility] LABCLIA [id number] [place] [address] [place] Immature granulocytes (Bld) [#/Vol] 0.11 10*3/uL High <0.10 [facility] Comment on above: Order Comment: Speci men Type: BLOOD SPECIMENOrdering Facility: [facility] Address: [address] [place] [address] Performed By: #### 5 7021-8 ####[facility] LABCLIA [id number] [address] [place] Immature granulocytes/100 WBC (Bld) 0.6 % Normal [facility] Comment on above: Order Comment: Speci men Type: BLOOD SPECIMENOrdering Facility: [facility] Address: [address] [place] [address] Performed By: #### 5 7021-8 ####[facility] LABCLIA [id number] [place] [address] [place] Lymphocytes (Bld) [#/Vol] 1.14 10*3/uL Normal 1.00-4.00 [facility] Comment on above: Order Comment: Speci men Type: BLOOD SPECIMENOrdering Facility: [facility] Address: [address] [place] [address] Performed By: #### 5 7021-8 ####[facility] LABCLIA [id number] [place] [address] [place] Lymphocytes/100 WBC (Bld) 5.8 % Normal [facility] Comment on above: Order Comment: Speci men Type: BLOOD SPECIMENOrdering Facility: [facility] Address: [address] Performed By: #### 5 7021-8 ####[facility] [id number] [address] MCH (RBC) [Entitic mass] 30.2 pg Normal 26.0-34.0 [facility] Comment on above: Order Comment: Speci men Type: BLOOD SPECIMENOrdering Facility: [facility] Address: [address] Performed By: #### 5 7021-8 ####[facility] [id number] [address] [place] MCHC (RBC) [Mass/Vol] 35.4 g/dL Normal 30.5-36.0 [facility] Comment on above: Order Comment: Speci men Type: BLOOD SPECIMENOrdering Facility: [facility] Address: [address] Performed By: #### 5 7021-8 ####[facility] [id number] [address] [place] MCV (RBC) [Entitic vol] 85.3 fL Normal 80.0-100.0 [facility] Comment on above: Order Comment: Speci men Type: BLOOD SPECIMENOrdering Facility: [facility] Address: [address] [place], [place] [address] Performed By: #### 5 7021-8 ####[facility] [id number] [place] [address] [place] Monocytes (Bld) [#/Vol] 0.94 10*3/uL High <0.87 [facility] Comment on above: Order Comment: Speci men Type: BLOOD SPECIMENOrdering Facility: [facility] Address: [address] [place], [place] [address] Performed By: #### 5 7021-8 ####[facility] LABCLIA [id number] [address] [address] [place] Monocytes/100 WBC (Bld) 4.8 % Normal [facility] Comment on above: Order Comment: Speci men Type: BLOOD SPECIMENOrdering Facility: [facility] Address: [address] [place], [place] [address] Performed By: #### 5 7021-8 ####[facility] LABCLIA [id number] [place] [address] [place] Neutrophils (Bld) [#/Vol] 17.50 10*3/uL High 1.45-7.50 [facility] Comment on above: Order Comment: Speci men Type: BLOOD SPECIMENOrdering Facility: [facility] Address: [address] [place] [address] Performed By: #### 5 7021-8 ####[facility] LABCLIA [id number] [place] [address] [place] Neutrophils/100 WBC (Bld) 88.4 % Normal [facility] Comment on above: Order Comment: Speci men Type: BLOOD SPECIMENOrdering Facility: [facility] Address: [address] [place] [address] Performed By: #### 5 7021-8 ####[facility] LABCLIA [id number] [place] [address] [place] Nucleated RBC (Bld) [#/Vol] 10*3/uL Normal <0.01 [facility] Comment on above: Order Comment: Speci men Type: BLOOD SPECIMENOrdering Facility: [facility] Address: [address] [place], [place] [address] Performed By: #### 5 7021-8 ####[facility] LABCLIA [id number] [place] [address] [place] Nucleated RBC/100 WBC (Bld) [Ratio] 0.0 /100 WBC Normal [facility] Comment on above: Order Comment: Speci men Type: BLOOD SPECIMENOrdering Facility: [facility] Address: [address] [place], [place] [address] Performed By: #### 5 7021-8 ####[facility] LABCLIA [id number] [place] [address] [place] Platelet mean volume (Bld) [Entitic vol] 10.5 fL Normal 9.0-12.7 [facility] Comment on above: Order Comment: Speci men Type: BLOOD SPECIMENOrdering Facility: [facility] Address: [address] [place], [place] [address] Performed By: #### 5 7021-8 ####[facility] LABCLIA [id number] [place] [address] [place] Platelets (Bld) [#/Vol] 352 10*3/uL Normal 150-400 [facility] Comment on above: Order Comment: Speci men Type: BLOOD SPECIMENOrdering Facility: [facility] Address: [address] [place], [place] [address] Performed By: #### 5 7021-8 ####[facility] LABIA [id number] [place] [address] [place] RBC (Bld) [#/Vol] 6.00 10*6/uL High 3.90-5.20 [facility] Comment on above: Order Comment: Speci men Type: BLOOD SPECIMENOrdering Facility: [facility] Address: [address] [place] [address] Performed By: #### 5 7021-8 ####[facility] LABCLIA [id number] [place] [address] [place] WBC (Bld) [#/Vol] 19.77 10*3/uL High 3.70-11.00 [facility] Comment on above: Order Comment: Speci men Type: BLOOD SPECIMENOrdering Facility: [facility] Address: [address] [place] [address] [place] [address] Performed By: #### 5 7021-8 ####[facility] AMADO [id number] PAM NEUMANN [id number] OF [facility] CONSULTon 11-02-2022 CONSULT HNO ID: [id number] Author: Kassandra Banks MD Service: General Surgery Author Type: Resident Type: Consults Filed: 11/02/2022 5:54 PM Note Text: Attestation signed by Tio Ferreira MD at 11/02/2022 6:26 PM Attending Note I evaluated the patient and personally participated in the marti components. I agree with the resident's findings and plan with the following revisions and/or additions: SBO - very complicated surgical history including hysterectomy, colon resection, open abdomen, hernia repair with mesh, fistulas. She now has a SBO. Will attempt NGT and conservative management for obvious reasons. Signature: Tio Ferreira MD Date: 11/02/2022 Time: 6:24 PM GENERAL SURGERY CONSULT NOTE HISTORY AND PHYSICAL EXAMINATION SERVICE DATE: 11/02/2022 SERVICE TIME: 1600 PRIMARY CARE PHYSICIAN: Xena Chan MD ASSESSMENT AND PLAN This is a 67 year old female who presents with 1 day of severe abdominal pain, N/V consistent with SBO- transition point in the midline ventral pelvic hernia. She has a complex abdominal surgical history including xlap x 4, partial colectomies with ostomy creation s/p takedown x2, ventral hernia repair with mesh, and recent SBO managed nonoperatively 06/25. Due to her surgical history and patient preference we will avoid operative intervention if at all possible. She will need NG decompression, bowel rest, and admission to ACS service. Plan: - NG to LIWS -> f/u post-placement KUB - NPO - Strict I/Os - mIVF - serial abdominal exams, trend lactate - DVT ppx to start 5/2 - multimodal pain regimen - Daily CBC/CMP All plans preliminary pending discussion with senior resident and communication engineer surgery staff Kassandra Banks MD Acute Care Surgery ([facility]) Day Floor Pager: [phone] Acute Care Surgery ([facility]) Day Consults Pager: [phone] On nights (6 pm to 6 am) and on Weekends/Holidays, please page the on-call pager: [phone] SUBJECTIVE CHIEF COMPLAINT: abdominal pain, nausea HPI: This is a 67 year old female who presents with 1 day of severe midline abdominal pain accompanied by incessant N/V overnight. She has a very complex surgical history including laparoscopic hysterectomy c/b colonic injury and open partial colectomies x2, ostomy creation s/p takedown x2, with prolonged hospitalization and ARDS requiring trach, now reversed. She also has a history of ventral hernia repair with mesh (2011), which she reports spans from flank to flank across her abdomen and was complicated by a fistula post-op. None of her operations have been at the [facility] and we have no outside records. She had a bowel obstruction in June also involving her midline hernia that resolved with non operative management. She was referred for follow-up at [facility] after this obstruction due to her complex abdominal surgical history, and was actually scheduled for a clinic visit with Dr. Gonzalez today. She has been told by surgeons at [facility] that she is not a surgical candidate due to her complex history. On review of imaging she has a SBO with transition point in the ventral hernia. The neck is wide. She is tachycardic and requiring 4L O2 which she is not on at home. She reports throwing up innumerous times throughout the night. Labs significant for WC of 19, though suspect a degree of hemoconcentration. Her abdomen is very tender over her lower midline overlying her hernia. She last ate yesterday mid day and last had a BM 10/30. IMPRESSION: Small bowel obstruction with transition point in the region of the midline ventral pelvic hernia as described. Mild associated enteritis of the involved segments. PAST MEDICAL HISTORY: PAST MEDICAL HISTORY PAST MEDICAL HISTORY Diagnosis Date COPD (chronic obstructive pulmonary disease) (HCC) HTN (hypertension) SBO (small bowel obstruction) (HCC) Ventral hernia with bowel obstruction PAST SURGICAL HISTORY: PAST SURGICAL HISTORY PAST SURGICAL HISTORY Procedure Laterality Date COLECTOMY PRTL W/COLOST/ILEOST AND MUCOFISTULA LAPAROSCOPIC HEMICOLECTOMY Open, x2 S LARGE, VENTRALEX HERNIA PATCH TOTAL ABDOM HYSTERECTOMY TRACHEOSTOMY PLANNED SEPARATE PROCEDURE FAMILY HISTORY: FAMILY HISTORY No family history on file. SOCIAL HISTORY: SOCIAL HISTORY MEDICATIONS: Prior to Admission Medications Prescriptions Prior to Admission No medications prior to admission. CURRENT ALLERGIES: ALLERGIES ALLERGIES Allergen Reactions Morphine Rash, Swelling Penicillins Rash, Swelling Tetracyclines Rash, Swelling COMPLETE REVIEW OF SYSTEMS: GENERAL: No weight loss, malaise or fevers RESPIRATORY: Negative for cough, hemoptysis, wheezing, COPD, dyspnea or shortness of breath CARDIOVASCULAR: Negative for chest pain, leg swelling, hypert (more content not included)... Normal [facility] CT ABD/PEL W IVCONon 023 CT ABD/PEL W IVCON * * *Final Report* * * DATE OF EXAM: Nov 02 2022 2:00PM [facility] 0530 - CT ABD/PEL W IVCON / PROCEDURE REASON: Bowel obstruction suspected * * * * Physician Interpretation * * * * EXAMINATION: CT ABDOMEN AND PELVIS WITH IV CONTRAST CLINICAL HISTORY: Nausea vomiting, no bowel movement since 10/30/2022. TECHNIQUE: CT of the abdomen and pelvis was performed using standard technique, scanning from just above the dome of the diaphragm to the symphysis pubis. MQ: CTAP_3 Contrast: IV: 100 ml of Omnipaque 350 Oral: 450 ml of Omni 240 10-25ml diluted with water CT Radiation dose: Integrated Dose-length product (DLP) for this visit = 754 mGy*cm. CT Dose Reduction Employed: Automated exposure control (AEC) COMPARISON: CT abdomen pelvis 06/11/2022 RESULT: Liver: Hepatic steatosis. Biliary: No bile duct dilation. Cholecystectomy. Spleen: No mass. No splenomegaly. Pancreas: No mass or duct dilation. Adrenals: No mass. Kidneys: Subcentimeter lesions that are too small to characterize but likely benign. No hydronephrosis. No calculus. GI tract: Small bowel is diffusely mildly dilated proximal to a transition point within the region of the repaired ventral pelvic hernia in the midline ventral pelvis (transition point could relate to the ventral midline pelvic laxity or tethering within this region from adhesive disease (2:113)). Distal ileum is decompressed. There are mild inflammatory changes of small bowel in the region of the obstruction with mural hyperenhancement and areas of mild thickening. Unremarkable appearance of the small bowel anastomosis in the anterior right lower quadrant. Left lower quadrant anterolateral abdominal wall hernia containing fat and short segment of nonobstructed colon (2:82). Otherwise unremarkable appearance of the colon with a rectal anastomosis. Lymph nodes: No abdominal or pelvic lymphadenopathy. Mesentery/Peritoneum: Midline ventral pelvic laxity/hernia with small bowel transition point near this level as above. No ascites or organized collection. Vasculature: - Abdominal aorta and iliac arteries: Atherosclerotic calcifications without aneurysm. - Celiac and SMA: Patent without stenosis. - Portal venous system (SMV, splenic vein, portal vein and branches): Patent. - Hepatic veins: Patent. Pelvis: Partially decompressed urinary bladder is unremarkable. No organized intrapelvic collection. Bones/Soft Tissues: No suspicious or destructive osseous lesions. Lower thorax: Unremarkable. Tool Pusher (topogram) images: No additional findings. IMPRESSION: Small bowel obstruction with transition point in the region of the midline ventral pelvic hernia as described. Mild associated enteritis of the involved segments. Global Account Executive: KWADWO Transcribe Date/Time: Nov 02 2022 2:01P Dictated by : KYRIE GRANADOS MD This examination was interpreted and the report reviewed and electronically signed by: MEGHAN PETERSEN DO on Nov 02 2022 2:59PM EST [id number] N Normal [facility] Comprehensive metabolic 2000 panelon 11-02-2022 Albumin [Mass/Vol] 4.7 g/dL Normal 3.9-4.9 [facility] Comment on above: Order Comment: Speci men Type: BLOOD SPECIMENOrdering Facility: [facility] Address: [address] [place] [address] Performed By: #### 2 4323-8 ####[facility] LABCLIA [id number] [place] [address] [place] ALP [Catalytic activity/Vol] 94 U/L Normal 34-123 [facility] Comment on above: Order Comment: Speci men Type: BLOOD SPECIMENOrdering Facility: [facility] Address: [address] [place] [address] Performed By: #### 2 4323-8 ####[facility] LABCLIA [id number] [place] [address] [place] ALT [Catalytic activity/Vol] 32 U/L Normal 7-38 [facility] Comment on above: Order Comment: Speci men Type: BLOOD SPECIMENOrdering Facility: [facility] Address: [address] [place] [address] Result Comment: Resu lts may be falsely increased due to interference from hemolysis. Suggest reorder as clinically indicated. Performed By: #### 2 4323-8 ####[facility] LABCLIA [id number] [place] [address] [place] Anion gap [Moles/Vol] 17 mmol/L Normal 9-18 [facility] Comment on above: Order Comment: Speci men Type: BLOOD SPECIMENOrdering Facility: [facility] Address: [address] [place] [address] Performed By: #### 2 4323-8 ####[facility] LABCLIA [id number] [place] [address] [place] AST [Catalytic activity/Vol] 28 U/L Normal 13-35 [facility] Comment on above: Order Comment: Speci men Type: BLOOD SPECIMENOrdering Facility: [facility] Address: [address] [place] [address] Result Comment: Resu lts may be falsely increased due to interference from hemolysis. Suggest reorder as clinically indicated. Performed By: #### 2 4323-8 ####[facility] LABCLIA [id number] [place] [address] [place] Bilirubin [Mass/Vol] 0.4 mg/dL Normal 0.2-1.3 [facility] Comment on above: Order Comment: Speci men Type: BLOOD SPECIMENOrdering Facility: [facility] Address: [address] [place], [place] [address] Performed By: #### 2 4323-8 ####[facility] LABCLIA [id number] [place] [address] [place] Calcium [Mass/Vol] 10.9 mg/dL High 8.5-10.2 [facility] Comment on above: Order Comment: Speci men Type: BLOOD SPECIMENOrdering Facility: [facility] Address: [address] [place], [place] [address] Performed By: #### 2 4323-8 ####[facility] LABCLIA [id number] [place] [address] [place] Chloride [Moles/Vol] 93 mmol/L Low 97-105 [facility] Comment on above: Order Comment: Speci men Type: BLOOD SPECIMENOrdering Facility: [facility] Address: [address] [place], [place] [address] Performed By: #### 2 4323-8 ####[facility] LABCLIA [id number] [place] [address] [place] CO2 [Moles/Vol] 22 mmol/L Normal 22-30 [facility] Comment on above: Order Comment: Speci men Type: BLOOD SPECIMENOrdering Facility: [facility] Address: [address] [place], [place] [address] Performed By: #### 2 4323-8 ####[facility] LABCLIA [id number] [place] [address] [place] Creatinine [Mass/Vol] 0.83 mg/dL Normal 0.58-0.96 [facility] Comment on above: Order Comment: Speci men Type: BLOOD SPECIMENOrdering Facility: [facility] Address: [address] [address] Performed By: #### 2 4323-8 ####[facility] LABCLIA [id number] [place] [address] [place] [facility] ESTIMATED GLOMERULAR FILTRATION RATE 76 mL/min/1.73m??? Normal >=60 [facility] Comment on above: Order Comment: Jessica rich Type: BLOOD SPECIMENOrdering Facility: [facility] Address: [address] [address] Result Comment: Annmarie mated Glomerular Filtration Rate (eGFR) is calculated using the 2020 CKD-EPI creatinine equation. This equation utilizes serum creatinine, sex, and age as parameters. The creatinine assay has traceable calibration to isotope dilution-mass spectrometry. Refer to KDIGO guidelines for clinical interpretation. In patients with unstable renal function, e.g. those with acute kidney injury, the eGFR may not accurately reflect actual GFR. Performed By: #### 2 4323-8 ####[facility] LABIA [id number] [place] [address] [place] Glucose [Mass/Vol] 159 mg/dL High 74-99 [facility] Comment on above: Order Comment: Jessica rich Type: BLOOD SPECIMENOrdering Facility: [facility] Address: [address] [place] [address] Result Comment: The [place] Diabetes Association (ADA) provides guidance for cutoff values for fasting glucose and random glucose. The ADA defines fasting as no caloric intake for at least 8 hours. Fasting plasma glucose results between 100 to 125 mg/dL indicate increased risk for diabetes (prediabetes). Fasting plasma glucose results greater than or equal to 126 mg/dL meet the criteria for diagnosis of diabetes. In the absence of unequivocal hyperglycemia, results should be confirmed by repeat testing. In a patient with classic symptoms of hyperglycemia or hyperglycemic crisis, random plasma glucose results greater than or equal to 200 mg/dL meet the criteria for diagnosis of diabetes. Reference: Standards of Medical Care in Diabetes 2016, [place] [employer]. Diabetes Care. 2016.39(Suppl 1). Performed By: #### 2 4323-8 ####[facility] LABIA [id number] [place] [address] [place] Potassium [Moles/Vol] 5.0 mmol/L Normal 3.7-5.1 [facility] Comment on above: Order Comment: Speci men Type: BLOOD SPECIMENOrdering Facility: [facility] Address: [address] [place] [address] Performed By: #### 2 4323-8 ####[facility] LABIA [id number] [place] [address] [place] Protein [Mass/Vol] 8.2 g/dL High 6.3-8.0 [facility] Comment on above: Order Comment: Speci men Type: BLOOD SPECIMENOrdering Facility: [facility] Address: [address] [place] [address] Performed By: #### 2 4323-8 ####[facility] LABIA [id number] [place] [address] [place] Sodium [Moles/Vol] 132 mmol/L Low 136-144 [facility] Comment on above: Order Comment: Speci men Type: BLOOD SPECIMENOrdering Facility: [facility] Address: [address] [place] [address] Performed By: #### 2 4323-8 ####[facility] LABIA [id number] [place] [address] [place] Urea nitrogen [Mass/Vol] 21 mg/dL Normal 7-21 [facility] Comment on above: Order Comment: Speci men Type: BLOOD SPECIMENOrdering Facility: [facility] Address: [address] [place] [address] Performed By: #### 2 4323-8 ####[facility] LABIA [id number] [place] [address] [place] ED NOTEon 11-02-2022 ED NOTE HNO ID: [id number] Author: Fauzia Connor RN Service: Emergency Medicine Author Type: Registered Nurse Type: ED Notes Filed: 11/02/2022 9:44 PM Note Text: Amitriptyline given at 21:43, suction to NG tube paused. Normal [facility] ED NOTE HNO ID: [id number] Author: Gerber Paz Service: Emergency Medicine Author Type: Marketing Administrator and Deicer Repairer Electric Type: ED Notes Filed: 11/02/2022 12:24 PM Note Text: Labs sent Normal [facility] ED PROV NOTEon 11-02-2022 ED PROV NOTE HNO ID: [id number] Author: Tejinder Church PA-C Service: Emergency Medicine Author Type: Physician Airport Location Manager Type: ED Provider Notes Filed: 11/02/2022 5:55 PM Note Text: Attestation signed by Rosio Chavez MD at 11/04/2022 8:41 AM Attending Note I have personally performed a face to face assessment of the patient and have reviewed the CARLITOS note. I performed a substantive portion of the visit including all aspects of the following. My marti findings include: Medical Decision Making The patient is a 67 yo female here for nausea, vomiting, and constipation with previous history of SBO. CT obtained given history of SBO and symptoms concerning for SBO vs ileus and is positive for SBO. NGT placed per surgery request. Patient well appearing in the ED and admitted to surgery for further management. Signature: Rosio Chavez MD Date: 11/04/2022 Time: 8:39 AM ED Provider Note Patient Name: Lidia ROCHAN: [id number] : 1955 SERVICE DATE: 11/02/22 History Patient presents with: Nausea AND Vomiting: Pt with hx of SBO. Reports nausea and vomiting since 0 yesterday; none on her trip up to [place]. Pt states has not had a BM since 10/30; but also has chronic constipation. Second Opinion 67yo F with PMH of HTN, COPD, multiple prior abdominal surgeries with prior SBO, ventral hernia, presents to the ED with c/o abdominal pain, nausea/vomiting beginning yesterday. Reports similar to prior bowel obstructions. Last BM around 10/30. No fever at home. PAST MEDICAL HISTORY Diagnosis Date COPD (chronic obstructive pulmonary disease) (HCC) HTN (hypertension) SBO (small bowel obstruction) (HCC) Ventral hernia with bowel obstruction PAST SURGICAL HISTORY Procedure Laterality Date COLECTOMY PRTL W/COLOST/ILEOST AND MUCOFISTULA LAPAROSCOPIC HEMICOLECTOMY Open, x2 S LARGE, VENTRALEX HERNIA PATCH TOTAL ABDOM HYSTERECTOMY TRACHEOSTOMY PLANNED SEPARATE PROCEDURE No family history on file. Social History Tobacco Use Smoking status: Not on file Smokeless tobacco: Not on file Substance and Sexual Activity Alcohol use: Not on file Drug use: Not on file Sexual activity: Not on file ALLERGIES Allergen Reactions Morphine Rash, Swelling Penicillins Rash, Swelling Tetracyclines Rash, Swelling Review of Systems Constitutional: Negative for fever. Respiratory: Negative for cough. Gastrointestinal: Positive for abdominal distention, abdominal pain, constipation, nausea and vomiting. Genitourinary: Negative for dysuria. Skin: Negative for rash. Allergic/Immunologic: Negative for immunocompromised state. Neurological: Negative for light-headedness. Hematological: Does not bruise/bleed easily. Psychiatric/Behaviora l: Negative for behavioral problems. Physical Exam Vitals [11/02/22 1138] BP Pulse Temp Temp src Resp SpO2 Weight Height 129/75 (!) 113 36.8 ?C (98.3 ?F) Oral 19 (!) 94 % 79.8 kg (176 lb) -- Physical Exam Vitals and nursing note reviewed. Constitutional: Appearance: She is well-developed. HENT: Head: Normocephalic and atraumatic. Mouth/Throat: Pharynx: Oropharynx is clear. Cardiovascular: Rate and Rhythm: Normal rate and regular rhythm. Pulmonary: Effort: Pulmonary effort is normal. Abdominal: General: There is distension. Palpations: Abdomen is soft. Tenderness: There is generalized abdominal tenderness. Skin: General: Skin is warm. Capillary Refill: Capillary refill takes less than 2 seconds. Neurological: Mental Status: She is alert. Diagnostic Testing ED Labs Ordered and Reviewed COMP METABOLIC PANEL - Abnormal; Notable for the following components: Result Value Ref Range Protein, Total 8.2 (*) 6.3 - 8.0 g/dL Calcium, Total 10.9 (*) 8.5 - 10.2 mg/dL Glucose 159 (*) 74 - 99 mg/dL Sodium 132 (*) 136 - 144 mmol/L Chloride 93 (*) 97 - 105 mmol/L All other components within normal limits CBC + DIFF - Abnormal; Notable for the following components: WBC 19.77 (*) 3.70 - 11.00 k/uL RBC 6.00 (*) 3.90 - 5.20 m/uL Hemoglobin 18.1 (*) 11.5 - 15.5 g/dL Hematocrit 51.2 (*) 36.0 - 46.0 % Abs Neut 17.50 (*) 1.45 - 7.50 k/uL Abs [place] 0.94 (*) <0.87 k/uL Abs Immature Gran 0.11 (*) <0.10 k/uL All other components within normal limits ED BG VENOUS/LAB PANELS - Abnormal; Notable for the following components: Lactate (POCT) 2.1 (*) 0.5 - 2.0 mmol/L All other components within normal limits Narrative: Meter ID:ED Location:ED [facility], [address] [place] [address], [address] PROTHROMBIN TIME/PT - Normal ACTIVATED PTT - Normal Narrative: Unfractionated Heparin Therapeutic Ranges: Standard Heparin Nomogram: 53 to 78 seconds (anti-Xa level of 0.3 to 0.7 U/ml) Low Dose/ACS Nomogram: 49 to 67 seconds (anti-Xa level of 0.2 to 0.5 (more content not included)... Normal [facility] PT panel Coag (PPP)on 2022 INR Coag (PPP) [Relative time] 1.1 {INR} Normal 0.9-1.3 [facility] Comment on above: Order Comment: Speci men Type: BLOOD SPECIMENOrdering Facility: [facility] Address: [address] [place] [address] Result Comment: Camille min K Antagonist (VKA) Therapeutic Range: INR 2 to 3 (Target INR of 2.5) Note: For patients treated with VKA drugs, such as warfarin, the [place] [employer] 2012 Guideline recommends a therapeutic INR range of 2 to 3 (target INR of 2.5). This recommendation includes high-risk patients with antiphospholipid syndrome with previous arterial or venous thromboembolism, current-generation mechanical or bioprosthetic aortic heart valve replacement. Note: Patients with mechanical aortic valve replacement and additional risk factors for thromboembolic events (atrial fibrillation, previous thromboembolism, LV dysfunction, hypercoagulable conditions) or an older generation mechanical AVR (i.e., ball in-Cage) or any mechanical MVR should have a INR therapeutic range of 2.5 to 3.5 (target INR of 3). Corazon GH, et al. Chest 2012, 141:7S-47S Kade RA, et al. [facility] 2017, 70: 252-289 Performed By: #### 3 4528-0, 09074-0 ####[facility] LABIA [id number] [place] [address] [place] PT Coag (PPP) [Time] 11.3 s Normal 9.7-13.0 [facility] Comment on above: Order Comment: Jessica rich Type: BLOOD SPECIMENOrdering Facility: [facility] Address: [address] [place] [address] Performed By: #### 3 4528-0, 23042-3 ####[facility] LABCLIA [id number] [place] [address] [place] TYPE + SCREENon 11-02-2022 ABO O Normal [facility] Comment on above: Order Comment: Jessica rich Type: BLOOD SPECIMENOrdering Facility: [facility] Address: [address] [place] [address] Performed By: #### T SCR ####[facility] BLOOD BANKCLIA [id number] HISTORICAL AB SCR STATUS Negative Normal [facility] Comment on above: Order Comment: Speci men Type: BLOOD SPECIMENOrdering Facility: [facility] Address: [address] [place] [address] Performed By: #### T SCR ####[facility] BLOOD BANKCLIA [id number] [address] Rh Nom (Bld) Positive Normal [facility] Comment on above: Order Comment: Speci men Type: BLOOD SPECIMENOrdering Facility: [facility] Address: [address] [place] [address] Performed By: #### T SCR ####[facility] BLOOD BANKCLIA [id number] [address] TYPE AND SCREEN EXPIRATION 11/05/2022 23:59 Normal [facility] Comment on above: Order Comment: Speci men Type: BLOOD SPECIMENOrdering Facility: [facility] Address: [address] [place] [address] Performed By: #### T SCR ####[facility] BLOOD BANKCLIA [id number] [address] XR ABDOMEN 1V SPECIFYon 05-0 XR ABDOMEN 1V SPECIFY * * *Final Report* * * DATE OF EXAM: Nov 02 2022 5:11PM EGX 5288 - XR ABDOMEN 1V SPECIFY / PROCEDURE REASON: Evaluate tube, line or lead position * * * * Physician Interpretation * * * * EXAMINATION: XR ABDOMEN 1V SPECIFY HISTORY: ng placement Evaluate tube, line or lead position. TECHNIQUE: XR ABDOMEN 1V SPECIFY Laterality: NOT APPLICABLE Number of different views (projections): 1 M: XB_1 COMPARISON: 06/11/2022 RESULT: There is a feeding tube with its tip overlying distal stomach. No bowel dilatation. No free air. Visualized lung bases are clear. No other significant abnormality. IMPRESSION: Feeding tube as described. Global Account Executive: KWADWO Transcribe Date/Time: Nov 02 2022 6:44P Dictated by : SKINNY CISNEROS MD This examination was interpreted and the report reviewed and electronically signed by: SKINNY CISNEROS MD on Nov 02 2022 6:45PM EST [id number] Normal [facility] aPTT PPPon 11-02-2022 aPTT Coag (PPP) [Time] 30.0 s Normal 23.0-32.4 Cl [facility] Comment on above: Order Comment: Speci men Type: BLOOD SPECIMENOrdering Facility: [facility] Address: [address] [place] [address] Performed By: #### 3 4528-0, 80183-5 ####[facility] LABCLIA [id number] [address] STATES [facility] Basophil percentageOrdered B y: Dr. Chan on 09-10-2022 Creatinine [Mass/Vol] 1.0 mg/dL 0.55-1.02 [place] Brain W/WO Contraston 2022 Brain W/WO Contrast [facility] Imaging Services [address] [place] [address] Brain W/WO Contrast MR#: [id number] Acct: [id number] Name: LIDIA ONEILL Rep #: [id number] : 1955 F 67 From: Omari Lal MD PCP: Dr. Xena Chan MD Status: REG CLI Study: Brain W/WO Contrast Date of Exam: 09/10/22 Exam# [id number] Ordering Dr: Lawrence Chan MD EXAM: MR HEAD WITHOUT AND WITH INTRAVENOUS CONTRAST CLINICAL INDICATION: VISUAL DISTURBANCES TECHNIQUE: Multiplanar and multisequence MR images of the brain were obtained without and with intravenous contrast. This report was created using [employer] report generation technology. CONTRAST: 15ML IV CLARISCAN COMPARISON: None. FINDINGS: BRAIN AND EXTRA-AXIAL SPACES: Periventricular small vessel ischemic change. No midline shift or hydrocephalus. Diffuse parenchymal atrophy. Posterior fossa structures are unremarkable. Basal cisterns are patent. No acute intracranial hemorrhage, mass effect or edema. No evidence of acute cortical stroke. SELLA: Unremarkable. Normal sella turcica, pituitary gland, infundibular stalk, optic chiasm and hypothalamus. AUDITORY SYSTEM: Unremarkable. The internal auditory canals are patent. BONES/JOINTS: Unremarkable. No discrete lytic or blastic abnormalities. SINUSES: Unremarkable as visualized. Clear. MASTOID AIR CELLS: Visualized sinuses and mastoid air cells are clear. ORBITS: Unremarkable as visualized. Both globes, extraocular muscles, optic nerves and retrobulbar fat appear unremarkable. VASCULATURE: Unremarkable as visualized. Normal flow voids in the major intracranial circulation. MRI/Brain W/WO Contrast IMPRESSION: 1. No evidence of acute intracranial pathology. 2. Diffuse involutional changes and chronic ischemic small vessel white matter disease. Electronically Signed: Omari Lal MD at 22:39 EST , CC: Dr. Lawrence Chan MD; Dr. Xena Chan MD Global Account Executive: Signed Normal [facility] CREATININE FINGERSTICKon Creatinine [Mass/Vol] 1.0 mg/dL Normal 0.55-1.02 [place] Comment on above: Performed By: #### L 9100.0200 ####[facility] [address] [facility]. [place], [place], [id number] GFR/1.73 sq M.predicted among non-blacks MDRD (S/P/Bld) [Vol rate/Area] 57.0000 mL/min/{1.73_m2} Low >60 [facility] Comment on above: Performed By: #### L 9100.0200 ####[facility] [address] [place], [place], [id number] Laboratory - Chemistry and C hemistry - challengeOrdered By: Dr. Chan on 09-10-2022 GFR/1.73 sq M.predicted among non-blacks MDRD (S/P/Bld) [Vol rate/Area] 57.0000 mL/min/{1.73_m2} >60 [facility] Carotid Duplex Ultrasoundon 08-31-2022 Carotid Duplex Ultrasound [facility] [place] [address] Carotid Duplex Ultrasound 08/31/22 1253 MR#: [id number] Acct: [id number] Name: LIDIA ONEILL Rep #: [id number] : 1955 67 From: Kyrie Nicole MD Attending Dr: Dr. Lawrence Chan MD Status: REG CLI Ordering Dr: Lawrence Chan MD Date: 08/31/22 Location: [facility] Sex: F C Admitted: Reason For Study: Carotid stenosis Rt. Velocities/BP Lt. Velocities/BP Prox CCA 80.6/15.4 cm/sec. Prox CCA 87.6/18.8 cm/sec. Mid CCA 85.3/18.2 cm/sec. Mid CCA 75.3/13.9 cm/sec. Dist CCA 78.7/17.3 cm/sec. Dist CCA 75.3/22.5 cm/sec. Prox ICA 69.6/13.5 cm/sec. Prox ICA 65.2/14.6 cm/sec. Mid ICA 64.1/20.1 cm/sec. Mid ICA 76.9/19 cm/sec. Dist ICA 58.6/19 cm/sec. Dist ICA 64.1/20.1 cm/sec. Rt. ICA/CCA = 0.86. Lt. ICA/CCA = 1.02. Prox ECA 93.8/13.5 cm/sec. Prox ECA 128.4/17 cm/sec. Rt. Vert. 55.3/11.3 cm/sec. Lt. Vert. 86.1/20.1 cm/sec. Right Extracranial There is homogeneous, smooth atherosclerotic plaque noted in the right common carotid artery. There is heterogeneous, irregular atherosclerotic plaque noted in the right internal carotid artery. There is intimal thickening but no significant atherosclerotic plaque noted in the right external carotid artery. Antegrade flow is noted in the right vertebral artery. Left Extracranial There is homogeneous, smooth atherosclerotic plaque noted in the left common carotid artery. There is heterogeneous, irregular atherosclerotic plaque noted in the left internal carotid artery. There is heterogeneous, irregular atherosclerotic plaque noted in the left external carotid artery. Antegrade flow is noted in the left vertebral artery. Procedure Carotid Duplex 79992. This is a Carotid Duplex examination using B-mode, color flow and specral Doppler. This is a venous duplex using B-mode, color flow and spectral Doppler. VL/Carotid Duplex Ultrasound Interpretation Summary Heterogenous irregular plaque at the proximal right internal carotid artery with less than 50% stenosis Less than 50% stenosis right external carotid artery Irregular plaque at the proximal left internal carotid artery with less than 50% stenosis Less than 50% stenosis left external carotid artery Patent and antegrade vertebral arteries bilaterally Ordering Physician: Lawrecne Chan Referring Physician: Xena Chan Performed By: Maegan Deal RVT 08/31/221651 Date Kyrie Nicole MD CC: Dr. Lawrence Chan MD; Dr. Xena Chan MD Date Dictated: 08/31/22 1253 Date Transcribed: 08/31/221651 Global Account Executive: Signed Normal [facility] Emergency Department Summary on 06-16-2022 Emergency Department Summary [facility] Medical Records Department [address] [place] [address] Emergency Department Summary 06/16/22 MR#: [id number] Acct: [id number] Name: LIDIA ONEILL Rep #: [id number] : 1955 66 From: Aba Lam MD PCP: Dr. Xena Chan MD Status:REG ER Location: ED HPI HPI - GI History of Present Illness Chief Complaint: Constipation Informant: patient Abdominal Pain/Flank Pain Onset: Yesterday Context: Gradual Onset Timing: Intermittent Quality: Aching Location: - (Lower abdomen when my colon spasms) Current Severity: Mild Maximum Severity: Mild Worsened by: - (Trying to have BM) Relieved by: Nothing Nausea/Vomiting/Emesi s GI Symptom: Negative for Nausea or Vomiting Diarrhea/Melena/Hemat ochezia GI Symptom: Positive for Hematochezia (Small amount only after patient try to disimpact herself manually and felt like she scratched herself perianally); Negative for Diarrhea or Melena Onset: Today Associated Symptoms Associated Symptoms: Negative for Dysuria, Frequency, Hematuria or Urgency Narrative Narrative: Patient states she has a longstanding history of constipation related to prior abdominal surgeries and adhesions. She states she was recently admitted for a bowel obstruction had an NG tube, discharged 3 days ago or so. She states since then she feels like her bowels are trying to move, she has had several bowel movements but now feels like there is a very large amount of stool in her distal colon that she cannot get out, she is having some bowel spasms but no nausea or vomiting or symptoms like when she had the bowel obstruction. She did not have surgery this past week when she was admitted. She states she feels like she needs to be disimpacted. PFSH PFSH Medical History Acute bronchitis, unspecified Aphthous ulcer ARDS (adult respiratory distress syndrome) Cancer COPD (chronic obstructive pulmonary disease) DVT (deep venous thrombosis) H/O sepsis History of coma History of ectopic HTN (hypertension) Hyperlipidemia Pneumonia Smoker Home Medications acetaminophen 325 mg capsule 1,000 mg PO ONCE PRN Pain 11/11/20 [History Last Taken 06/10/22] albuterol sulfate 90 mcg/actuation aerosol inhaler 2 puff inhalation Q2H PRN PRN Shortness Of Breath 11/11/20 [History Last Taken 06/10/22] amitriptyline 25 mg tablet 100 mg PO QHS sleep 11/11/20 [History Last Taken 06/10/22] budesonide-formoterol HFA 160 mcg-4.5 mcg/actuation aerosol inhaler 1 puff inhalation BID copd 11/11/20 [History Last Taken 06/10/22] calcium carbonate 200 mg calcium (500 mg) chewable tablet (Tums) 200 mg PO Q2H PRN PRN gerd 11/11/20 [History Last Taken Unknown] candesartan 4 mg tablet 4 mg PO QHS bp 11/11/20 [History Last Taken 06/09/22] cyclobenzaprine 10 mg tablet 10 mg PO TID pain 11/11/20 [History Last Taken 06/09/22] docusate sodium 100 mg capsule (Colace) 100 mg PO BID PRN Constipation 11/11/20 [History Last Taken 06/09/22] fluticasone propionate 50 mcg/actuation nasal spray,suspension 2 spray intranasal DAILY allergies 11/11/20 [History Last Taken 06/09/22] herbalife PO meal replacement 11/11/20 [History Last Taken Unknown] icey hot topical 11/11/20 [History Last Taken Unknown] mecobalamin (vitamin B12) 1,000 mcg chewable tablet 1,000 mcg PO DAILY supplement 11/11/20 [History Last Taken 06/09/22] polyethylene glycol 3350 17 gram oral powder packet (Miralax) 17 g PO DAILY PRN Constipation 11/11/20 [History Last Taken Unknown] red yeast rice 600 mg capsule 600 mg PO DAILY supplment 11/11/20 [History Last Taken 06/09/22] linaclotide 290 mcg capsule (Linzess) 290 mcg PO DAILY constipation 06/11/22 [History Last Taken 06/09/22] Allergy/AdvReac Type Severity Reaction Status Date / Time morphine Allergy Swelling, Verified 06/16/22 00:32 Rash, Itching Penicillins Allergy Swelling, Verified 06/16/22 00:32 Rash, Itching All Cycline ATB's Allergy Swelling, Uncoded 06/16/22 00:32 Rash, Itching Family History Mother Hypertension Heart disease Pacemaker Cervical cancer Father Diabetes Aunt Colon cancer Aunt Breast cancer Uncle CHF (congestive heart failure) Surgical History H/O total hysterectomy with removal of both tubes and ovaries H/O tracheostomy H/O: hysterectomy History of cholecystectomy History of colon surgery Social History household members: other details: sister Smoking Status: Current every day smoker tobacco type: cigarettes alcohol intake: never what type of physical activity do you participate in: none do you feel safe at home: Yes ROS ROS ED Constitutional Constitutional ED: Denies chills or fever(s) Eyes Eyes: Beau (more content not included)... Normal [facility] Absolute lymphocyte countOrd ered By: Dr. Minor on 06-13-2022 Lymphocytes Auto (Unsp spec) [#/Vol] 1.08 10*3/uL 0.83-4.51 [facility] Basic Metabolic Profile (BMP )on 06-13-2022 BUN/CRE 14.0 RATIO Normal 10-20 [facility] Comment on above: Performed By: #### L 500.2500, L100.0100 #### [facility] [address] [place], [address] CA,Total 7.7 mg/dL Low 8.5-10.1 [facility] Comment on above: Performed By: #### L 500.2500, L100.0100 #### [facility] [address] [place], [address] Chloride [Moles/Vol] 108 mmol/L High 98-107 [facility] Comment on above: Performed By: #### L 500.2500, L100.0100 #### [facility] [address] [place], [address] CO2 [Moles/Vol] 25.0 mmol/L Normal 21.0-32.0 [facility] Comment on above: Performed By: #### L 500.2500, L100.0100 #### [facility] [address] [place], [address] Creatinine [Mass/Vol] 0.50 mg/dL Low 0.55-1.02 [place] Comment on above: Result Comment: The validity of the calculated GFR GFRAA in patients over 70 years has not been determined. Clinical correlation is essential. Performed By: #### L 500.2500, L100.0100 #### [facility] [address] [place], [address] ECRCL 42.59 ml/min Normal [facility] Comment on above: Performed By: #### L 500.2500, L100.0100 #### [facility] [address] [place], [address] EST GFR - AA 157 mL/min Normal >60 [facility] Comment on above: Result Comment: Afri can Ethiopian GFR Calc Performed By: #### L 500.2500, L100.0100 #### [facility] [address] [place], [address] GAP 5 Normal 5-15 [facility] Comment on above: Performed By: #### L 500.2500, L100.0100 #### [facility] [address] [place], [address] GFR/1.73 sq M.predicted among non-blacks MDRD (S/P/Bld) [Vol rate/Area] 130 mL/min/{1.73_m2} Normal >60 [facility] Comment on above: Result Comment: Non- GFR Calc Performed By: #### L 500.2500, L100.0100 #### [facility] [address] [place], [address] Glucose [Mass/Vol] 100 mg/dL Normal 74-106 [facility] Comment on above: Result Comment: Fast ing Glucose result from 100 to 125 mg/dL suggests IMPAIRED HOMEOSTASIS per A.D.A. criteria. Performed By: #### L 500.2500, L100.0100 #### [facility] [address] [place], [address] Potassium [Moles/Vol] 3.6 mmol/L Normal 3.5-5.1 [place] Comment on above: Performed By: #### L 500.2500, L100.0100 #### [facility] [address] [place], [address] Sodium [Moles/Vol] 138 mmol/L Normal 136-145 [facility] Comment on above: Performed By: #### L 500.2500, L100.0100 #### [facility] [address] [place], [address] Urea nitrogen [Mass/Vol] 7 mg/dL Normal 7-18 [facility] Comment on above: Performed By: #### L 500.2500, L100.0100 #### [facility] [address] [place], [address] Basophil percentageOrdered B y: Dr. Minor on 06-13-2022 Basophils/100 WBC (Bld) 0.5 % 0-1 [facility] Chloride [Moles/Vol] 108 mmol/L 98-107 [facility] Eosinophils/100 WBC (Bld) 1.6 % 0-5 [facility] Glucose [Mass/Vol] 100 mg/dL 74-106 [facility] Comment on above: Fasting Glucose resu lt from 100 to 125 mg/dL suggests IMPAIRED HOMEOSTASIS per A.D.A. criteria. Neutrophils (Bld) [#/Vol] 6.1 10*3/uL 2.0-7.7 [facility] Neutrophils/100 WBC (Bld) 74.5 % 47-70 [facility] Potassium [Moles/Vol] 3.6 mmol/L 3.5-5.1 [place] Sodium [Moles/Vol] 138 mmol/L 136-145 [facility] WBC (Bld) [#/Vol] 8.2 10*3/uL 4.4-11.0 [facility] Blood erythrocytes count (nu mber/volume)Ordered By: Dr. Minor on 06-13-2022 RBC (Bld) [#/Vol] 4.27 10*6/uL 4.2-5.4 [facility] Blood hemoglobin measurement (mass/volume)Ordered By: Dr. Minor on 06-13-2022 Hemoglobin (Bld) [Mass/Vol] 12.5 g/dL 12.0-15.0 [facility] Blood lymphocytes/100 leukoc ytesOrdered By: Dr. Minor on 06-13-2022 Lymphocytes/100 WBC (Bld) 13.2 % 19-41 [facility] Blood monocytes/100 leukocyt esOrdered By: Dr. Minor on 06-13-2022 Monocytes/100 WBC (Bld) 9.3 % 0-10 [facility] Blood platelet mean volumeOr dered By: Dr. Minor on 06-13-2022 Platelet mean volume (Bld) [Entitic vol] 10.9 fL 6.2-12.0 [facility] CBC W/Diff, Automatedon --2021 Absolute Lymph 1.08 X10 3/uL Normal 0.83-4.51 [facility] Comment on above: Performed By: #### L 500.2500, L100.0100 #### [facility] [address] [place], [address] Absolute Neut 6.1 X10 3/uL Normal 2.0-7.7 [facility] Comment on above: Performed By: #### L 500.2500, L100.0100 #### [facility] [address] [place], [address] Basophils/100 WBC (Bld) 0.5 % Normal 0-1 [facility] Comment on above: Performed By: #### L 500.2500, L100.0100 #### [facility] [address] [place], [address] Eosinophils/100 WBC (Bld) 1.6 % Normal 0-5 [facility] Comment on above: Performed By: #### L 500.2500, L100.0100 #### [facility] [address] [place], [address] Erythrocyte distribution width (RBC) [Ratio] 13.3 % Normal 11.6-14.6 [facility] Comment on above: Performed By: #### L 500.2500, L100.0100 #### [facility] [address] [place], [address] Hematocrit (Bld) [Volume fraction] 38.5 % Normal 37-47 [facility] Comment on above: Performed By: #### L 500.2500, L100.0100 #### [facility] [address] [place], [address] Hemoglobin (Bld) [Mass/Vol] 12.5 g/dL Normal 12.0-15.0 [facility] Comment on above: Performed By: #### L 500.2500, L100.0100 #### [facility] [address] [place], [address] IG% 0.900 Normal 0.0-0.9 [facility] Comment on above: Result Comment: IG% - Immature Granulocytes (promyelocytes, myelocytes and metamyelocytes) > 1% indicates that a LEFT SHIFT is Present. Performed By: #### L 500.2500, L100.0100 #### [facility] [address] [place], [address] Lymphocytes/100 WBC (Bld) 13.2 % Low 19-41 [facility] Comment on above: Performed By: #### L 500.2500, L100.0100 #### [facility] [address] [place], [address] MCH (RBC) [Entitic mass] 29.3 pg Normal 27.0-32.0 [facility] Comment on above: Performed By: #### L 500.2500, L100.0100 #### [facility] [address] [place], [address] MCHC (RBC) [Mass/Vol] 32.5 g/dL Normal 32-36 [place] Comment on above: Performed By: #### L 500.2500, L100.0100 #### [facility] [address] [place], [address] MCV (RBC) [Entitic vol] 90.2 fL Normal 81-99 [facility] Comment on above: Performed By: #### L 500.2500, L100.0100 #### [facility] [address] [place], [address] Monocytes/100 WBC (Bld) 9.3 % Normal 0-10 [facility] Comment on above: Performed By: #### L 500.2500, L100.0100 #### [facility] [address] [place], [address] Neutrophils/100 WBC (Bld) 74.5 % High 47-70 [facility] Comment on above: Performed By: #### L 500.2500, L100.0100 #### [facility] [address] [place], [address] Nucleated RBC (Bld) [#/Vol] 0 10*3/uL Normal 0-5 [facility] Comment on above: Performed By: #### L 500.2500, L100.0100 #### [facility] [address] [place], [address] Platelet mean volume (Bld) [Entitic vol] 10.9 fL Normal 6.2-12.0 [facility] Comment on above: Performed By: #### L 500.2500, L100.0100 #### [facility] [address] [place], [address] Platelets (Bld) [#/Vol] 189 10*3/uL Normal 150-450 [facility] Comment on above: Performed By: #### L 500.2500, L100.0100 #### [facility] [address] [place], [address] RBC (Bld) [#/Vol] 4.27 10*6/uL Normal 4.2-5.4 [facility] Comment on above: Performed By: #### L 500.2500, L100.0100 #### [facility] [address] [place], [address] RDW SD 43.8 fl Normal 35.1-43.9 [facility] Comment on above: Performed By: #### L 500.2500, L100.0100 #### [facility] [address] [place], [address] WBC (Bld) [#/Vol] 8.2 10*3/uL Normal 4.4-11.0 [facility] Comment on above: Performed By: #### L 500.2500, L100.0100 #### [facility] [address] [place], [address] Determination of erythrocyte mean corpuscular volume (MCV)Ordered By: Dr. Minor on 06-13-2022 MCV (RBC) [Entitic vol] 90.2 fL 81-99 [facility] Discharge Instructionon 06-04 Discharge Instruction [facility] Medical Records Department [address] [place] [address] Instructions for Home/Discharge Instructions 06/13/22 1343 MR#: [id number] Acct: [id number] Name: LIDIA ONEILL Rep #: [id number] : 1955 66 From: Tejinder Minor MD PCP: Dr. Xena Chan MD Status:ADM IN Discharge Instructions Diet Discharge Diet: Light diet - advance as tolerated Activity Discharge Activity: Return to Normal Activity Dressing / Incision Call your doctor if you observe: Fever of 101 or Higher, Shortness of breath, Dizziness, Fainting spells, Swelling in the ankles, Chest pain and Increased palpitations (irregular heartbeat) Follow Up Care Test Results: Test results from this visit will be discussed in further detail at your follow-up appointment, if applicable. Discharge Plan Admission Admit Date/Time: 06/11/22 13:14 Attending Provider: Tejinder Minor Primary Care Provider: Xena Chan Consulting Providers: Kyrie Nicole Ama Discharge Orders/Prescriptions Prescriptions: Continued albuterol sulfate 90 mcg/actuation HFA aerosol inhaler 2 puff inhalation Q2H PRN PRN (Reason: Shortness Of Breath) amitriptyline 25 mg tablet 100 mg PO QHS candesartan 4 mg tablet 4 mg PO QHS cyclobenzaprine 10 mg tablet 10 mg PO TID fluticasone propionate 50 mcg/actuation spray,suspension 2 spray intranasal DAILY budesonide-formoterol 160-4.5 mcg/actuation HFA aerosol inhaler 1 puff inhalation BID polyethylene glycol 3350 [Miralax] 17 gram powder in packet 17 g PO DAILY PRN (Reason: Constipation) docusate sodium [Colace] 100 mg capsule 100 mg PO BID PRN (Reason: Constipation) mecobalamin (vitamin B12) 1,000 mcg tablet,chewable 1,000 mcg PO DAILY red yeast rice 600 mg capsule 600 mg PO DAILY Rx Instructions: give with meal/snack acetaminophen 325 mg capsule 1,000 mg PO ONCE PRN (Reason: Pain) herbalife PO icey hot topical calcium carbonate [Tums] 200 mg calcium (500 mg) tablet,chewable 200 mg PO Q2H PRN PRN (Reason: gerd) Linzess 290 mcg Capsule 290 mcg PO DAILY Referrals / Follow Up: Chidi Gonzalez [Other] - Within 3 Months ([facility]) Xena Chan MD [Primary Care Provider] - Within 1 Week Disposition Disposition (needs filled in before D/C Order can be placed): Home, Self Care 06/13/22 1349 Tejinder Minor MD CC: Dr. Alee Ocampo MD; Dr. Xena Chan MD; Dr. Kyrie Nicole MD Signed Normal [facility] Hematocrit Auto (Bld) [Volum e fraction]Ordered By: Dr. Minor on 06-13-2022 Hematocrit (Bld) [Volume fraction] 38.5 % 37-47 [facility] - Chemistry and C hemistry - challengeOrdered By: Dr. Minor on 06-13-2022 CO2 [Moles/Vol] 25.0 mmol/L 21.0-32.0 [facility] Urea nitrogen/Creatinine [Mass ratio] 14.0 mg/mg 10-20 [facility] - Hematology and Cell countsOrdered By: Dr. Minor on 06-13-2022 Erythrocyte distribution width (RBC) [Entitic vol] 43.8 fL 35.1-43.9 [facility] Erythrocyte distribution width (RBC) [Ratio] 13.3 % 11.6-14.6 [facility] Immature granulocytes/100 WBC (Bld) 0.900 % 0.0-0.9 [facility] Comment on above: IG% - Immature Granu locytes (promyelocytes, myelocytes and metamyelocytes) > 1% indicates that a LEFT SHIFT is Present. MCH (RBC) [Entitic mass] 29.3 pg 27.0-32.0 [facility] Nucleated RBC/100 WBC (Bld) [Ratio] 0 % 0-5 [facility] MCHC Auto (RBC) [Mass/Vol]Or dered By: Dr. Minor on 06-13-2022 MCHC (RBC) [Mass/Vol] 32.5 g/dL 32-36 [place] No Panel InformationOrdered By: Dr. Minor on 06-13-2022 Estimated Creatinine Clearance Calc 42.59 ml/min [facility] Estimated GFR (MDRD) Amer 157 mL/min >60 [facility] Comment on above: GFR Calc Estimated GFR (MDRD) Non-Af Amer 130 mL/min >60 [facility] Comment on above: Non- GFR Calc Platelets bldOrdered By: Dr. Minor on 06-13-2022 Platelets (Bld) [#/Vol] 189 10*3/uL 150-450 [facility] Serum or plasma calcium ag urement (mass/volume)Ordered By: Dr. Minor on 06-13-2022 Calcium [Mass/Vol] 7.7 mg/dL 8.5-10.1 [facility] Serum or plasma creatinine m easurement (mass/volume)Ordered By: Dr. Minor on 06-13-2022 Creatinine [Mass/Vol] 0.50 mg/dL 0.55-1.02 [place] Comment on above: The validity of the calculated GFR & GFRAA in patients over 70 years has not been determined. Clinical correlation is essential. Serum or plasma urea nitroge n measurement (mass/volume)Ordered By: Dr. Minor on 06-13-2022 Urea nitrogen [Mass/Vol] 7 mg/dL 7-18 [facility] Thin prep Papanicolaou smear with manual screeningOrdered By: Dr. Minor on 06-13-2022 Thin prep Papanicolaou smear with manual screening 5 5-15 [facility] Basophil percentageOrdered B y: Dr. Ocampo on 06-12-2022 Bilirubin [Mass/Vol] 0.30 mg/dL 0.20-1.00 [facility] Comment on above: For patients on eltr ombopag therapy, use of Dimension [place] TBIL is not recommended. Protein [Mass/Vol] 5.9 g/dL 6.4-8.2 [facility] CBC W/Diff, Automatedon PATH REV Reviewed Normal [facility] Comment on above: Result Comment: Neut rophilic leukocytosis. Polycythemia Clinical correlation necessary. Ivan Sanz M.D. 06/12/22 AMENDED REPORT 06/12/22947 PATH REV previously reported as: November Performed By: #### L 503.6005, L500.4050, L501.2450, L100.0100 ####[facility] [address] [place], [address] Absolute Lymph 1.71 X10 3/uL Normal 0.83-4.51 [facility] Comment on above: Order Comment: REDRA W. PREVIOUS SPECIMEN REJECTED DUE TOQNS/CLOT. 06/12/22 0546 Irving Herrera. Performed By: #### L 100.0100 ####[facility] [address] [place], [address] Absolute Neut 4.4 X10 3/uL Normal 2.0-7.7 [facility] Comment on above: Order Comment: REDRA W. PREVIOUS SPECIMEN REJECTED DUE TOQNS/CLOT. 06/12/22 0546 Irving Herrera. Performed By: #### L 100.0100 ####[facility] [address] [place], [address] Basophils/100 WBC (Bld) 0.7 % Normal 0-1 [facility] Comment on above: Order Comment: REDRA W. PREVIOUS SPECIMEN REJECTED DUE TOQNS/CLOT. 06/12/22 [facility] Irving Herrera. Performed By: #### L 100.0100 ####[facility] [address] [place], [address] Eosinophils/100 WBC (Bld) 1.7 % Normal 0-5 [facility] Comment on above: Order Comment: REDRA W. PREVIOUS SPECIMEN REJECTED DUE TOQNS/CLOT. 06/12/[address] [place], [place] [address]jadon Herrera. Performed By: #### L 100.0100 ####[facility] [address] [place], [address] Erythrocyte distribution width (RBC) [Ratio] 13.6 % Normal 11.6-14.6 [facility] Comment on above: Order Comment: REDRA W. PREVIOUS SPECIMEN REJECTED DUE TOQNS/CLOT. 06/12/[address] [place], [place] [address]jadon Herrera. Performed By: #### L 100.0100 ####[facility] [address] [place], [address] Hematocrit (Bld) [Volume fraction] 41.6 % Normal 37-47 [facility] Comment on above: Order Comment: REDRA W. PREVIOUS SPECIMEN REJECTED DUE TOQNS/CLOT. 06/12/22 [facility] Irving Herrera. Performed By: #### L 100.0100 ####[facility] [address] [place], [address] Hemoglobin (Bld) [Mass/Vol] 13.5 g/dL Normal 12.0-15.0 [facility] Comment on above: Order Comment: REDRA W. PREVIOUS SPECIMEN REJECTED DUE TOQNS/CLOT. 06/12/22 [facility] Irving Herrera. Performed By: #### L 100.0100 ####[facility] [address] [place], [address] IG% 0.300 Normal 0.0-0.9 [facility] Comment on above: Order Comment: REDRA W. PREVIOUS SPECIMEN REJECTED DUE TOQNS/CLOT. 06/12/22 [facility] Irving Herrera. Result Comment: IG% - Immature Granulocytes (promyelocytes, myelocytes and metamyelocytes) > 1% indicates that a LEFT SHIFT is Present. Performed By: #### L 100.0100 ####[facility] [address] [place], [address] Lymphocytes/100 WBC (Bld) 23.9 % Normal 19-41 [facility] Comment on above: Order Comment: REDRA W. PREVIOUS SPECIMEN REJECTED DUE TOQNS/CLOT. 06/12/22 [facility] Irving Herrera. Performed By: #### L 100.0100 ####[facility] [address] [place], [address] MCH (RBC) [Entitic mass] 29.9 pg Normal 27.0-32.0 [facility] Comment on above: Order Comment: REDRA W. PREVIOUS SPECIMEN REJECTED DUE TOQNS/CLOT. 06/12/22 [facility] Irving Herrera. Performed By: #### L 100.0100 ####[facility] [address] [place], [address] MCHC (RBC) [Mass/Vol] 32.5 g/dL Normal 32-36 [place] Comment on above: Order Comment: REDRA W. PREVIOUS SPECIMEN REJECTED DUE TOQNS/CLOT. 06/12/22 [facility] Irving Herrera. Performed By: #### L 100.0100 ####[facility] [address] [place], [address] MCV (RBC) [Entitic vol] 92.2 fL Normal 81-99 [facility] Comment on above: Order Comment: REDRA W. PREVIOUS SPECIMEN REJECTED DUE TOQNS/CLOT. 06/12/22 [facility] Irving Herrera. Performed By: #### L 100.0100 ####[facility] [address] [place], [address] Monocytes/100 WBC (Bld) 11.3 % High 0-10 [facility] Comment on above: Order Comment: REDRA W. PREVIOUS SPECIMEN REJECTED DUE TOQNS/CLOT. 06/12/22 [facility] Irving Hererra. Performed By: #### L 100.0100 ####[facility] [address] [place], [address] Neutrophils/100 WBC (Bld) 62.1 % Normal 47-70 [facility] Comment on above: Order Comment: REDRA W. PREVIOUS SPECIMEN REJECTED DUE TOQNS/CLOT. 06/12/22 [facility] Irving Herrera. Performed By: #### L 100.0100 ####[facility] [address] [place], [address] Nucleated RBC (Bld) [#/Vol] 0 10*3/uL Normal 0-5 [facility] Comment on above: Order Comment: REDRA W. PREVIOUS SPECIMEN REJECTED DUE TOQNS/CLOT. 06/12/22 [facility] Irving Herrera. Performed By: #### L 100.0100 ####[facility] [address] [place], [address] Platelet mean volume (Bld) [Entitic vol] 10.6 fL Normal 6.2-12.0 [facility] Comment on above: Order Comment: REDRA W. PREVIOUS SPECIMEN REJECTED DUE TOQNS/CLOT. 06/12/22 [facility] Irving Herrera. Performed By: #### L 100.0100 ####[facility] [address] [place], [address] Platelets (Bld) [#/Vol] 196 10*3/uL Normal 150-450 [facility] Comment on above: Order Comment: REDRA W. PREVIOUS SPECIMEN REJECTED DUE TOQNS/CLOT. 06/12/22 [facility] Irving Herrera. Performed By: #### L 100.0100 ####[facility] [address] [place], [address] RBC (Bld) [#/Vol] 4.51 10*6/uL Normal 4.2-5.4 [facility] Comment on above: Order Comment: REDRA W. PREVIOUS SPECIMEN REJECTED DUE TOQNS/CLOT. 06/12/22545 Irving Herrera. Performed By: #### L 100.0100 ####[facility] [address] [place], [address] RDW SD 46.9 fl High 35.1-43.9 [facility] Comment on above: Order Comment: REDRA W. PREVIOUS SPECIMEN REJECTED DUE TOQNS/CLOT. 06/12/22545 Irving Herrera. Performed By: #### L 100.0100 ####[facility] [address] [place], [address] WBC (Bld) [#/Vol] 7.2 10*3/uL Normal 4.4-11.0 [facility] Comment on above: Order Comment: REDRA W. PREVIOUS SPECIMEN REJECTED DUE TOQNS/CLOT. 06/12/22545 Irving Herrera. Performed By: #### L 100.0100 ####[facility] [address] [place], [address] Absolute Neut Normal 2.0-7.7 [facility] Comment on above: Result Comment: This specimen has been REJECTED due to Laboratory criteria: Quanity Not Sufficient. LAB has been notified of need of recollection. 06/12/22544 Irving Herrera Performed By: #### L 500.4050, L100.0100 #### [facility] [address] [place], [address] HCT Normal 37-47 [facility] Comment on above: Result Comment: This specimen has been REJECTED due to Laboratory criteria: Quanity Not Sufficient. LAB has been notified of need of recollection. 06/12/22544 Irving Herrera Performed By: #### L 500.4050, L100.0100 #### [facility] [address] [place], [address] HGB Normal 12.0-15.0 [facility] Comment on above: Result Comment: This specimen has been REJECTED due to Laboratory criteria: Quanity Not Sufficient. LAB has been notified of need of recollection. 06/12/2245 [place] Performed By: #### L 500.4050, L100.0100 #### [facility] [address] [place], [address] MCH Normal 27.0-32.0 [facility] Comment on above: Result Comment: This specimen has been REJECTED due to Laboratory criteria: Quanity Not Sufficient. LAB has been notified of need of recollection. 06/12/2245 Irving Herrera Performed By: #### L 500.4050, L100.0100 #### [facility] [address] [place], [address] MCHC Normal 32-36 [facility] Comment on above: Result Comment: This specimen has been REJECTED due to Laboratory criteria: Quanity Not Sufficient. LAB has been notified of need of recollection. 06/12/2245 Irving Herrera Performed By: #### L 500.4050, L100.0100 #### [facility] [address] [place], [address] MCV Normal 81-99 [facility] Comment on above: Result Comment: This specimen has been REJECTED due to Laboratory criteria: Quanity Not Sufficient. LAB has been notified of need of recollection. 06/12/2245 Irving Herrera Performed By: #### L 500.4050, L100.0100 #### [facility] [address] [place], [address] NEUT% Normal 47-70 [facility] Comment on above: Result Comment: This specimen has been REJECTED due to Laboratory criteria: Quanity Not Sufficient. LAB has been notified of need of recollection. 06/12/22544 Irving [place] Performed By: #### L 500.4050, L100.0100 #### [facility] [address] [place], [address] PLT Normal 150-450 [facility] Comment on above: Result Comment: This specimen has been REJECTED due to Laboratory criteria: Quanity Not Sufficient. LAB has been notified of need of recollection. 06/12/22544 Irving [place] Performed By: #### L 500.4050, L100.0100 #### [facility] [address] [place], [address] RBC Normal 4.2-5.4 [facility] Comment on above: Result Comment: This specimen has been REJECTED due to Laboratory criteria: Quanity Not Sufficient. LAB has been notified of need of recollection. 06/12/22544 Irving [place] Performed By: #### L 500.4050, L100.0100 #### [facility] [address] [place], [address] RDW CV Normal 11.6-14.6 [facility] Comment on above: Result Comment: This specimen has been REJECTED due to Laboratory criteria: Quanity Not Sufficient. LAB has been notified of need of recollection. 06/12/22544 Irving [place] Performed By: #### L 500.4050, L100.0100 #### [facility] [address] [place], [address] RDW SD Normal 35.1-43.9 [facility] Comment on above: Result Comment: This specimen has been REJECTED due to Laboratory criteria: Quanity Not Sufficient. LAB has been notified of need of recollection. 06/12/22544 Irving [place] Performed By: #### L 500.4050, L100.0100 #### [facility] [address] [place], [address] WBC Normal 4.4-11.0 [facility] Comment on above: Result Comment: This specimen has been REJECTED due to Laboratory criteria: Quanity Not Sufficient. LAB has been notified of need of recollection. 06/12/22 0545 Irving [place] Performed By: #### L 500.4050, L100.0100 #### [facility] [address] [place], [address] Comprehensive Metabolic Prof ilon 06-12-2022 Albumin [Mass/Vol] 2.8 g/dL Low 3.2-5.0 [facility] Comment on above: Order Comment: REDRA W. PREVIOUS SPECIMEN REJECTED DUE TO QNS. 06/12/22605 Irving [place]. Performed By: #### L 500.4050 #### [facility] [address] [place], [address] Albumin/Globulin [Mass ratio] 0.9 {ratio} Normal 0.9-2.4 [facility] Comment on above: Order Comment: REDRA W. PREVIOUS SPECIMEN REJECTED DUE TO QNS. 06/12/22605 Irving Sharon. Performed By: #### L 500.4050 #### [facility] [address] [place], [address] ALK P 61 U/L Normal 45-117 [facility] Comment on above: Order Comment: REDRA W. PREVIOUS SPECIMEN REJECTED DUE TO QNS. 06/12/22605 Irving Sharon. Performed By: #### L 500.4050 #### [facility] [address] [place], [address] ALT [Catalytic activity/Vol] 24 U/L Normal 13-56 [facility] Comment on above: Order Comment: REDRA W. PREVIOUS SPECIMEN REJECTED DUE TO QNS. 06/12/2206 Irving [place]. Performed By: #### L 500.4050 #### [facility] [address] [place], [address] AST [Catalytic activity/Vol] 15 U/L Normal 15-37 [facility] Comment on above: Order Comment: REDRA W. PREVIOUS SPECIMEN REJECTED DUE TO QNS. 06/12/22605 Irving [place]. Performed By: #### L 500.4050 #### [facility] [address] [place], [address] Bilirubin [Mass/Vol] 0.30 mg/dL Normal 0.20-1.00 [facility] Comment on above: Order Comment: REDRA W. PREVIOUS SPECIMEN REJECTED DUE TO QNS. 06/12/22605 Irving Herrera. Result Comment: For patients on eltrombopag therapy, use of Dimension [place] TBIL is not recommended. Performed By: #### L 500.4050 #### [facility] [address] [place], [address] BUN/CRE 21.9 RATIO High 10-20 [facility] Comment on above: Order Comment: REDRA W. PREVIOUS SPECIMEN REJECTED DUE TO QNS. 06/12/22605 Irving Herrera. Performed By: #### L 500.4050 #### [facility] [address] [place], [address] CA,Total 7.6 mg/dL Low 8.5-10.1 [facility] Comment on above: Order Comment: REDRA W. PREVIOUS SPECIMEN REJECTED DUE TO QNS. 06/12/22 Irving Sharon. Performed By: #### L 500.4050 #### [facility] [address] [place], [address] Chloride [Moles/Vol] 108 mmol/L High 98-107 [facility] Comment on above: Order Comment: REDRA W. PREVIOUS SPECIMEN REJECTED DUE TO QNS. 06/12/22 Irving Sharon. Performed By: #### L 500.4050 #### [facility] [address] [place], [address] CO2 [Moles/Vol] 27.0 mmol/L Normal 21.0-32.0 [facility] Comment on above: Order Comment: REDRA W. PREVIOUS SPECIMEN REJECTED DUE TO QNS. 06/12/2206 Irving [place]. Performed By: #### L 500.4050 #### [facility] [address] [place], [address] Creatinine [Mass/Vol] 0.55 mg/dL Normal 0.55-1.02 [place] Comment on above: Order Comment: REDRA W. PREVIOUS SPECIMEN REJECTED DUE TO QNS. 06/12/22605 Irving [place]. Result Comment: The validity of the calculated GFR GFRAA in patients over 70 years has not been determined. Clinical correlation is essential. Performed By: #### L 500.4050 #### [facility] [address] [place], [address] ECRCL 42.59 ml/min Normal [facility] Comment on above: Order Comment: REDRA W. PREVIOUS SPECIMEN REJECTED DUE TO QNS. 06/12/22605 Irving [place]. Performed By: #### L 500.4050 #### [facility] [address] [place], [address] EST GFR - AA 141 mL/min Normal >60 [facility] Comment on above: Order Comment: REDRA W. PREVIOUS SPECIMEN REJECTED DUE TO QNS. 06/12/22 06 Irving [place]. Result Comment: Afri can Ethiopian GFR Calc Performed By: #### L 500.4050 #### [facility] [address] [place], [address] GAP 4 Low 5-15 [facility] Comment on above: Order Comment: REDRA W. PREVIOUS SPECIMEN REJECTED DUE TO QNS. 06/12/22 06 Irving [place]. Performed By: #### L 500.4050 #### [facility] [address] [place], [address] GFR/1.73 sq M.predicted among non-blacks MDRD (S/P/Bld) [Vol rate/Area] 117 mL/min/{1.73_m2} Normal >60 [facility] Comment on above: Order Comment: REDRA W. PREVIOUS SPECIMEN REJECTED DUE TO QNS. 06/12/22605 Irving [place]. Result Comment: Non- GFR Calc Performed By: #### L 500.4050 #### [facility] [address] [place], [place], [id number] (501) Globulin (S) [Mass/Vol] 3.1 g/dL Normal 2.2-4.2 [facility] Comment on above: Order Comment: REDRA W. PREVIOUS SPECIMEN REJECTED DUE TO QNS. 06/12/22605 Irving [place]. Performed By: #### L 500.4050 #### [facility] [address] [place], [address] Glucose [Mass/Vol] 110 mg/dL High 74-106 [facility] Comment on above: Order Comment: REDRA W. PREVIOUS SPECIMEN REJECTED DUE TO QNS. 06/12/22605 Irving [place]. Result Comment: Fast ing Glucose result from 100 to 125 mg/dL suggests IMPAIRED HOMEOSTASIS per A.D.A. criteria. Performed By: #### L 500.4050 #### [facility] [address] [place], [address] Potassium [Moles/Vol] 3.8 mmol/L Normal 3.5-5.1 [place] Comment on above: Order Comment: REDRA W. PREVIOUS SPECIMEN REJECTED DUE TO QNS. 06/12/22605 Irving [place]. Performed By: #### L 500.4050 #### [facility] [address] [place], [address] Sodium [Moles/Vol] 139 mmol/L Normal 136-145 [facility] Comment on above: Order Comment: REDRA W. PREVIOUS SPECIMEN REJECTED DUE TO QNS. 06/12/22605 Irving [place]. Performed By: #### L 500.4050 #### [facility] [address] [place], [address] T PROT 5.9 g/dL Low 6.4-8.2 [facility] Comment on above: Order Comment: REDRA W. PREVIOUS SPECIMEN REJECTED DUE TO QNS. 06/12/22605 Irving Herrera. Performed By: #### L 500.4050 #### [facility] [address] [place], [address] Urea nitrogen [Mass/Vol] 12 mg/dL Normal 7-18 [facility] Comment on above: Order Comment: REDRA W. PREVIOUS SPECIMEN REJECTED DUE TO QNS. 06/12/22605 Irving Herrera. Performed By: #### L 500.4050 #### [facility] [address] [place], [address] ALB Normal 3.2-5.0 [facility] Comment on above: Result Comment: This specimen has been REJECTED due to Laboratory criteria: Quanity Not Sufficient. LAB has been notified of need of recollection. 06/12/22605 Irving Herrera Performed By: #### L 500.4050, L100.0100 #### [facility] [address] [place], [address] ALK P Normal 45-117 [facility] Comment on above: Result Comment: This specimen has been REJECTED due to Laboratory criteria: Quanity Not Sufficient. LAB has been notified of need of recollection. 06/12/22605 Irving Herrera Performed By: #### L 500.4050, L100.0100 #### [facility] [address] [place], [address] ALT Normal 13-56 [facility] Comment on above: Result Comment: This specimen has been REJECTED due to Laboratory criteria: Quanity Not Sufficient. LAB has been notified of need of recollection. 06/12/22605 Irving Herrera Performed By: #### L 500.4050, L100.0100 #### [facility] [address] [place], [address] AST Normal 15-37 [facility] Comment on above: Result Comment: This specimen has been REJECTED due to Laboratory criteria: Quanity Not Sufficient. LAB has been notified of need of recollection. 06/12/22605 Irving [place] Performed By: #### L 500.4050, L100.0100 #### [facility] [address] [place], [address] BUN Normal 7-18 [facility] Comment on above: Result Comment: This specimen has been REJECTED due to Laboratory criteria: Quanity Not Sufficient. LAB has been notified of need of recollection. 06/12/22605 Irving [place] Performed By: #### L 500.4050, L100.0100 #### [facility] [address] [place], [address] BUN/CRE Normal 10-20 [facility] Comment on above: Result Comment: This specimen has been REJECTED due to Laboratory criteria: Quanity Not Sufficient. LAB has been notified of need of recollection. 06/12/22605 Irving [place] Performed By: #### L 500.4050, L100.0100 #### [facility] [address] [place], [address] CA,Total Normal 8.5-10.1 [facility] Comment on above: Result Comment: This specimen has been REJECTED due to Laboratory criteria: Quanity Not Sufficient. LAB has been notified of need of recollection. 06/12/22605 Irving [place] Performed By: #### L 500.4050, L100.0100 #### [facility] [address] [place], [address] CL Normal 98-107 [facility] Comment on above: Result Comment: This specimen has been REJECTED due to Laboratory criteria: Quanity Not Sufficient. LAB has been notified of need of recollection. 06/12/22605 [place] Performed By: #### L 500.4050, L100.0100 #### [facility] [address] [place], [address] CO2 Normal 21.0-32.0 [facility] Comment on above: Result Comment: This specimen has been REJECTED due to Laboratory criteria: Quanity Not Sufficient. LAB has been notified of need of recollection. 06/12/22605 [place] Performed By: #### L 500.4050, L100.0100 #### [facility] [address] [place], [address] CREAT,SERUM Normal 0.55-1.02 [facility] Comment on above: Result Comment: This specimen has been REJECTED due to Laboratory criteria: Quanity Not Sufficient. LAB has been notified of need of recollection. 06/12/22605 Irving Herrera Performed By: #### L 500.4050, L100.0100 #### [facility] [address] [place], [address] EST GFR Normal >60 [facility] Comment on above: Result Comment: This specimen has been REJECTED due to Laboratory criteria: Quanity Not Sufficient. LAB has been notified of need of recollection. 06/12/22605 Irving Herrera Performed By: #### L 500.4050, L100.0100 #### [facility] [address] [place], [address] EST GFR - AA Normal >60 [facility] Comment on above: Result Comment: This specimen has been REJECTED due to Laboratory criteria: Quanity Not Sufficient. LAB has been notified of need of recollection. 06/12/22605 Irving Herrera Performed By: #### L 500.4050, L100.0100 #### [facility] [address] [place], [address] GAP Normal 5-15 [facility] Comment on above: Result Comment: This specimen has been REJECTED due to Laboratory criteria: Quanity Not Sufficient. LAB has been notified of need of recollection. 06/12/22605 [place] Performed By: #### L 500.4050, L100.0100 #### [facility] [address] [place], [address] GLU Normal 74-106 [facility] Comment on above: Result Comment: This specimen has been REJECTED due to Laboratory criteria: Quanity Not Sufficient. LAB has been notified of need of recollection. 06/12/22605 [place] Performed By: #### L 500.4050, L100.0100 #### [facility] [address] [place], [address] Potassium Normal 3.5-5.1 [facility] Comment on above: Result Comment: This specimen has been REJECTED due to Laboratory criteria: Quanity Not Sufficient. LAB has been notified of need of recollection. 06/12/22605 [place] Performed By: #### L 500.4050, L100.0100 #### [facility] [address] [place], [address] T BILI Normal 0.20-1.00 [facility] Comment on above: Result Comment: This specimen has been REJECTED due to Laboratory criteria: Quanity Not Sufficient. LAB has been notified of need of recollection. 06/12/22605 [place] Performed By: #### L 500.4050, L100.0100 #### [facility] [address] [place], [address] T PROT Normal 6.4-8.2 [facility] Comment on above: Result Comment: This specimen has been REJECTED due to Laboratory criteria: Quanity Not Sufficient. LAB has been notified of need of recollection. 06/12/22605 [place] Performed By: #### L 500.4050, L100.0100 #### [facility] [address] [place], [address] Comprehensive Metabolic Profil Normal 136-145 [facility] Comment on above: Result Comment: This specimen has been REJECTED due to Laboratory criteria: Quanity Not Sufficient. LAB has been notified of need of recollection. 06/12/22 0606 Irving Herrera Performed By: #### L 500.4050, L100.0100 #### [facility] [address] [place], [address] Laboratory - Chemistry and C hemistry - challengeOrdered By: Dr. Ocampo on 06-12-2022 ALP [Catalytic activity/Vol] 61 U/L 45-117 [facility] ALT [Catalytic activity/Vol] 24 U/L 13-56 [facility] Globulin (S) [Mass/Vol] 3.1 g/dL 2.2-4.2 [facility] Serum or plasma albumin ag urement (mass/volume)Ordered By: Dr. Ocampo on 06-12-2022 Albumin [Mass/Vol] 2.8 g/dL 3.2-5.0 [facility] Serum or plasma albumin/glob ulin mass ratioOrdered By: Dr. Ocampo on 06-12-2022 Albumin/Globulin [Mass ratio] 0.9 {ratio} 0.9-2.4 [facility] Thin prep Papanicolaou smear with manual screeningOrdered By: Dr. Ocampo on 06-12-2022 Thin prep Papanicolaou smear with manual screening 15 U/L 15-37 [facility] Abdomen Single View (Portabl e)on 06-11-2022 Abdomen Single View (Portable) [facility] Imaging Services [address] [place] [address] Abdomen Single View (Portable) MR#: [id number] Acct: [id number] Name: LIDIA ONEILL Rep #: [id number] : 1955 F 66 From: Alvino Mosley PCP: Dr. Xena Chan MD Status: REG ER Study: Abdomen Single View (Portable) Date of Exam: 1 08/12/21 Exam# [id number] Ordering Dr: Urban Cantrell DO STUDY: RADIOGRAPH- ABDOMEN/PELVIS REASON FOR EXAM: Female, 66 years old. NG Insertion TECHNIQUE: AP portable upright COMPARISON: CT abdomen and pelvis same date FINDINGS: Interval placement of an enteric tube with the tip directed inferiorly in the mid stomach in the left mid abdomen. No apparent free air. Emphysematous changes lumbar bases. RAD/Abdomen Single View (Portable) IMPRESSION: Interval placement of an enteric tube with the tip directed inferiorly in the mid stomach in the left mid abdomen. Electronically Signed: Alvino Montilla MD at 3:53 EST Reading Location ID and State: 1954 [place] Tel , Service support , CC: Dr. Xena Chan MD; Dr. Urban Cantrell DO Global Account Executive: Signed Normal [facility] Abdomen/Pelvis WITH Contrast on 06-11-2022 Abdomen/Pelvis WITH Contrast [facility] Imaging Services [address] [place] [id number] Abdomen/Pelvis WITH Contrast MR#: [id number] Acct: [id number] Name: LIDIA ONEILL Rep #: [id number] : 1955 F 66 From: Alvino Mosley PCP: Dr. Xena Chan MD Status: REG ER Study: Abdomen/Pelvis WITH Contrast Date of Exam: 01/23 Exam# [id number] Ordering Dr: Urban Cantrell DO STUDY: CT ABDOMEN AND PELVIS WITH CONTRAST REASON FOR EXAM: Female, 66 years old. Abdominal pain. Nausea and vomiting. TECHNIQUE: IV Contrast: 100mL Isovue-370 Enteric contrast: Administered. Axial images obtained. Coronal and sagittal reformatted images provided. Individualized dose optimization techniques were used for this CT. COMPARISON: No relevant priors. FINDINGS: Partially visualized lower chest: Severe emphysema partially visible lung bases. Liver: Diffuse steatosis and mild hepatomegaly. No focal lesions are evident. Gallbladder and biliary tree: Status post cholecystectomy. Likely compensatory common bile duct dilation. No gallstones are visible. No biliary ductal dilation. Pancreas: No pancreatic lesions or inflammation. Spleen: Normal size, no splenic lesions. Adrenal glands: No concerning masses. Kidneys and ureters: No hydronephrosis or obstructing renal stones. No concerning masses. No ureteral dilation. Tiny right renal cysts. Punctate nonobstructing stone anterior calyx upper pole left kidney. Bowel: Progressive dilation of fluid-filled small bowel loops which become grouped in the anterior lower abdomen, protruding through a wide necked anterior abdominal wall hernia. Transition point were the bowel enters and then exits a smaller more cephalad right of midline anterior abdominal wall hernia containing a small knuckle of bowel. Decompressed small bowel then extends into the right lower abdomen. More distal ileum decompressed. Right colon mildly distended with stool. Left colon relatively decompressed. Left colonic diverticulosis, no diverticulitis. Distal colonic-colonic gas anastomosis upper rectum. Appendix not identified. No evidence of appendicitis. Urinary bladder: No stones or wall thickening. Reproductive: Status post hysterectomy. No suspicious pelvic mass. Vascular: No abdominal aortic aneurysm. Patent portal, mesenteric veins. Retroperitoneal and peritoneal spaces: No ascites or free air. No retroperitoneal lesions. Osseous: No acute osseous abnormality. Abdominal and pelvic wall: Extensive chronic postoperative changes anterior abdominal wall with diastases recti and wide necked hernia at the level of and below the umbilicus. Any findings described in the findings sections and not included in the impression are incidental and do not require imaging follow-up. CT/Abdomen/Pelvis WITH Contrast IMPRESSION: Small bowel obstruction secondary to a right of midline anterior abdominal wall hernia which contains a knuckle of small bowel. The bowel narrows as it enters and exits this hernia, and is dilated more proximally. Extensive adjacent chronic postoperative changes; there may be superimposed adhesions as well. Electronically Signed: Alvino Montilla MD at 2:00 EST Reading Location ID and State: 1954 [place] Tel , Service support , CC: Dr. Xena Chan MD; Dr. Urban Cantrell DO Global Account Executive: Signed Normal [facility] Basophil percentageOrdered B y: Dr. Cantrell on 06-11-2022 Basophil percentage 5-10 SEEN /hpf 0-5 [facility] Bilirubin Test strip Ql (U)O rdered By: Dr. Cantrell on 06-11-2022 Bilirubin Ql (U) 1 mg/dL Negative [facility] Comment on above: COLOR OF URINE MAY A FFECT DIPSTICK RESULTS. COVID 19 AG RAPID (KENZIE Jorge)on 06-11-2022 SARS-CoV-2 (COVID-19) RNA ANI+probe Ql (Unsp spec) *Negative results from patients with symptom onset beyond five days should be treated as presumptive and confirmed by a molecular assay if clinically necessary. Negative results should not be used as the sole basis for treatment or for patient management. SARS-CoV-2 Ag Resp Ql IA.rapid *Positive results do not differentiate between SARS-CoV and SARS-CoV-2. If differentiation of the specific SARS virus is desired an additional sample and an additional order is required. SARS-CoV-2 Ag Resp Ql IA.rapid * This test has not been FDA cleared or approved; the test has been authorized by FDA under an Emergency Use Authorization (EAU) for use by laboratories certified under CLIA that meet the requirements to perform moderate, high, or waived complexity tests. SARS-CoV-2 Ag Resp Ql IA.rapid Normal Reference Range: Negative SARS-CoV-2 (COVID 19) Negative RAPID METHOD [employer] COVID19 Ag Card Normal [facility] Comment on above: Performed By: #### M 100.505 ####[facility] [address] [facility] [place], [place], [id number] COVID-19 virus antigen assay Ordered By: Dr. Cantrell on 06-11-2022 SARS-CoV-2 (COVID-19) Ag IA.rapid Ql (Resp) [facility] Comprehensive Metabolic Prof ilon 06-11-2022 Albumin [Mass/Vol] 3.8 g/dL Normal 3.2-5.0 [facility] Comment on above: Performed By: #### L 503.6005, L500.4050, L501.2450, L100.0100 ####[facility] [address] [place], [place], [id number] Albumin/Globulin [Mass ratio] 0.9 {ratio} Normal 0.9-2.4 [facility] Comment on above: Performed By: #### L 503.6005, L500.4050, L501.2450, L100.0100 ####[facility] [address] [place], [address] ALK P 86 U/L Normal 45-117 [facility] Comment on above: Performed By: #### L 503.6005, L500.4050, L501.2450, L100.0100 ####[facility] [address] [place], [address] ALT [Catalytic activity/Vol] 31 U/L Normal 13-56 [facility] Comment on above: Performed By: #### L 503.6005, L500.4050, L501.2450, L100.0100 ####[facility] [address] [place], [address] AST [Catalytic activity/Vol] 18 U/L Normal 15-37 [facility] Comment on above: Performed By: #### L 503.6005, L500.4050, L501.2450, L100.0100 ####[facility] [address] [place], [address] Bilirubin [Mass/Vol] 0.40 mg/dL Normal 0.20-1.00 [facility] Comment on above: Result Comment: For patients on eltrombopag therapy, use of Dimension [place] TBIL is not recommended. Performed By: #### L 503.6005, L500.4050, L501.2450, L100.0100 ####[facility] [address] [place], [address] BUN/CRE 24.4 RATIO High 10-20 [facility] Comment on above: Performed By: #### L 503.6005, L500.4050, L501.2450, L100.0100 ####[facility] [address] [place], [address] CA,Total 9.9 mg/dL Normal 8.5-10.1 [facility] Comment on above: Performed By: #### L 503.6005, L500.4050, L501.2450, L100.0100 ####[facility] [address] [place], [address] Chloride [Moles/Vol] 97 mmol/L Low 98-107 [facility] Comment on above: Performed By: #### L 503.6005, L500.4050, L501.2450, L100.0100 ####[facility] [address] [place], [address] CO2 [Moles/Vol] 30.0 mmol/L Normal 21.0-32.0 [facility] Comment on above: Performed By: #### L 503.6005, L500.4050, L501.2450, L100.0100 ####[facility] [address] [place], [address] Creatinine [Mass/Vol] 0.82 mg/dL Normal 0.55-1.02 [place] Comment on above: Result Comment: The validity of the calculated GFR GFRAA in patients over 70 years has not been determined. Clinical correlation is essential. Performed By: #### L 503.6005, L500.4050, L501.2450, L100.0100 ####[facility] [address] [place], [address] ECRCL 47.16 ml/min Normal [facility] Comment on above: Performed By: #### L 503.6005, L500.4050, L501.2450, L100.0100 ####[facility] [address] [place], [address] EST GFR - AA 89 mL/min Normal >60 [facility] Comment on above: Result Comment: Afri can Ethiopian GFR Calc Performed By: #### L 503.6005, L500.4050, L501.2450, L100.0100 ####[facility] [address] [place], [address] GAP 5 Normal 5-15 [facility] Comment on above: Performed By: #### L 503.6005, L500.4050, L501.2450, L100.0100 ####[facility] [address] [place], [address] GFR/1.73 sq M.predicted among non-blacks MDRD (S/P/Bld) [Vol rate/Area] 74 mL/min/{1.73_m2} Normal >60 [facility] Comment on above: Result Comment: Non- GFR Calc Performed By: #### L 503.6005, L500.4050, L501.2450, L100.0100 ####[facility] [address] [place], [address] Globulin (S) [Mass/Vol] 4.3 g/dL High 2.2-4.2 [facility] Comment on above: Performed By: #### L 503.6005, L500.4050, L501.2450, L100.0100 ####[facility] [address] [place], [address] Glucose [Mass/Vol] 137 mg/dL High 74-106 [facility] Comment on above: Result Comment: Fast ing Glucose result greater than or equal to 126 mg/dL suggests DIABETES MELLITUS per A.D.A. criteria. Performed By: #### L 503.6005, L500.4050, L501.2450, L100.0100 ####[facility] [address] [place], [address] Potassium [Moles/Vol] 4.0 mmol/L Normal 3.5-5.1 [facility] Comment on above: Performed By: #### L 503.6005, L500.4050, L501.2450, L100.0100 ####[facility] [address] [place], [address] Sodium [Moles/Vol] 132 mmol/L Low 136-145 [facility] Comment on above: Performed By: #### L 503.6005, L500.4050, L501.2450, L100.0100 ####[facility] [address] [place], [address] T PROT 8.1 g/dL Normal 6.4-8.2 [facility] Comment on above: Performed By: #### L 503.6005, L500.4050, L501.2450, L100.0100 ####[facility] [address] [place], [address] Urea nitrogen [Mass/Vol] 20 mg/dL High 7-18 [facility] Comment on above: Performed By: #### L 503.6005, L500.4050, L501.2450, L100.0100 ####[facility] [address] [place], [address] Consultation - Surgicalon Consultation - Surgical [facility] Medical Records Department [address] [place] [address] Consultation - Surgical 06/11/22 0410 MR#: [id number] Acct: [id number] Name: LIDIA ONEILL Rep #: [id number] : 1955 66 From: Kyrie Nicole MD PCP: Dr. Xena Chan MD Status:REG ER Location: ED Assessment Plan Assessment/Plan (1) COPD (chronic obstructive pulmonary disease): (2) History of colon surgery: (3) History of cholecystectomy: (4) H/O tracheostomy: (5) Incisional hernia of anterior abdominal wall with obstruction: (6) Burn: PLAN: Plan Very complex 66-year-old female. Patient's had a history of multiple previous bowel obstructions. She also states that she has had previous hernia repairs. She states that she has a very large piece of mesh repairing her abdominal wall. 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 She presents after 4 days of illness and she has a superficial burn wound to her anterior abdominal wall secondary to a heating pad. She states that she has been instructed previously that she is not a surgical candidate. On clinical examination and based on CT imaging to the right of the midline at about the level of the previous umbilicus there is a focal soft tissue area of bulging and focal tenderness. This tenderness is different from the remainder of her abdominal exam. It is not clear to me based upon her previous history as she continues to mention that she has had a fistula as to whether this site of suspected ventral incisional hernia with obstruction and bowel obstruction could potentially be a remnant of that previous fistula or whether this is a new focal acute area of small bowel obstruction. Clearly by all accounts she has an extremely hostile surgical abdomen. I am not comfortable offering her surgical intervention locally and she fully admits that she is not comfortable with surgical intervention here or possibly anywhere. Although I initially offered her hopes of a small exploration directly where the focal bulge and tenderness is and I would further guide myself with ultrasound to assure that this was the defect I now realize that there is a significant chance that the bowel in this area is extraordinarily thin and likely densely adherent likely involved with mesh as seen on the CT as well. I strongly believe that this patient should be referred to a tertiary center as she will likely need multispecialty assistance. I have not offering her surgical support here locally as I do not believe that this is in her best interest. I have spoken to Dr. Smith. I have strongly advised the patient that conservative management locally as what she remembers has been successful in the past although might resolve her situation could lead to strangulation of her bowel and failure and then attempts at emergency transfer at that time would likely lead to a very poor outcome. I believe her very best option is tertiary transfer. I am not offering her surgical intervention locally. If the patient refuses tertiary transfer then if the hospital service wanted to admit her and attempts to resolve her conservatively then that would be their option but I am very concerned that this could lead to her demise She has had an opportunity to ask and have questions answered. Consult time was 60 minutes. Kyrie Nicole M.D., F.A.C.S. HPI Consult Data Date of Consult: 06/11/22 HPI Narrative Reason for Consultation: Suspected incarcerated hernia and small bowel obstruction HPI Narrative: LIDIA ONEILL, is a 66 F who presents to [facility] emergency room with a 4-day history of abdominal pain. She was evaluated by ER physician Dr. Smith and I have been asked to consult on the patient for the same. Written copy of my surgical consult will be present in the charting. The patient has had previous surgical intervention in [place] and [facility]. She had what sounds like a hysterectomy and [place] causing a colonic injury with then bowel rupture subsequent exploratory operation life support etc. She apparently over those previous years developed hernias and at some point had a large piece of mesh placed. Her most recent surgical intervention apparently was 2011 she is a little vague as to the purpose of that procedure but was told that the mesh was adherent and then she states postoperatively she was left with a fistula. When I asked her what was draining from the fistula she again was very nonspecific and I could not get a clear answer from her as to whether it was draining enteric contents. She points to the midline. She has a essentially surgically absent umbilicus. On this occasion she has had abdominal pain for 4 days. She states that a day and a half ago the pain was so severe she started using a heating pad. She has not recognized that she has caused thermal injury to her anterior abdominal (more content not included)... Normal [facility] Emergency Department Summary on 06-11-2022 Emergency Department Summary [facility] Medical Records Department [address] [place] [address] Emergency Department Summary 06/10/22 MR#: [id number] Acct: [id number] Name: LIDIA ONEILL Rep #: [id number] : 1955 66 From: Urban Cantrell DO PCP: Dr. Xena Chan MD Status:[facility] ER Location: ED HPI HPI - GI History of Present Illness Chief Complaint: Constipation Detail of Chief Complaint: Abdominal pain and constipation Informant: patient Narrative Narrative: Patient presents the emergency department with complaint of not having a bowel movement in more than 4 days. Patient states that she is been using her Linzess and taking laxatives as well as milk of magnesia without any results. Patient started having lower abdominal pain around 4 AM this morning. She has had 1 episode of vomiting and several episodes of dry heaves. She denies fever. She denies urinary symptoms. She denies blood in her stool. Patient does have history of chronic constipation issues. Patient does have history of prior cholecystectomy and hysterectomy as well as history of perforated colon. [facility] Medical History (Updated 06/11/22 @ 06:[address] Urban Cantrell, ) Acute bronchitis, unspecified Aphthous ulcer ARDS (adult respiratory distress syndrome) COPD (chronic obstructive pulmonary disease) H/O sepsis History of coma History of ectopic HTN (hypertension) Hyperlipidemia Pneumonia Home Medications acetaminophen 325 mg capsule 325 mg PO ONCE PRN 11/11/20 [History Last Taken Unknown] albuterol sulfate 90 mcg/actuation aerosol inhaler inhalation 11/11/20 [History Last Taken Unknown] amitriptyline 25 mg tablet mg PO 11/11/20 [History Last Taken Unknown] budesonide-formoterol HFA 160 mcg-4.5 mcg/actuation aerosol inhaler inhalation 11/11/20 [History Last Taken Unknown] calcium carbonate 200 mg calcium (500 mg) chewable tablet (Tums) 200 mg PO BID 11/11/20 [History Last Taken Unknown] candesartan 4 mg tablet mg PO 11/11/20 [History Last Taken Unknown] cyclobenzaprine 10 mg tablet mg PO 11/11/20 [History Last Taken Unknown] docusate sodium 100 mg capsule (Colace) 100 mg PO BID 11/11/20 [History Last Taken Unknown] fluticasone propionate 50 mcg/actuation nasal spray,suspension intranasal 11/11/20 [History Last Taken Unknown] herbalife PO meal replacement 11/11/20 [History Last Taken Unknown] icey hot topical 11/11/20 [History Last Taken Unknown] magnesium oxide 500 mg tablet 500 mg PO DAILY 11/11/20 [History Last Taken Unknown] mecobalamin (vitamin B12) 1,000 mcg chewable tablet 1,000 mcg PO DAILY 11/11/20 [History Last Taken Unknown] phenylephrine HCl 10 mg tablet (Sinus Pressure-Congestion Relief PE) 10 mg PO ONCE 11/11/20 [History Last Taken Unknown] polyethylene glycol 3350 17 gram oral powder packet (ClearLax) 17 g PO DAILY PRN 11/11/20 [History Last Taken Unknown] polyethylene glycol 3350 17 gram oral powder packet (Miralax) 17 g PO DAILY PRN 11/11/20 [History Last Taken Unknown] red yeast rice 600 mg capsule 600 mg PO DAILY 11/11/20 [History Last Taken Unknown] levofloxacin 500 mg tablet 500 mg PO DAILY #10 tabs 03/06/21 [Rx Last Taken Unknown] Allergy/AdvReac Type Severity Reaction Status Date / Time morphine Allergy Swelling, Verified 06/10/22 21:15 Rash, Itching Penicillins Allergy Swelling, Verified 06/10/22 21:15 Rash, Itching All Cycline ATB's Allergy Swelling, Uncoded 06/10/22 21:15 Rash, Itching Family History Mother Hypertension Heart disease Pacemaker Cervical cancer Father Diabetes Aunt Colon cancer Aunt Breast cancer Uncle CHF (congestive heart failure) Surgical History H/O total hysterectomy with removal of both tubes and ovaries H/O tracheostomy H/O: hysterectomy History of cholecystectomy History of colon surgery Social History household members: other details: sister Smoking Status: Current every day smoker tobacco type: cigarettes alcohol intake: never what type of physical activity do you participate in: none do you feel safe at home: Yes ROS ROS ED Review of Systems ROS Unobtainable: other Constitutional Constitutional ED: Reports lethargy; Denies chills, fever(s), sweats or weight loss Eyes Eyes: Denies blurry vision, change in vision or diplopia ENT ENT ED: Denies rhinorrhea or sore throat Cardiovascular Cardiovascular: Denies chest pain, orthopnea or racing heartbeat Respiratory/Chest Respiratory/Chest: Denies cough, dyspnea, dyspnea on exertion, orthopnea or sputum Gastrointestinal Gastrointestinal: Reports abdominal pain, constipation, nausea and vomiting; Denies diarrhea Genitourinary Genitourinary ED: Denies dysuria, hematuria or urinary frequency Mu (more content not included)... Normal [facility] H AND P Exam - [facility] 06-11-2022 H&P Exam - Hospitalist [facility] Medical Records Department [address] [place] [address] H P Exam - Hospitalist 06/11/22 1317 MR#: [id number] Acct: [id number] Name: LIDIA ONEILL Rep #: [id number] : 1955 66 From: Alee Ocampo MD PCP: Dr. Xena Chan MD Status:ADM [facility] - General General Date of Admission: 06/11/22 Date of Service: 06/11/22 Chief Complaint: SBO HPI Narrative LIDIA ONEILL, is a 66 F who presents with the above. Patient is being admitted awaiting a bed to [facility] for surgical evaluation. Patient has past medical history of COPD, hypertension, history of multiple surgeries, initially for colon surgeries, bowel obstructions. Her surgeries were done in [place]. She moved up to [place] a couple of years ago. She comes in with constipation ongoing for 4 days. Patient stated that she has been using her Linzess and laxatives with no results. She had an episode of vomiting and dry heaving. Denied any fever or chills. She denies any chest pain or dizziness or palpitations In the ED, her vitals were stable. WBC count 13.9, hemoglobin 18.1, platelet count 331. Sodium is 132, potassium 4.2, chloride 97, bicarbonate 30, BUN 20, creatinine 0.82. LFTs are unremarkable. UA is unremarkable. CT abdominal pelvis shows small bowel obstruction secondary to midline anterior abdominal wall hernia. Patient was seen by general surgery in the emergency room and recommended to be transferred to tertiary institution. Patient has been accepted by the [facility] and is awaiting a bed. Patient has since been n.p.o., has an NG tube, being given pain meds as well as antiemetics. I explained to her very clearly that the general surgeon recommended that transfer to a tertiary institution. She knows that in the event of any worsening, she is at risk of worse complication including . I reached out to the [facility] transfer line and was told that there were no beds available today. Patient is being admitted per agreement between hospital medicine and the emergency room to accept patients pending bed availability and transfer. PFSH Medical History Acute bronchitis, unspecified Aphthous ulcer ARDS (adult respiratory distress syndrome) Cancer COPD (chronic obstructive pulmonary disease) DVT (deep venous thrombosis) H/O sepsis History of coma History of ectopic HTN (hypertension) Hyperlipidemia Pneumonia Smoker Home Medications acetaminophen 325 mg capsule 1,000 mg PO ONCE PRN Pain 11/11/20 [History Last Taken 06/10/22] albuterol sulfate 90 mcg/actuation aerosol inhaler 2 puff inhalation Q2H PRN PRN Shortness Of Breath 11/11/20 [History Last Taken 06/10/22] amitriptyline 25 mg tablet 25 mg PO QHS sleep 11/11/20 [History Last Taken 06/10/22] budesonide-formoterol HFA 160 mcg-4.5 mcg/actuation aerosol inhaler 1 puff inhalation BID copd 11/11/20 [History Last Taken 06/10/22] calcium carbonate 200 mg calcium (500 mg) chewable tablet (Tums) 200 mg PO Q2H PRN PRN gerd 11/11/20 [History Last Taken Unknown] candesartan 4 mg tablet 4 mg PO QHS bp 11/11/20 [History Last Taken 06/09/22] cyclobenzaprine 10 mg tablet 10 mg PO TID pain 11/11/20 [History Last Taken 06/09/22] docusate sodium 100 mg capsule (Colace) 100 mg PO BID PRN Constipation 11/11/20 [History Last Taken 06/09/22] fluticasone propionate 50 mcg/actuation nasal spray,suspension 2 spray intranasal DAILY allergies 11/11/20 [History Last Taken 06/09/22] herbalife PO meal replacement 11/11/20 [History Last Taken Unknown] icey hot topical 11/11/20 [History Last Taken Unknown] mecobalamin (vitamin B12) 1,000 mcg chewable tablet 1,000 mcg PO DAILY supplement 11/11/20 [History Last Taken 06/09/22] polyethylene glycol 3350 17 gram oral powder packet (Miralax) 17 g PO DAILY PRN Constipation 11/11/20 [History Last Taken Unknown] red yeast rice 600 mg capsule 600 mg PO DAILY supplment 11/11/20 [History Last Taken 06/09/22] linaclotide 290 mcg capsule (Linzess) 290 mcg PO DAILY constipation 06/11/22 [History Last Taken 06/09/22] Allergy/AdvReac Type Severity Reaction Status Date / Time morphine Allergy Swelling, Verified 06/10/22 21:15 Rash, Itching Penicillins Allergy Swelling, Verified 06/10/22 21:15 Rash, Itching All Cycline ATB's Allergy Swelling, Uncoded 06/10/22 21:15 Rash, Itching Family History Mother Hypertension Heart disease Pacemaker Cervical cancer Father Diabetes Aunt Colon cancer Aunt Breast cancer Uncle CHF (congestive heart failure) Surgical History H/O total hysterectomy with removal of both tubes and ovaries H/O tracheostomy H/O: hysterectomy History of cholecystectomy History of colon surgery Social History ( (more content not included)... Normal [facility] Hyaline casts LM.LPF (Urine sed) [#/Area]Ordered By: Dr. Cantrell on 06-11-2022 Hyaline casts (Urine sed) [#/Area] 10 /[LPF] 0-5 [facility] Ketones Test strip Ql (U)Ord ered By: Dr. Cantrell on 06-11-2022 Ketones Ql (U) 5 mg/dl Negative [facility] Lactic Acidon 06-11-2022 Lactate [Moles/Vol] 1.8 mmol/L Normal 0.4-1.9 [facility] Comment on above: Order Comment: Y Performed By: #### L 503.6005, L500.4050, L501.2450, L100.0100 ####[facility] [address] [place], [address] Lipaseon 06-11-2022 Lipase [Catalytic activity/Vol] 70 U/L Low 73-393 [facility] [facility] Comment on above: Performed By: #### L 503.6005, L500.4050, L501.2450, L100.0100 ####[facility] [address] [place], [address] Mucus LM Ql (Urine sed)Order ed By: Dr. Cantrell on 06-11-2022 Mucus Ql (Urine sed) 0 SEEN /hpf [place] Nitrite Test strip Ql (U)Ord ered By: Dr. Cantrell on 06-11-2022 Nitrite Ql (U) Negative Negative [facility] Protein Test strip Ql (U)Ord ered By: Dr. Cantrell on 06-11-2022 Protein Ql (U) 30 mg/dl Negative [facility] Squamous epithelial cells de tection in urine sediment by light microscopyOrdered By: Dr. Cantrell on 06-11-2022 Epithelial cells.squamous LM Ql (Urine sed) 0-5 SEEN /hpf 5-10 [facility] Urinalysis, Completeon 06-11 BACTERIA 1+ /hpf Normal None Seen [facility] Comment on above: Order Comment: JOSE CTOR TO SPECIFY Performed By: #### L [id number] #### [facility] [address] [place], [address] CAST,HYALINE 10-25 SEEN Normal 0-5 [facility] Comment on above: Order Comment: OJSE CTOR TO SPECIFY Performed By: #### L [id number] #### [facility] [address] [place], [address] EPI,RENAL 0-5 SEEN Normal 0-5 [facility] Comment on above: Order Comment: JOSE CTOR TO SPECIFY Performed By: #### L [id number] #### [facility] [address] [place], [address] EPI,SQUAMOUS 0-5 SEEN Normal 5-10 [facility] Comment on above: Order Comment: JOSE CTOR TO SPECIFY Performed By: #### L [id number] #### [facility] [address] [place], [address] RBC 0-5 SEEN Normal 0-5 [facility] Comment on above: Order Comment: JOSE CTOR TO SPECIFY Performed By: #### L [id number] #### [facility] [address] [place], [address] WBC 5-10 SEEN Normal 0-5 [facility] Comment on above: Order Comment: JOSE CTOR TO SPECIFY Performed By: #### L [id number] #### [facility] [address] [place], [address] Mucus Ql (Urine sed) 0 SEEN Normal [facility] Comment on above: Order Comment: COLLE CTOR TO SPECIFY Performed By: #### L [id number] #### [facility] [address] [place], [address] Urine blood detectionOrdered By: Dr. Cantrell on 06-11-2022 RBC Ql (U) 50 /ul Negative [facility] RBC Ql (U) 0-5 SEEN /hpf 0-5 [facility] Urine clarityOrdered By: Dr. Cantrell on 06-11-2022 Clarity (U) Clear Clear [facility] Urine color determinationOrd ered By: Dr. Cantrell on 06-11-2022 Color (U) Yellow Yellow [facility] Urine glucose detectionOrder ed By: Dr. Cantrell on 06-11-2022 Glucose Ql (U) Normal mg/dl Normal [facility] Urine leukocyte esterase det ection by dipstickOrdered By: Dr. Cantrell on 06-11-2022 Leukocyte esterase Test strip Ql (U) 500 /ul Negative [facility] Urine pHOrdered By: Dr. Eva disla on 06-11-2022 pH (U) 6.0 [pH] 5.0 - 8.0 [facility] Urine sediment bacteria coun t by microscopy (number/high power field)Ordered By: Dr. Cantrell on 06-11-2022 Bacteria LM.HPF (Urine sed) [#/Area] 1 /[HPF] None Seen [facility] Urine sediment renal epithel ial cell count by microscopy (number/high power field)Ordered By: Dr. Cantrell on 06-11-2022 Epithelial cells.renal LM.HPF (Urine sed) [#/Area] 0 /[HPF] 0-5 [facility] Urine specific gravity measu rementOrdered By: Dr. Cantrell on 06-11-2022 Specific gravity (U) [Rel density] 1.020 1.002-1.030 [facility] Urobilinogen Auto test strip Ql (U)Ordered By: Dr. Cantrell on 06-11-2022 Urobilinogen Ql (U) Normal mg/dl Normal [place] Absolute lymphocyte counton 06-10-2022 Lymphocytes Auto (Unsp spec) [#/Vol] 1.51 10*3/uL 0.83-4.51 [facility] Work Phone: Basophil percentageon 2021 Basophils/100 WBC (Bld) 0.4 % 0-1 [facility] Work Phone: Bilirubin [Mass/Vol] 0.40 mg/dL 0.20-1.00 [facility] Work Phone: Comment on above: For patients on eltr ombopag therapy, use of Dimension [place] TBIL is not recommended. Chloride [Moles/Vol] 97 mmol/L 98-107 [facility] Work Phone: Eosinophils/100 WBC (Bld) 0.1 % 0-5 [facility] Work Phone: Glucose [Mass/Vol] 137 mg/dL 74-106 [facility] Work Phone: Comment on above: Fasting Glucose resu lt greater than or equal to 126 mg/dL suggests DIABETES MELLITUS per A.D.A. criteria. Neutrophils (Bld) [#/Vol] 11.0 10*3/uL 2.0-7.7 [facility] Work Phone: Neutrophils/100 WBC (Bld) 79.1 % 47-70 [facility] Work Phone: Potassium [Moles/Vol] 4.0 mmol/L 3.5-5.1 [place] Work Phone: Protein [Mass/Vol] 8.1 g/dL 6.4-8.2 [facility] Work Phone: Sodium [Moles/Vol] 132 mmol/L 136-145 [facility] Work Phone: WBC (Bld) [#/Vol] 13.9 10*3/uL 4.4-11.0 [facility] Work Phone: Basophil percentageOrdered B y: Dr. Cantrell on 06-10-2022 Lactate [Moles/Vol] 1.8 mmol/L 0.4-2.0 [facility] Blood erythrocytes count (nu mber/volume)on 06-10-2022 RBC (Bld) [#/Vol] 6.02 10*6/uL 4.2-5.4 [facility] Work Phone: [phone] Blood hemoglobin measurement (mass/volume)on 06-10-2022 Hemoglobin (Bld) [Mass/Vol] 18.1 g/dL 12.0-15.0 [facility] Work Phone: Comment on above: CRITICAL VALUE VERIF IED. CALLED TO Patti SRIVASTAVA RN ER06/10/22 2340 Irving Herrera.RESULTS READ BACK BY SAME. Blood lymphocytes/100 leukoc yteson 06-10-2022 Lymphocytes/100 WBC (Bld) 10.9 % 19-41 [facility] Work Phone: [phone] Blood manual differential co mment interpretation (narrative result)Ordered By: Dr. Cantrell on 06-10-2022 Manual differential comment Tramaine (Bld) [Interp] SCANNED [facility] Blood monocytes/100 leukocyt eson 06-10-2022 Monocytes/100 WBC (Bld) 8.3 % 0-10 [facility] Work Phone: [phone] Blood platelet mean volumeon 06-10-2022 Platelet mean volume (Bld) [Entitic vol] 10.6 fL 6.2-12.0 [facility] Work Phone: [phone] Determination of erythrocyte mean corpuscular volume (MCV)on 06-10-2022 MCV (RBC) [Entitic vol] 86.0 fL 81-99 [facility] Work Phone: [phone] Hematocrit Auto (Bld) [Volum e fraction]on 06-10-2022 Hematocrit (Bld) [Volume fraction] 51.8 % 37-47 [facility] Work Phone: [phone] Laboratory - Chemistry and C hemistry - challengeon 06-10-2022 ALP [Catalytic activity/Vol] 86 U/L 45-117 [facility] Work Phone: [phone] ALT [Catalytic activity/Vol] 31 U/L 13-56 [facility] Work Phone: [phone] CO2 [Moles/Vol] 30.0 mmol/L 21.0-32.0 [facility] Work Phone: [phone] Globulin (S) [Mass/Vol] 4.3 g/dL 2.2-4.2 [facility] Work Phone: [phone] Urea nitrogen/Creatinine [Mass ratio] 24.4 mg/mg 10-20 [facility] Work Phone: [phone] Laboratory - Chemistry and C hemistry - challengeOrdered By: Dr. Cantrell on 06-10-2022 Lipase [Catalytic activity/Vol] 70 U/L 73-393 [facility] Laboratory - Hematology and Cell countson 06-10-2022 Erythrocyte distribution width (RBC) [Entitic vol] 41.2 fL 35.1-43.9 [facility] Work Phone: [phone] Erythrocyte distribution width (RBC) [Ratio] 13.2 % 11.6-14.6 [facility] Work Phone: [phone] Immature granulocytes/100 WBC (Bld) 1.200 % 0.0-0.9 [facility] Work Phone: [phone] Comment on above: IG% - Immature Granu locytes (promyelocytes, myelocytes and metamyelocytes) > 1% indicates that a LEFT SHIFT is Present. MCH (RBC) [Entitic mass] 30.1 pg 27.0-32.0 [facility] Work Phone: [phone] Nucleated RBC/100 WBC (Bld) [Ratio] 0 % 0-5 [facility] Work Phone: [phone] MCHC Auto (RBC) [Mass/Vol]on 06-10-2022 MCHC (RBC) [Mass/Vol] 34.9 g/dL 32-36 [facility] Work Phone: [phone] No Panel Informationon 06-10 Estimated Creatinine Clearance Calc 47.16 ml/min [facility] Work Phone: [phone] Estimated GFR (MDRD) Amer 89 mL/min >60 [facility] Work Phone: [phone] Comment on above: GFR Calc Estimated GFR (MDRD) Non-Af Amer 74 mL/min >60 [facility] Work Phone: [phone] Comment on above: Non- GFR Calc Platelets bldon 06-10-2022 Platelets (Bld) [#/Vol] 331 10*3/uL 150-450 [facility] Work Phone: [phone] Review by pathologiston Pathologist review Tramaine (Unsp spec) [Interp] November jo [facility] Work Phone: [phone] Review by pathologistOrdered By: Dr. Cantrell on 06-10-2022 Pathologist review Tramaine (Unsp spec) [Interp] Reviewed [facility] Comment on above: Previous reported re sult: Alia osorio Edited by: MARLENE on 06/12/22:0948Neutrophilic leukocytosis.Polycythemia Clinical correlation necessary.Ivan Sanz M.D. 06/12/22 AMENDED REPORT 06/12/22 0948 PATH REV previously reported as: November jo Serum or plasma albumin ag urement (mass/volume)on 06-10-2022 Albumin [Mass/Vol] 3.8 g/dL 3.2-5.0 [facility] Work Phone: [phone] Serum or plasma albumin/glob ulin mass ratioon 06-10-2022 Albumin/Globulin [Mass ratio] 0.9 {ratio} 0.9-2.4 [facility] Work Phone: [phone] Serum or plasma calcium ag urement (mass/volume)on 06-10-2022 Calcium [Mass/Vol] 9.9 mg/dL 8.5-10.1 [facility] Work Phone: [phone] Serum or plasma creatinine m easurement (mass/volume)on 06-10-2022 Creatinine [Mass/Vol] 0.82 mg/dL 0.55-1.02 [facility] Work Phone: [phone] Comment on above: The validity of the calculated GFR & GFRAA in patients over 70 years has not been determined. Clinical correlation is essential. Serum or plasma urea nitroge n measurement (mass/volume)on 06-10-2022 Urea nitrogen [Mass/Vol] 20 mg/dL 7-18 [facility] Work Phone: Thin prep Papanicolaou smear with manual screeningon 06-10-2022 Thin prep Papanicolaou smear with manual screening 18 U/L 15-37 [facility] Work Phone: Thin prep Papanicolaou smear with manual screening 5 5-15 [facility] Work Phone: Absolute lymphocyte counton 02-12-2022 Lymphocytes Auto (Unsp spec) [#/Vol] 2.01 10*3/uL 0.83-4.51 [facility] Work Phone: Basophil percentageon 2021 Basophils/100 WBC (Bld) 0.8 % 0-1 [facility] Work Phone: Bilirubin [Mass/Vol] 0.30 mg/dL 0.20-1.00 [facility] Work Phone: Comment on above: For patients on eltr ombopag therapy, use of Dimension [place] TBIL is not recommended. Chloride [Moles/Vol] 102 mmol/L 98-107 [facility] Work Phone: [phone] Cholesterol [Mass/Vol] 215 mg/dL <200 [facility] Work Phone: Comment on above: <200 mg/dL Desirable 200-240 mg/dL Borderline >240 mg/dL High Risk Eosinophils/100 WBC (Bld) 1.9 % 0-5 [facility] Work Phone: Glucose [Mass/Vol] 104 mg/dL 74-106 [facility] Work Phone: Comment on above: Fasting Glucose resu lt from 100 to 125 mg/dL suggests IMPAIRED HOMEOSTASIS per A.D.A. criteria. Neutrophils (Bld) [#/Vol] 4.8 10*3/uL 2.0-7.7 [facility] Work Phone: Neutrophils/100 WBC (Bld) 61.8 % 47-70 [facility] Work Phone: [phone] Potassium [Moles/Vol] 4.5 mmol/L 3.5-5.1 [place] Work Phone: [phone] Protein [Mass/Vol] 7.5 g/dL 6.4-8.2 [facility] Work Phone: [phone] Sodium [Moles/Vol] 135 mmol/L 136-145 [facility] Work Phone: [phone] Triglyceride [Mass/Vol] 263 mg/dL <199 [facility] Work Phone: [phone] Comment on above: The drugs N-Acetylcy steine and Metamizole may falsely depress this assay.Serum Triglycerides Reference Interval Normal <150 mg/dL Borderline high 150 - 199 mg/dL High 200 - 499 mg/dL Very High > or = 500 mg/dL WBC (Bld) [#/Vol] 7.8 10*3/uL 4.4-11.0 [facility] Work Phone: Blood erythrocytes count (nu mber/volume)on 02-12-2022 RBC (Bld) [#/Vol] 5.17 10*6/uL 4.2-5.4 [facility] Work Phone: Blood hemoglobin measurement (mass/volume)on 02-12-2022 Hemoglobin (Bld) [Mass/Vol] 15.4 g/dL 12.0-15.0 [facility] Work Phone: Blood lymphocytes/100 leukoc yteson 02-12-2022 Lymphocytes/100 WBC (Bld) 25.6 % 19-41 [facility] Work Phone: [phone] Blood monocytes/100 leukocyt eson 02-12-2022 Monocytes/100 WBC (Bld) 9.4 % 0-10 [facility] Work Phone: Blood platelet mean volumeon 02-12-2022 Platelet mean volume (Bld) [Entitic vol] 10.7 fL 6.2-12.0 [facility] Work Phone: [phone] Determination of erythrocyte mean corpuscular volume (MCV)on 02-12-2022 MCV (RBC) [Entitic vol] 90.1 fL 81-99 [facility] Work Phone: [phone] Hematocrit Auto (Bld) [Volum e fraction]on 02-12-2022 Hematocrit (Bld) [Volume fraction] 46.6 % 37-47 [facility] Work Phone: [phone] Laboratory - Chemistry and C hemistry - challengeon 02-12-2022 ALP [Catalytic activity/Vol] 78 U/L 45-117 [facility] Work Phone: [phone] ALT [Catalytic activity/Vol] 24 U/L 13-56 [facility] Work Phone: [phone] CO2 [Moles/Vol] 28.0 mmol/L 21.0-32.0 [facility] Work Phone: [phone] Globulin (S) [Mass/Vol] 4.0 g/dL 2.2-4.2 [facility] Work Phone: [phone] Urea nitrogen/Creatinine [Mass ratio] 19.5 mg/mg 10-20 [facility] Work Phone: [phone] Laboratory - Hematology and Cell countson 02-12-2022 Erythrocyte distribution width (RBC) [Entitic vol] 44.6 fL 35.1-43.9 [facility] Work Phone: [phone] Erythrocyte distribution width (RBC) [Ratio] 13.4 % 11.6-14.6 [facility] Work Phone: [phone] Immature granulocytes/100 WBC (Bld) 0.500 % 0.0-0.9 [facility] Work Phone: [phone] Comment on above: IG% - Immature Granu locytes (promyelocytes, myelocytes and metamyelocytes) > 1% indicates that a LEFT SHIFT is Present. MCH (RBC) [Entitic mass] 29.8 pg 27.0-32.0 [facility] Work Phone: [phone] Nucleated RBC/100 WBC (Bld) [Ratio] 0 % 0-5 [facility] Work Phone: MCHC Auto (RBC) [Mass/Vol]on 02-12-2022 MCHC (RBC) [Mass/Vol] 33.0 g/dL 32-36 [place] Work Phone: No Panel Informationon 02-12 Estimated GFR (MDRD) Amer 104 mL/min >60 [facility] Work Phone: Comment on above: GFR Calc Estimated GFR (MDRD) Non-Af Amer 86 mL/min >60 [facility] Work Phone: Comment on above: Non- GFR Calc Platelets bldon 02-12-2022 Platelets (Bld) [#/Vol] 254 10*3/uL 150-450 [facility] Work Phone: Serum or plasma albumin ag urement (mass/volume)on 02-12-2022 Albumin [Mass/Vol] 3.5 g/dL 3.2-5.0 [facility] Work Phone: Serum or plasma albumin/glob ulin mass ratioon 02-12-2022 Albumin/Globulin [Mass ratio] 0.9 {ratio} 0.9-2.4 [facility] Work Phone: Serum or plasma calcium ag urement (mass/volume)on 02-12-2022 Calcium [Mass/Vol] 8.7 mg/dL 8.5-10.1 [facility] Work Phone: Serum or plasma cholesterol in HDL measurement (mass/volume)on 02-12-2022 Cholesterol in HDL [Mass/Vol] 47 mg/dL >40 [facility] Work Phone: Comment on above: The drugs N-Acetylcy steine and Metamizole may falsely depress this assay. Reference Range HDL <40 mg/dL Low HDL Cholesterol HDL >or= 60 mg/dL High HDL Cholesterol Serum or plasma cholesterol in VLDL measurement (mass/volume)on 02-12-2022 Cholesterol in VLDL [Mass/Vol] 53 mg/dL 5-40 [facility] Work Phone: Serum or plasma creatinine m easurement (mass/volume)on 02-12-2022 Creatinine [Mass/Vol] 0.72 mg/dL 0.55-1.02 [place] Work Phone: Comment on above: The validity of the calculated GFR & GFRAA in patients over 70 years has not been determined. Clinical correlation is essential. Serum or plasma low density lipoprotein (LDL) cholesterol measurement (mass/volume)on 02-12-2022 Cholesterol in LDL [Mass/Vol] 115 mg/dL 0-130 [facility] Work Phone: Serum or plasma urea nitroge n measurement (mass/volume)on 02-12-2022 Urea nitrogen [Mass/Vol] 14 mg/dL 7-18 [facility] Work Phone: Thin prep Papanicolaou smear with manual screeningon 02-12-2022 Thin prep Papanicolaou smear with manual screening 14 U/L 15-37 [facility] Work Phone: Thin prep Papanicolaou smear with manual screening 5 5-15 [facility] Work Phone: Basophil percentageon 2021 Basophil percentage < 0.9 mg/dL 0.55-1.02 [facility] Work Phone: No Panel Informationon 01-26 Bedside Estimated GFR (eGFR) > 60.0000 mL/min >60 [facility] Work Phone: Laboratory - Microbiology an d Antimicrobial susceptibilityon 12-08-2021 SARS-CoV-2 (COVID-19) RNA ANI+probe Ql (Unsp spec) Not detected Not Detect [facility] Work Phone: Comment on above: Normal Reference Ran ge: Not DetectedMethod:(RT-PCR) real-time reverse transcriptase PCRLuminex MARII Instrument*The Food and Drug Administration (FDA) has issued an Emergency Use Authorization (EAU) for the MARII SARS-CoV-2 Assay for the rapid detection of the virus that causes COVID-19. This test has been validated, but the FDAs independent review of this validation is pending.*Negative results do not preclude infection and should not be used as the sole basis for treatment or patient management. Optimum specimen types and timing for peak viral levels during infections caused by SARS-CoV-2 have not been determined. Collection of multiple specimens from the same patient may be necessary to detect the virus. The possibility of a false negative result should be considered if the patient has clinical presentation or has had recent exposure. COVID-19 virus antigen assay SARS-CoV-2 (COVID-19) Ag IA.rapid Ql (Resp) [facility] Work Phone: Vital Signs Date Time Vital Sign Value Performing Clinician Faci lity 06-16-2022 05:48-0500 Diastolic blood pressure 75 mm[Hg] Dr. Xena Chan Work Phone: [facility] 06-16-2022 05:48-0500 Heart rate 78 /min Dr. Xena Chan Work Phone: [facility] 06-16-2022 05:48-0500 Respiratory rate 18 /min Dr. Xena Chan Work Phone: [facility] 06-16-2022 05:48-0500 SaO2% (BldA) [Mass fraction] 96 % Dr. Xena Chan Work Phone: [facility] 06-16-2022 05:48-0500 Systolic blood pressure 138 mm[Hg] Dr. Xena Chan Work Phone: [facility] 06-16-2022 00:30-0500 Body height 157.[address] Xena Chan Work Phone: [facility] 06-16-2022 00:30-0500 Body mass index (BMI) [Ratio] 36.1 kg/m2 Dr. Xena Chan Work Phone: [facility] 06-16-2022 00:30-0500 Body temperature 96.9 [degF] Dr. Xena Chan Work Phone: [facility] 06-16-2022 00:30-0500 Body weight 89.[address] Xena Chan Work Phone: [facility] 06-13-2022 14:15-0500 Body temperature 97.6 [degF] Dr. Xena Chan Work Phone: [facility] 06-13-2022 14:15-0500 Diastolic blood pressure 74 mm[Hg] Dr. Xena Chan Work Phone: [facility] 06-13-2022 14:15-0500 Heart rate 86 /min Dr. Xena Chan Work Phone: [facility] 06-13-2022 14:15-0500 Respiratory rate 18 /min Dr. Xena Chan Work Phone: [facility] 06-13-2022 14:15-0500 SaO2% (BldA) [Mass fraction] 93 % Dr. Xena Chan Work Phone: [facility] 06-13-2022 14:15-0500 Systolic blood pressure 163 mm[Hg] Dr. Xena Chan Work Phone: [facility] 06-13-2022 09:36-0500 Inhaled oxygen flow rate 2 L/min Dr. Xena Chan Work Phone: [facility] 06-13-2022 06:00-0500 Body weight [address] Xena Chan Work Phone: [facility] 06-12-2022 10:18-0500 Body height 158.[address] Xena Chan Work Phone: [facility] Work Phone: 06-11-2022 15:06-0500 Body mass index (BMI) [Ratio] 33.1 kg/m2 Dr. Xena Chan Work Phone: [facility] 06-11-2022 15:03-0500 Body temperature 98 [degF] Dr. Xena Chan Work Phone: [facility] Work Phone: 06-11-2022 15:03-0500 Diastolic blood pressure 55 mm[Hg] Dr. Xena Chan Work Phone: [facility] Work Phone: 06-11-2022 15:03-0500 Heart rate 99 /min Dr. Xena Chan Work Phone: [facility] Work Phone: 06-11-2022 15:03-0500 Respiratory rate 16 /min Dr. Xena Chan Work Phone: [facility] Work Phone: 06-11-2022 15:03-0500 SaO2% (BldA) [Mass fraction] 93 % Dr. Xena Chan Work Phone: [facility] Work Phone: 06-11-2022 15:03-0500 Systolic blood pressure 132 mm[Hg] Dr. Xena Chan Work Phone: [facility] Work Phone: 06-10-2022 20:16-0500 Body height 152.[address] Xena Chan Work Phone: [facility] Work Phone: 06-10-2022 20:16-0500 Body mass index (BMI) [Ratio] 34.7 kg/m2 Dr. Xena Chan Work Phone: [facility] Work Phone: 06-10-2022 20:16-0500 Body weight 80.[address] Xena Chan Work Phone: [facility] Work Phone: Encounters Encounter Date Encounter Type Care Provider Facility Start: 11-12-2023 Orders Only Chidi love MD Work Phone: General Surgery Comment on above: Ventral hernia witho ut obstruction or gangrene (Primary Dx) Start: 11-13-2022 Telephone encounter Xena quintana MD Work Phone: NOC Comment on above: Follow Up Phone Call (All Clear) Start: 11-06-2022 End: 11-06-2022 ambulatory XENA CHAN Facility:[facility] Start: 11-02-2022 End: 11-06-2022 Evaluation and management of inpatient XENA CHAN Facility:[facility] Start: 09-10-2022 End: 09-10-[address] Xena Chan Work Phone: [facility] Start: 09-10-2022 End: 09-10-[address] Xena Chan Work Phone: [facility] Work Phone: Start: 08-31-2022 ambulatory Xena Chan Facility: [facility] Start: 08-31-2022 Non-patient / Non-visit Dr. Eleazar Chan Work Phone: [facility] Start: 08-31-2022 End: 08-31-[address] Xena Chan Work Phone: [facility] Work Phone: Start: 08-31-2022 End: 08-31-[address] Xena Chan Work Phone: [facility] Start: 06-16-2022 End: 06-16-2022 Emergency department patient visit Xena Chan Facility:[facility] Start: 06-16-2022 End: 06-16-2022 Emergency department patient visit Dr. Xena Chan Work Phone: [facility] Start: 06-13-2022 Non-patient / Non-visit Dr. Eleazar Chan Work Phone: [facility] Start: 06-13-2022 Non-patient / Non-visit Dr. Eleazar Chan Work Phone: [facility] Start: 06-12-2022 Non-patient / Non-visit Dr. Eleazar Chan Work Phone: [facility] Start: 06-12-2022 Non-patient / Non-visit [facility] [facility] Start: 06-11-2022 ambulatory [facility] Facility:[facility] Start: 06-11-2022 End: 06-13-2022 Evaluation and management of inpatient [facility] Facility:[facility] Start: 06-11-2022 Non-patient / Non-visit Dr. Eleazar hCan Work Phone: [facility] Inpatient Physicians Start: 06-11-2022 End: 06-13-2022 Evaluation and management of inpatient Dr. Xena Chan Work Phone: [facility]-Medical Surgical 3 Start: 06-11-2022 ambulatory Xena Chan Facility: [facility] Start: 06-11-2022 Non-patient / Non-visit Dr. Eleazar Chan Work Phone: [facility] Start: 02-12-2022 End: 02-12-2022 Patient encounter procedure [facility]-Laboratory Start: 01-26-2022 End: 01-26-2022 Patient encounter [facility] Start: 12-19-2021 End: 12-19-2021 Patient encounter procedure [facility]-Radiology, [place] Start: 12-08-2021 End: 12-08-2021 Patient encounter procedure [facility]-Laboratory, Specimen Procedures Date Procedure Procedure Detail Performing Clinician Start: 11-02-2022 Antibody screen XENA CHAN Comment on above: Order Comment: Speci men Type: BLOOD SPECIMENOrdering Facility: [facility] Address: [address] [id number] Performed By: #### T SCR ####CC [facility] BLOOD BANKCLIA [id number] [facility] [id number] [place] [address] [place] Start: 09-10-2022 MRI of brain with contrast Dr. Xena Chan Work Phone: Start: 06-11-2022 Plain X-ray abdomen Dr. Xena Chan Work Phone: Start: 06-10-2022 Computed tomography of abdomen and pelvis with contrast Dr. Xena Chan Work Phone: Start: 01-26-2022 CT angiography of he ad and neck Start: 01-26-2022 CT of chest Start: 12-19-2021 Plain chest X-ray H/O: hysterectomy H/O: hysterectomy H/O: tracheostomy H/O tracheostomy History of cholecystectomy History of cholecystectomy Viral antigen assay Dr. Anika Chan Work Phone: Viral antigen assay Dr. Anika Chan Work Phone: Plan of Treatment Date Care Activity Detail Author Start: 11-06-2025 DIABETES SCREEN DIABETES SCREEN [facility] Start: 11-06-2025 Diabetes Screening Diabetes Screenin g [facility] Start: 03-05-2024 Influenza vaccination Influenz a Vaccine (Season Ended) [facility] Start: 11-22-2023 End: 11-22-2023 Patient encounter procedure 11/22/2023 1:30 PM EDT Office Visit General Surgery [address] [place] [address] Chidi Gonzalez MD [address] [id number] abdominal hernia/mesh General Surgery Comment on above: abdominal hernia/mes h Start: 07-05-2023 Advance Directive Discussion Advance Directive Discussion [facility] Start: 07-05-2023 Behavioral Health Screening Behavioral Health Screening [facility] Start: 03-05-2023 Covid-19 Vaccine ( season) Covid-19 Vaccine () [facility] Start: 03-05-2023 Influenza vaccination INFLUENZ A (Season Ended) [facility] Start: 07-05-2022 ADVANCE DIRECTIVE DISCUSSION ADVANCE DIRECTIVE DISCUSSION [facility] Start: 07-05-2022 DEPRESSION ASSESSMENT DEPRESSION ASS ESSMENT [facility] Start: 06-13-2022 Patient discharge [facility] Start: 06-13-2022 [facility] Start: 06-11-2022 Oxygen therapy [facility] Start: 06-11-2022 Referral to general surgeon [facility] Start: 06-11-2022 Following clinical pathway protocol [facility] Start: 06-11-2022 Assessment of risk o f venous thromboembolism [facility] Start: 06-11-2022 Catheterization of vein [facility] Start: 06-11-[address] [facility] Start: 06-11-2022 Insertion of cathete r into peripheral vein [facility] Start: 06-11-2022 Measuring intake and output [facility] Start: 06-11-2022 Providing care accor ding to standard [facility] Start: 06-11-2022 Provision of activit y privileges [facility] Start: 06-11-2022 [facility] Start: 06-11-2022 Admission procedure [place] Start: 06-11-2022 Inhalation therapy procedure [facility] Start: 06-11-2022 Patient referral to dietitian [facility] Start: 08-07-2021 COVID-19 VACCINE (4 - Booster for Moderna series) COVID-19 VACCINE (4 - Booster for Moderna series) [facility] Start: 2018 BONE DENSITY BONE DENSITY [facility] Start: 2018 Screening for osteoporosis Bone Density Screening [facility] Start: 2013 RSV Vaccine (1 - 1-d ose 60+ series) RSV Vaccine (1 - 1-dose 60+ series) [facility] Start: 2003 SHINGRIX VACCINE (1 of 2) GARCIA GRIX VACCINE (1 of 2) [facility] Start: 1998 COLOGUARD (FIT-DNA) COLOGUARD (FIT-D NA) [facility] Start: 1998 Colonoscopy COLONOSCOPY [facility] Start: 1998 COLORECTAL CANCER SCREENING COLORECTAL CANCER SCREENING [facility] Start: [address] COLONOGRAPHY [facility] Start: 1998 FECAL OCCULT BLOOD FECAL OCCULT BLOO D [facility] Start: 1998 Lipid panel Lipid Screening [facility] Start: 1998 LIPID SCREEN LIPID SCREEN [facility] Start: 1998 Screening for malign ant neoplasm of colon [facility] Start: 1998 SIGMOIDOSCOPY SIGMOIDOSCOPY [facility] Start: 1993 Mammography MAMMOGRAM [facility] Start: 1993 Screening for malign ant neoplasm of breast Mammogram Screening [facility] Start: 1983 Zoledronic acid therapy ALPHA- 1 ANTITRYPSIN DEFICIENCY SCREENING [facility] Start: 1972 Urine microalbumin profile [facility] Start: 1971 ANNUAL PCP TEAM PARTY PLAN SELLING DISTRIBUTOR BEAU DISEASE VISIT ANNUAL PCP TEAM CHRONIC DISEASE VISIT [facility] Start: 1971 BP CONTROLLED (<130/80) BP CONTROLLE D (<130/80) [facility] Start: 1971 HEPATITIS C SCREENING HEPATITIS C [facility] Start: 1971 Hepatitis C screening Hepatitis C [facility] Start: 1971 SPIROMETRY SPIROMETRY [facility] Start: 1959 Pneumococcal Vaccine : 65+ (1 of 2 - PCV) Pneumococcal Vaccine: 65+ (1 of 2 - PCV) [facility] Start: 1959 PNEUMOCOCCAL: 65+ (1 - PCV) PNEUMOCOCCAL: 65+ (1 - PCV) [facility] End: 12-11-2024 CT Abdomen and Pelvis WO contrast CT ABD/PEL WO IVCON Radiology Routine Ventral hernia without obstruction or gangrene 1 Occurrences starting 11/12/2023 until 12/11/2024 [facility] Work Phone: Comment on above: 1 Occurrences starti ng 11/12/2023 until 12/11/2024 Patient Education ED Fecal Impac tion, Treated [facility] Work Phone: Patient referral [facility] Work Phone: Immunizations Immunization Date Immunization Notes Care Provider Fa [facility] 05-08-2020 influenza virus vacc ine, unspecified formulation Chidi Gonzalez MD Work Phone: [facility] Payers Date Payer Category Payer Self-pay [id number] 2020 Medicaid [id number] 2020 [place] [id number] 2020-Present [phone] [address] [place] [address] Medicaid [id number] 2018 Medicare [id number] 2018 Medicare MEDICARE MEDICAR E A AND B [id number] 2018-Present [phone] [address] [address] [place] [address] Medicare [id number] Unknown [id number] Unknown [id number] Unknown [id number] Unknown [id number] Unknown [id number] Unknown [id number] Unknown [id number] Unknown [id number] Unknown [id number] Unknown [id number] Unknown [id number] Social History Date Type Detail Facility Start: 03-06-2021 End: 06-15-2022 Tobacco smoking status NHIS Unknown if ever smoked [facility] Start: 1955 Sex Assigned At Female [facility] Start: 1955 Sex Assigned At Not on file [facility] Start: 11-02-2022 History of Social function [facility] Start: 11-02-2022 Area Deprivation Index Area De privation Index Answer Date Recorded National Score (1-100), lower number is lower risk 68 11/02/2022 State Score (1-10), lower number is lower risk Not on file 11/02/2022 Data from: https://www.neighborhood atlas.medicine.[facility].edu/ . Last address used for calculation [address] 11/02/2022 [facility] National Score (1-10 0), lower number is lower risk 68 [facility] Start: 10-23-2023 Gender identity Identifies as female gender (finding) [facility] Start: 10-23-2023 Sexual orientation Heterosexual (marla tavera) [facility] Goals Date Patient Goal Desired Activity /State Functional Status Date Assessment Result Facility 06-13-2022 Functional status Ambulates [facility] Work Phone: Mental Status Date Assessment Result Facility 06-13-2022 Cognitive function Voice/Name [facility] Work Phone: Clinical Notes 06-13-2022 to 11-13-2022 Telephone Encounter - Cynthia Trinh - 11/13/2022 11:16 AM EDT Note Date & Type Note Facility 11-13-2022 Miscellaneous Notes Formattin g of this note might be different from the original. PATIENT INFORMATION Record ID: [id number] Patient Name: Lidia Stamford Hospital: [facility] [place]: Digestive [facility] [place] Attending: Tio Ferreira Center: General Surgery INSTRUCTIONS Continue with script and ensure patient has number or is given number to appointment center [phone] All Clear All Clear SURVEY INFORMATION Medical/Nurse [place] Location Manager: Cynthia Madrigal 1. Your discharge instructions are important in guiding you through the recovery process. Is there anything I could help you clarify on your discharge instructions? (Standard Question) No, All clear 2. Do you have a follow up appointment related to your hospital stay scheduled within the next 30 days? (Standard Question) No, patient prefers to schedule in own time 3. Do you have any of the following new symptoms related to your wound?; Creamy white or foul smelling drainage Increasing redness or swelling, Increasing pain (Red Flag Question) No, no concerns at all 4. Are you tolerating your pain with your current medication? (Red Flag Question) I have no pain or minimal pain 5. Many patients have concerns about their medications once they are home. Do you have any questions about getting or taking your medications? (Standard Question) No 6. Do you have any new or different symptoms? (Standard Question) Yes, Patient not transferred MA/SN Notes: Left arm was red Wednesday after discharge and 09 of November woke up with rash went base neck to top legs. Solid rash and went down to pt feet. Pt went to see her doctors office she wasn't sure what rash was from and pt was given steroid to help the rash. It itched breast area and torso. It wasn't really bad itch. Started yesterday November the steroid. It never happened before and concerned why rash started in the first place. Started clearing yesterday the rash. Advised contact doctors office if gets worse or steroid doesn't help. documented in this encounter [facility] 11-06-2022 Note HNO ID: [id number] Author: MARYCRUZ Reese Service: Care Management Author Type: Fine Artist Type: Care Mgt Progress Note Filed: 11/06/2022 2:27 PM Note Text: CARE MANAGEMENT/ SOCIAL WORK HIGH RISK PSYCHOSOCIAL ASSESSMENT SERVICE DATE: November 06, 2022 SERVICE TIME: 2:24 PM Reason for Admission: SBO (small bowel obstruction) ([facility]) [K56.609] Reason for Social Work Contact: Transportation Time Spent (minutes): 30 Information Obtained From: Patient Patient Granted Permission to Speak to Others in the Room: Not Applicable Message received from bedside RN that pt does not have transportation home. Met with pt. She shared that she does not have a ride home. Her sister is listed as her emergency contact, however she has a strained relationship with her sister and she will not come pick her up. Offered to call her sister, pt refused. Pt reports no resources to pay for transport to [place]. Ticket to ride issued to pt. Pt is aware that this is a one-time voucher. She will be responsible for coordinating transportation if she returns to [facility] [place] in the future. No further needs identified for SW intervention at this time. SIGNATURE: MARYCRUZ Reese PATIENT NAME: Lidia Oneill DATE: November 06, 2022 TIME: 2:24 PM CONTACT #: [phone] [facility] 11-05-2022 Note HNO ID: [id number] Author: Kassandra Banks MD Service: General Surgery Author Type: Resident Type: Progress Notes Filed: 11/05/2022 7:23 AM Note Text: GENERAL SURGERY PROGRESS NOTE Service Date: November 05, 2022 Assessment: Lidia Oneill is a 67 year old female admitted for SBO 2/2 incarcerated ventral pelvic hernia. She has a complex abdominal surgical history including xlap x 4, partial colectomies with ostomy creation s/p takedown x2, ventral hernia repair with mesh, and recent SBO managed nonoperatively 06/25. We continue non-operative management if at all possible with NG decompression, bowel rest. SBFT suggests resolving SBO, however still awaiting ROBF. Plan: - maintain NPO, NG to LIWS - Will attempt clamp trial now that she is passing gas - mIVF - MM pain control - [facility] Kassandra Banks MD Acute Care Surgery ([facility]) Day Floor Pager: [phone] Acute Care Surgery (ACS) Day Consults Pager: [phone] On nights (6 pm to 6 am) and on Weekends/Holidays, please page the on-call pager: [phone] Subjective: Endorses passing gas, no N/V/BM C/o upper abdominal/chest/back pain with inspiration overnight, ECG obtained, no evidence of ACS event - reports pain improved with reglan - NG with 800 out overnight Physical Exam: BP 141/66 Pulse 81 Temp (Src) 98.1 (Oral) Resp 16 Ht 5' 2.5 (1.59m) Wt 183 lb 13.8 oz (83.4kg) SpO2 96% BMI 33.07 kg/(m2). O2 Therapy: Nasal Cannula, Liters: 2.00 GENERAL: awake; alert and oriented; no acute distress LUNGS: non-labored breathing, no shortness of breath CARDIAC: RRR, warm and well perfused throughout ABDOMEN: soft, tender in the lower midline over hernia, non distended, numerous well healed surgical incisions Labs: CBC, BMP, MG, PHOS Recent Labs 11/04/22 0519 11/03/22 0632 11/02/22 1222 WBC 6.84 9.68 19.77* HB 13.9 15.8* 18.1* HCT 41.5 47.0* 51.2* PLT 197 289 352 NA 138 136 132* K 4.0 4.4 5.0 CHLOR 102 98 93* CO2 25 20* 22 BUN 13 15 21 CREAT 0.70 0.76 0.83 GLUC 85 120* 159* CA 8.8 9.5 10.9* MG 2.1 2.0 -- P 2.6* 3.8 -- Liver Function, Amylase, AND Lipase Recent Labs 11/04/22 0519 11/03/22 0632 11/02/22 1612 11/02/22 1222 TPROT 6.1* 6.6 -- 8.2* ALB 3.3* 3.8* -- 4.7 ALT 28 29 -- 32 AST 20 25 -- 28 ALKPHOS 71 73 -- 94 TBILI 0.4 0.4 -- 0.4 LACT -- -- 2.1* -- Coags Recent Labs 11/02/22 1222 APTT 30.0 INR 1.1 Cardiac Enzymes Imaging: SBFT: IMPRESSION: LOW-GRADE/RESOLVING SMALL BOWEL OBSTRUCTION. Intake and Output: Date 11/04/22699 - 11/05/22 0611/05/22 07 - 11/06/22 0659 Shift 2063-9901 9406-1819 4196-9046 24 Hour Total 6844-6681 1701-5732 6757-4179 24 Hour Total INTAKE PO 0 0 PO 0 0 Shift Total 0 0 OUTPUT Urine 600 600 Void (ml) 600 600 Urine Not Saved. 1 x 1 x Tubes 0 800 800 Output (GI Feed 11/02/22 1642 Assessment Gastric Left Naris 16 Fr) 0 800 800 # of BMs Number of BMs 0 x 0 x Shift Total 0 1400 1400 Weight (kg) 83.4 83.4 83.4 83.4 83.4 83.4 83.4 83.4 Current Medications: Current Facility-Administered Medications Medication Dose Route Frequency iv contrast (radiology procedure) INTRAVENOUS DIRECTED PRN nicotine 21 mg/24 hr 1 Patch (NICODERM) 1 Patch TRANSDERMAL DAILY And nicotine -- REMOVE patch OTHER DAILY And nicotine - verify patch OTHER q 8 H NaCl 0.9% iv flush bag 20 mL INTRAVENOUS PRN amitriptyline 75 mg tab(s) (ELAVIL) 75 mg ORAL AT BEDTIME potassium chloride ER 20-40 mEq tab(s) (KLOR-CON) 20-40 mEq ORAL PRN Or potassium chloride iv piggyback 20 mEq/100 mL 20 mEq INTRAVENOUS PRN magnesium sulfate iv piggyback in sterile water 2 g 50 mL 2 g INTRAVENOUS PRN(NO DISPENSE) phosphorus 500 mg tab(s) (K PHOS NEUTRAL) 500 mg ORAL/FEEDING TUBE PRN(NO DISPENSE) heparin 5,000 Units injection 5,000 Units SUBCUTANEOUS q 12 H lactated ringers iv infusion 100 mL/hr INTRAVENOUS CONTINUOUS ondansetron (PF) 4 mg injection (ZOFRAN) 4 mg INTRAVENOUS q 6 H PRN metoclopramide HCl 5 mg injection (REGLAN) 5 mg INTRAVENOUS q 6 H PRN albuterol 2.5 mg /3 mL (0.083 %) 2.5 mg (PROVENTIL) 2.5 mg INHALATION q 4 H PRN hydrALAZINE 10 mg injection (APRESOLINE) 10 mg INTRAVENOUS q 3 H PRN metoprolol 10 mg injection (LOPRESSOR) 10 mg INTRAVENOUS q 4 H PRN acetaminophen 650 mg tab(s) (TYLENOL) 650 mg ORAL q 6 H PRN fentaNYL 50 mcg/mL 25 mcg injection (SUBLIMAZE) 25 mcg INTRAVENOUS q 2 H PRN lidocaine 4 % 1 Patch (SALONPAS) 1 Patch TRANSDERMAL DAILY AT 9 PM And lidocaine patch - REMOVE OTHER DAILY And lidocaine - VERIFY PATCH OTHER q 8 H albuterol HFA 90 mcg/actuation 2 Puff (PROVENTIL HFA, VENTOLIN HFA) 2 Puff INHALATION q 4 H PRN fluticasone-vilanterol 100-25 mcg/dose 1 Inhalation (BREO ELLIPTA) 1 Inhalation INHALATION DAILY lidocaine 4 % 1 Patch (SALONPAS) 1 Patch TRANSDERM (more content not included)... [facility] 11-05-2022 Note HNO ID: [id number] Author: Trevin Nunez RN Service: ? Author Type: Registered Nurse Type: Nursing Progress Note Filed: 11/05/2022 3:04 AM Note Text: Pager [phone]. Updated on completion of EKG [facility] 11-04-2022 Note HNO ID: [id number] Author: MARYCRUZ Reese Service: Care Management Author Type: Fine Artist Type: Care Mgt Initial Assessment Filed: 11/04/2022 1:16 PM Note Text: CARE MANAGEMENT: ASSESSMENT AND DISCHARGE PLAN SERVICE DATE: November 04, 2022 SERVICE TIME: 1:15 PM PCP: Xena Chan MD Primary Contact: Extended Emergency Contact Information Primary Emergency Contact: NIKIA SILVA Mobile Relation: Sister Admission Status: Inpatient Insurance Provider: MEDICARE A AND B Post-Acute Discharge Plan: Per primary team, anticipate d/c home with no skilled needs identified to date. Family to provide transport at d/c. Please contact CM if needs arise. SIGNATURE: MARYCRUZ Reese PATIENT NAME: Lidia Oneill DATE: November 04, 2022 TIME: 1:15 PM CONTACT #: [phone] [facility] 11-02-2022 Note HNO ID: [id number] Author: RT Hardeep(R) Service: Radiology Author Type: Technologist Type: Progress Notes Filed: 11/02/2022 1:58 PM Note Text: Radiology Service Progress Note DATE OF SERVICE: November 02, 2022 TIME: 1:57 PM PATIENT IDENTITY VERIFICATION COMPLETED USING TWO (2) STANDARD IDENTIFIERS: Name and Date of confirmed by patient verbally and Name and Date of confirmed by identification band. FALL SCREENING: Has the patient had 2 falls in the last year or 1 fall with injury or currently using an Ambulatory Assistive Device (Walker, Cane, Wheelchair, Crutches, etc.)? Emergency Room Patient: Screened in ED PATIENT GENDER DATA: Female. status: : No status: NO. PATIENT RELEVANT IMPLANT DATA REVIEWED: Yes ALLERGIES: Reviewed and unchanged CONTRAST ALLERGY: NO. EXAM: CT -CONTRAST INDUCED NEPHROPATHY RISK FACTORS: Patient age > 60 years CREATININE: Creatinine Date Value Ref Range Status 11/02/2022 0.83 0.58 - 0.96 mg/dL Final Estimated Glomerular Filtration Rate Date Value Ref Range Status 11/02/2022 76 >=60 mL/min/1.73m? Final Comment: Estimated Glomerular Filtration Rate (eGFR) is calculated using the 2020 CKD-EPI creatinine equation. This equation utilizes serum creatinine, sex, and age as parameters. The creatinine assay has traceable calibration to isotope dilution-mass spectrometry. Refer to KDIGO guidelines for clinical interpretation. In patients with unstable renal function, e.g. those with acute kidney injury, the eGFR may not accurately reflect actual GFR. P.O.C.T. RESULTS: POC done: Yes, See Lab Tab November 02, 2022 TREATMENT: N/A PERIPHERAL IV DATA: Ambulatory: A peripheral IV was started in the Left antecubital site with a Angio cath: 18 gauge. RADIOLOGY DEPARTMENT: CT; Exam(s) Completed: Abdomen/Pelvis SIGNATURE: RT Hardeep(R) PATIENT NAME: Lidia Oneill DATE: November 02, 2022 TIME: 1:57 PM [facility] 06-13-2022 Note [facility] Medical Records Department [address] [place] [address] Discharge Summary 06/13/22 1418 MR#: [id number] Acct: [id number] Name: LIDIA ONEILL Rep #: [id number] : 1955 66 From: Tejinder Minor MD PCP: Dr. Xena Chan MD Status:ADM IN Location: [facility] [id number] Providers Date of Admission: 06/11/22 Primary Care Physician: Dr. Xena Chan MD Consultations 06/11/22 16:06 Consult: General Surgery Routine Consulting Provider: Kyrie Nicole Reason for Consult: SBO EMERGENT Consult: No MD Notified: Yes Date Notified: 06/11/22 Time Notified: 16:03 Method of Notification: ED Physician Initiated Reason For Visit: SBO Diagnosis Discharge Diagnosis (1) Incisional hernia of anterior abdominal wall with obstruction: Status: Acute Code(s): K43.0 - Incisional hernia with obstruction, without gangrene Plan 1. Acute SBO secondary to anterior abdominal wall hernia ??? Continue with NG tube to low intermittent wall suction ??? Appreciate surgery's backup while awaiting transfer to [facility] ??? We will allow her to take her amitriptyline at night as she is not sleeping but otherwise she will be strict n.p.o. ??? Continue with PPI 2. COPD, not in acute exacerbation, ???Stable ??? Continue with as needed breathing treatments 3. Hypertension ??? Will hold candersartan as she is n.p.o. will monitor ???Continue with as needed hydralazine DVT: Lovenox Medications at Discharge Home Medications acetaminophen 325 mg capsule 1,000 mg PO ONCE PRN Pain 11/11/20 albuterol sulfate 90 mcg/actuation aerosol inhaler 2 puff inhalation Q2H PRN PRN Shortness Of Breath 11/11/20 amitriptyline 25 mg tablet 100 mg PO QHS sleep 11/11/20 budesonide-formoterol HFA 160 mcg-4.5 mcg/actuation aerosol inhaler 1 puff inhalation BID copd 11/11/20 calcium carbonate 200 mg calcium (500 mg) chewable tablet (Tums) 200 mg PO Q2H PRN PRN gerd 11/11/20 candesartan 4 mg tablet 4 mg PO QHS bp 11/11/20 cyclobenzaprine 10 mg tablet 10 mg PO TID pain 11/11/20 docusate sodium 100 mg capsule (Colace) 100 mg PO BID PRN Constipation 11/11/20 fluticasone propionate 50 mcg/actuation nasal spray,suspension 2 spray intranasal DAILY allergies 11/11/20 herbalife PO meal replacement 11/11/20 icey hot topical 11/11/20 mecobalamin (vitamin B12) 1,000 mcg chewable tablet 1,000 mcg PO DAILY supplement 11/11/20 polyethylene glycol 3350 17 gram oral powder packet (Miralax) 17 g PO DAILY PRN Constipation 11/11/20 red yeast rice 600 mg capsule 600 mg PO DAILY supplment 11/11/20 linaclotide 290 mcg capsule (Linzess) 290 mcg PO DAILY constipation 06/11/22 Hospital Course Operations None Procedures None Summary of Care Provided Minutes Spent on Discharge: 40 Hospital Course: Per HPI: LIDIA ONEILL, is a 66 F who presents with the above.??? Patient is being admitted awaiting a bed to [facility] for surgical evaluation.??? Patient has past medical history of COPD, hypertension, history of multiple surgeries, initially for colon surgeries, bowel obstructions.??? Her surgeries were done in [place].??? She moved up to [place] a couple of years ago. She comes in with constipation ongoing for 4 days.??? Patient stated that she has been using her Linzess and laxatives with no results.??? She had an episode of vomiting and dry heaving.??? Denied any fever or chills.??? She denies any chest pain or dizziness or palpitations In the ED, her vitals were stable.??? WBC count 13.9, hemoglobin 18.1, platelet count 331.??? Sodium is 132, potassium 4.2, chloride 97, bicarbonate 30, BUN 20, creatinine 0.82.??? LFTs are unremarkable.??? UA is unremarkable. CT abdominal pelvis shows small bowel obstruction secondary to midline anterior abdominal wall hernia. Patient was seen by general surgery in the emergency room and recommended to be transferred to tertiary institution.??? Patient has been accepted by the [facility] and is awaiting a bed.??? Patient has since been n.p.o., has an NG tube, being given pain meds as well as antiemetics.??? I explained to her very clearly that the general surgeon recommended that transfer to a tertiary institution.??? She knows that in the event of any worsening, she is at risk of worse complication including . I reached out to the [facility] transfer line and was told that there were no beds available today.??? Patient is being admitted per agreement between hospital medicine and the emergency room to accept patients pending bed availability and transfer. Hospital Course: 1. Acute SBO secondary to anterior abdominal wall hernia???66-year-old female with a history of small bowel obstructions as well as previous hernia repairs presents to the hospital with another small bowel obstruction. She was pending transfer to [facility] (more content not included)... [facility] Evaluation note No assessment inform ation available [facility] Work Phone: Evaluation note Diagnosis Onset Date Abdominal pain acute Abdominal wall hernia acute Burn acute Complete small bowel obstruction acute H/O tracheostomy acute History of cholecystectomy a cute History of colon surgery acu te Incisional hernia of anterio r abdominal wall with obstruction acute Leukocytosis acute COPD (chronic obstructive pulmonary disease) chronic [facility] Work Phone: Evaluation note* Diagnosis Onset Date Resolution Status Abdominal pain acute Abdominal wall hernia acute Burn acute Complete small bowel obstruction acute H/O tracheostomy acute History of cholecystectomy a cute History of colon surgery acu te Leukocytosis acute COPD (chronic obstructive pulmonary disease) chronic [facility] Work Phone: Evaluation note* Diagnosis Ventral hernia without obstruction or gangrene- Primary Ventral hernia, unspecified, without mention of obstruction or gangrene documented in this encounter [facility] Chief Complaint and Reason for Visit Chief Complaint COUGH Chief Complaint COUGH RO ANURYSM Chief Complaint CONSTIPATION SBO Reason for Visit Abdominal pain Abdominal wall hernia Burn Complete small bowel obstruction H/O tracheostomy History of cholecystectomy History of colon surgery Incisional hernia of anterior abdominal wall with obstruction Leukocytosis COPD (chronic obstructive pulmonary disease) Chief Complaint CONSTIPATION SBO SBO SBO SBO SBO SBO Reason for Visit Abdominal pain Abdominal wall hernia Burn Complete small bowel obstruction H/O tracheostomy History of cholecystectomy History of colon surgery Incisional hernia of anterior abdominal wall with obstruction Leukocytosis COPD (chronic obstructive pulmonary disease) Chief Complaint CONSTIPATION SBO SBO SBO SBO SBO SBO abd pain Reason for Visit Abdominal pain Abdominal wall hernia Burn Complete small bowel obstruction H/O tracheostomy History of cholecystectomy History of colon surgery Incisional hernia of anterior abdominal wall with obstruction Leukocytosis COPD (chronic obstructive pulmonary disease) Chief Complaint CONSTIPATION SBO SBO SBO SBO SBO SBO abd pain CAROTID STENOSIS Reason for Visit Abdominal pain Abdominal wall hernia Burn Complete small bowel obstruction H/O tracheostomy History of cholecystectomy History of colon surgery Leukocytosis COPD (chronic obstructive pulmonary disease) Chief Complaint CONSTIPATION SBO SBO SBO SBO SBO SBO abd pain CAROTID STENOSIS HEADACHES Reason for Visit Abdominal pain Abdominal wall hernia Burn Complete small bowel obstruction H/O tracheostomy History of cholecystectomy History of colon surgery Leukocytosis COPD (chronic obstructive pulmonary disease) Family History Relationship Condition Age at Onset Recorded Date/T linda mother Hypertension Unknown Cardiac disease Unknown Presence of cardiac pacemaker Unknown Malignant neoplasm of cervix Unknown father Diabetes mellitus Unknown aunt Malignant neoplasm of colon Unknown aunt Malignant neoplasm of breast Unknown uncle Congestive heart failure Unknown Advance Directives Advance Directive Response Recorded Date/ Time Living Will No June 10 9:15pm Power of Accounts Clerk No June 10, 2022 9:15pm Advance Directive Response Recorded Date/ Time Living Will No June 11 3:06pm Power of Accounts Clerk No June 11, 2022 3:06pm Advance Directive Response Recorded Date/ Time Living Will No June 16 022 12:32am Power of Accounts Clerk No June 16, 2022 12:32am Advance Directive Response Recorded Date/ Time Living Will No June 16 022 1:32am Power of Accounts Clerk No June 16, 2022 1:32am Summary Purpose Reason for Referral Specialty Diagnoses / Procedures Referred By Contac t Referred To Contact CT IMAGING Diagnoses Ventral hernia without obstruction or gangrene Procedures CT ABD/PEL WO IVCON CT ABD & PELVIS W/O CONTRAST Chidi Gonzalez MD [address] [place] [address] [place] [address] Referral ID Status Reason Start Date Expiration Date Visits Requested Visits Authorized [id number] Pending Review Auto-Generat ed Referral 11/12/2023 12/11/2024 1 1 Additional Source Comments Goals (unrecognized section and content) Goals may be documented in a n alternate sectionGoals may be documented in an alternate sectionGoals may be documented in an alternate sectionGoals may be documented in an alternate section Care Teams (unrecognized sec tion and content) Team Status: Active Member Role Status Dates Dr. Xena Chan MD Primary Care Provider Active Team Status: Active Member Role Status Dates Dr. Xena Chan MD Primary Care Provider Active Dr. Urban Cantrell DO Emergency Provider Active Dr. Kyrie Nicole MD Attending Provider Active Dr. Tejinder Minor MD Referring Provider Active Team Status: Active Member Role Status Dates Dr. Xena Chan MD Primary Care Provider Active Dr. Urban Cantrell DO Emergency Provider Active Dr. Alee Ocampo MD Admit Provider, Atte nding Provider, Other Provider Active Dr. Kyrie Nicole MD Other Provider Active Team Status: Active Member Role Status Dates Dr. Xena Chan MD Primary Care Provider Active Dr. Urban Cantrell DO Emergency Provider Active Dr. Alee Ocampo MD Admit Provider, Other Provider Act mauricio Dr. Kyrie Nicole MD Attending Provider, Other Prov ider Active Team Status: Active Member Role Status Dates Dr. Xena Chan MD Primary Care Provider Active Dr. Urban Cantrell DO Emergency Provider Active Dr. Alee Ocampo MD Admit Provider, Other Provider Act mauricio Dr. Kyrie Nicole MD Other Provider Active Dr. Tejinder Minor MD Attending Provider, Other Provider Active Team Status: Active Member Role Status Dates Dr. Xena Chan MD Primary Care Provider Active Dr. Urban Cantrell DO Emergency Provider Active Dr. Alee Ocampo MD Admit Provider, Other Provider Act mauricio Dr. Kyrie Nicole MD Attending Provider, Other Prov ider Active Dr. Tejinder Minor MD Other Provider Active Team Status: Active Member Role Status Dates Dr. Xena Chan MD Primary Care Provider Active Dr. Kyrie Nicole MD Attending Provider Active Team Status: Inactive Member Role Status Dates Dr. Xena Chan MD Primary Care Provider Active Dr. Urban Cantrell DO Emergency Provider Active Dr. Alee Ocampo MD Admit Provider, Other Provider Act mauricio Dr. Kyrie Nicole MD Other Provider Active Dr. Tejinder Minor MD Attending Provider Active Team Status: Inactive Member Role Status Dates Dr. Xena Chan MD Primary Care Provider Active Dr. Aba Lam MD Attending Provider, Emergency Provider Active Team Status: Inactive Member Role Status Dates Dr. Xena Chan MD Primary Care Provider Active Dr. Lawrence Chan MD Attending Provider, Referring Pr ovider Active Team Status: Inactive Member Role Status Dates Dr. Xena Chan MD Primary Care Provider Active Dr. Lawrence Chan MD Attending Provider Active Account Planner Relationship Specialty Start Date End Date Xena Chan MD [address] [place], [place] [id number] PCP - General Family Medicine 11/02/22 Account Planner Relationship Specialty Start Date End Date Xena Chan MD [address] [place] [phone] PCP - General Family Medicine 11/02/22 Source Comments (unrecognize d section and content) In the event this informatio n is protected by the Federal Confidentiality of Alcohol and Drug Abuse Patient Records regulations: The Federal rules restrict any use of the information to criminally investigate or prosecute any alcohol or drug abuse patient.[facility] the event this information is protected by the Federal Confidentiality of Alcohol and Drug Abuse Patient Records regulations: The Federal rules restrict any use of the information to criminally investigate or prosecute any alcohol or drug abuse patient.[facility] Reason for Visit (unrecogniz ed section and content) Reason Comments Follow Up Phone Call All Clear INFORMATION SOURCE (unrecogn ized section and content) DATE CREATED AUTHOR 11/15/2022 [facility] DATE CREATED AUTHOR 'S VINI FOUNTAINION 02/19/2023 [facility] FOR RECORDS PERTAINING TO PATIENTS WHO ARE OR HAVE BEEN ENROLLED IN A CHEMICAL DEPENDENCY/SUBSTANCEABUSE PROGRAM, SOME INFORMATION MAY BE OMITTED. This clinical summary was aggregated from multiple sources. Caution should be exercised in using it in the provision of clinical care. This summary normalizes information from multiple sources, and as a consequence, information in this document may materially change the coding, format and clinical context of patient data. In addition, data may be omitted in some cases. CLINICAL DECISIONS SHOULD BE BASED ON THE PRIMARY CLINICAL RECORDS. [facility]. provides no warranty or guarantee of the accuracy or completeness of information in this document.
[2024-12-18] MEDS: Ondansetron 4 MG/2 ML Vial IV (06:34)
[2024-12-18] MEDS: HYDROmorphone 1 MG/ML Syringe IV (06:36)
[2024-12-18 06:46] LABS: Absolute Lymphocyte Count 1.26 X10^3/uL (0.83-4.51); Absolute Neutrophil Count 13.4 X10^3/uL (2.0-7.7); Basophil# 0.13 X10^3/uL; Basophil% 0.8 % (0-1); Eosinophil# 0.04 X10^3/uL; Eosinophils% 0.3 % (0-5); Hematocrit 51.7 % (37-47); Hemoglobin 17.8 g/dL (12.0-15.0); Lymphocyte # 1.26 X10^3/ul (0.83-4.51); Mean Corp Hgb Conc 34.4 g/dL (32-36); Mean Corpuscular Hgb 30.1 pg (27.0-32.0); Mean Corpuscular Volume 87.5 fL (81-99); Mean Platelet Vol. 10.7 fl (6.2-12.0); Monocyte# 0.93 X10^3/uL; Monocyte% 5.9 % (0-10); NRBC Flagged by Analyzer 0 % (0-5); Neutrophil # 13.38 X10^3/uL (2.7-7.7); Neutrophil % 84.4 % (47-70); Platelet Count 276 K/mm3 (150-450); RBC Distribution Width CV 13.4 % (11.6-14.6); RBC Distribution Width SD 42.9 fl (35.1-43.9); Red Blood Count 5.91 M/mm3 (4.2-5.4); White Blood Count 15.8 K/mm3 (4.4-11.0)
[2024-12-18 07:01] LABS: Lactic Acid 1.7 mmol/L (0.0-2.0)
[2024-12-18 07:03] LABS: ALB/GLOB Ratio 1.3 RATIO (0.9-2.4); AST(SGOT) 21 U/L (<=31); Alanine Aminotransfer ALT/SGPT 20 U/L (<=34); Albumin, Serum 4.4 g/dL (3.4-4.8); Alkaline Phosphatase 85 U/L (35-104); Anion Gap 15 (5-15); BUN 18 mg/dL (4-19); BUN/Creat Ratio 23.6 RATIO (10-20); Carbon Dioxide 22.1 mmol/L (21.0-32.0); Chloride 97 mmol/L (98-108); Creatinine, Serum 0.76 mg/dL (0.70-1.20); EST Glomerular Filtration Rate 84 (>60); Estimated Creatinine Clearance 64.25 ml/min (50-250); Globulin 3.4 g/dL (2.2-4.2); Glucose 123 mg/dL (70-99); Potassium 4.5 mmol/L (3.3-5.1); Protein, Total 7.8 g/dL (5.9-8.4); Sodium Level 134 mmol/L (133-145); Total Bilirubin 0.26 mg/dL (0.00-1.30)
[2024-12-18 07:17] LABS: Amylase 60 U/L (28-100); Lipase 19 U/L (13-75)
[2024-12-18 07:46] VITALS: BP 113/56; PULSE 88; RESP 14; O2SAT 93
[2024-12-18 08:15] LABS: Cholesterol 213 mg/dL (<=200); High Density Lipoprotein 50 mg/dL; Low Density Lipoprotein Calc. 110 mg/dL; Triglycerides 264 mg/dL; Very Low Density Lipoprotein 53 mg/dL (5-40); cholesterol:hdl ratio screen 4.25
[2024-12-18 09:22] LABS: Free T3 3.2 pg/mL (2.18-3.98)
[2024-12-18 09:28] VITALS: BP 109/66; PULSE 87; RESP 16; TEMP 36.8; O2SAT 94
== END 2024-12-18 09:36 | disposition left against medical advice (07) ==
PROVIDERS: Emergency Medicine; Emergency Provider Emergency Medicine; PCP Family Medicine; Visit Provider Emergency Medicine
DX: R10.9 Unspecified abdominal pain (principal); K56.600 Partial intestinal obstruction, unspecified as to cause; J44.9 Chronic obstructive pulmonary disease, unspecified; E78.5 Hyperlipidemia, unspecified; F17.210 Nicotine dependence, cigarettes, uncomplicated; D72.829 Elevated white blood cell count, unspecified; I10 Essential (primary) hypertension; Z90.49 Acquired absence of other specified parts of digestive tract; K44.9 Diaphragmatic hernia without obstruction or gangrene; S00.03XA Contusion of scalp, initial encounter; W01.198A Fall on same level from slipping, tripping and stumbling with subsequent striking against other object, initial encounter
CPT/HCPCS: 70450; 74177; 80053; 80061; 82150; 83605; 83690; 84439; 84443; 84481; 85025; 96374; 96375; 99285; Q9967; A4216; J2405

== ENCOUNTER 2025-01-10 10:59 | Inpatient (IN) | payer MEDICARE, MEDICAID, SELFPAY ==
[2025-01-10] VITALS (7 sets, daily range): BP systolic 120–150; BP diastolic 56–71; PULSE 84–100; RESP 14–20; TEMP 36.8–37.2; O2SAT 89–96; BMI 32.5; BMI 31.7
--- NOTE | 2025-01-10 11:17 | CT_ITS ---
PROCEDURE: Isovue-300 100 REASON FOR EXAM: ABDOMINAL PAIN, HISTORY OF BOWEL OBSTRUCTION TECHNIQUE: ABDOMEN/PELVIS W IV CONT ONLY Coronal and Sagittal reconstruction series were provided. CONTRAST: Isovue-300 VOLUME: 100 mL One or more dose reduction techniques were used (e.g., Automated exposure control, adjustment of the mA and/or kV according to patient size, use of iterative reconstruction technique. RADIATION DOSE SUMMARY: CTDlvol: 15.97 mGy DLP: 785.76 mGycm COMPARISON: Prior study dated December 18, 2024. FINDINGS: Lung bases: Increased markings in the anterior medial aspect of the right middle lobe as well as the lingular segment of the left upper lobe. This may represent a mild degree of scarring. Liver: Diffuse fatty infiltration. Gallbladder: Surgically absent. Spleen: Normal size. Pancreas: Diffuse fatty atrophy. Adrenals: Unremarkable Kidneys: Unremarkable. Bladder: Unremarkable Reproductive Organs: Prior hysterectomy. Adnexal regions are unremarkable. Bowel: Surgical anastomosis seen at the level of the rectum. Large amount of fecal material is seen in the rectosigmoid colon. There are multiple fluid filled distended small bowel loops in the distal ileum. The stomach is distended with fluid. Appendix: The appendix is not identified. There is no inflammatory process identified in the right lower quadrant to suggest appendicitis. Lymph nodes: Unremarkable. Vasculature: Mild diffuse atherosclerotic calcifications are noted. Peritoneum / Retroperitoneum: There is evidence of prior anterior abdominal wall hernia repair. Stable left spigelian type of hernia containing nondilated descending colon. Bones: Degenerative changes of the spine. CT/Abdomen/Pelvis W IV Cont ONLY IMPRESSION: Fatty infiltration of the liver. Recurrent distal small bowel obstruction. Fecal material is seen in the colon. Prior anastomosis at the level of the rectum. Status post cholecystectomy. Reading Location: [place] [address]
--- NOTE | 2025-01-10 11:20 | EX.ED.DYSGE1 ---
HPI History of Present Illness Chief Complaint: Abd Pain Narrative Narrative: Patient is a 69-year-old female with past medical history of COPD, hypertension, hyperlipidemia, ARDS, DVT, cholecystectomy, hysterectomy, colon surgery who presents to the emergency department the chief complaint of abdominal pain nausea. Patient states that she has had previous bowel obstructions and has had multiple abdominal surgeries states that this feels similar to a bowel obstruction. She states that she has not been passing gas and notes that she tried to eat small amount of food last night. States that she had difficulty sleeping she states that she feels extremely nauseous and is unable to vomit. Patient notes that if she does have a bowel obstruction that ruptures she would not want surgery again as Medicare Medicaid does not pay for this and she would want to be kept comfortable with multiple doses of medications until she passes. [facility] Medical History Cancer DVT (deep venous thrombosis) Smoker Incisional hernia of anterior abdominal wall with obstruction Aphthous ulcer Acute bronchitis, unspecified ARDS (adult respiratory distress syndrome) Pneumonia COPD (chronic obstructive pulmonary disease) Hyperlipidemia HTN (hypertension) History of coma H/O sepsis History of ectopic Home Medications ?Medication ?Instructions ?Recorded ?Last Taken ?Type acetaminophen 325 mg capsule 1,000 mg PO ONCE PRN Pain 11/11/20 06/10/22 History albuterol sulfate 90 mcg/actuation 2 puff inhalation Q2H PRN PRN 11/11/20 06/10/22 History aerosol inhaler Shortness Of Breath amitriptyline 25 mg tablet 100 mg PO QHS sleep 11/11/20 06/10/22 History budesonide-formoterol HFA 160 1 puff inhalation BID copd 11/11/20 06/10/22 History mcg-4.5 mcg/actuation aerosol inhaler calcium carbonate (Tums) 200 mg PO Q2H PRN PRN gerd 11/11/20 Unknown History candesartan 4 mg tablet 4 mg PO QHS bp 11/11/20 06/09/22 History cyclobenzaprine 10 mg tablet 10 mg PO TID pain 11/11/20 06/09/22 History docusate sodium 100 mg capsule 100 mg PO BID PRN Constipation 11/11/20 06/09/22 History (Colace) fluticasone propionate 50 2 spray intranasal DAILY allergies 11/11/20 06/09/22 History mcg/actuation nasal spray,suspension herbalife PO meal replacement 11/11/20 Unknown History icey hot topical 11/11/20 Unknown History mecobalamin (vitamin B12) 1,000 1,000 mcg PO DAILY supplement 11/11/20 06/09/22 History mcg chewable tablet polyethylene glycol 3350 17 gram 17 g PO DAILY PRN Constipation 11/11/20 Unknown History oral powder packet (Miralax) red yeast rice 600 mg capsule 600 mg PO DAILY supplment 11/11/20 06/09/22 History linaclotide 290 mcg capsule 290 mcg PO DAILY constipation 06/11/22 06/09/22 History (Linzess) ondansetron 4 mg disintegrating 4 mg PO Q6H PRN nausea and 12/18/24 Unknown Rx tablet vomiting #20 tabs Allergy/AdvReac Type Severity Reaction Status Date / Time Tetracyclines Allergy Severe SWELLNG, Verified 01/10/25 11:02 RASH morphine Allergy Swelling, Verified 01/10/25 11:02 Rash, Itching Penicillins Allergy Swelling, Verified 01/10/25 11:02 Rash, Itching Family History Mother Hypertension Heart disease Pacemaker Cervical cancer Father Diabetes Aunt Colon cancer Aunt Breast cancer Uncle CHF (congestive heart failure) Surgical History H/O tracheostomy History of colon surgery H/O: hysterectomy H/O total hysterectomy with removal of both tubes and ovaries History of cholecystectomy Social History household members: other details: sister Smoking Status: Current every day smoker tobacco type: cigarettes alcohol intake: never what type of physical activity do you participate in: none do you feel safe at home: Yes ROS ROS ED ROS Narrative Constitutional: Denies any fevers, chills, headaches Cardiovascular: Denies chest pain Respiratory: Denies shortness of breath Abdomen: Complains of abdominal pain and nausea with dry heaves denies diarrhea or passing gas : Denies any painful urination or hematuria Neurological: Denies any numbness, wheeze, tingling Musculoskeletal: Denies back pain Skin: Denies any rashes or lesions EXAM Physical Exam Narrative Exam Narrative: General: Patient lying in bed did appear to be uncomfortable secondary to her abdominal pain Head: Atraumatic, normocephalic Eyes: PERRL bilaterally, EOMI bilateral, no conjunctival injection noted Neck: Soft, supple, trachea midline Cardiovascular: Regular rate and rhythm Respiratory: Clear to auscultation bilaterally Abdomen: Soft, nondistended, diffuse tenderness palpation no rebound or guarding on exam Extremities: +5/5 strength noted in the bilateral upper and lower extremities Neurological: Patient follow commands and that she was at [facility] the year is 2024 Skin: Warm, dry, tact no rashes or lesions noted no skin changes noted Const Vital Signs: 01/10/25 11:00 01/10/25 12:32 Temperature 98.2 F Temperature Source Oral Pulse Rate 96 84 Respiratory Rate 20 H 14 Blood Pressure 128/56 H 150/64 H Blood Pressure Mean 80 92 Pulse Ox 93 96 Oxygen Delivery Method Room Air Room Air MDM MDM MDM Narrative Medical decision making narrative: Patient is a 69-year-old female who presented to the emergency department chief complaint of abdominal pain and nausea. On the differential diagnosis includes but not limited to viral gastroenteritis, bowel obstruction, ischemic gut. Once workup is obtained reviewed she will be reevaluated. Patient be given IV fluids, fentanyl and Zofran. Patient's CBC reviewed showed a white blood count of 15,000 chronically has elevated white blood cell count, hemoglobin is 18, platelet count of 345. Patient's lactic acid was 2.1, chemistries are pending lipase pending. Patient urinalysis reviewed and showed negative nitrites negative leukocyte esterase microscopic exam pending. Patient's CT abdomen pelvis with IV contrast showed recurrent distal small bowel obstruction fecal material seen in the colon prior anastomosis at the level of the rectum status post cholecystectomy. I called and discussed with on-call general surgeon Dr. Alan who is recommending NG placement which was ordered as well as admission to the medicine team. Patient is requesting more pain medication she will be given 0.5 mg of Dilaudid. Will discuss with hospitalist for admission. Discussed case with hospitalist Dr. Gibson who accepts patient for admission. Updated the patient she is agreeable this all course concerns answered. Patient states that she would not want surgery. Lab Data Labs: Laboratory Results - last 24 hr 01/10/25 01/10/25 11:39 12:32 WBC 15.0 H RBC 6.04 H Hgb 18.0 H* Hct 52.7 H MCV 87.3 MCH 29.8 MCHC 34.2 RDW Std Deviation 43.1 RDW Coeff of Chrissy 13.4 Plt Count 345 MPV 10.8 Immature Gran % (Auto) 0.700 Neut % (Auto) 82.4 H Lymph % (Auto) 10.1 L Caroline % (Auto) 6.0 Eos % (Auto) 0.1 Baso % (Auto) 0.7 Absolute Neuts (auto) 12.4 H Absolute Lymphs (auto) 1.51 Nucleated RBC % 0 Sodium Cancelled Potassium Cancelled Chloride Cancelled Carbon Dioxide Cancelled Anion Gap Cancelled BUN Cancelled Creatinine Cancelled Estim Creat Clear Calc Cancelled Est GFR (MDRD) Non-Af Cancelled BUN/Creatinine Ratio Cancelled Glucose Cancelled Lactic Acid 2.1 H* Calcium Cancelled Total Bilirubin Cancelled AST Cancelled ALT Cancelled Alkaline Phosphatase Cancelled Total Protein Cancelled Albumin Cancelled Globulin Cancelled Albumin/Globulin Ratio Cancelled Lipase Cancelled Urine Color Yellow Urine Clarity Clear Urine pH 7.0 Ur Specific [facility] 1.010 Urine Protein 30 H Urine Glucose (UA) Normal Urine Ketones Negative Urine Occult Blood 25 H Urine Nitrite Negative Urine Bilirubin Negative Urine Urobilinogen Normal Ur Leukocyte Esterase Negative Radiography Diagnostic Testing: Clinical Impression(s) from Imaging Studies Abdomen/Pelvis CT 01/10/25 11:17 IMPRESSION: Fatty infiltration of the liver. Recurrent distal small bowel obstruction. Fecal material is seen in the colon. Prior anastomosis at the level of the rectum. Status post cholecystectomy. Reading Location: [facility]- Discharge Plan Triage Chief Complaint: Abd Pain ED Provider: Jose Lewis Dx/Rx/DC Orders Clinical Impression: Small bowel obstruction, History of cholecystectomy, History of colon surgery, Intractable abdominal pain, Intractable nausea Prescriptions: No Action albuterol sulfate 90 mcg/actuation HFA aerosol inhaler 2 puff inhalation Q2H PRN PRN (Reason: Shortness Of Breath) amitriptyline 25 mg tablet 100 mg PO QHS candesartan 4 mg tablet 4 mg PO QHS cyclobenzaprine 10 mg tablet 10 mg PO TID fluticasone propionate 50 mcg/actuation spray,suspension 2 spray intranasal DAILY budesonide-formoterol 160-4.5 mcg/actuation HFA aerosol inhaler 1 puff inhalation BID polyethylene glycol 3350 [Miralax] 17 gram powder in packet 17 g PO DAILY PRN (Reason: Constipation) docusate sodium [Colace] 100 mg capsule 100 mg PO BID PRN (Reason: Constipation) mecobalamin (vitamin B12) 1,000 mcg tablet,chewable 1,000 mcg PO DAILY red yeast rice 600 mg capsule 600 mg PO DAILY Rx Instructions: give with meal/snack acetaminophen 325 mg capsule 1,000 mg PO ONCE PRN (Reason: Pain) herbalife PO icey hot topical calcium carbonate [Tums] 200 mg calcium (500 mg) tablet,chewable 200 mg PO Q2H PRN PRN (Reason: gerd) Linzess 290 mcg Capsule 290 mcg PO DAILY ondansetron 4 mg tablet,disintegrating 4 mg PO Q6H PRN (Reason: nausea and vomiting) Qty: 20 0RF Primary Care Provider: Xena Chan Referrals: Xena Chan MD [Primary Care Provider] - Print Language: Haitian Disposition Disposition: Acute Care Hospital [facility]
[2025-01-10] MEDS: fentaNYL 100 MCG/2 ML Ampul 50 MCG IV (11:36)
[2025-01-10] MEDS: 0.9% Normal Saline (1000mL) 1,000 ML 999 ML IV (11:36)
[2025-01-10 12:11] LABS: Hematocrit 52.7 % (37-47); Immature Granulocytes Count 0.100 X10^3/uL (0.0-0.0); Mean Corp Hgb Conc 34.2 g/dL (32-36); Mean Corpuscular Volume 87.3 fL (81-99); Mean Platelet Vol. 10.8 fl (6.2-12.0); NRBC Flagged by Analyzer 0 % (0-5); Platelet Count 345 K/mm3 (150-450); RBC Distribution Width CV 13.4 % (11.6-14.6); RBC Distribution Width SD 43.1 fl (35.1-43.9); Red Blood Count 6.04 M/mm3 (4.2-5.4); White Blood Count 15.0 K/mm3 (4.4-11.0)
[2025-01-10 12:17] LABS: Differential Indicated SCAN CRITERIA MET; Hemoglobin 18.0 g/dL (12.0-15.0)
[2025-01-10 12:51] LABS: Mucous, Urine 0 SEEN /hpf (<or=2+); Squamous Epithelial Cells - UA 0 SEEN /hpf (5-10)
[2025-01-10 13:05] LABS: Color, Urine Yellow (Yellow); Glucose, Dipstick Normal (Normal); Ketone-Dipstick Negative (Negative); Leukocyte Esterase-Dipstick Negative /ul (Negative); Nitrite-Dipstick Negative (Negative); Occult Blood-Urine 25 /ul (Negative); Protein-Dipstick 30 mg/dl (Negative); Specific Gravity, Urine 1.010 (1.002-1.030); Urine Bilirubin Dipstick Negative (Negative)
[2025-01-10] MEDS: HYDROmorphone 0.5 MG/0.5 ML SYRINGE IV (13:20)
--- NOTE | 2025-01-10 13:25 | HP.PCM.HOS_ITS ---
HPI - General HPI Narrative VIVEK ONEILL, is a 69 F who presents [facility] Medical History Cancer DVT (deep venous thrombosis) Smoker Incisional hernia of anterior abdominal wall with obstruction Aphthous ulcer Acute bronchitis, unspecified ARDS (adult respiratory distress syndrome) Pneumonia COPD (chronic obstructive pulmonary disease) Hyperlipidemia HTN (hypertension) History of coma H/O sepsis History of ectopic Home Medications ?Medication ?Instructions ?Recorded ?Last Taken ?Type acetaminophen 325 mg capsule 1,000 mg PO ONCE PRN Pain 11/11/20 06/10/22 History albuterol sulfate 90 mcg/actuation 2 puff inhalation Q 2H PRN PRN 11/11/20 06/10/22 History aerosol inhaler Shortness Of Breath amitriptyline 25 mg tablet 100 mg PO QHS sleep 1 06/10/22 History budesonide-formoterol HFA 160 1 puff inhalation BID co pd 11/11/20 06/10/22 History mcg-4.5 mcg/actuation aerosol inhaler calcium carbonate (Tums) 200 mg PO Q2H PRN PRN gerd 0 11/11/20 Unknown History candesartan 4 mg tablet 4 mg PO QHS bp 11/11/20 12/0 12/24 History cyclobenzaprine 10 mg tablet 10 mg PO TID pain 1 06/09/22 History docusate sodium 100 mg capsule 100 mg PO BID PRN Const ipation 11/11/20 06/09/22 History (Colace) fluticasone propionate 50 2 spray intranasal DAILY all ergies 11/11/20 06/09/22 History mcg/actuation nasal spray,suspension herbalife PO meal replacement 11/11/20 Unknown History icey hot topical 11/11/20 Unknown His tory mecobalamin (vitamin B12) 1,000 1,000 mcg PO DAILY sup plement 11/11/20 06/09/22 History mcg chewable tablet polyethylene glycol 3350 17 gram 17 g PO DAILY PRN Con stipation 11/11/20 Unknown History oral powder packet (Miralax) red yeast rice 600 mg capsule 600 mg PO DAILY supplmen t 11/11/20 06/09/22 History linaclotide 290 mcg capsule 290 mcg PO DAILY constipat ion 06/11/22 06/09/22 History (Linzess) ondansetron 4 mg disintegrating 4 mg PO Q6H PRN nausea and 12/18/24 Unknown Rx tablet vomiting #20 tabs Allergy/AdvReac Type Severity Reaction Status Date / Time Tetracyclines Allergy Severe SWELLNG, Verified 01/10/25 11:02 RASH morphine Allergy Swelling, Verified 01/10/25 11:02 Rash, Itching Penicillins Allergy Swelling, Verified 01/10/25 11:02 Rash, Itching Family History Mother Hypertension Heart disease Pacemaker Cervical cancer Father Diabetes Aunt Colon cancer Aunt Breast cancer Uncle CHF (congestive heart failure) Surgical History H/O tracheostomy History of colon surgery H/O: hysterectomy H/O total hysterectomy with removal of both tubes and ovaries History of cholecystectomy Social History household members: other details: sister Smoking Status: Current every day smoker tobacco type: cigarettes alcohol intake: never what type of physical activity do you participate in: none do you feel safe at home: Yes Vital Signs Vital Signs Vital Signs: 01/10/25 11:00 01/10/25 12:32 Temperature 98.2 F Temperature Source Oral Pulse Rate 96 84 Respiratory Rate 20 H 14 Blood Pressure 128/56 H 150/64 H Blood Pressure Mean 80 92 Pulse Ox 93 96 Oxygen Delivery Method Room Air Room Air Weight Weight: 178 lb 2.136 oz Body Mass Index (BMI) 32.5 Results Lab / Micro Data 01/10/25 11:39 01/10/25 12:50 Labs: Laboratory Results - last 24 hr 01/10/25 11:39: WBC 15.0 H, RBC 6.04 H, Hgb 18.0 H*, Hct 52.7 H, MCV 87.3, MCH 29.8, MCHC 34.2, RDW Std Deviation 43.1, RDW Coeff of Chrissy 13.4, Plt Count 345, MPV 10.8, Immature Gran % (Auto) 0.700, Neut % (Auto) 82.4 H, Lymph % (Auto) 10.1 L, [place] % (Auto) 6.0, Eos % (Auto) 0.1, Baso % (Auto) 0.7, Absolute Neuts (auto) 12.4 H, Absolute Lymphs (auto) 1.51, Nucleated RBC % 0, Sodium Cancelled, Potassium Cancelled, Chloride Cancelled, Carbon Dioxide Cancelled, Anion Gap Cancelled, BUN Cancelled, Creatinine Cancelled, Estim Creat Clear Calc Cancelled, Est GFR (MDRD) Non-Af Cancelled, BUN/Creatinine Ratio Cancelled, Glucose Cancelled, Lactic Acid 2.1 H*, Calcium Cancelled, Total Bilirubin Cancelled, AST Cancelled, ALT Cancelled, Alkaline Phosphatase Cancelled, Total Protein Cancelled, Albumin Cancelled, Globulin Cancelled, Albumin/Globulin Ratio Cancelled, Lipase Cancelled 01/10/25 12:32: Urine Color Yellow, Urine Clarity Clear, Urine pH 7.0, Ur Specific [place] 1.010, Urine Protein 30 H, Urine Glucose (UA) Normal, Urine Ketones Negative, Urine Occult Blood 25 H, Urine Nitrite Negative, Urine Bilirubin Negative, Urine Urobilinogen Normal, Ur Leukocyte Esterase Negative Imaging Radiology Impression Abdomen/Pelvis CT 01/10/25 11:17 IMPRESSION: Fatty infiltration of the liver. Recurrent distal small bowel obstruction. Fecal material is seen in the colon. Prior anastomosis at the level of the rectum. Status post cholecystectomy. Reading Location: [place] [id number]
--- NOTE | 2025-01-10 13:25 | PCM.HP.STD ---
HPI - General General Date of Admission: 01/10/25 Date of Service: 01/10/25 Chief Complaint: Abdominal pain since yesterday constipation and nausea. History of recurrent SBO HPI Narrative VIVEK ONEILL, is a 69 F came to ED for abdominal pain nausea. She stated she started having abdominal pain last night which started in the central abdomen and then became generalized across a band left to right. It was 10 out of 10, persistent and constant until she came to ED and was given Dilaudid and then slightly better. She said she had last bowel movement on the seventh night and food order expediter on january. It was mainly about 2 times, hard balls, 1 to 2 inches long, no blood. She states usually has bowel movement in balls and she is on multiple stool softener including Linzess. She does not have appetite. No fever or chills. No vomiting. She states usually does not pass flatus but burp. This is not seem might have passed on january. In ED, she was found to have a small bowel obstruction. She further said she does not want any surgery and if colon ruptures then she wants to be DNR CC arrest til then full code. 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 Aphthous ulcer Acute bronchitis, unspecified ARDS (adult respiratory distress syndrome) Pneumonia COPD (chronic obstructive pulmonary disease) Hyperlipidemia HTN (hypertension) History of coma H/O sepsis History of ectopic Home Medications ?Medication ?Instructions ?Recorded ?Last Taken ?Type acetaminophen 325 mg capsule 1,000 mg PO ONCE PRN Pain 11/11/20 06/10/22 History albuterol sulfate 90 mcg/actuation 2 puff inhalation Q2H PRN PRN 11/11/20 06/10/22 History aerosol inhaler Shortness Of Breath amitriptyline 25 mg tablet 100 mg PO QHS sleep 11/11/20 06/10/22 History budesonide-formoterol HFA 160 1 puff inhalation BID copd 11/11/20 06/10/22 History mcg-4.5 mcg/actuation aerosol inhaler calcium carbonate (Tums) 200 mg PO Q2H PRN PRN gerd 11/11/20 Unknown History candesartan 4 mg tablet 4 mg PO QHS bp 11/11/20 06/09/22 History cyclobenzaprine 10 mg tablet 10 mg PO TID pain 11/11/20 06/09/22 History docusate sodium 100 mg capsule 100 mg PO BID PRN Constipation 11/11/20 06/09/22 History (Colace) fluticasone propionate 50 2 spray intranasal DAILY allergies 11/11/20 06/09/22 History mcg/actuation nasal spray,suspension herbalife PO meal replacement 11/11/20 Unknown History icey hot topical 11/11/20 Unknown History mecobalamin (vitamin B12) 1,000 1,000 mcg PO DAILY supplement 11/11/20 06/09/22 History mcg chewable tablet polyethylene glycol 3350 17 gram 17 g PO DAILY PRN Constipation 11/11/20 Unknown History oral powder packet (Miralax) red yeast rice 600 mg capsule 600 mg PO DAILY supplment 11/11/20 06/09/22 History linaclotide 290 mcg capsule 290 mcg PO DAILY constipation 06/11/22 06/09/22 History (Linzess) ondansetron 4 mg disintegrating 4 mg PO Q6H PRN nausea and 12/18/24 Unknown Rx tablet vomiting #20 tabs Allergy/AdvReac Type Severity Reaction Status Date / Time Tetracyclines Allergy Severe SWELLNG, Verified 01/10/25 11:02 RASH morphine Allergy Swelling, Verified 01/10/25 11:02 Rash, Itching Penicillins Allergy Swelling, Verified 01/10/25 11:02 Rash, Itching Family History Mother Hypertension Heart disease Pacemaker Cervical cancer Father Diabetes Aunt Colon cancer Aunt Breast cancer Uncle CHF (congestive heart failure) Surgical History H/O tracheostomy History of colon surgery H/O: hysterectomy H/O total hysterectomy with removal of both tubes and ovaries History of cholecystectomy Social History household members: other details: sister Smoking Status: Current every day smoker tobacco type: cigarettes alcohol intake: never what type of physical activity do you participate in: none do you feel safe at home: Yes ROS ROS Narrative Constitutional: Reports fatigue and weakness. No fever. HEENT: Reports systems reviewed and no addt'l complaints, except as documented Respiratory/Chest: No acute shortness of breath or respiratory distress or wheezing. CVS: No chest pain or shortness of breath Gastrointestinal: As described in HPI. History of recurrent SBO Genitourinary: Denies burning urination or new urinary tract symptoms Musculoskeletal: Denies acute joint pain or limited range of motion. No acute injury Neurologic: Denies seizure-like symptoms. No strokelike symptoms skin: No ulcer. No rash Endocrinology: Reports systems reviewed and no addt'l complaints, except as documented Hematologic/Lymphatic: Reports systems reviewed and no addt'l complaints, except as documented Rest 14 ROS are negative except as mentioned in HPI Vital Signs Vital Signs Vital Signs: 01/10/25 11:00 01/10/25 12:32 Temperature 98.2 F Temperature Source Oral Pulse Rate 96 84 Respiratory Rate 20 H 14 Blood Pressure 128/56 H 150/64 H Blood Pressure Mean 80 92 Pulse Ox 93 96 Oxygen Delivery Method Room Air Room Air Weight Weight: 178 lb 2.136 oz Body Mass Index (BMI) 32.5 Physical Exam Narrative General: Alert, Oriented x3, Cooperative. BMI 32.6 kg/m? HEENT: Atraumatic, PERRLA, EOMI, Normocephalic. Oral: Oral mucosa dry no Gingival or Mucosal Lesions/ Ulcerations Neck: Supple, No JVD, Negative Carotid Bruits Chest wall/Lungs: Air entry diminished in bilateral lung bases. No crepitation/rhonchi Cardiovascular: Regular rate and rhythm, Normal S1,S2, systolic murmur Abdomen: Bowel Sounds absent. Tender predominantly in right upper and lower quadrant. Distended stomach. Mild voluntary guarding but no rigidity. Deep midline lower surgical scar : No dysuria. No renal angle tenderness. No suprapubic tenderness. Extremities: No edema, Capillary Refill Less than 3 Seconds Skin: No rashes, No breakdown Musculoskeletal: No Tenderness to Palpation of Joints or Extremities. ROM restricted, degenerative arthritis bilateral knees Neurological: Cranial nerves II-XII grossly intact, DTR 2+/4. No acute focal neurological deficit. Psych/Mental Status: Flat affect Results Lab / Micro Data 01/10/25 11:39 01/10/25 12:50 Labs: Laboratory Results - last 24 hr 01/10/25 11:39: WBC 15.0 H, RBC 6.04 H, Hgb 18.0 H*, Hct 52.7 H, MCV 87.3, MCH 29.8, MCHC 34.2, RDW Std Deviation 43.1, RDW Coeff of Chrissy 13.4, Plt Count 345, MPV 10.8, Immature Gran % (Auto) 0.700, Neut % (Auto) 82.4 H, Lymph % (Auto) 10.1 L, [place] % (Auto) 6.0, Eos % (Auto) 0.1, Baso % (Auto) 0.7, Absolute Neuts (auto) 12.4 H, Absolute Lymphs (auto) 1.51, Nucleated RBC % 0, Sodium Cancelled, Potassium Cancelled, Chloride Cancelled, Carbon Dioxide Cancelled, Anion Gap Cancelled, BUN Cancelled, Creatinine Cancelled, Estim Creat Clear Calc Cancelled, Est GFR (MDRD) Non-Af Cancelled, BUN/Creatinine Ratio Cancelled, Glucose Cancelled, Lactic Acid 2.1 H*, Calcium Cancelled, Total Bilirubin Cancelled, AST Cancelled, ALT Cancelled, Alkaline Phosphatase Cancelled, Total Protein Cancelled, Albumin Cancelled, Globulin Cancelled, Albumin/Globulin Ratio Cancelled, Lipase Cancelled 01/10/25 12:32: Urine Color Yellow, Urine Clarity Clear, Urine pH 7.0, Ur Specific [place] 1.010, Urine Protein 30 H, Urine Glucose (UA) Normal, Urine Ketones Negative, Urine Occult Blood 25 H, Urine Nitrite Negative, Urine Bilirubin Negative, Urine Urobilinogen Normal, Ur Leukocyte Esterase Negative Imaging Radiology Impression Abdomen/Pelvis CT 01/10/25 11:17 IMPRESSION: Fatty infiltration of the liver. Recurrent distal small bowel obstruction. Fecal material is seen in the colon. Prior anastomosis at the level of the rectum. Status post cholecystectomy. Reading Location: [facility] Assessment & Plan Assessment/Plan (1) Small bowel obstruction: PLAN: Plan This is a 69-year-old female being admitted for intractable nausea, severe abdominal pain, no flatus or BM for last 1 day 1. Distal small bowel obstruction: Patient is being admitted to [facility] floor. CT abdomen with IV contrast reviewed individually. It shows large amount of fecal matter throughout the colon even on the right side of colon, multiple fluid-filled distended small bowel loops in the distal ileum. Stomach distended with fluid. Surgical anastomosis at the level of the rectum. Incidental finding of increased marking of lingular segment of left upper lobe and right middle lobe probably mild degree of scarring. General surgery Dr. Alan is consulted. N.p.o., NG tube insertion and suction. Dulcolax suppository.. IV fluid and pain control. 1 L Ringer lactate stat. Patient already on 1 L normal saline in ED. Continue IV fluid Ringer lactate. Patient was last admitted in June 2022 for incisional hernia of anterior abdominal wall with obstruction 2. COPD not in exacerbation: DuoNeb as needed. Continue maintenance inhaler Symbicort. 3. Hypertension: Hold oral antihypertensive medication. IV antihypertensive as needed. 4. DVT prophylaxis, high risk: Lovenox 40 mL subcu daily ordered. Bilateral SCDs Living will/advanced directive/end of life care: Patient does not have living will or advanced directive. She does not have diary power of senior laboratory technician for health. After discussion of benefits/risks procedures involved with full code, DNR CC arrest and DNR CC, the patient opted for full code until her bowel/colon ruptures. If it ruptures then she wants to be DNR CC arrest with no intubation. Patient does want artificial life support including intubation, tube feed, ventilator and/chest compression, central venous catheter, vasopressor and DC shock if needed there are bowel ruptures Total time spent in [id number] encounter in discussion of advanced directive 17 minutes. Laboratory Results 01/10/25 11:39: WBC 15.0 H, RBC 6.04 H, Hgb 18.0 H*, Hct 52.7 H, MCV 87.3, MCH 29.8, MCHC 34.2, RDW Std Deviation 43.1, RDW Coeff of Chrissy 13.4, Plt Count 345, MPV 10.8, Immature Gran % (Auto) 0.700, Neut % (Auto) 82.4 H, Lymph % (Auto) 10.1 L, [place] % (Auto) 6.0, Eos % (Auto) 0.1, Baso % (Auto) 0.7, Absolute Neuts (auto) 12.4 H, Absolute Lymphs (auto) 1.51, Nucleated RBC % 0, 01/10/25 12:32: Urine Color Yellow, Urine Clarity Clear, Urine pH 7.0, Ur Specific [place] 1.010, Urine Protein 30 H, Urine Glucose (UA) Normal, Urine Ketones Negative, Urine Occult Blood 25 H, Urine Nitrite Negative, Urine Bilirubin Negative, Urine Urobilinogen Normal, Ur Leukocyte Esterase Negative, Urine RBC 0-5 SEEN, Urine WBC 0 SEEN, Ur Squamous Epith Cells 0 SEEN, Urine Bacteria 0 SEEN, Hyaline Casts 0-5 SEEN, Urine Mucus 0 SEEN 01/10/25 12:50: Sodium 136, Potassium 4.0, Chloride 102, Carbon Dioxide 21.4, Anion Gap 12, BUN 19, Creatinine 0.70, Estim Creat Clear Calc 63.52, Est GFR (MDRD) Non-Af 93, BUN/Creatinine Ratio 27.7 H, Glucose 112 H, Calcium 8.1, Phosphorus Pending, Magnesium Pending, Total Bilirubin 0.28, AST 27, ALT 27, Alkaline Phosphatase 81, Total Protein 6.2, Albumin 3.4, Globulin 2.8, Albumin/Globulin Ratio 1.2, Lipase 15 Clinical Impression(s) from Imaging Studies Abdomen/Pelvis CT 01/10/25 11:17 IMPRESSION: Fatty infiltration of the liver. Recurrent distal small bowel obstruction. Fecal material is seen in the colon. Prior anastomosis at the level of the rectum. Status post cholecystectomy. [facility] 01/10/25 14:20 IMPRESSION: Tip of the orogastric tube is in the body of the stomach. Moderate amount of fecal material is seen in the colon. Reading Location: [facility] Charges/Coding Visit Charges Inpatient E&M: 32011 Init Hosp L3 Procedures Hospitalists Procedures: 67478 Advncd Care Plan 30 Min
[2025-01-10 13:39] LABS: Red Blood Cells-Urine 0-5 SEEN /hpf (0-5)
[2025-01-10] MEDS: Oxymetazoline 0.05% 1 SPRAY SPRAY.BTL 2 SPRAY NASAL (14:14)
--- NOTE | 2025-01-10 14:18 | EX.PCM.CON.S ---
Assessment & Plan Assessment/Plan (1) Intractable nausea: (2) Intractable abdominal pain: (3) Small bowel obstruction: PLAN: Plan I have been consulted in conjunction with Dr. Alan. She will independently evaluate this patient. Patient is a 69 y/o F I am following for a 1 day history of worsening abdominal pain with associated nausea. CT scan of the ab/pel was obtained demonstrating a small bowel obstruction. Patient has an elevated WBC with a left shift. Patient is adamant that she does not want surgical intervention at this facility or if her bowel were to rupture, no surgical intervention at all. Plan for IV hydration, bowel rest. She is agreeable to have an NG tube placed. I have also discussed with her performing a small bowel follow-through test tomorrow. She is agreeable to this imaging. Hospitalist with admit this patient and perform a suppository. Patient is scheduled to have a repeat lactic acid. Patient has had the opportunity to ask and have questions answered. Patient verbally understands and agrees with the purposed plan. Thank you for allowing us to participate in this patient's care. HPI Consult Data Date of Consult: 01/10/25 HPI Narrative Reason for Consultation: Small bowel obstruction HPI Narrative: VIVEK ONEILL, is a 69 F who presents with a 1 day history of abdominal pain. She notes an extensive history of small bowel obstructions with her most recent last month. She left AMA as she did not want to be transferred to [facility] and wanted to stay here. She states her last bowel movement was 5:30 pm yesterday. She notes minimal flatus however this is her normal. She notes lack of appetite however this is typical when she is starting to develop a bowel obstruction. She states lower abdominal pain with associated nausea and dry heaving. She attempted to take 2 TUMs without relief. She notes last night for dinner/snack, she had 3 ounces of cauliflower with hummus. She states she knew she should not have ate that. She voices an extensive abdominal surgical history. She notes in 1998 in [place], she had a laparoscopic hysterectomy for excessive bleeding. She notes during the procedure the surgeon perforated her bowel. She states this was not noticed until after she was discharged and became sick the following day. Patient states she was septic. She notes being in a medically induced come for 2-3 months. She notes a bowel resection with colostomy creation was performed. She states during this procedure, she had a large piece of mesh placed across her abdomen. She notes her ostomy was reversed 1 year later. She notes moving to [place], [place] in 2011. She notes her colon ruptured and she had to have another colon resection and colostomy creation. 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 She notes having a wound vac to close the midline incision. She states once again her ostomy was reversed. She notes having lots of scar tissue. She states she has another hernia that needs repaired. She notes attempting to schedule with Dr. Gonzalez from the [facility] approximately 3 years ago. She notes the day before her scheduled appointment she was to see Dr. Gonzalez, she developed a bowel obstruction and was treated at [facility] with conservative measures. She notes that she was told then that surgery would be extensive and would not be likely completed emergently. She notes a history of COPD. She is a 1 ppd smoker. She notes a history of lower extremity blood clots approximately 40 years ago. She is not currently on any blood thinners. She does not take any weight loss medications. Patient voices if surgical intervention is needed, she does not want it to happen here. She notes if her bowel were to rupture, she would not want surgery due to medicare not paying for the procedure because they see it as an elective surgery, therefore she does not want to have surgical intervention. CT scan of the ab/pel was obtained in the ED which demonstrated: FINDINGS: Lung bases: Increased markings in the anterior medial aspect of the right middle lobe as well as the lingular segment of the left upper lobe. This may represent a mild degree of scarring. Liver: Diffuse fatty infiltration. Gallbladder: Surgically absent. Spleen: Normal size. Pancreas: Diffuse fatty atrophy. Adrenals: Unremarkable Kidneys: Unremarkable. Bladder: Unremarkable Reproductive Organs: Prior hysterectomy. Adnexal regions are unremarkable. Bowel: Surgical anastomosis seen at the level of the rectum. Large amount of fecal material is seen in the rectosigmoid colon. There are multiple fluid filled distended small bowel loops in the distal ileum. The stomach is distended with fluid. Appendix: The appendix is not identified. There is no inflammatory process identified in the right lower quadrant to suggest appendicitis. Lymph nodes: Unremarkable. Vasculature: Mild diffuse atherosclerotic calcifications are noted. Peritoneum / Retroperitoneum: There is evidence of prior anterior abdominal wall hernia repair. Stable left spigelian type of hernia containing nondilated descending colon. Bones: Degenerative changes of the spine. CT/Abdomen/Pelvis W IV Cont ONLY IMPRESSION: Fatty infiltration of the liver. Recurrent distal small bowel obstruction. Fecal material is seen in the colon. Prior anastomosis at the level of the rectum. Status post cholecystectomy. Labs demonstrate a WBC of 15.0 with a left shift. 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 Aphthous ulcer Acute bronchitis, unspecified ARDS (adult respiratory distress syndrome) Pneumonia COPD (chronic obstructive pulmonary disease) Hyperlipidemia HTN (hypertension) History of coma H/O sepsis History of ectopic Home Medications ?Medication ?Instructions ?Recorded ?Last Taken ?Type acetaminophen 325 mg capsule 1,000 mg PO ONCE PRN Pain 11/11/20 06/10/22 History albuterol sulfate 90 mcg/actuation 2 puff inhalation Q2H PRN PRN 11/11/20 06/10/22 History aerosol inhaler Shortness Of Breath amitriptyline 25 mg tablet 100 mg PO QHS sleep 11/11/20 06/10/22 History budesonide-formoterol HFA 160 1 puff inhalation BID copd 11/11/20 06/10/22 History mcg-4.5 mcg/actuation aerosol inhaler calcium carbonate (Tums) 200 mg PO Q2H PRN PRN gerd 11/11/20 Unknown History candesartan 4 mg tablet 4 mg PO QHS bp 11/11/20 06/09/22 History cyclobenzaprine 10 mg tablet 10 mg PO TID pain 11/11/20 06/09/22 History docusate sodium 100 mg capsule 100 mg PO BID PRN Constipation 11/11/20 06/09/22 History (Colace) fluticasone propionate 50 2 spray intranasal DAILY allergies 11/11/20 06/09/22 History mcg/actuation nasal spray,suspension herbalife PO meal replacement 11/11/20 Unknown History icey hot topical 11/11/20 Unknown History mecobalamin (vitamin B12) 1,000 1,000 mcg PO DAILY supplement 11/11/20 06/09/22 History mcg chewable tablet polyethylene glycol 3350 17 gram 17 g PO DAILY PRN Constipation 11/11/20 Unknown History oral powder packet (Miralax) red yeast rice 600 mg capsule 600 mg PO DAILY supplment 11/11/20 06/09/22 History linaclotide 290 mcg capsule 290 mcg PO DAILY constipation 06/11/22 06/09/22 History (Linzess) ondansetron 4 mg disintegrating 4 mg PO Q6H PRN nausea and 12/18/24 Unknown Rx tablet vomiting #20 tabs Allergy/AdvReac Type Severity Reaction Status Date / Time Tetracyclines Allergy Severe SWELLNG, Verified 01/10/25 11:02 RASH morphine Allergy Swelling, Verified 01/10/25 11:02 Rash, Itching Penicillins Allergy Swelling, Verified 01/10/25 11:02 Rash, Itching Family History Mother Hypertension Heart disease Pacemaker Cervical cancer Father Diabetes Aunt Colon cancer Aunt Breast cancer Uncle CHF (congestive heart failure) Surgical History H/O tracheostomy History of colon surgery H/O: hysterectomy H/O total hysterectomy with removal of both tubes and ovaries History of cholecystectomy Social History household members: other details: sister Smoking Status: Current every day smoker tobacco type: cigarettes alcohol intake: never what type of physical activity do you participate in: none do you feel safe at home: Yes ROS Constitutional Constitutional: Reports systems reviewed and no addt'l complaints, except as documented Eyes Eyes: Reports systems reviewed and no addt'l complaints, except as documented ENT HEENT: Reports systems reviewed and no addt'l complaints, except as documented Cardiovascular Cardiovascular: Reports systems reviewed and no addt'l complaints, except as documented Respiratory/Chest Respiratory/Chest: Reports systems reviewed and no addt'l complaints, except as documented Gastrointestinal Gastrointestinal: Reports systems reviewed and no addt'l complaints, except as documented Genitourinary Genitourinary: Reports systems reviewed and no addt'l complaints, except as documented Musculoskeletal Musculoskeletal: Reports systems reviewed and no addt'l complaints, except as documented Integumentary Integumentary: Reports systems reviewed and no addt'l complaints, except as documented Neurologic Neurologic: Reports systems reviewed and no addt'l complaints, except as documented Psychiatric Psychiatric: Reports systems reviewed and no addt'l complaints, except as documented Endocrine Endocrinology: Reports systems reviewed and no addt'l complaints, except as documented Hematologic/Lymphatic Hematologic/Lymphatic: Reports systems reviewed and no addt'l complaints, except as documented Allergic/Immunologic Allergic/Immunologic: Reports systems reviewed and no addt'l complaints, except as documented Physical Exam Const alert, oriented x3 and no apparent distress HEENT normocephalic and head/scalp atraumatic Eyes PERRL Neck full ROM Resp normal respiratory effort Effort and Inspection: able to speak in complete sentences and symmetric chest movement Auscultation: wheezes inspiratory wheezes and upper bilaterally Cardio regular rate and regular rhythm GI GI Narrative: Abdomen- soft, obese, distended. Positive bowel sounds no CVA tenderness Back/Spine no CVA tenderness Extremity normal to inspection Skin no rashes or lesions noted Neuro no focal motor deficits and no sensory deficits noted Psych mental status grossly normal and thought process normal Lab / Micro Data 01/10/25 11:39 01/10/25 12:50 Labs: Laboratory Results - last 24 hr 01/10/25 11:39: WBC 15.0 H, RBC 6.04 H, Hgb 18.0 H*, Hct 52.7 H, MCV 87.3, MCH 29.8, MCHC 34.2, RDW Std Deviation 43.1, RDW Coeff of Chrissy 13.4, Plt Count 345, MPV 10.8, Immature Gran % (Auto) 0.700, Neut % (Auto) 82.4 H, Lymph % (Auto) 10.1 L, Becker % (Auto) 6.0, Eos % (Auto) 0.1, Baso % (Auto) 0.7, Absolute Neuts (auto) 12.4 H, Absolute Lymphs (auto) 1.51, Nucleated RBC % 0, Sodium Cancelled, Potassium Cancelled, Chloride Cancelled, Carbon Dioxide Cancelled, Anion Gap Cancelled, BUN Cancelled, Creatinine Cancelled, Estim Creat Clear Calc Cancelled, Est GFR (MDRD) Non-Af Cancelled, BUN/Creatinine Ratio Cancelled, Glucose Cancelled, Lactic Acid 2.1 H*, Calcium Cancelled, Total Bilirubin Cancelled, AST Cancelled, ALT Cancelled, Alkaline Phosphatase Cancelled, Total Protein Cancelled, Albumin Cancelled, Globulin Cancelled, Albumin/Globulin Ratio Cancelled, Lipase Cancelled 01/10/25 12:32: Urine Color Yellow, Urine Clarity Clear, Urine pH 7.0, Ur Specific [place] 1.010, Urine Protein 30 H, Urine Glucose (UA) Normal, Urine Ketones Negative, Urine Occult Blood 25 H, Urine Nitrite Negative, Urine Bilirubin Negative, Urine Urobilinogen Normal, Ur Leukocyte Esterase Negative, Urine RBC 0-5 SEEN, Urine WBC 0 SEEN, Ur Squamous Epith Cells 0 SEEN, Urine Bacteria 0 SEEN, Hyaline Casts 0-5 SEEN, Urine Mucus 0 SEEN Imaging Radiology Impression Abdomen/Pelvis CT 01/10/25 11:17 IMPRESSION: Fatty infiltration of the liver. Recurrent distal small bowel obstruction. Fecal material is seen in the colon. Prior anastomosis at the level of the rectum. Status post cholecystectomy. Reading Location: [id number] Charges/Coding Visit Charges Inpatient E&M: 28245 Init Hosp L2
--- NOTE | 2025-01-10 14:20 | RAD_ITS ---
PROCEDURE: ABDOMEN SINGLE VIEW (PORTABLE) 01/10/2025 REASON FOR EXAM: PLACEMENT TECHNIQUE: ABDOMEN SINGLE VIEW (PORTABLE) COMPARISON: Prior CT scan done earlier in the day. FINDINGS: Bowel gas: Moderate amount of fecal material is seen in the colon. The tip of the orogastric tube is seen in the body of the stomach. RAD/Abdomen Single View (Portable) IMPRESSION: Tip of the orogastric tube is in the body of the stomach. Moderate amount of fecal material is seen in the colon. Reading Location: [place] [id number]
[2025-01-10 14:21] LABS: AST(SGOT) 27 U/L (<=31); Alanine Aminotransfer ALT/SGPT 27 U/L (<=34); Albumin, Serum 3.4 g/dL (3.4-4.8); Alkaline Phosphatase 81 U/L (35-104); Anion Gap 12 (5-15); BUN 19 mg/dL (4-19); BUN/Creat Ratio 27.7 RATIO (10-20); Calcium,Total 8.1 mg/dL (7.6-11.0); Carbon Dioxide 21.4 mmol/L (21.0-32.0); Chloride 102 mmol/L (98-108); Estimated Creatinine Clearance 63.52 ml/min (50-250); Globulin 2.8 g/dL (2.2-4.2); Glucose 112 mg/dL (70-99); Lipase 15 U/L (13-75); Potassium 4.0 mmol/L (3.3-5.1)
[2025-01-10 15:18] LABS: Magnesium 1.7 mg/dL (1.5-2.2)
[2025-01-10 15:48] LABS: Reflex Lactate? Y
[2025-01-10] MEDS: HYDROmorphone Inj 0.2 MG/ML SYRINGE IV ×2 (15:56→19:58)
[2025-01-10] MEDS: Lactated Ringers 1,000 ML 100 ML IV (15:56)
[2025-01-10] MEDS: Budesonide Respules 0.5 MG/2 ML AMPUL.NEB. INHALATION (19:30)
[2025-01-10] MEDS: Albuterol 2.5 MG/3 ML VIAL.NEB. INHALATION (19:30)
[2025-01-11] VITALS (7 sets, daily range): BP systolic 117–152; BP diastolic 48–68; PULSE 81–101; RESP 16–20; TEMP 36.6–37.2; O2SAT 92–95; BMI 31.8
[2025-01-11] MEDS: HYDROmorphone Inj 0.2 MG/ML SYRINGE IV ×3 (00:03→08:47)
[2025-01-11] MEDS: Lactated Ringers 1,000 ML 100 ML IV ×3 (00:03→20:51)
[2025-01-11] MEDS: Phenol/Sodium Phenolate 180ML 3 SPRAY MUCOUS MEM (04:20)
--- OUTSIDE RECORDS SUMMARY | 2025-01-11 04:36 | XMS RPT_ITS | CCD ---
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 [place], [address] Chloride [Moles/Vol] 97 mmol/L Low 98-108 [facility] Comment on above: Performed By: #### L 501.2450, L100.0100, L501.2400, L500.4050, L503.6005 #### [facility] [address] [place], [address] CO2 [Moles/Vol] 22.1 mmol/L Normal 21.0-32.0 [facility] Comment on above: Performed By: #### L 501.2450, L100.0100, L501.2400, L500.4050, L503.6005 #### [facility] [address] [place], [address] Creatinine [Mass/Vol] 0.76 mg/dL Normal 0.70-1.20 [facility] Comment on above: Performed By: #### L 501.2450, L100.0100, L501.2400, L500.4050, L503.6005 #### [facility] [address] [place], [address] ECRCL 64.25 ml/min Normal 50-250 [facility] Comment on above: Performed By: #### L 501.2450, L100.0100, L501.2400, L500.4050, L503.6005 #### [facility] [address] [place], [address] GAP 15 Normal 5-15 [facility] Comment on above: Performed By: #### L 501.2450, L100.0100, L501.2400, L500.4050, L503.6005 #### [facility] [address] [place], [address] GFR/1.73 sq M.predicted among non-blacks MDRD (S/P/Bld) [Vol rate/Area] 84 mL/min/{1.73_m2} Normal >60 [facility] Comment on above: Result Comment: mL/m in/1.73m2 CKD-EPI Creatinine Equation (2020) Performed By: #### L 501.2450, L100.0100, L501.2400, L500.4050, L503.6005 #### [facility] [address] [place], [address] Globulin (S) [Mass/Vol] 3.4 g/dL Normal 2.2-4.2 [facility] Comment on above: Performed By: #### L 501.2450, L100.0100, L501.2400, L500.4050, L503.6005 #### [facility] [address] [place], [address] Glucose [Mass/Vol] 123 mg/dL High 70-99 [facility] Comment on above: Performed By: #### L 501.2450, L100.0100, L501.2400, L500.4050, L503.6005 #### [facility] [address] [place], [address] Potassium [Moles/Vol] 4.5 mmol/L Normal 3.3-5.1 [facility] Comment on above: Performed By: #### L 501.2450, L100.0100, L501.2400, L500.4050, L503.6005 #### [facility] [address] [place], [address] Sodium [Moles/Vol] 134 mmol/L Normal 133-145 [facility] Comment on above: Performed By: #### L 501.2450, L100.0100, L501.2400, L500.4050, L503.6005 #### [facility] [address] [place], [address] T PROT 7.8 g/dL Normal 5.9-8.4 [facility] Comment on above: Performed By: #### L 501.2450, L100.0100, L501.2400, L500.4050, L503.6005 #### [facility] [address] [place], [address] Urea nitrogen [Mass/Vol] 18 mg/dL Normal 4-19 [facility] Comment on above: Performed By: #### L 501.2450, L100.0100, L501.2400, L500.4050, L503.6005 #### [facility] [address] [place], [address] Emergency Department Summary on 12-18-2024 Emergency Department Summary [facility] Medical Records Department [address] [place] [address] Emergency Department Summary 12/18/24 MR#: [id number] Acct: [id number] Name: LIDIA ONEILL Rep #: [id number] : 1955 69 From: Donovan Jo MD PCP: Dr. Xena Chan MD Status:REG ER Location: ED HPI HPI - GI History of Present Illness Chief Complaint: Fall Detail of Chief Complaint: Abdominal pain and fall. Informant: patient Abdominal Pain/Flank Pain Onset: Today Context: Gradual Onset Timing: Continuous Quality: Aching Location: Diffuse Current Severity: Moderate Maximum Severity: Moderate Worsened by: Nothing Relieved by: Nothing Nausea/Vomiting/Emesi s GI Symptom: Positive for Nausea Onset: Today Severity: Mild Diarrhea/Melena/Hemat ochezia GI Symptom: Positive for - (Chronic constipation history. Last bowel movement yesterday.); Negative for Diarrhea, Melena or Hematochezia Associated Symptoms Associated Symptoms: Negative for Dysuria, Frequency, Hematuria or Urgency Narrative Narrative: 69-year-old female history of COPD chronic constipation prior bowel obstructions. Prior cholecystectomy and hysterectomy. States she still has her appendix. She has been constipated. She took 3 suppositories at home without relief. She states 11 PM last night pain got a lot worse. Pain is diffuse. Aching. Also epigastric. Denies any dysuria. Her last significant bowel movement was yesterday. She denies any fever. She has had 8 prior abdominal surgeries she states. 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 Aphthous ulcer Acute bronchitis, unspecified ARDS (adult respiratory distress syndrome) Pneumonia COPD (chronic obstructive pulmonary disease) Hyperlipidemia HTN (hypertension) History of coma H/O sepsis History of ectopic Home Medications ???Medication ???Instructions ???Recorded ???Last Taken ???Type acetaminophen 325 mg capsule 1,000 mg PO ONCE PRN Pain 11/11/20 06/10/22 History albuterol sulfate 90 mcg/actuation 2 puff inhalation Q2H PRN PRN 06/10/22 History aerosol inhaler Shortness Of Breath amitriptyline 25 mg tablet 100 mg PO QHS sleep 11/11/2006/10 History budesonide-formoterol HFA 160 1 puff inhalation BID copd 1 06/10/22 History mcg-4.5 mcg/actuation aerosol inhaler calcium carbonate (Tums) 200 mg PO Q2H PRN PRN gerd 1 Unknown History candesartan 4 mg tablet 4 mg PO QHS bp 11/11/20 06/09/22 H istory cyclobenzaprine 10 mg tablet 10 mg PO TID pain 11/11/20 2 History docusate sodium 100 mg capsule 100 mg PO BID PRN Constipation 04/2406/09/22 History (Colace) fluticasone propionate 50 2 spray intranasal DAILY allergies 11/11/20 06/09/22 History mcg/actuation nasal spray,suspension herbalife PO meal replacement 11/11/20 Unkno wn History icey hot topical 11/11/20 Unknown History mecobalamin (vitamin B12) 1,000 1,000 mcg PO DAILY supplement 11/0206/09/22 History mcg chewable tablet polyethylene glycol 3350 17 gram 17 g PO DAILY PRN Constipation 04/24 Unknown History oral powder packet (Miralax) red yeast rice 600 mg capsule 600 mg PO DAILY supplment 11/11/20 06/09/22 History linaclotide 290 mcg capsule 290 mcg PO DAILY constipation 02/2306/09/22 History (Linzess) Allergy/AdvReac Type Severity Reaction Status Date / Time morphine Allergy Swelling, Verified 12/18/24 05:46 Rash, Itching Penicillins Allergy Swelling, Verified 12/18/24 05:46 Rash, Itching Family History Mother Hypertension Heart disease Pacemaker Cervical cancer Father Diabetes Aunt Colon cancer Aunt Breast cancer Uncle CHF (congestive heart failure) Surgical History H/O tracheostomy History of colon surgery H/O: hysterectomy H/O total hysterectomy with removal of both tubes and ovaries History of cholecystectomy Social History household members: other details: sister Smoking Status: Current every day smoker tobacco type: cigarettes alcohol intake: never what type of physical activity do you participate in: none do you feel safe at home: Yes ROS ROS ED ROS Narrative Abdominal pain. Nausea. Fall with head injury. Brief LOC. Constitutional Constitutional ED: Denies chills or fever(s) ENT ENT ED: Denies ear pain Cardiovascular Cardiovascular: Denies chest pain Respiratory/Chest Respiratory/Chest: Denies cough or dyspnea Gastrointe (more content not included)... Normal [facility] Eosinophil percentageOrdered By: Donovan Jo on 12-18-2024 Eosinophils/100 WBC (Bld) 0.3 % 0-5 [facility] Erythrocyte distribution wid th ratioOrdered By: Donovan Jo on 12-18-2024 Erythrocyte distribution width (RBC) [Ratio] 13.4 % 11.6-14.6 [facility] Erythrocyte distribution wid th standard deviationOrdered By: Donovan Jo on 12-18-2024 Erythrocyte distribution width (RBC) [Ratio] 42.9 fl 35.1-43.9 [facility] Free T3on 12-18-2024 Free T3 [Mass/Vol] 3.2 pg/mL Normal 2.18-3.98 [facility] Comment on above: Performed By: #### L 500.4100, L501.9520 #### [facility] [address] [place] [address], [id number] Free [id number] By: Jose farah on 12-18-2024 Free T3 [Mass/Vol] 3.2 pg/mL 2.18-3.98 [facility] Glomerular filtration rate ( GFR) estimation/1.73 sq m using serum, plasma, or whole bOrdered By: Donovan Jo on 12-18-2024 GFR/1.73 sq M.predicted among non-blacks MDRD (S/P/Bld) [Vol rate/Area] 84 mL/min/{1.73_m2} >60 [facility] Comment on above: mL/min/1.73m2 CKD-EP I Creatinine Equation (2020) Hematocrit Auto (Bld) [Volum e fraction]Ordered By: Donovan Jo on 12-18-2024 Hematocrit (Bld) [Volume fraction] 51.7 % High 37-47 [facility] Hemoglobin measurementOrdere d By: Donovan Jo on 12-18-2024 Hemoglobin (Bld) [Mass/Vol] 17.8 g/dL High 12.0-15.0 [facility] Immature granulocytes/100 WB C Auto (Bld)Ordered By: Donovan Jo on 12-18-2024 Immature granulocytes/100 WBC (Bld) 0.600 % 0.0-0.9 [facility] Comment on above: IG% - Immature Granu locytes (promyelocytes, myelocytes and metamyelocytes) > 1% indicates that a LEFT SHIFT is Present. LDL calc ser/plasOrdered By: Donovan Jo on 12-18-2024 Cholesterol in LDL [Mass/Vol] 110 mg/dL [facility] Comment on above: Qewuxqhvvd=392-008 m g/dL & Higher Iuxs=972 mg/dL or greater Laboratory - Chemistry and C hemistry - challengeOrdered By: Donovan Jo on 12-18-2024 AST [Catalytic activity/Vol] 21 U/L <32 [facility] Lactic Acidon 12-18-2024 Lactate [Moles/Vol] 1.7 mmol/L Normal 0.0-2.0 [facility] Comment on above: Order Comment: Y Performed By: #### L 501.2450, L100.0100, L501.2400, L500.4050, L503.6005 #### [facility] [address] [facility] [place], [address] Lactic acid measurementOrder ed By: Donovan Jo on 12-18-2024 Lactate [Moles/Vol] 1.7 mmol/L 0.0-2.0 [facility] Lipaseon 12-18-2024 Lipase [Catalytic activity/Vol] 19 U/L Normal 13-75 [facility] Comment on above: Result Comment: Yolie navarrete note: LIPASE revised reference range effective 22. New Lipase methodology. Expected to produce lower values than the previous assay method. NEW Reference Range: 13 - 75 U/L Performed By: #### L 501.2450, L100.0100, L501.2400, L500.4050, L503.6005 #### [facility] [address] [place], [address] Lipase measurementOrdered By : Donovan Jo on 12-18-2024 Lipase [Catalytic activity/Vol] 19 U/L 13-75 [facility] Comment on above: Please note:LIPASE r evised reference range effective 22. New Lipase methodology. Expected to produce lower values than the previous assay method. NEW Reference Range: 13 - 75 U/L Lipid Profileon 12-18-2024 CHOL:HDL 4.25 Normal [facility] Comment on above: Performed By: #### L 500.4100, L501.9520 #### [facility] [address] [place], [address] Cholesterol [Mass/Vol] 213 mg/dL High <=200 [facility] Comment on above: Result Comment: Chol esterol level, Desirable <200 mg/dL Borderline high cholesterol 200-239 mg/dL High cholesterol >=240 mg/dL Recommendations of the NCEP Adult Treatment Panel for the following risk-cutoff thresholds for the [place] population. Performed By: #### L 500.4100, L501.9520 #### [facility] [address] [place], [address] Cholesterol in HDL [Mass/Vol] 50 mg/dL Normal [facility] Comment on above: Result Comment: Marina onal Cholesterol Education Program (NCEP) guidelines: <40 mg/dL: Low HDL-cholesterol (major risk factor for CHD) >= 60 mg/dL: High HDL-cholesterol (negative risk factor for CHD) HDL-cholesterol is affected by a number of factors, e.g. smoking, exercise, hormones, sex and age. Performed By: #### L 500.4100, L501.9520 #### [facility] [address] [place], [address] Cholesterol in LDL [Mass/Vol] 110 mg/dL Normal [facility] Comment on above: Result Comment: Bord ouggiy=550-080 mg/dL Higher Tmer=456 mg/dL or greater Performed By: #### L 500.4100, L501.9520 #### [facility] [address] [place], [address] Cholesterol in VLDL [Mass/Vol] 53 mg/dL High 5-40 [facility] Comment on above: Performed By: #### L 500.4100, L501.9520 #### [facility] [address] [place], [address] Triglyceride [Mass/Vol] 264 mg/dL High [facility] Comment on above: Result Comment: The drugs N-Acetylcysteine and Metamizole may falsely depress this assay. Normal range: <150 mg/dL Borderline High: 150-199 mg/dL High: 200-499 mg/dL Very High: >500 mg/dL Performed By: #### L 500.4100, L501.9520 #### [facility] [address] [place], [address] MCV (mean corpuscular volume ) determinationOrdered By: Donovan Jo on 12-18-2024 MCV (RBC) [Entitic vol] 87.5 fL 81-99 [facility] Mean corpuscular hemoglobin (MCH) determinationOrdered By: Donovan Jo on 12-18-2024 MCH (RBC) [Entitic mass] 30.1 pg 27.0-32.0 [facility] Mean corpuscular hemoglobin concentration (MCHC) determinationOrdered By: Donovan Jo on 12-18-2024 MCHC (RBC) [Mass/Vol] 34.4 g/dL 32-36 [facility] Mean platelet volume determi nationOrdered By: Donovan Jo on 12-18-2024 Platelet mean volume (Bld) [Entitic vol] 10.7 fL 6.2-12.0 [facility] Monocyte percentageOrdered B y: Donvoan Jo on 12-18-2024 Monocytes/100 WBC (Bld) 5.9 % 0-10 [facility] Neutrophil percentageOrdered By: Donovan Jo on 12-18-2024 Neutrophils/100 WBC (Bld) 84.4 % High 47-70 [facility] Nucleated red blood cell per centageOrdered By: Donovan Jo on 12-18-2024 Nucleated RBC/100 WBC (Bld) [Ratio] 0 % 0-5 [facility] Platelet countOrdered By: Kishore Jo on 12-18-2024 Platelets (Bld) [#/Vol] 276 10*3/uL 150-450 [facility] Potassium measurement (mass/ volume)Ordered By: Donovan Jo on 12-18-2024 Potassium (Unsp spec) [Mass/Vol] 4.5 mmol/L 3.3-5.1 [facility] RBC Auto (Bld) [#/Vol]Ordere d By: Donovan Jo on 12-18-2024 RBC (Bld) [#/Vol] 5.91 10*6/uL High 4.2-5.4 [facility] Screening total cholesterol/ high density lipoprotein (HDL) cholesterol ratioOrdered By: Donovan Jo on 12-18-2024 Cholesterol.total/Choles terol in HDL [Mass ratio] 4.25 {ratio} [facility] Serum creatinine measurement (mass/volume)Ordered By: Donovan Jo on 12-18-2024 Creatinine [Mass/Vol] 0.76 mg/dL 0.70-1.20 [facility] Serum globulin measurementOr dered By: Donovan Jo on 12-18-2024 Globulin (S) [Mass/Vol] 3.4 g/dL 2.2-4.2 [facility] Serum glucose measurement (m ass/volume)Ordered By: Donovan Jo on 12-18-2024 Glucose [Mass/Vol] 123 mg/dL High 70-99 [facility] Serum or plasma alanine becker otransferase (ALT) measurementOrdered By: Donovan Jo on 12-18-2024 ALT [Catalytic activity/Vol] 20 U/L <35 [facility] Serum or plasma albumin ag urement (mass/volume)Ordered By: Donovan Jo on 12-18-2024 Albumin [Mass/Vol] 4.4 g/dL 3.4-4.8 [facility] Serum or plasma albumin/glob ulin mass ratioOrdered By: Donovan Jo on 12-18-2024 Albumin/Globulin [Mass ratio] 1.3 {ratio} 0.9-2.4 [facility] Serum or plasma alkaline kelsey sphatase measurementOrdered By: Donovan Jo on 12-18-2024 ALP [Catalytic activity/Vol] 85 U/L 35-104 [facility] Serum or plasma amylase ag urement (enzymatic activity/volume)Ordered By: Donovan Jo on 12-18-2024 Amylase [Catalytic activity/Vol] 60 U/L 28-100 [facility] Serum or plasma calcium ag urement (mass/volume)Ordered By: Donovan Jo on 12-18-2024 Calcium [Mass/Vol] 10.0 mg/dL 7.6-11.0 [facility] Serum or plasma cholesterol in HDL measurement (mass/volume)Ordered By: Donovan Jo on 12-18-2024 Cholesterol in HDL [Mass/Vol] 50 mg/dL >40 [facility] Comment on above: National Cholesterol Education Program (NCEP) guidelines:<40 mg/dL: Low HDL-cholesterol (major risk factor for CHD)>= 60 mg/dL: High HDL-cholesterol (negative risk factor for CHD)HDL-cholesterol is affected by a number of factors, e.g. smoking, exercise, hormones, sex and age. Serum or plasma cholesterol measurement (mass/volume)Ordered By: Donovan Jo on 12-18-2024 Cholesterol [Mass/Vol] 213 mg/dL High <201 [facility] Comment on above: Cholesterol level, D esirable <200 mg/dLBorderline high cholesterol 200-239 mg/dLHigh cholesterol >=240 mg/dLRecommendations of the NCEP Adult Treatment Panel for the following risk-cutoff thresholds for the [place] population. Serum or plasma urea nitroge n measurement (mass/volume)Ordered By: Donovan Jo on 12-18-2024 Urea nitrogen [Mass/Vol] 18 mg/dL 4-19 [facility] Sodium levelOrdered By: Donovan Jo on 12-18-2024 Sodium [Moles/Vol] 134 mmol/L 133-145 [facility] T4 Free Directon 12-18-2024 T4 FREE DIRECT 1.00 ng/dL Normal 0.76-1.46 [facility] Comment on above: Performed By: #### L 500.4100, L501.9520 #### [facility] [address] [place], [address] T4 freeOrdered By: Jose farah on 12-18-2024 Free T4 [Mass/Vol] 1.00 ng/dL 0.76-1.46 [facility] TSH DL <= 0.005 mIU/L QnOrde red By: Donovan Jo on 12-18-2024 TSH Qn 15.000 uIU/mL High 0.300-4.200 [facility] Thyroid Stim Hormone (TSH)on 12-18-2024 TSH 15.000 uIU/mL High 0.300-4.200 [facility] Comment on above: Performed By: #### L 500.4100, L501.9520 #### [facility] [address] [place], [address] Total proteinOrdered By: Marcel Jo on 12-18-2024 Protein [Mass/Vol] 7.8 g/dL 5.9-8.4 [facility] Triglycerides measurementOrd ered By: Donovan Jo on 12-18-2024 Triglyceride [Mass/Vol] 264 mg/dL High <199 [facility] Comment on above: The drugs N-Acetylcy steine and Metamizole may falsely depress this assay. Normal range: <150 mg/dLBorderline High: 150-199 mg/dLHigh: 200-499 mg/dLVery High: >500 mg/dL Urinalysis, Completeon 12-18 BACTERIA Normal None Seen [facility] Comment on above: Order Comment: CLEAN CATCH Result Comment: NO S PECIMEN COLLECTED. PATIENT DEPARTED ED. Performed By: #### L 500.4100, L501.9520 #### [facility] [address] [place], [address] BILIRUBIN URINE Normal Negative [facility] Comment on above: Order Comment: CLEAN CATCH Result Comment: NO S PECIMEN COLLECTED. PATIENT DEPARTED ED. Performed By: #### L 500.4100, L501.9520 #### [facility] [address] [place], [address] Clarity (U) Normal Clear [facility] Comment on above: Order Comment: CLEAN CATCH Result Comment: NO S PECIMEN COLLECTED. PATIENT DEPARTED ED. Performed By: #### L 500.4100, L501.9520 #### [facility] [address] [place], [address] Color (U) Normal Yellow [facility] Comment on above: Order Comment: CLEAN CATCH Result Comment: NO S PECIMEN COLLECTED. PATIENT DEPARTED ED. Performed By: #### L 500.4100, L501.9520 #### [facility] [address] [place], [address] EPI,SQUAMOUS Normal 5-10 [facility] Comment on above: Order Comment: CLEAN CATCH Result Comment: NO S PECIMEN COLLECTED. PATIENT DEPARTED ED. Performed By: #### L 500.4100, L501.9520 #### [facility] [address] [place], [address] GLUCOSE, UR Normal Normal [facility] Comment on above: Order Comment: CLEAN CATCH Result Comment: NO S PECIMEN COLLECTED. PATIENT DEPARTED ED. Performed By: #### L 500.4100, L501.9520 #### [facility] [address] [place], [address] KETONE UR Normal Negative [facility] Comment on above: Order Comment: CLEAN CATCH Result Comment: NO S PECIMEN COLLECTED. PATIENT DEPARTED ED. Performed By: #### L 500.4100, L501.9520 #### [facility] [address] [place], [address] LEUK ESTERASE Normal Negative [facility] Comment on above: Order Comment: CLEAN CATCH Result Comment: NO S PECIMEN COLLECTED. PATIENT DEPARTED ED. Performed By: #### L 500.4100, L501.9520 #### [facility] [address] [place], [address] Mucus Ql (Urine sed) Normal [facility] Comment on above: Order Comment: CLEAN CATCH Result Comment: NO S PECIMEN COLLECTED. PATIENT DEPARTED ED. Performed By: #### L 500.4100, L501.9520 #### [facility] [address] [place], [address] Nitrite Ql (U) Normal Negative [facility] Comment on above: Order Comment: CLEAN CATCH Result Comment: NO S PECIMEN COLLECTED. PATIENT DEPARTED ED. Performed By: #### L 500.4100, L501.9520 #### [facility] [address] [place], [address] OCCULT BLOOD-UR Normal Negative [facility] Comment on above: Order Comment: CLEAN CATCH Result Comment: NO S PECIMEN COLLECTED. PATIENT DEPARTED ED. Performed By: #### L 500.4100, L501.9520 #### [facility] [address] [place], [address] pH UR Normal 5.0 - 8.0 [facility] Comment on above: Order Comment: CLEAN CATCH Result Comment: NO S PECIMEN COLLECTED. PATIENT DEPARTED ED. Performed By: #### L 500.4100, L501.9520 #### [facility] [address] [place], [address] PROT DIPSTX Normal Negative [facility] Comment on above: Order Comment: CLEAN CATCH Result Comment: NO S PECIMEN COLLECTED. PATIENT DEPARTED ED. Performed By: #### L 500.4100, L501.9520 #### [facility] [address] [place], [address] RBC Normal 0-5 [facility] Comment on above: Order Comment: CLEAN CATCH Result Comment: NO S PECIMEN COLLECTED. PATIENT DEPARTED ED. Performed By: #### L 500.4100, L501.9520 #### [facility] [address] [place], [address] SP.GR. DIPSTX Normal 1.002-1.030 [facility] Comment on above: Order Comment: CLEAN CATCH Result Comment: NO S PECIMEN COLLECTED. PATIENT DEPARTED ED. Performed By: #### L 500.4100, L501.9520 #### [facility] [address] [place], [address] UR Preservative Normal [facility] Comment on above: Order Comment: CLEAN CATCH Result Comment: NO S PECIMEN COLLECTED. PATIENT DEPARTED ED. Performed By: #### L 500.4100, L501.9520 #### [facility] [address] [place], [address] UROBILI Normal Normal [facility] Comment on above: Order Comment: CLEAN CATCH Result Comment: NO S PECIMEN COLLECTED. PATIENT DEPARTED ED. Performed By: #### L 500.4100, L501.9520 #### [facility] [address] [place], [address] WBC Normal 0-5 [facility] Comment on above: Order Comment: CLEAN CATCH Result Comment: NO S PECIMEN COLLECTED. PATIENT DEPARTED ED. Performed By: #### L 500.4100, L501.9520 #### [facility] [address] [place], [address] White blood cell (WBC) count Ordered By: Donovan Jo on 12-18-2024 WBC (Bld) [#/Vol] 15.8 10*3/uL High 4.4-11.0 [facility] Tavares 11-13-2022 CNPN Telephone (PODCCP) LIDIA ONEILL ([id number]) 1955 F Date Time Provider Department 11/13/22 XENA CHAN PODCCLizzie During your visit today, we recorded the following information about you: Cynthia Trinh 11/13/2022 11:16 AM Signed PATIENT INFORMATION Record ID: [id number] Patient Name: Lidia Oneill Hospital: [facility] [place]: [facility] [place] Attending: Tio Ferreira Center: General Surgery INSTRUCTIONS Continue with script and ensure patient has number or is given number to appointment center [phone] All Clear All Clear SURVEY INFORMATION Medical/Nurse Rail Operations Controller: Cynthia Madrigal 1. Your discharge instructions are [...] Reason for Visit: Follow Up Phone Call [[phone]] Cmt: All Clear Prescriptions as of 11/13/2022 [...] Status:Closed by CYNTHIA COOPER on 11/13/22 Normal [facility] CBC panel Auto (Bld)on 11-06 Erythrocyte distribution width (RBC) [Ratio] 12.9 % Normal 11.5-15.0 [facility] Comment on above: Order Comment: Speci men Type: BLOOD SPECIMENOrdering Facility: [facility] Address: [address] [place] [phone] Performed By: #### 5 8410-2 ####[facility] LABCLIA [id number] [address] STATES OF [facility] Hematocrit (Bld) [Volume fraction] 37.7 % Normal 36.0-46.0 [facility] Comment on above: Order Comment: Speci men Type: BLOOD SPECIMENOrdering Facility: [facility] Address: [address] [place] [address] Performed By: #### 5 8410-2 ####[facility] LABIA [id number] [address] [place] Hemoglobin (Bld) [Mass/Vol] 12.7 g/dL Normal 11.5-15.5 [facility] Comment on above: Order Comment: Speci men Type: BLOOD SPECIMENOrdering Facility: [facility] Address: [address] [place] [address] Performed By: #### 5 8410-2 ####[facility] LABIA [id number] [address] OF [facility] MCH (RBC) [Entitic mass] 29.5 pg Normal 26.0-34.0 [facility] Comment on above: Order Comment: Speci men Type: BLOOD SPECIMENOrdering Facility: [facility] Address: [address] [place] [address] Performed By: #### 5 8410-2 ####[facility] LABIA [id number] [address] [place] MCHC (RBC) [Mass/Vol] 33.7 g/dL Normal 30.5-36.0 [facility] Comment on above: Order Comment: Speci men Type: BLOOD SPECIMENOrdering Facility: [facility] Address: [address] [place] [address] Performed By: #### 5 8410-2 ####[facility] LABCLIA [id number] [address] [place] MCV (RBC) [Entitic vol] 87.7 fL Normal 80.0-100.0 [facility] Comment on above: Order Comment: Speci men Type: BLOOD SPECIMENOrdering Facility: [facility] Address: [address] [place], [place] [address] Performed By: #### 5 8410-2 ####[facility] LABIA [id number] [place] [address] [place] Nucleated RBC (Bld) [#/Vol] 10*3/uL Normal <0.01 [facility] Comment on above: Order Comment: Speci men Type: BLOOD SPECIMENOrdering Facility: [facility] Address: [address] [place], [place] [address] Performed By: #### 5 8410-2 ####[facility] LABIA [id number] [place] [address] [place] Platelet mean volume (Bld) [Entitic vol] 10.8 fL Normal 9.0-12.7 [facility] Comment on above: Order Comment: Speci men Type: BLOOD SPECIMENOrdering Facility: [facility] Address: [address] [place], [place] [address] Performed By: #### 5 8410-2 ####[facility] LABIA [id number] [place] [address] [place] Platelets (Bld) [#/Vol] 215 10*3/uL Normal 150-400 [facility] Comment on above: Order Comment: Speci men Type: BLOOD SPECIMENOrdering Facility: [facility] Address: [address] [place] [address] Performed By: #### 5 8410-2 ####[facility] LABIA [id number] [place] [address] [place] RBC (Bld) [#/Vol] 4.30 10*6/uL Normal 3.90-5.20 [facility] Comment on above: Order Comment: Speci men Type: BLOOD SPECIMENOrdering Facility: [facility] Address: [address] [phone] Performed By: #### 5 8410-2 ####[facility] LABCLIA [id number] [place] [address] [place] WBC (Bld) [#/Vol] 7.45 10*3/uL Normal 3.70-11.00 [facility] Comment on above: Order Comment: Speci men Type: BLOOD SPECIMENOrdering Facility: [facility] Address: [address] [place] [address] Performed By: #### 5 8410-2 ####[facility] LABCLIA [id number] [address] [place] CNDSon 11-06-2022 CNDS HNO ID: [id number] Author: Kassandra Banks MD Service: General Surgery [...] DIAGNOSIS: Principal Problem: SBO (small bowel obstruction) ([facility]) POA: Yes Active Problems: HTN (hypertension) POA: Yes COPD (chronic obstructive pulmonary disease) ([facility]) POA: Yes Ventral hernia with obstruction POA: [...] a fistula post-operatively. She was referred to [facility] as surgeons locally have told her she [...] Banks MD DATE: 11/06/2022 TIME: 1000 Normal [facility] Comprehensive metabolic 2000 panelon 11-06-2022 Albumin [Mass/Vol] 3.4 g/dL Low 3.9-4.9 [facility] Comment on above: Order Comment: Speci men Type: BLOOD SPECIMENOrdering Facility: [facility] Address: [address] [place] [address] Performed By: #### 2 777-1, , ####[facility] LABCLIA [id number] [place] [address] [place] ALP [Catalytic activity/Vol] 69 U/L Normal 34-123 [facility] Comment on above: Order Comment: Speci men Type: BLOOD SPECIMENOrdering Facility: [facility] Address: [address] [place] [address] Performed By: #### 2 777-1, , ####[facility] LABCLIA [id number] [place] [address] [place] ALT [Catalytic activity/Vol] 39 U/L High 7-38 [facility] Comment on above: Order Comment: Speci men Type: BLOOD SPECIMENOrdering Facility: [facility] Address: [address] [place] [address] Performed By: #### 2 777-1, , ####[facility] LABCLIA [id number] [place] [address] [place] Anion gap [Moles/Vol] 10 mmol/L Normal 9-18 [facility] Comment on above: Order Comment: Speci men Type: BLOOD SPECIMENOrdering Facility: [facility] Address: [address] Performed By: #### 2 777-1, , ####[facility] LABCLIA [id number] [place] [address] [place] AST [Catalytic activity/Vol] 22 U/L Normal 13-35 [facility] Comment on above: Order Comment: Speci men Type: BLOOD SPECIMENOrdering Facility: [facility] Address: [address] [place], [place] [address] Performed By: #### 2 777-1, , ####[facility] LABCLIA [id number] [place] [address] [place] Bilirubin [Mass/Vol] 0.2 mg/dL Normal 0.2-1.3 [facility] Comment on above: Order Comment: Speci men Type: BLOOD SPECIMENOrdering Facility: [facility] Address: [address] [place], [place] [address] Performed By: #### 2 777-1, , ####[facility] LABCLIA [id number] [place] [address] [place] Calcium [Mass/Vol] 8.6 mg/dL Normal 8.5-10.2 [facility] Comment on above: Order Comment: Speci men Type: BLOOD SPECIMENOrdering Facility: [facility] Address: [address] Performed By: #### 2 777-1, , ####[facility] LABCLIA [id number] [place] [id number] [place] Chloride [Moles/Vol] 101 mmol/L Normal 97-105 [facility] Comment on above: Order Comment: Speci men Type: BLOOD SPECIMENOrdering Facility: [facility] Address: [address] [place] [address] Performed By: #### 2 777-1, , ####[facility] LABCLIA [id number] [place] [address] [place] CO2 [Moles/Vol] 26 mmol/L Normal 22-30 [facility] Comment on above: Order Comment: Speci men Type: BLOOD SPECIMENOrdering Facility: [facility] Address: [address] [place] [address] Performed By: #### 2 777-1, , ####[facility] LABIA [id number] [place] [address] [place] Creatinine [Mass/Vol] 0.66 mg/dL Normal 0.58-0.96 [facility] Comment on above: Order Comment: Speci men Type: BLOOD SPECIMENOrdering Facility: [facility] Address: [address] [place] [address] Performed By: #### 2 777-1, , ####[facility] LABIA [id number] [place] [address] [place] ESTIMATED GLOMERULAR FILTRATION RATE 95 mL/min/1.73m??? Normal >=60 [facility] Comment on above: Order Comment: Speci men Type: BLOOD SPECIMENOrdering Facility: [facility] Address: [address] [place] [address] Result Comment: Annmarie mated Glomerular Filtration Rate [...] GFR. Performed By: #### 2 777-1, , ####[facility] LABCLIA [id number] [address] [address] [place] Glucose [Mass/Vol] 133 mg/dL High 74-99 [facility] Comment on above: Order Comment: Speci men Type: BLOOD SPECIMENOrdering Facility: [facility] Address: [address] [place], [place] [phone] Result Comment: The [place] [employer] (ADA) provides guidance for cutoff [...] Standards of Medical Care in Diabetes 2016, [place] [employer]. Diabetes Care. 2016.39(Suppl 1). Performed By: #### 2 777-1, , ####[facility] LABIA [id number] [place] [address] [place] Potassium [Moles/Vol] 3.6 mmol/L Low 3.7-5.1 [facility] Comment on above: Order Comment: Speci men Type: BLOOD SPECIMENOrdering Facility: [facility] Address: [address] [place] [address] Performed By: #### 2 777-1, , ####[facility] LABIA [id number] [address] [address] [place] Protein [Mass/Vol] 5.9 g/dL Low 6.3-8.0 [facility] Comment on above: Order Comment: Speci men Type: BLOOD SPECIMENOrdering Facility: [facility] Address: [address] [phone] Performed By: #### 2 777-1, 63899-2, 86932-4 ####[facility] LABCLIA [id number] [place] [id number] [place] Sodium [Moles/Vol] 137 mmol/L Normal 136-144 [facility] Comment on above: Order Comment: Speci men Type: BLOOD SPECIMENOrdering Facility: [facility] Address: [address] [place], [place] [address] Performed By: #### 2 777-1, 00928-2, ####[facility] LABIA [id number] [place] [address] [place] Urea nitrogen [Mass/Vol] 10 mg/dL Normal 7-21 [facility] Comment on above: Order Comment: Speci men Type: BLOOD SPECIMENOrdering Facility: [facility] Address: [address] [place], [place] [address] Performed By: #### 2 777-1, 99493-8, ####[facility] LABIA [id number] [place] [address] [place] Magnesium SerPl-mCncon 11-06 Magnesium [Mass/Vol] 2.1 mg/dL Normal 1.7-2.3 [facility] Comment on above: Order Comment: Speci men Type: BLOOD SPECIMENOrdering Facility: [facility] Address: [address] [place] [address] Performed By: #### 2 777-1, 07821-2, 50183-8 ####[facility] LABIA [id number] [place] [id number] [place] Phosphate SerPl-mCncon 11-06 Phosphate [Mass/Vol] 2.0 mg/dL Low 2.7-4.8 [facility] Comment on above: Order Comment: Speci men Type: BLOOD SPECIMENOrdering Facility: [facility] Address: [address] [address] Performed By: #### 2 777-1, 73710-6, 99069-6 ####[facility] LABIA [id number] [address] [place] CBC panel Auto (Bld)on 11-05 Erythrocyte distribution width (RBC) [Ratio] 12.8 % Normal 11.5-15.0 [facility] Comment on above: Order Comment: Speci men Type: BLOOD SPECIMENOrdering Facility: [facility] Address: [address] [address] Performed By: #### 5 8410-2 ####[facility] LABIA [id number] [address] [place] Hematocrit (Bld) [Volume fraction] 40.2 % Normal 36.0-46.0 [facility] Comment on above: Order Comment: Speci men Type: BLOOD SPECIMENOrdering Facility: [facility] Address: [address] [place] [address] Performed By: #### 5 8410-2 ####[facility] LABIA [id number] [address] [place] Hemoglobin (Bld) [Mass/Vol] 13.5 g/dL Normal 11.5-15.5 [facility] Comment on above: Order Comment: Speci men Type: BLOOD SPECIMENOrdering Facility: [facility] Address: [address] Performed By: #### 5 8410-2 ####[facility] LABIA [id number] [address] [place] MCH (RBC) [Entitic mass] 29.5 pg Normal 26.0-34.0 [facility] Comment on above: Order Comment: Speci men Type: BLOOD SPECIMENOrdering Facility: [facility] Address: [address] [place], [place] [address] Performed By: #### 5 8410-2 ####[facility] LABIA [id number] [address] STATES [facility] MCHC (RBC) [Mass/Vol] 33.6 g/dL Normal 30.5-36.0 [facility] Comment on above: Order Comment: Speci men Type: BLOOD SPECIMENOrdering Facility: [facility] Address: [address] [place] [address] Performed By: #### 5 8410-2 ####[facility]SPR[facility]FIELD [facility] [id number] [address] [place] MCV (RBC) [Entitic vol] 88.0 fL Normal 80.0-100.0 [facility] Comment on above: Order Comment: Speci men Type: BLOOD SPECIMENOrdering Facility: [facility] Address: [address] [place] [address] Performed By: #### 5 8410-2 ####[facility] [id number] [address] [place] Nucleated RBC (Bld) [#/Vol] 10*3/uL Normal <0.01 [facility] Comment on above: Order Comment: Speci men Type: BLOOD SPECIMENOrdering Facility: [facility] Address: [address] [place] [address] Performed By: #### 5 8410-2 ####[facility] LABIA [id number] [address] [place] Platelet mean volume (Bld) [Entitic vol] 10.8 fL Normal 9.0-12.7 [facility] Comment on above: Order Comment: Speci men Type: BLOOD SPECIMENOrdering Facility: [facility] Address: [address] [place] [address] Performed By: #### 5 8410-2 ####[facility] LABSPRINGFIELD [facility] [id number] [place] [address] [place] Platelets (Bld) [#/Vol] 187 10*3/uL Normal 150-400 [facility] Comment on above: Order Comment: Speci men Type: BLOOD SPECIMENOrdering Facility: [facility] Address: [address] [place] [address] Performed By: #### 5 8410-2 ####[facility] LABCLIA [id number] [place] [address] [place] RBC (Bld) [#/Vol] 4.57 10*6/uL Normal 3.90-5.20 [facility] Comment on above: Order Comment: Speci men Type: BLOOD SPECIMENOrdering Facility: [facility] Address: [address] [place] [address] Performed By: #### 5 8410-2 ####[facility] LABCLIA [id number] [place] [address] [place] WBC (Bld) [#/Vol] 7.42 10*3/uL Normal 3.70-11.00 [facility] Comment on above: Order Comment: Speci men Type: BLOOD SPECIMENOrdering Facility: [facility] Address: [address] [place], [place] [address] Performed By: #### 5 8410-2 ####[facility] LABCLIA [id number] [place] [address] [place] Comprehensive metabolic 2000 panelon 11-05-2022 Albumin [Mass/Vol] 3.5 g/dL Low 3.9-4.9 [facility] Comment on above: Order Comment: Speci men Type: BLOOD SPECIMENOrdering Facility: [facility] Address: [address] [place], [place] [address] Performed By: #### 2 4323-8, 16448-9, 2777-1 ####[facility] LABCLIA [id number] [place] [address] [place] ALP [Catalytic activity/Vol] 75 U/L Normal 34-123 [facility] Comment on above: Order Comment: Speci men Type: BLOOD SPECIMENOrdering Facility: [facility] Address: [address] [place] [address] Performed By: #### 2 4323-8, 75150-3, 2776-07 ####[facility] LABCLIA [id number] [address] [place] ALT [Catalytic activity/Vol] 48 U/L High 7-38 [facility] Comment on above: Order Comment: Speci men Type: BLOOD SPECIMENOrdering Facility: [facility] Address: [address] [place] [address] Result Comment: Resu lts may be falsely increased due to interference from hemolysis. Suggest reorder as clinically indicated. Performed By: #### 2 4323-8, , 2776-07 ####[facility] LABCLIA [id number] [place] [address] [place] [facility] Anion gap [Moles/Vol] 12 mmol/L Normal 9-18 [facility] Comment on above: Order Comment: Speci men Type: BLOOD SPECIMENOrdering Facility: [facility] Address: [address] [place] [address] Performed By: #### 2 4323-8, , 2776-07 ####[facility] LABCLIA [id number] [place] [address] [place] AST [Catalytic activity/Vol] 44 U/L High 13-35 [facility] Comment on above: Order Comment: Speci men Type: BLOOD SPECIMENOrdering Facility: [facility] Address: [address] [place] [address] Result Comment: Resu lts may be falsely increased due to interference from hemolysis. Suggest reorder as clinically indicated. Performed By: #### 2 4323-8, , 2776-07 ####[facility] LABCLIA [id number] [place] [id number] [place] Bilirubin [Mass/Vol] 0.4 mg/dL Normal 0.2-1.3 [facility] Comment on above: Order Comment: Speci men Type: BLOOD SPECIMENOrdering Facility: [facility] Address: [address] [place] [address] Performed By: #### 2 4323-8, , 2776-07 ####[facility] LABCLIA [id number] [place] [address] [place] Calcium [Mass/Vol] 8.8 mg/dL Normal 8.5-10.2 [facility] Comment on above: Order Comment: Speci men Type: BLOOD SPECIMENOrdering Facility: [facility] Address: [address] [place] [address] Performed By: #### 2 432-8, , 2776-07 ####[facility] LABCLIA [id number] [place] [address] [place] Chloride [Moles/Vol] 99 mmol/L Normal 97-105 [facility] Comment on above: Order Comment: Speci men Type: BLOOD SPECIMENOrdering Facility: [facility] Address: [address] [place], [place] [address] Performed By: #### 2 4323-8, , 2776-07 ####[facility] LABCLIA [id number] [place] [address] [place] CO2 [Moles/Vol] 27 mmol/L Normal 22-30 [facility] Comment on above: Order Comment: Speci men Type: BLOOD SPECIMENOrdering Facility: [facility] Address: [address] [place], [place] [address] Performed By: #### 2 4323-8, , 2776-07 ####[facility] LABCLIA [id number] [place] [id number] [place] Creatinine [Mass/Vol] 0.61 mg/dL Normal 0.58-0.96 [facility] Comment on above: Order Comment: Jessica rich Type: BLOOD SPECIMENOrdering Facility: [facility] Address: [address] [place] [place] [address] Performed By: #### 2 4323-8, 95451-7, 2776-07 ####[facility] LABCLIA [id number] [place] [address] [place] ESTIMATED GLOMERULAR FILTRATION RATE 97 mL/min/1.73m??? Normal >=60 [facility] Comment on above: Order Comment: Jessica rich Type: BLOOD SPECIMENOrdering Facility: [facility] Address: [address] [place] [address] Result Comment: Annmarie mated Glomerular Filtration Rate [...] Performed By: #### 2 4323-8, , 2776-07 ####[facility] LABCLIA [id number] [place] [address] [place] Glucose [Mass/Vol] 70 mg/dL Low 74-99 [facility] Comment on above: Order Comment: Jessica rich Type: BLOOD SPECIMENOrdering Facility: [facility] Address: [address] [place] [address] Result Comment: The [place] [employer] (ADA) provides guidance for cutoff [...] Standards of Medical Care in Diabetes 2016, [place] [employer]. Diabetes Care. 2016.39(Suppl 1). Performed By: #### 2 4323-8, , 2776-07 ####[facility] LABCLIA [id number] [place] [address] [place] Potassium [Moles/Vol] Normal [facility] Comment on above: Order Comment: Speci men Type: BLOOD SPECIMENOrdering Facility: [facility] Address: [address] [place] [address] Result Comment: Unab le to assay due to interference from hemolysis. Suggest reorder as clinically indicated. Performed By: #### 2 4323-8, , 2776-07 ####[facility] LABCLIA [id number] [place] [address] [place] Protein [Mass/Vol] 6.2 g/dL Low 6.3-8.0 [facility] Comment on above: Order Comment: Jessica rich Type: BLOOD SPECIMENOrdering Facility: [facility] Address: [address] [place] [place] [address] Performed By: #### 2 4323-8, , 2776-07 ####[facility] LABCLIA [id number] [place] [address] [place] Sodium [Moles/Vol] 138 mmol/L Normal 136-144 [facility] Comment on above: Order Comment: Jessica rich Type: BLOOD SPECIMENOrdering Facility: [facility] Address: [address] Performed By: #### 2 4323-8, , 2776-07 ####[facility] LABCLIA [id number] [place] [id number] [place] Urea nitrogen [Mass/Vol] 11 mg/dL Normal 7-21 [facility] Comment on above: Order Comment: Speci men Type: BLOOD SPECIMENOrdering Facility: [facility] Address: [place] [address] Performed By: #### 2 4323-8, , 2776-07 ####[facility] LABCLIA [id number] [address] ECG COMPLETEon 11-05-2022 ECG COMPLETE Ventricular Rate : 7 9 BPM Atrial Rate : 79 BPM P-R Interval : 150 ms QRS Duration : 92 ms Q-T Interval : 378 ms QTC Calculation(Bazett) : 433 ms Calculated P [place] : 86 degrees Calculated R [place] : 3 degrees Calculated T [place] : 49 degrees NORMAL SINUS RHYTHM WITH SINUS ARRHYTHMIA NORMAL ECG Confirmed by MD ORTIZ TAMANNA ([id number]) on 11/09/2022 11:28:23 AM NAME : LIDIA ONEILL PID : [id number] : 1955 Gender : Female Race : ORD : [id number] Procedure Date : Nov 05 2022 02:48:57 Edit Date : Nov 09 2022 11:28:24 Diagnosis: NORMAL SINUS RHYTHM WITH SINUS ARRHYTHMIA NORMAL ECG Confirmed by MD ORTIZ TAMANNA ([id number]) on 11/09/2022 11:28:23 AM Test Reason : Chest Pain Location : 97 : G90 G090-29 Overread By : MD ORTIZ TAMANNA Edited By : MD ORTIZ TAMANNA Referred By : , Acquired by : SALVATORE TORRES [facility] Magnesium SerPl-mCncon 11-05 Magnesium [Mass/Vol] 2.2 mg/dL Normal 1.7-2.3 [facility] Comment on above: Order Comment: Speci men Type: BLOOD SPECIMENOrdering Facility: [facility] Address: [place] [address] Performed By: #### 2 4323-8, , 2776-07 ####[facility] LABIA [id number] [place] [id number] [facility] [place] NURSING PROGon 11-05-2022 NURSING PROG HNO ID: [id number] Author: Trevin Nunez RN Service: ? Author Type: Registered Nurse Type: Nursing Progress Note Filed: 11/05/2022 6:25 AM Note Text: Patient denies any chest pain/discomfort, only complaint is moderate back pain which is not new. Repositioned patient to provide relief of back pain. Normal [facility] NURSING PROG HNO ID: [id number] Author: Trevin Nunez RN Service: ? Author Type: Registered Nurse Type: Nursing Progress Note Filed: 11/05/2022 2:35 AM Note Text: Patient complaining of chest pain between breast rates 10 worsens with inspiration. Patient describes pain feeling as like indigestion. Vital signs WNL. Pager [phone] made aware, orders placed. Normal [facility] Phosphate SerPl-mCncon 11-05 Phosphate [Mass/Vol] 2.9 mg/dL Normal 2.7-4.8 [facility] Comment on above: Order Comment: Jessica rich Type: BLOOD SPECIMENOrdering Facility: [facility] Address: [address] [place] [address] Performed By: #### 2 4323-8, 13885-1, 2777-1 ####[facility] LABIA [id number] [place] [address] [place] CBC panel Auto (Bld)on 11-04 Erythrocyte distribution width (RBC) [Ratio] 13.2 % Normal 11.5-15.0 [facility] Comment on above: Order Comment: Jessica rich Type: BLOOD SPECIMENOrdering Facility: [facility] Address: [address] [place] [address] Performed By: #### 5 8410-2 ####[facility] LABCLIA [id number] [address] [place] Hematocrit (Bld) [Volume fraction] 41.5 % Normal 36.0-46.0 [facility] Comment on above: Order Comment: Jessica rich Type: BLOOD SPECIMENOrdering Facility: [facility] Address: [address] Performed By: #### 5 8410-2 ####[facility] LABCLIA [id number] [place] [address] [place] Hemoglobin (Bld) [Mass/Vol] 13.9 g/dL Normal 11.5-15.5 [facility] Comment on above: Order Comment: Speci men Type: BLOOD SPECIMENOrdering Facility: [facility] Address: [address] [address] Performed By: #### 5 8410-2 ####[facility] LABCLIA [id number] [place] [address] [place] MCH (RBC) [Entitic mass] 29.4 pg Normal 26.0-34.0 [facility] Comment on above: Order Comment: Speci men Type: BLOOD SPECIMENOrdering Facility: [facility] Address: [address] Performed By: #### 5 8410-2 ####[facility] LABIA [id number] [address] [place] MCHC (RBC) [Mass/Vol] 33.5 g/dL Normal 30.5-36.0 [facility] Comment on above: Order Comment: Speci men Type: BLOOD SPECIMENOrdering Facility: [facility] Address: [address] Performed By: #### 5 8410-2 ####[facility] LABCLIA [id number] [place] [address] [place] MCV (RBC) [Entitic vol] 87.9 fL Normal 80.0-100.0 [facility] Comment on above: Order Comment: Speci men Type: BLOOD SPECIMENOrdering Facility: [facility] Address: [address] [place], [place] [address] Performed By: #### 5 8410-2 ####[facility] LABCLIA [id number] [place] [address] [place] Nucleated RBC (Bld) [#/Vol] 10*3/uL Normal <0.01 [facility] Comment on above: Order Comment: Speci men Type: BLOOD SPECIMENOrdering Facility: [facility] Address: [address] [place] [address] Performed By: #### 5 8410-2 ####[facility] LABIA [id number] [place] [address] [place] Platelet mean volume (Bld) [Entitic vol] 10.4 fL Normal 9.0-12.7 [facility] Comment on above: Order Comment: Speci men Type: BLOOD SPECIMENOrdering Facility: [facility] Address: [address] [place] [address] Performed By: #### 5 8410-2 ####[facility] [id number] [place] [address] [place] Platelets (Bld) [#/Vol] 197 10*3/uL Normal 150-400 [facility] Comment on above: Order Comment: Speci men Type: BLOOD SPECIMENOrdering Facility: [facility] Address: [address] [place], [place] [address] Performed By: #### 5 8410-2 ####[facility] LABIA [id number] [place] [address] [place] RBC (Bld) [#/Vol] 4.72 10*6/uL Normal 3.90-5.20 [facility] Comment on above: Order Comment: Speci men Type: BLOOD SPECIMENOrdering Facility: [facility] Address: [address] [place], [place] [address] Performed By: #### 5 8410-2 ####[facility] LABIA [id number] [place] [address] [place] WBC (Bld) [#/Vol] 6.84 10*3/uL Normal 3.70-11.00 [facility] Comment on above: Order Comment: Speci men Type: BLOOD SPECIMENOrdering Facility: [facility] Address: [address] [facility] [place] [place] [address] Performed By: #### 5 8410-2 ####[facility] LABCLIA [id number] [id number] [id number] [place] CONSULT PROGon 11-04-2022 CONSULT PROG HNO ID: [id number] Author: Kassandra Banks MD Service: General Surgery [...] - mIVF - MM pain control - [facility] Kassandra Banks MD Acute Care Surgery (ACS) Day Floor Pager: [phone] Acute Care Surgery (ACS) Day Consults Pager: [phone] On nights (6 pm to 6 am) and on Weekends/Holidays, please page the on-call pager: [phone] Subjective: Denies N/V gas or BM Pain [...] CBC, BMP, MG, PHOS Recent Labs 11/04/22 0511/03/22 0632 11/02/22 1222 WBC 6.84 9.68 19.77* [...] SMALL BOWEL OBSTRUCTION. Intake and Output: Date 11/03/22 07 - 11/04/22 0659 11/04/22 0700 - 11/05/22 0659 Shift 1829-6234 5033-5429 2254-1451 24 Hour Total 4089-1339 7216-3028 2393-3429 24 Hour Total INTAKE IV 400 181 810 9627 Volume (mL) (lactated ringers iv infusion) 400 395 252 7215 Shift Total 400 747 258 6054 OUTPUT Urine 200 400 600 Void (ml) 200 400 600 Urine Not Saved. 1 x 1 x 1 x 1 x Tubes 0 700 200 900 Output (GI Feed 11/02/22 1642 Assessment Gastric Left Naris 16 Fr) 0 700 200 900 Shift Total 0 824 002 6504 Weight (kg) 83.4 83.4 83.4 83.4 83.4 [...] VERIFY PATCH OTHER q 8 H Normal [facility] Comprehensive metabolic 2000 panelon 11-04-2022 Albumin [Mass/Vol] 3.3 g/dL Low 3.9-4.9 [facility] Comment on above: Order Comment: Speci men Type: BLOOD SPECIMENOrdering Facility: [facility] Address: [address] [place] [address] Performed By: #### 2 4323-8, , 2776-07 ####[facility] LABIA [id number] [place] [address] [place] ALP [Catalytic activity/Vol] 71 U/L Normal 34-123 [facility] Comment on above: Order Comment: Speci men Type: BLOOD SPECIMENOrdering Facility: [facility] Address: [address] [place] [address] Performed By: #### 2 4323-8, , 2776-07 ####[facility] LABIA [id number] [address] [place] ALT [Catalytic activity/Vol] 28 U/L Normal 7-38 [facility] Comment on above: Order Comment: Speci men Type: BLOOD SPECIMENOrdering Facility: [facility] Address: [address] [place] [address] Performed By: #### 2 4323-8, , 2776-07 ####[facility] LABIA [id number] [place] [address] [place] Anion gap [Moles/Vol] 11 mmol/L Normal 9-18 [facility] Comment on above: Order Comment: Speci men Type: BLOOD SPECIMENOrdering Facility: [facility] Address: [address] Performed By: #### 2 4323-8, 72075-8, 2776-07 ####[facility] LABIA [id number] [place] [address] [place] AST [Catalytic activity/Vol] 20 U/L Normal 13-35 [facility] Comment on above: Order Comment: Speci men Type: BLOOD SPECIMENOrdering Facility: [facility] Address: [address] Performed By: #### 2 4323-8, 79869-6, 2776- ####[facility] LABIA [id number] [place] [address] [place] Bilirubin [Mass/Vol] 0.4 mg/dL Normal 0.2-1.3 [facility] Comment on above: Order Comment: Speci men Type: BLOOD SPECIMENOrdering Facility: [facility] Address: [address] [place] [address] Performed By: #### 2 4323-8, , 2776-07 ####[facility] LABIA [id number] [place] [address] [place] Calcium [Mass/Vol] 8.8 mg/dL Normal 8.5-10.2 [facility] Comment on above: Order Comment: Speci men Type: BLOOD SPECIMENOrdering Facility: [facility] Address: [address] Performed By: #### 2 4323-8, 75286-9, 2776-07 ####[facility] LABIA [id number] [place] [address] [place] Chloride [Moles/Vol] 102 mmol/L Normal 97-105 [facility] Comment on above: Order Comment: Speci men Type: BLOOD SPECIMENOrdering Facility: [facility] Address: [address] Performed By: #### 2 4323-8, , 2776-07 ####[facility] LABCLIA [id number] [place] [address] [place] CO2 [Moles/Vol] 25 mmol/L Normal 22-30 [facility] Comment on above: Order Comment: Speci men Type: BLOOD SPECIMENOrdering Facility: [facility] Address: [address] [place] [address] Performed By: #### 2 4323-8, , 2776-07 ####[facility] LABIA [id number] [address] STATES OF [facility] Creatinine [Mass/Vol] 0.70 mg/dL Normal 0.58-0.96 [facility] Comment on above: Order Comment: Speci men Type: BLOOD SPECIMENOrdering Facility: [facility] Address: [address] [place] [address] Performed By: #### 2 4323-8, , 2776-07 ####[facility] LABIA [id number] [address] STATES OF [facility] ESTIMATED GLOMERULAR FILTRATION RATE 94 mL/min/1.73m??? Normal >=60 [facility] Comment on above: Order Comment: Speci men Type: BLOOD SPECIMENOrdering Facility: [facility] Address: [address] [place] [address] Result Comment: Annmarie mated Glomerular Filtration Rate [...] actual GFR. Performed By: #### 2 4323-8, 01995-2, 2776-07 ####[facility] LABIA [id number] [address] [address] [id number] [address] [place] Glucose [Mass/Vol] 85 mg/dL Normal 74-99 [facility] Comment on above: Order Comment: Speci men Type: BLOOD SPECIMENOrdering Facility: [facility] Address: [address] [place] [address] Result Comment: The [place] [employer] (ADA) provides guidance for cutoff [...] Standards of Medical Care in Diabetes 2016, [place] [employer]. Diabetes Care. 2016.39(Suppl 1). Performed By: #### 2 4323-8, , 2776-07 ####[facility] LABCLIA [id number] [place] [address] [place] Potassium [Moles/Vol] 4.0 mmol/L Normal 3.7-5.1 [facility] Comment on above: Order Comment: Speci men Type: BLOOD SPECIMENOrdering Facility: [facility] Address: [address] [place], [place] [address] Performed By: #### 2 4323-8, , 2776-07 ####[facility] LABCLIA [id number] [place] [address] [place] Protein [Mass/Vol] 6.1 g/dL Low 6.3-8.0 [facility] Comment on above: Order Comment: Speci men Type: BLOOD SPECIMENOrdering Facility: [facility] Address: [address] [place] [address] Performed By: #### 2 4323-8, , 2776-07 ####[facility] LABCLIA [id number] [place] [id number] [place] Sodium [Moles/Vol] 138 mmol/L Normal 136-144 [facility] Comment on above: Order Comment: Speci men Type: BLOOD SPECIMENOrdering Facility: [facility] Address: [address] [place], [place] [address] Performed By: #### 2 4323-8, 09682-8, 2777-1 ####[facility] LABIA [id number] [place] [id number] [place] Urea nitrogen [Mass/Vol] 13 mg/dL Normal 7-21 [facility] Comment on above: Order Comment: Speci men Type: BLOOD SPECIMENOrdering Facility: [facility] Address: [address] [place], [place] [address] Performed By: #### 2 4323-8, , 2777-1 ####[facility] LABIA [id number] [place] [id number] [facility] [place] MEDICAL EMERon 11-04-2022 MEDICAL ELMER HNO ID: [id number] Author: Abhilash Bland APRN.FUR CUTTING MACHINE OPERATOR Service: Sepsis Emergency Response Team Author Type: [...] Hours Sepsis SERT Notifications Date Triggers 11/03/22 8426 File Doc Flowsheets Pulse: 108 Pulse: 113 MAP Non Invasive (Mean Arterial Pressure): 63 MAP Non Invasive (Mean Arterial Pressure): 63 BP: 165 BP: 114 Rule: [facility] NO DISCHARGE DATE [895860] WBC result: 19.77 k/uL SIGNATURE: Abhilash Bland APRN.CNP PATIENT NAME: Lidia Oneill DATE: November 04, 2022 TIME: 1:11 AM Normal [facility] Magnesium SerPl-mCncon 11-04 Magnesium [Mass/Vol] 2.1 mg/dL Normal 1.7-2.3 [facility] Comment on above: Order Comment: Speci men Type: BLOOD SPECIMENOrdering Facility: [facility] Address: [address] [place] [address] Performed By: #### 2 4323-8, , 2776- ####[facility] LABCLIA [id number] [address] [place] [facility] Phosphate SerPl-mCncon 11-04 Phosphate [Mass/Vol] 2.6 mg/dL Low 2.7-4.8 [facility] Comment on above: Order Comment: Speci men Type: BLOOD SPECIMENOrdering Facility: [facility] Address: [address] [place] [address] Performed By: #### 2 4323-8, , 2776-07 ####[facility] LABCLIA [id number] [address] [place] CBC panel Auto (Bld)on 11-03 Erythrocyte distribution width (RBC) [Ratio] 13.3 % Normal 11.5-15.0 [facility] Comment on above: Order Comment: Speci men Type: BLOOD SPECIMENOrdering Facility: [facility] Address: [address] [place] [address] Performed By: #### 5 8410-2 ####[facility] LABCLIA [id number] [address] [place] Hematocrit (Bld) [Volume fraction] 47.0 % High 36.0-46.0 [facility] Comment on above: Order Comment: Speci men Type: BLOOD SPECIMENOrdering Facility: [facility] Address: [address] [place] [address] Performed By: #### 5 8410-2 ####[facility] LABIA [id number] [place] [address] [place] Hemoglobin (Bld) [Mass/Vol] 15.8 g/dL High 11.5-15.5 [facility] Comment on above: Order Comment: Speci men Type: BLOOD SPECIMENOrdering Facility: [facility] Address: [address] [place] [address] Performed By: #### 5 8410-2 ####[facility] LABIA [id number] [address] [place] MCH (RBC) [Entitic mass] 29.7 pg Normal 26.0-34.0 [facility] Comment on above: Order Comment: Speci men Type: BLOOD SPECIMENOrdering Facility: [facility] Address: [address] [place] [address] Performed By: #### 5 8410-2 ####[facility] [id number] [address] [place] MCHC (RBC) [Mass/Vol] 33.6 g/dL Normal 30.5-36.0 [facility] Comment on above: Order Comment: Speci men Type: BLOOD SPECIMENOrdering Facility: [facility] Address: [address] Performed By: #### 5 8410-2 ####[facility] LABIA [id number] [place] [address] [place] MCV (RBC) [Entitic vol] 88.3 fL Normal 80.0-100.0 [facility] Comment on above: Order Comment: Speci men Type: BLOOD SPECIMENOrdering Facility: [facility] Address: [address] [place], [place] [address] Performed By: #### 5 8410-2 ####[facility] LABCLIA [id number] [place] [address] [place] Nucleated RBC (Bld) [#/Vol] 10*3/uL Normal <0.01 [facility] Comment on above: Order Comment: Speci men Type: BLOOD SPECIMENOrdering Facility: [facility] Address: [address] [place], [place] [address] Performed By: #### 5 8410-2 ####[facility] LABIA [id number] [place] [place] [address] [place] Platelet mean volume (Bld) [Entitic vol] 10.5 fL Normal 9.0-12.7 [facility] Comment on above: Order Comment: Speci men Type: BLOOD SPECIMENOrdering Facility: [facility] Address: [address] [place] [address] Performed By: #### 5 8410-2 ####[facility] LABIA [id number] [place] [address] [place] Platelets (Bld) [#/Vol] 289 10*3/uL Normal 150-400 [facility] Comment on above: Order Comment: Speci men Type: BLOOD SPECIMENOrdering Facility: [facility] Address: [address] [place], [place] [address] Performed By: #### 5 8410-2 ####[facility] LABIA [id number] [place] [address] [place] RBC (Bld) [#/Vol] 5.32 10*6/uL High 3.90-5.20 [facility] Comment on above: Order Comment: Speci men Type: BLOOD SPECIMENOrdering Facility: [facility] Address: [address] [place], [place] [address] Performed By: #### 5 8410-2 ####[facility] LABIA [id number] [address] [place] WBC (Bld) [#/Vol] 9.68 10*3/uL Normal 3.70-11.00 [facility] Comment on above: Order Comment: Speci men Type: BLOOD SPECIMENOrdering Facility: [facility] Address: [address] [address] [address] [place] [id number] Performed By: #### 5 8410-2 ####[facility] LABCLIA [id number] [facility] CITIESDimitri [facility] BOULEVARDKaz [address] CONSULT PROGon 11-03-2022 CONSULT PROG HNO ID: [id number] Author: Kassandra Banks MD Service: General Surgery Author Type: Resident Type: Consult Progress Note Filed: 11/03/2022 11:55 AM Note Text: GENERAL SURGERY PROGRESS NOTE Service Date: November 03, 2022 Assessment and Plan: Lidia Oneill is a 67 year old female admitted for SBO /2 incarcerated ventral pelvic hernia. She has a [...] Acute Care Surgery (ACS) Day Floor Pager: [phone] Acute Care Surgery (ACS) Day Consults Pager: [phone] On nights (6 pm to 6 am) and on Weekends/Holidays, please page the on-call pager: [phone] Subjective: Patient complaining of significant pain today [...] the involved segments. Intake and Output: Date 11/02/22 07 - 11/03/22 0659 11/03/22 07 - 11/04/22 0659 Shift [id number] 5465-5767 4150-6804 24 Hour Total 5852-4063 1239-9822 7319-0018 24 Hour Total INTAKE IV 400 400 [...] VERIFY PATCH OTHER q 8 H Normal [facility] Comprehensive metabolic 2000 panelon 11-03-2022 Albumin [Mass/Vol] 3.8 g/dL Low 3.9-4.9 [facility] Comment on above: Order Comment: Speci men Type: BLOOD SPECIMENOrdering Facility: [facility] Address: [address] [place] [address] Performed By: #### 2 4323-8, , 2776- ####[facility] LABCLIA [id number] [place] [address] [place] ALP [Catalytic activity/Vol] 73 U/L Normal 34-123 [facility] Comment on above: Order Comment: Speci men Type: BLOOD SPECIMENOrdering Facility: [facility] Address: [address] [place] [address] Performed By: #### 2 4323-8, , 2776-07 ####[facility] LABCLIA [id number] [place] [address] [place] ALT [Catalytic activity/Vol] 29 U/L Normal 7-38 [facility] Comment on above: Order Comment: Speci men Type: BLOOD SPECIMENOrdering Facility: [facility] Address: [address] [place] [address] Performed By: #### 2 4323-8, , 2776-07 ####[facility] LABCLIA [id number] [place] [address] [place] Anion gap [Moles/Vol] 18 mmol/L Normal 9-18 [facility] Comment on above: Order Comment: Speci men Type: BLOOD SPECIMENOrdering Facility: [facility] Address: [address] [place] [address] Performed By: #### 2 4323-8, , 2776- ####[facility] LABCLIA [id number] [place] [address] [place] AST [Catalytic activity/Vol] 25 U/L Normal 13-35 [facility] Comment on above: Order Comment: Speci men Type: BLOOD SPECIMENOrdering Facility: [facility] Address: [address] [place] [address] Result Comment: Resu lts may be falsely increased due to interference from hemolysis. Suggest reorder as clinically indicated. Performed By: #### 2 4323-8, , 2776-07 ####[facility] LABCLIA [id number] [place] [address] [place] Bilirubin [Mass/Vol] 0.4 mg/dL Normal 0.2-1.3 [facility] Comment on above: Order Comment: Speci men Type: BLOOD SPECIMENOrdering Facility: [facility] Address: [address] [place] [address] Performed By: #### 2 4323-8, , 2776-07 ####[facility] LABCLIA [id number] [place] [address] [place] Calcium [Mass/Vol] 9.5 mg/dL Normal 8.5-10.2 [facility] Comment on above: Order Comment: Speci men Type: BLOOD SPECIMENOrdering Facility: [facility] Address: [address] Performed By: #### 2 4323-8, , 2776-07 ####[facility] LABCLIA [id number] [place] [address] [place] Chloride [Moles/Vol] 98 mmol/L Normal 97-105 [facility] Comment on above: Order Comment: Speci men Type: BLOOD SPECIMENOrdering Facility: [facility] Address: [address] [place] [address] Performed By: #### 2 4323-8, , 2776-07 ####[facility] LABCLIA [id number] [place] [address] [place] CO2 [Moles/Vol] 20 mmol/L Low 22-30 [facility] Comment on above: Order Comment: Speci men Type: BLOOD SPECIMENOrdering Facility: [facility] Address: [address] [place] [address] Performed By: #### 2 4323-8, , 2776-07 ####[facility] LABCLIA [id number] [place] [address] [place] Creatinine [Mass/Vol] 0.76 mg/dL Normal 0.58-0.96 [facility] Comment on above: Order Comment: Speci men Type: BLOOD SPECIMENOrdering Facility: [facility] Address: [address] [place] [address] Performed By: #### 2 4323-8, , 2776-07 ####[facility] LABIA [id number] [place] [address] [place] ESTIMATED GLOMERULAR FILTRATION RATE 85 mL/min/1.73m??? Normal >=60 [facility] Comment on above: Order Comment: Speci men Type: BLOOD SPECIMENOrdering Facility: [facility] Address: [address] [place] [address] Result Comment: Annmarie mated Glomerular Filtration Rate [...] Performed By: #### 2 4323-8, , 2776-07 ####[facility] LABCLIA [id number] [place] [address] [place] Glucose [Mass/Vol] 120 mg/dL High 74-99 [facility] Comment on above: Order Comment: Speci men Type: BLOOD SPECIMENOrdering Facility: [facility] Address: [address] [place] [phone] Result Comment: The [place] [employer] (ADA) provides guidance for cutoff [...] Standards of Medical Care in Diabetes 2016, [place] [employer]. Diabetes Care. 2016.39(Suppl 1). Performed By: #### 2 4323-8, , 2776-07 ####[facility] LABCLIA [id number] [place] [address] [place] Potassium [Moles/Vol] 4.4 mmol/L Normal 3.7-5.1 [facility] Comment on above: Order Comment: Speci men Type: BLOOD SPECIMENOrdering Facility: [facility] Address: [address] [place], [place] [phone] Performed By: #### 2 4323-8, , 2776-07 ####[facility] LABCLIA [id number] [place] [id number] [place] Protein [Mass/Vol] 6.6 g/dL Normal 6.3-8.0 [facility] Comment on above: Order Comment: Speci men Type: BLOOD SPECIMENOrdering Facility: [facility] Address: [address] [place] [phone] Performed By: #### 2 4323-8, , 2776-07 ####[facility] LABCLIA [id number] [place] [id number] [place] Sodium [Moles/Vol] 136 mmol/L Normal 136-144 [facility] Comment on above: Order Comment: Speci men Type: BLOOD SPECIMENOrdering Facility: [facility] Address: [place] [address] Performed By: #### 2 4323-8, , 2776-07 ####[facility] LABCLIA [id number] [address] Urea nitrogen [Mass/Vol] 15 mg/dL Normal 7-21 [facility] Comment on above: Order Comment: Speci men Type: BLOOD SPECIMENOrdering Facility: [facility] Address: [place] [address] Performed By: #### 2 4323-8, , 2776-07 ####[facility] LABCLIA [id number] [address] MEDICAL EMERon 11-03-2022 MEDICAL ELMER HNO ID: [id number] Author: Fauzia Mansfield APRN.FUR CUTTING MACHINE OPERATOR Service: Sepsis Emergency Response Team Author Type: [...] Hours Sepsis SERT Notifications Date Triggers 11/03/22 3568 File Doc Flowsheets Pulse: 108 Pulse: 113 MAP Non Invasive (Mean Arterial Pressure): 63 MAP Non Invasive (Mean Arterial Pressure): 63 BP: 165 BP: 114 Rule: [facility] NO DISCHARGE DATE [217390] WBC result: 19.77 k/uL Trending of last [...] November 03, 2022 TIME: 3:37 AM Normal [facility] Magnesium [Mass/Vol] 2.0 mg/dL Normal 1.7-2.3 [facility] Comment on above: Order Comment: Speci men Type: BLOOD SPECIMENOrdering Facility: [facility] Address: [address] [place] [address] Performed By: #### 2 4323-8, 87468-9, 2777 ####[facility] LABCLIA [id number] [place] [address] [place] Phosphate SerPl-mCncon 11-03 Phosphate [Mass/Vol] 3.8 mg/dL Normal 2.7-4.8 [facility] Comment on above: Order Comment: Speci men Type: BLOOD SPECIMENOrdering Facility: [facility] Address: [address] [place] [address] Performed By: #### 2 4323-8, 33054-3, 2777-1 ####[facility] LABCLIA [id number] [place] [address] [place] XR SMALL BOWEL SERIESon XR SMALL BOWEL SERIES * * *Final [...] OTHER: 150 ml of OMNIPAQUE 350 RESULT: Molasses Coloring Operator radiograph: NG/OG tube terminates at the gastric [...] CT 11/02/2022. IMPRESSION: LOW-GRADE/RESOLVING SMALL BOWEL OBSTRUCTION. Service Order Expediter: PSCTonie Transcribe Date/Time: Nov 03 2022 3:34P Dictated by : CINDY ZARAGOZA MD This examination was interpreted and the report reviewed and electronically signed by: CINDY ZARAGOZA MD on Nov 03 2022 3:36PM EST [id number] Normal [facility] CBC W Auto Differential pane l (Bld)on 11-02-2022 Basophils (Bld) [#/Vol] 0.08 10*3/uL Normal <0.11 [facility] Comment on above: Order Comment: Speci men Type: BLOOD SPECIMENOrdering Facility: [facility] Address: [address] [place], [place] [phone] Performed By: #### 5 7021-8 ####[facility] LABCLIA [id number] [address] [place] Basophils/100 WBC (Bld) 0.4 % Normal [facility] Comment on above: Order Comment: Speci men Type: BLOOD SPECIMENOrdering Facility: [facility] Address: [address] Performed By: #### 5 7021-8 ####[facility] LABCLIA [id number] [place] [address] [place] Differential cell count method Nom (Bld) Auto Normal [facility] Comment on above: Order Comment: Speci men Type: BLOOD SPECIMENOrdering Facility: [facility] Address: [address] Performed By: #### 5 7021-8 ####[facility] LABCLIA [id number] [place] [address] [place] Eosinophils (Bld) [#/Vol] 10*3/uL Normal <0.46 [facility] Comment on above: Order Comment: Speci men Type: BLOOD SPECIMENOrdering Facility: [facility] Address: [address] Performed By: #### 5 7021-8 ####[facility] LABCLIA [id number] [address] [place] Eosinophils/100 WBC (Bld) 0.0 % Normal [facility] Comment on above: Order Comment: Speci men Type: BLOOD SPECIMENOrdering Facility: [facility] Address: [address] Performed By: #### 5 7021-8 ####[facility] LABCLIA [id number] [place] [address] [place] Erythrocyte distribution width (RBC) [Ratio] 13.1 % Normal 11.5-15.0 [facility] Comment on above: Order Comment: Speci men Type: BLOOD SPECIMENOrdering Facility: [facility] Address: [address] Performed By: #### 5 7021-8 ####[facility] LABCLIA [id number] [place] [address] [place] Hematocrit (Bld) [Volume fraction] 51.2 % High 36.0-46.0 [facility] Comment on above: Order Comment: Speci men Type: BLOOD SPECIMENOrdering Facility: [facility] Address: [address] [place] [address] Performed By: #### 5 7021-8 ####[facility] LABIA [id number] [place] [address] [place] Hemoglobin (Bld) [Mass/Vol] 18.1 g/dL High 11.5-15.5 [facility] Comment on above: Order Comment: Speci men Type: BLOOD SPECIMENOrdering Facility: [facility] Address: [address] [place] [address] Performed By: #### 5 7021-8 ####[facility] LABIA [id number] [place] [address] [place] Immature granulocytes (Bld) [#/Vol] 0.11 10*3/uL High <0.10 [facility] Comment on above: Order Comment: Speci men Type: BLOOD SPECIMENOrdering Facility: [facility] Address: [address] [place], [place] [address] Performed By: #### 5 7021-8 ####[facility] LABIA [id number] [place] [address] [place] Immature granulocytes/100 WBC (Bld) 0.6 % Normal [facility] Comment on above: Order Comment: Speci men Type: BLOOD SPECIMENOrdering Facility: [facility] Address: [address] [place], [place] [address] Performed By: #### 5 7021-8 ####[facility] LABIA [id number] [place] [address] [place] Lymphocytes (Bld) [#/Vol] 1.14 10*3/uL Normal 1.00-4.00 [facility] Comment on above: Order Comment: Speci men Type: BLOOD SPECIMENOrdering Facility: [facility] Address: [address] [place] [address] Performed By: #### 5 7021-8 ####[facility] LABIA [id number] [address] STATES OF [facility] Lymphocytes/100 WBC (Bld) 5.8 % Normal [facility] Comment on above: Order Comment: Speci men Type: BLOOD SPECIMENOrdering Facility: [facility] Address: [address] [place] [address] Performed By: #### 5 7021-8 ####[facility] LABIA [id number] [address] [place] MCH (RBC) [Entitic mass] 30.2 pg Normal 26.0-34.0 [facility] Comment on above: Order Comment: Speci men Type: BLOOD SPECIMENOrdering Facility: [facility] Address: [address] [place] [address] Performed By: #### 5 7021-8 ####[facility] LABIA [id number] [address] [place] MCHC (RBC) [Mass/Vol] 35.4 g/dL Normal 30.5-36.0 [facility] Comment on above: Order Comment: Speci men Type: BLOOD SPECIMENOrdering Facility: [facility] Address: [address] [place], [place] [address] Performed By: #### 5 7021-8 ####[facility] LABIA [id number] [address] [place] MCV (RBC) [Entitic vol] 85.3 fL Normal 80.0-100.0 [facility] Comment on above: Order Comment: Speci men Type: BLOOD SPECIMENOrdering Facility: [facility] Address: [address] [place], [place] [address] Performed By: #### 5 7021-8 ####[facility] LABCLIA [id number] [place] [address] [place] Monocytes (Bld) [#/Vol] 0.94 10*3/uL High <0.87 [facility] Comment on above: Order Comment: Speci men Type: BLOOD SPECIMENOrdering Facility: [facility] Address: [address] Performed By: #### 5 7021-8 ####[facility] LABCLIA [id number] [address] [place] Monocytes/100 WBC (Bld) 4.8 % Normal [facility] Comment on above: Order Comment: Speci men Type: BLOOD SPECIMENOrdering Facility: [facility] Address: [address] [place], [place] [address] Performed By: #### 5 7021-8 ####[facility] LABCLIA [id number] [place] [address] [place] Neutrophils (Bld) [#/Vol] 17.50 10*3/uL High 1.45-7.50 [facility] Comment on above: Order Comment: Speci men Type: BLOOD SPECIMENOrdering Facility: [facility] Address: [address] Performed By: #### 5 7021-8 ####[facility] LABCLIA [id number] [place] [address] [place] Neutrophils/100 WBC (Bld) 88.4 % Normal [facility] Comment on above: Order Comment: Speci men Type: BLOOD SPECIMENOrdering Facility: [facility] Address: [address] [place], [place] [address] Performed By: #### 5 7021-8 ####[facility] LABCLIA [id number] [place] [address] [place] Nucleated RBC (Bld) [#/Vol] 10*3/uL Normal <0.01 [facility] Comment on above: Order Comment: Speci men Type: BLOOD SPECIMENOrdering Facility: [facility] Address: [address] [place], [place] [address] Performed By: #### 5 7021-8 ####[facility] LABCLIA [id number] [place] [address] [place] Nucleated RBC/100 WBC (Bld) [Ratio] 0.0 /100 WBC Normal [facility] Comment on above: Order Comment: Speci men Type: BLOOD SPECIMENOrdering Facility: [facility] Address: [address] [place], [place] [address] Performed By: #### 5 7021-8 ####[facility] LABCLIA [id number] [place] [address] [place] Platelet mean volume (Bld) [Entitic vol] 10.5 fL Normal 9.0-12.7 [facility] Comment on above: Order Comment: Speci men Type: BLOOD SPECIMENOrdering Facility: [facility] Address: [address] [place], [place] [address] Performed By: #### 5 7021-8 ####[facility] LABCLIA [id number] [place] [address] [place] Platelets (Bld) [#/Vol] 352 10*3/uL Normal 150-400 [facility] Comment on above: Order Comment: Speci men Type: BLOOD SPECIMENOrdering Facility: [facility] Address: [address] [place], [place] [address] Performed By: #### 5 7021-8 ####[facility] LABCLIA [id number] [place] [address] [place] RBC (Bld) [#/Vol] 6.00 10*6/uL High 3.90-5.20 [facility] Comment on above: Order Comment: Speci men Type: BLOOD SPECIMENOrdering Facility: [facility] Address: [address] [place] [address] Performed By: #### 5 7021-8 ####[facility] LABCLIA [id number] [place] [address] [place] WBC (Bld) [#/Vol] 19.77 10*3/uL High 3.70-11.00 [facility] Comment on above: Order Comment: Speci men Type: BLOOD SPECIMENOrdering Facility: [facility] Address: [address] [place] [address] Performed By: #### 5 7021-8 ####[facility] LABCLIA [id number] [address] [place] CONSULTon 11-02-2022 CONSULT HNO ID: [id number] Author: Kassandra Banks MD Service: General Surgery [...] preliminary pending discussion with senior resident and range conservationist surgery staff Kassandra Banks MD Acute Care Surgery (ACS) Day Floor Pager: [phone] Acute Care Surgery (ACS) Day Consults Pager: [phone] On nights (6 pm to 6 am) and on Weekends/Holidays, please page the on-call pager: [phone] SUBJECTIVE CHIEF COMPLAINT: abdominal pain, nausea HPI: [...] of her operations have been at the [facility] and we have no outside records. She had a bowel obstruction in June also involving her midline hernia that resolved with non operative management. She was referred [facility] follow[facility] after this obstruction due to her complex abdominal surgical history, and was actually scheduled for a clinic visit with Dr. Gonzalez today. [facility] [...] swelling, hypert (more content not included)... Normal [facility] CT ABD/PEL W IVCONon 023 CT ABD/PEL W IVCON * * *Final Report* * * DATE OF EXAM: Nov 02 2022 2:00PM [facility] 0530 - CT ABD/PEL W IVCON [...] or destructive osseous lesions. Lower thorax: Unremarkable. Molasses Coloring Operator (topogram) images: No additional findings. IMPRESSION: Small bowel obstruction with transition point in the region of the midline ventral pelvic hernia as described. Mild associated enteritis of the involved segments. Service Order Expediter: [id number] Transcribe Date/Time: Nov 02 2022 2:01P Dictated by : KYRIE GRANADOS MD This examination was interpreted and the report reviewed and electronically signed by: MEGHAN PETERSEN DO on Nov 02 2022 2:59PM EST [id number] Normal [facility] Comprehensive metabolic 2000 panelon 11-02-2022 Albumin [Mass/Vol] 4.7 g/dL Normal 3.9-4.9 [facility] Comment on above: Order Comment: Speci men Type: BLOOD SPECIMENOrdering Facility: [facility] Address: [address] [place] [address] Performed By: #### 2 4323-8 ####[facility] LABCLIA [id number] [place] [address] [place] ALP [Catalytic activity/Vol] 94 U/L Normal 34-123 [facility] Comment on above: Order Comment: Speci men Type: BLOOD SPECIMENOrdering Facility: [facility] Address: [address] [place] [address] Performed By: #### 2 4323-8 ####[facility] LABIA [id number] [address] [place] ALT [Catalytic activity/Vol] 32 U/L Normal 7-38 [facility] Comment on above: Order Comment: Speci men Type: BLOOD SPECIMENOrdering Facility: [facility] Address: [address] [place] [address] Result Comment: Resu lts may be falsely increased due to interference from hemolysis. Suggest reorder as clinically indicated. Performed By: #### 2 4323-8 ####[facility] LABIA [id number] [place] [address] [place] Anion gap [Moles/Vol] 17 mmol/L Normal 9-18 [facility] Comment on above: Order Comment: Speci men Type: BLOOD SPECIMENOrdering Facility: [facility] Address: [address] [place] [address] Performed By: #### 2 4323-8 ####[facility] LABCLIA [id number] [address] [id number] [address] [place] AST [Catalytic activity/Vol] 28 U/L Normal 13-35 [facility] Comment on above: Order Comment: Speci men Type: BLOOD SPECIMENOrdering Facility: [facility] Address: [address] [place] [address] Result Comment: Resu lts may be falsely increased due to interference from hemolysis. Suggest reorder as clinically indicated. Performed By: #### 2 4323-8 ####[facility] LABCLIA [id number] [place] [address] [place] Bilirubin [Mass/Vol] 0.4 mg/dL Normal 0.2-1.3 [facility] Comment on above: Order Comment: Speci men Type: BLOOD SPECIMENOrdering Facility: [facility] Address: [address] [place] [address] Performed By: #### 2 4323-8 ####[facility] LABCLIA [id number] [place] [address] [place] Calcium [Mass/Vol] 10.9 mg/dL High 8.5-10.2 [facility] Comment on above: Order Comment: Speci men Type: BLOOD SPECIMENOrdering Facility: [facility] Address: [address] [place] [address] Performed By: #### 2 4323-8 ####[facility] LABCLIA [id number] [place] [address] [place] Chloride [Moles/Vol] 93 mmol/L Low 97-105 [facility] Comment on above: Order Comment: Speci men Type: BLOOD SPECIMENOrdering Facility: [facility] Address: [address] [place] [address] Performed By: #### 2 4323-8 ####[facility] LABCLIA [id number] [place] [address] [place] CO2 [Moles/Vol] 22 mmol/L Normal 22-30 [facility] Comment on above: Order Comment: Speci men Type: BLOOD SPECIMENOrdering Facility: [facility] Address: [address] [address] Performed By: #### 2 4323-8 ####[facility] LABIA [id number] [address] [place] Creatinine [Mass/Vol] 0.83 mg/dL Normal 0.58-0.96 [facility] Comment on above: Order Comment: Speci men Type: BLOOD SPECIMENOrdering Facility: [facility] Address: [address] [address] Performed By: #### 2 4323-8 ####[facility] LABIA [id number] [address] [place] ESTIMATED GLOMERULAR FILTRATION RATE 76 mL/min/1.73m??? Normal >=60 [facility] Comment on above: Order Comment: Speci men Type: BLOOD SPECIMENOrdering Facility: [facility] Address: [address] [address] Result Comment: Annmarie mated Glomerular Filtration Rate [...] actual GFR. Performed By: #### 2 4323-8 ####[facility] LABIA [id number] [place] [address] [place] Glucose [Mass/Vol] 159 mg/dL High 74-99 [facility] Comment on above: Order Comment: Speci men Type: BLOOD SPECIMENOrdering Facility: [facility] Address: [address] [address] Result Comment: The [place] [employer] (ADA) provides guidance for cutoff [...] Standards of Medical Care in Diabetes 2016, [place] [employer]. Diabetes Care. 2016.39(Suppl 1). Performed By: #### 2 4323-8 ####[facility] LABCLIA [id number] [place] [address] [place] Potassium [Moles/Vol] 5.0 mmol/L Normal 3.7-5.1 [facility] Comment on above: Order Comment: Jessica rich Type: BLOOD SPECIMENOrdering Facility: [facility] Address: [address] [place] [address] Performed By: #### 2 4323-8 ####[facility] LABIA [id number] [place] [address] [place] Protein [Mass/Vol] 8.2 g/dL High 6.3-8.0 [facility] Comment on above: Order Comment: Sandrinei hilario Type: BLOOD SPECIMENOrdering Facility: [facility] Address: [address] [place] [address] Performed By: #### 2 4323-8 ####[facility] LABIA [id number] [place] [address] [place] Sodium [Moles/Vol] 132 mmol/L Low 136-144 [facility] Comment on above: Order Comment: Sandrinei men Type: BLOOD SPECIMENOrdering Facility: [facility] Address: [address] [place] [address] Performed By: #### 2 4323-8 ####[facility] LABIA [id number] [place] [address] [place] Urea nitrogen [Mass/Vol] 21 mg/dL Normal 7-21 [facility] Comment on above: Order Comment: Speci men Type: BLOOD SPECIMENOrdering Facility: [facility] Address: [address] [phone] Performed By: #### 2 4323-8 ####[facility] LABCLIA [id number] [id number] ED NOTEon 11-02-2022 ED NOTE HNO ID: [id number] Author: Fauzia Connor RN Service: Emergency Medicine Author Type: Registered Nurse Type: ED Notes Filed: 11/02/2022 9:44 PM Note Text: Amitriptyline given at 21:43, suction to NG tube paused. Normal [facility] ED NOTE HNO ID: [id number] Author: Gerber Paz Service: Emergency Medicine Author Type: Assistant Financial Accountant and Brick Or Block Maker Type: ED Notes Filed: 11/02/2022 12:24 PM Note Text: Labs sent Normal [facility] ED PROV NOTEon 11-02-2022 ED PROV NOTE HNO ID: [id number] Author: Tejinder Church PA-C Service: Emergency Medicine Author Type: Physician Rail Operations Controller Type: ED Provider Notes Filed: 11/02/2022 5:55 [...] AM ED Provider Note Patient Name: Lidia Oneill : 1955 SERVICE DATE: 11/02/22 History Patient presents with: Nausea AND Vomiting: Pt with hx of SBO. Reports nausea and vomiting since 1899 yesterday; none on her trip up to [place]. Pt states has not had a BM [...] 17.50 (*) 1.45 - 7.50 k/uL Abs Dauphin 0.94 (*) <0.87 k/uL Abs Immature Gran 0.11 (*) <0.10 k/uL All other components within normal limits ED BG VENOUS/LAB PANELS - Abnormal; Notable for the following components: Lactate (POCT) 2.1 (*) 0.5 - 2.0 mmol/L All other components within normal limits Narrative: Meter ID:ED Location:ED [facility], [address] [place] [address], [address] PROTHROMBIN TIME/PT - Normal ACTIVATED PTT - Normal Narrative: Unfractionated Heparin Therapeutic Ranges: Standard Heparin Nomogram: 53 to 78 seconds (anti-Xa level of 0.3 to 0.7 U/ml) Low Dose/ACS Nomogram: 49 to 67 seconds (anti-Xa level of 0.2 to 0.5 (more content not included)... Normal [facility] PT panel Coag (PPP)on 2022 INR Coag (PPP) [Relative time] 1.1 {INR} Normal 0.9-1.3 [facility] Comment on above: Order Comment: Jessica rich Type: BLOOD SPECIMENOrdering Facility: [facility] Address: [address] [phone] Result Comment: Camille min K Antagonist (VKA) Therapeutic Range: INR 2 to 3 (Target INR of 2.5) Note: For patients treated with VKA drugs, such as warfarin, the [place] [employer] 2012 Guideline recommends [...] Chest 2012, 141:7S-47S Kade RA, et al. [facility] 2017, 70: 252-289 Performed By: #### 3 4528-0, 02971-9 ####[facility] LABCLIA [id number] [facility] [id number] [place] PT Coag (PPP) [Time] 11.3 s Normal 9.7-13.0 [facility] Comment on above: Order Comment: Jessica rich Type: BLOOD SPECIMENOrdering Facility: [facility] Address: [address] [place] [address] Performed By: #### 3 4528-0, 99556-3 ####[facility] LABCLIA [id number] [place] [address] [place] TYPE + SCREENon 11-02-2022 ABO O Normal [facility] Comment on above: Order Comment: Speci men Type: BLOOD SPECIMENOrdering Facility: [facility] Address: [address] [place] [address] Performed By: #### T SCR ####CC [facility] BLOOD BANKCLIA [id number] [address] [place] HISTORICAL AB SCR STATUS Negative Normal [facility] Comment on above: Order Comment: Speci men Type: BLOOD SPECIMENOrdering Facility: [facility] Address: [address] [place] [address] Performed By: #### T SCR ####[facility] BLOOD BANKCLIA [id number] [address] [place] Rh Nom (Bld) Positive Normal [facility] Comment on above: Order Comment: Speci men Type: BLOOD SPECIMENOrdering Facility: [facility] Address: [address] [place] [address] Performed By: #### T SCR ####[facility] BLOOD BANKCLIA [id number] [place] [address] [place] TYPE AND SCREEN EXPIRATION 11/05/2022 23:59 Normal [facility] Comment on above: Order Comment: Speci men Type: BLOOD SPECIMENOrdering Facility: [facility] Address: [address] [place] [address] Performed By: #### T SCR ####[facility] BLOOD BANKCLIA [id number] [place] [address] [place] XR ABDOMEN 1V SPECIFYon XR ABDOMEN 1V SPECIFY * * *Final [...] significant abnormality. IMPRESSION: Feeding tube as described. Service Order Expediter: PSCB Transcribe Date/Time: Nov 02 2022 6:44P Dictated by : SKINNY CISNEROS MD This examination was interpreted and the report reviewed and electronically signed by: SKINNY CISNEROS MD on Nov 02 2022 6:45PM EST [id number] Normal [facility] aPTT PPPon 11-02-2022 aPTT Coag (PPP) [Time] 30.0 s Normal 23.0-32.4 [facility] Comment on above: Order Comment: Speci men Type: BLOOD SPECIMENOrdering Facility: [facility] Address: [address] [place] [address] Performed By: #### 3 4528-0, 82543-5 ####[facility] LABCLIA [id number] [place] [address] [place] Basophil percentageOrdered B y: Dr. Chan on 09-10-2022 Creatinine [Mass/Vol] 1.0 mg/dL 0.55-1.02 [facility] - Chemistry and C hemistry - challengeOrdered By: Dr. Chan on 09-10-2022 GFR/1.73 sq M.predicted among non-blacks MDRD (S/P/Bld) [Vol rate/Area] 57.0000 mL/min/{1.73_m2} >60 [facility] Absolute lymphocyte countOrd ered By: Dr. Minor on 06-13-2022 Lymphocytes Auto (Unsp spec) [#/Vol] 1.08 10*3/uL 0.83-4.51 [facility] Basophil percentageOrdered B y: Dr. Minor on 06-13-2022 Basophils/100 WBC (Bld) 0.5 % 0-1 [facility] Chloride [Moles/Vol] 108 mmol/L 98-107 [facility] Eosinophils/100 WBC (Bld) 1.6 % 0-5 [facility] Glucose [Mass/Vol] 100 mg/dL 74-106 [facility] Comment on above: Fasting Glucose resu lt from 100 to 125 mg/dL suggests IMPAIRED HOMEOSTASIS per A.D.A. criteria. Neutrophils (Bld) [#/Vol] 6.1 10*3/uL 2.0-7.7 [facility] Neutrophils/100 WBC (Bld) 74.5 % 47-70 [facility] Potassium [Moles/Vol] 3.6 mmol/L 3.5-5.1 [facility] Sodium [Moles/Vol] 138 mmol/L 136-145 [facility] WBC (Bld) [#/Vol] 8.2 10*3/uL 4.4-11.0 [facility] Blood erythrocytes count (nu mber/volume)Ordered By: Dr. Minor on 06-13-2022 RBC (Bld) [#/Vol] 4.27 10*6/uL 4.2-5.4 [facility] Blood hemoglobin measurement (mass/volume)Ordered By: Dr. Minor on 06-13-2022 Hemoglobin (Bld) [Mass/Vol] 12.5 g/dL 12.0-15.0 [facility] Blood lymphocytes/100 leukoc ytesOrdered By: Dr. Minor on 06-13-2022 Lymphocytes/100 WBC (Bld) 13.2 % 19-41 [facility] Blood monocytes/100 leukocyt esOrdered By: Dr. Minor on 06-13-2022 Monocytes/100 WBC (Bld) 9.3 % 0-10 [facility] Blood platelet mean volumeOr dered By: Dr. Minor on 06-13-2022 Platelet mean volume (Bld) [Entitic vol] 10.9 fL 6.2-12.0 [facility] Determination of erythrocyte mean corpuscular volume (MCV)Ordered By: Dr. Minor on 06-13-2022 MCV (RBC) [Entitic vol] 90.2 fL 81-99 [facility] Hematocrit Auto (Bld) [Volum e fraction]Ordered By: Dr. Minor on 06-13-2022 Hematocrit (Bld) [Volume fraction] 38.5 % 37-47 [facility] Laboratory - Chemistry and C hemistry - challengeOrdered By: Dr. Minor on 06-13-2022 CO2 [Moles/Vol] 25.0 mmol/L 21.0-32.0 [facility] Urea nitrogen/Creatinine [Mass ratio] 14.0 mg/mg 10-20 [facility] Laboratory - Hematology and Cell countsOrdered By: Dr. Minor on 06-13-2022 Erythrocyte distribution width (RBC) [Entitic vol] 43.8 fL 35.1-43.9 [facility] Erythrocyte distribution width (RBC) [Ratio] 13.3 % 11.6-14.6 [facility] Immature granulocytes/100 WBC (Bld) 0.900 % 0.0-0.9 [facility] Comment on above: IG% - Immature Granu locytes (promyelocytes, myelocytes and metamyelocytes) > 1% indicates that a LEFT SHIFT is Present. MCH (RBC) [Entitic mass] 29.3 pg 27.0-32.0 [facility] Nucleated RBC/100 WBC (Bld) [Ratio] 0 % 0-5 [facility] MCHC Auto (RBC) [Mass/Vol]Or dered By: Dr. Minor on 06-13-2022 MCHC (RBC) [Mass/Vol] 32.5 g/dL 32-36 [facility] No Panel InformationOrdered By: Dr. Minor on 06-13-2022 Estimated Creatinine Clearance Calc 42.59 ml/min [facility] Estimated GFR (MDRD) Amer 157 mL/min >60 [facility] Comment on above: GFR Calc Estimated GFR (MDRD) Non-Af Amer 130 mL/min >60 [facility] Comment on above: Non- GFR Calc Platelets bldOrdered By: Dr. Minor on 06-13-2022 Platelets (Bld) [#/Vol] 189 10*3/uL 150-450 [facility] Serum or plasma calcium ag urement (mass/volume)Ordered By: Dr. Minor on 06-13-2022 Calcium [Mass/Vol] 7.7 mg/dL 8.5-10.1 [facility] Serum or plasma creatinine m easurement (mass/volume)Ordered By: Dr. Minor on 06-13-2022 Creatinine [Mass/Vol] 0.50 mg/dL 0.55-1.02 [facility] Comment on above: The validity of the calculated GFR & GFRAA in patients over 70 years has not been determined. Clinical correlation is essential. Serum or plasma urea nitroge n measurement (mass/volume)Ordered By: Dr. Minor on 06-13-2022 Urea nitrogen [Mass/Vol] 7 mg/dL 7-18 [facility] Thin prep Papanicolaou smear with manual screeningOrdered By: Dr. Minor on 06-13-2022 Thin prep Papanicolaou smear with manual screening 5 5-15 [facility] Basophil percentageOrdered B y: Dr. Ocampo on 06-12-2022 Bilirubin [Mass/Vol] 0.30 mg/dL 0.20-1.00 [facility] Comment on above: For patients on eltr ombopag therapy, use of Dimension Dyer TBIL is not recommended. Protein [Mass/Vol] 5.9 g/dL 6.4-8.2 [facility] Laboratory - Chemistry and C hemistry - challengeOrdered By: Dr. Ocampo on 06-12-2022 ALP [Catalytic activity/Vol] 61 U/L 45-117 [facility] ALT [Catalytic activity/Vol] 24 U/L 13-56 [facility] Globulin (S) [Mass/Vol] 3.1 g/dL 2.2-4.2 [facility] Serum or plasma albumin ag urement (mass/volume)Ordered By: Dr. Ocampo on 06-12-2022 Albumin [Mass/Vol] 2.8 g/dL 3.2-5.0 [facility] Serum or plasma albumin/glob ulin mass ratioOrdered By: Dr. Ocampo on 06-12-2022 Albumin/Globulin [Mass ratio] 0.9 {ratio} 0.9-2.4 [facility] Thin prep Papanicolaou smear with manual screeningOrdered By: Dr. Ocampo on 06-12-2022 Thin prep Papanicolaou smear with manual screening 15 U/L 15-37 [facility] Basophil percentageOrdered B y: Dr. Cantrell on 06-11-2022 Basophil percentage 5-10 SEEN /hpf 0-5 [facility] Bilirubin Test strip Ql (U)O rdered By: Dr. Cantrell on 06-11-2022 Bilirubin Ql (U) 1 mg/dL Negative [facility] Comment on above: COLOR OF URINE MAY A FFECT DIPSTICK RESULTS. COVID-19 virus antigen assay Ordered By: Dr. Cantrell on 06-11-2022 SARS-CoV-2 (COVID-19) Ag IA.rapid Ql (Resp) [facility] Hyaline casts LM.LPF (Urine sed) [#/Area]Ordered By: Dr. Cantrell on 06-11-2022 Hyaline casts (Urine sed) [#/Area] 10 /[LPF] 0-5 [facility] Ketones Test strip Ql (U)Ord ered By: Dr. Cantrell on 06-11-2022 Ketones Ql (U) 5 mg/dl Negative [facility] Mucus LM Ql (Urine sed)Order ed By: Dr. Cantrell on 06-11-2022 Mucus Ql (Urine sed) 0 SEEN /hpf [facility] Nitrite Test strip Ql (U)Ord ered By: Dr. Cantrell on 06-11-2022 Nitrite Ql (U) Negative Negative [facility] Protein Test strip Ql (U)Ord ered By: Dr. Cantrell on 06-11-2022 Protein Ql (U) 30 mg/dl Negative [facility] Squamous epithelial cells de tection in urine sediment by light microscopyOrdered By: Dr. Cantrell on 06-11-2022 Epithelial cells.squamous LM Ql (Urine sed) 0-5 SEEN /hpf 5-10 [facility] Urine blood detectionOrdered By: Dr. Cantrell on 06-11-2022 RBC Ql (U) 50 /ul Negative [facility] RBC Ql (U) 0-5 SEEN /hpf 0-5 [facility] Urine clarityOrdered By: Dr. Cantrell on 06-11-2022 Clarity (U) Clear Clear [facility] Urine color determinationOrd ered By: Dr. Cantrell on 06-11-2022 Color (U) Yellow Yellow [facility] Urine glucose detectionOrder ed By: Dr. Cantrell on 06-11-2022 Glucose Ql (U) Normal mg/dl Normal [facility] Urine leukocyte esterase det ection by dipstickOrdered By: Dr. Cantrell on 06-11-2022 Leukocyte esterase Test strip Ql (U) 500 /ul Negative [facility] Urine pHOrdered By: Dr. Eva disla on 06-11-2022 pH (U) 6.0 [pH] 5.0 - 8.0 [facility] Urine sediment bacteria coun t by microscopy (number/high power field)Ordered By: Dr. Cantrell on 06-11-2022 Bacteria LM.HPF (Urine sed) [#/Area] 1 /[HPF] None Seen [facility] Urine sediment renal epithel ial cell count by microscopy (number/high power field)Ordered By: Dr. Cantrell on 06-11-2022 Epithelial cells.renal LM.HPF (Urine sed) [#/Area] 0 /[HPF] 0-5 [facility] Urine specific gravity measu rementOrdered By: Dr. Cantrell on 06-11-2022 Specific gravity (U) [Rel density] 1.020 1.002-1.030 [facility] Urobilinogen Auto test strip Ql (U)Ordered By: Dr. Cantrell on 06-11-2022 Urobilinogen Ql (U) Normal mg/dl Normal [facility] Absolute lymphocyte counton 06-10-2022 Lymphocytes Auto (Unsp spec) [#/Vol] 1.51 10*3/uL 0.83-4.51 [facility] Work Phone: Basophil percentageon 2021 Basophils/100 WBC (Bld) 0.4 % 0-1 [facility] Work Phone: Bilirubin [Mass/Vol] 0.40 mg/dL 0.20-1.00 [facility] Work Phone: Comment on above: For patients on eltr ombopag therapy, use of Dimension Dyer TBIL is not recommended. Chloride [Moles/Vol] 97 mmol/L 98-107 [facility] Work Phone: Eosinophils/100 WBC (Bld) 0.1 % 0-5 [facility] Work Phone: Glucose [Mass/Vol] 137 mg/dL 74-106 [facility] Work Phone: Comment on above: Fasting Glucose resu lt greater than or equal to 126 mg/dL suggests DIABETES MELLITUS per A.D.A. criteria. Neutrophils (Bld) [#/Vol] 11.0 10*3/uL 2.0-7.7 [facility] Work Phone: Neutrophils/100 WBC (Bld) 79.1 % 47-70 [facility] Work Phone: Potassium [Moles/Vol] 4.0 mmol/L 3.5-5.1 [facility] Work Phone: Protein [Mass/Vol] 8.1 g/dL 6.4-8.2 [facility] Work Phone: Sodium [Moles/Vol] 132 mmol/L 136-145 [facility] Work Phone: WBC (Bld) [#/Vol] 13.9 10*3/uL 4.4-11.0 [facility] Work Phone: Basophil percentageOrdered B y: Dr. Cantrell on 06-10-2022 Lactate [Moles/Vol] 1.8 mmol/L 0.4-2.0 [facility] Blood erythrocytes count (nu mber/volume)on 06-10-2022 RBC (Bld) [#/Vol] 6.02 10*6/uL 4.2-5.4 [facility] Work Phone: Blood hemoglobin measurement (mass/volume)on 06-10-2022 Hemoglobin (Bld) [Mass/Vol] 18.1 g/dL 12.0-15.0 [facility] Work Phone: Comment on above: CRITICAL VALUE VERIF IED. CALLED TO Patti RICE RN ER06/10/22 2340 Irving Herrera.RESULTS READ BACK BY SAME. Blood lymphocytes/100 leukoc yteson 06-10-2022 Lymphocytes/100 WBC (Bld) 10.9 % 19-41 [facility] Work Phone: Blood manual differential co mment interpretation (narrative result)Ordered By: Dr. Cantrell on 06-10-2022 Manual differential comment Tramaine (Bld) [Interp] SCANNED [facility] Blood monocytes/100 leukocyt eson 06-10-2022 Monocytes/100 WBC (Bld) 8.3 % 0-10 [facility] Work Phone: Blood platelet mean volumeon 06-10-2022 Platelet mean volume (Bld) [Entitic vol] 10.6 fL 6.2-12.0 [facility] Work Phone: Determination of erythrocyte mean corpuscular volume (MCV)on 06-10-2022 MCV (RBC) [Entitic vol] 86.0 fL 81-99 [facility] Work Phone: Hematocrit Auto (Bld) [Volum e fraction]on 06-10-2022 Hematocrit (Bld) [Volume fraction] 51.8 % 37-47 [facility] Work Phone: Laboratory - Chemistry and C hemistry - challengeon 06-10-2022 ALP [Catalytic activity/Vol] 86 U/L 45-117 [facility] Work Phone: ALT [Catalytic activity/Vol] 31 U/L 13-56 [facility] Work Phone: CO2 [Moles/Vol] 30.0 mmol/L 21.0-32.0 [facility] Work Phone: Globulin (S) [Mass/Vol] 4.3 g/dL 2.2-4.2 [facility] Work Phone: Urea nitrogen/Creatinine [Mass ratio] 24.4 mg/mg 10-20 [facility] Work Phone: [phone] Laboratory - Chemistry and C hemistry - challengeOrdered By: Dr. Cantrell on 06-10-2022 Lipase [Catalytic activity/Vol] 70 U/L 73-393 [facility] Laboratory - Hematology and Cell countson 06-10-2022 Erythrocyte distribution width (RBC) [Entitic vol] 41.2 fL 35.1-43.9 [facility] Work Phone: [phone] Erythrocyte distribution width (RBC) [Ratio] 13.2 % 11.6-14.6 [facility] Work Phone: [phone] Immature granulocytes/100 WBC (Bld) 1.200 % 0.0-0.9 [facility] Work Phone: [phone] Comment on above: IG% - Immature Granu locytes (promyelocytes, myelocytes and metamyelocytes) > 1% indicates that a LEFT SHIFT is Present. MCH (RBC) [Entitic mass] 30.1 pg 27.0-32.0 [facility] Work Phone: [phone] Nucleated RBC/100 WBC (Bld) [Ratio] 0 % 0-5 [facility] Work Phone: [phone] MCHC Auto (RBC) [Mass/Vol]on 06-10-2022 MCHC (RBC) [Mass/Vol] 34.9 g/dL 32-36 [facility] Work Phone: [phone] Panel Informationon 06-10 Estimated Creatinine Clearance Calc 47.16 ml/min [facility] Work Phone: [phone] Estimated GFR (MDRD) Amer 89 mL/min >60 [facility] Work Phone: [phone] Comment on above: GFR Calc Estimated GFR (MDRD) Non-Af Amer 74 mL/min >60 [facility] Work Phone: [phone] Comment on above: Non- GFR Calc Platelets bldon 06-10-2022 Platelets (Bld) [#/Vol] 331 10*3/uL 150-450 [facility] Work Phone: [phone] Review by pathologiston Pathologist review Tramaine (Unsp spec) [Interp] Alia osorio [facility] Work Phone: Review by pathologistOrdered By: Dr. Cantrell on 06-10-2022 Pathologist review Tramaine (Unsp spec) [Interp] Reviewed [facility] Comment on above: Previous reported re sult: Alia osorio Edited by: MARLENE on 06/12/22:947Neutrophilic leukocytosis.Polycythemia Clinical correlation necessary.Ivan Sanz M.D. 06/12/22 AMENDED REPORT 06/12/2248 PATH REV previously reported as: Alia osorio Serum or plasma albumin ag urement (mass/volume)on 06-10-2022 Albumin [Mass/Vol] 3.8 g/dL 3.2-5.0 [facility] Work Phone: Serum or plasma albumin/glob ulin mass ratioon 06-10-2022 Albumin/Globulin [Mass ratio] 0.9 {ratio} 0.9-2.4 [facility] Work Phone: [phone] Serum or plasma calcium ag urement (mass/volume)on 06-10-2022 Calcium [Mass/Vol] 9.9 mg/dL 8.5-10.1 [facility] Work Phone: Serum or plasma creatinine m easurement (mass/volume)on 06-10-2022 Creatinine [Mass/Vol] 0.82 mg/dL 0.55-1.02 [facility] Work Phone: Comment on above: The validity of the calculated GFR & GFRAA in patients over 70 years has not been determined. Clinical correlation is essential. Serum or plasma urea nitroge n measurement (mass/volume)on 06-10-2022 Urea nitrogen [Mass/Vol] 20 mg/dL 7-18 [facility] Work Phone: Thin prep Papanicolaou smear with manual screeningon 06-10-2022 Thin prep Papanicolaou smear with manual screening 18 U/L 15-37 [facility] Work Phone: [phone] Thin prep Papanicolaou smear with manual screening 5 5-15 [facility] Work Phone: Absolute lymphocyte counton 02-12-2022 Lymphocytes Auto (Unsp spec) [#/Vol] 2.01 10*3/uL 0.83-4.51 [facility] Work Phone: Basophil percentageon 2021 Basophils/100 WBC (Bld) 0.8 % 0-1 [facility] Work Phone: [phone] Bilirubin [Mass/Vol] 0.30 mg/dL 0.20-1.00 [facility] Work Phone: Comment on above: For patients on eltr ombopag therapy, use of Dimension Dyer TBIL is not recommended. Chloride [Moles/Vol] 102 mmol/L 98-107 [facility] Work Phone: Cholesterol [Mass/Vol] 215 mg/dL <200 [facility] Work Phone: Comment on above: <200 mg/dL Desirable 200-240 mg/dL Borderline >240 mg/dL High Risk Eosinophils/100 WBC (Bld) 1.9 % 0-5 [facility] Work Phone: Glucose [Mass/Vol] 104 mg/dL 74-106 [facility] Work Phone: Comment on above: Fasting Glucose resu lt from 100 to 125 mg/dL suggests IMPAIRED HOMEOSTASIS per A.D.A. criteria. Neutrophils (Bld) [#/Vol] 4.8 10*3/uL 2.0-7.7 [facility] Work Phone: Neutrophils/100 WBC (Bld) 61.8 % 47-70 [facility] Work Phone: Potassium [Moles/Vol] 4.5 mmol/L 3.5-5.1 [facility] Work Phone: Protein [Mass/Vol] 7.5 g/dL 6.4-8.2 [facility] Work Phone: Sodium [Moles/Vol] 135 mmol/L 136-145 [facility] Work Phone: Triglyceride [Mass/Vol] 263 mg/dL <199 [facility] Work Phone: [phone] Comment on above: The drugs N-Acetylcy steine and Metamizole may falsely depress this assay.Serum Triglycerides Reference Interval Normal <150 mg/dL Borderline high 150 - 199 mg/dL High 200 - 499 mg/dL Very High > or = 500 mg/dL WBC (Bld) [#/Vol] 7.8 10*3/uL 4.4-11.0 [facility] Work Phone: [phone] Blood erythrocytes count (nu mber/volume)on 02-12-2022 RBC (Bld) [#/Vol] 5.17 10*6/uL 4.2-5.4 [facility] Work Phone: [phone] Blood hemoglobin measurement (mass/volume)on 02-12-2022 Hemoglobin (Bld) [Mass/Vol] 15.4 g/dL 12.0-15.0 [facility] Work Phone: [phone] Blood lymphocytes/100 leukoc yteson 02-12-2022 Lymphocytes/100 WBC (Bld) 25.6 % 19-41 [facility] Work Phone: [phone] Blood monocytes/100 leukocyt eson 02-12-2022 Monocytes/100 WBC (Bld) 9.4 % 0-10 [facility] Work Phone: [phone] Blood platelet mean volumeon 02-12-2022 Platelet mean volume (Bld) [Entitic vol] 10.7 fL 6.2-12.0 [facility] Work Phone: [phone] Determination of erythrocyte mean corpuscular volume (MCV)on 02-12-2022 MCV (RBC) [Entitic vol] 90.1 fL 81-99 [facility] Work Phone: [phone] Hematocrit Auto (Bld) [Volum e fraction]on 02-12-2022 Hematocrit (Bld) [Volume fraction] 46.6 % 37-47 [facility] Work Phone: Laboratory - Chemistry and C hemistry - challengeon 02-12-2022 ALP [Catalytic activity/Vol] 78 U/L 45-117 [facility] Work Phone: [phone] ALT [Catalytic activity/Vol] 24 U/L 13-56 [facility] Work Phone: [phone] CO2 [Moles/Vol] 28.0 mmol/L 21.0-32.0 [facility] Work Phone: [phone] Globulin (S) [Mass/Vol] 4.0 g/dL 2.2-4.2 [facility] Work Phone: [phone] Urea nitrogen/Creatinine [Mass ratio] 19.5 mg/mg 10-20 [facility] Work Phone: [phone] Laboratory - Hematology and Cell countson 02-12-2022 Erythrocyte distribution width (RBC) [Entitic vol] 44.6 fL 35.1-43.9 [facility] Work Phone: [phone] Erythrocyte distribution width (RBC) [Ratio] 13.4 % 11.6-14.6 [facility] Work Phone: [phone] Immature granulocytes/100 WBC (Bld) 0.500 % 0.0-0.9 [facility] Work Phone: [phone] Comment on above: IG% - Immature Granu locytes (promyelocytes, myelocytes and metamyelocytes) > 1% indicates that a LEFT SHIFT is Present. MCH (RBC) [Entitic mass] 29.8 pg 27.0-32.0 [facility] Work Phone: [phone] Nucleated RBC/100 WBC (Bld) [Ratio] 0 % 0-5 [facility] Work Phone: [phone] MCHC Auto (RBC) [Mass/Vol]on 02-12-2022 MCHC (RBC) [Mass/Vol] 33.0 g/dL 32-36 [facility] Work Phone: [phone] Panel Informationon 02-12 Estimated GFR (MDRD) Amer 104 mL/min >60 [facility] Work Phone: [phone] Comment on above: GFR Calc Estimated GFR (MDRD) Non-Af Amer 86 mL/min >60 [facility] Work Phone: Comment on above: Non- GFR Calc Platelets bldon 02-12-2022 Platelets (Bld) [#/Vol] 254 10*3/uL 150-450 [facility] Work Phone: Serum or plasma albumin ag urement (mass/volume)on 02-12-2022 Albumin [Mass/Vol] 3.5 g/dL 3.2-5.0 [facility] Work Phone: Serum or plasma albumin/glob ulin mass ratioon 02-12-2022 Albumin/Globulin [Mass ratio] 0.9 {ratio} 0.9-2.4 [facility] Work Phone: Serum or plasma calcium ag urement (mass/volume)on 02-12-2022 Calcium [Mass/Vol] 8.7 mg/dL 8.5-10.1 [facility] Work Phone: Serum or plasma cholesterol in HDL measurement (mass/volume)on 02-12-2022 Cholesterol in HDL [Mass/Vol] 47 mg/dL >40 [facility] Work Phone: Comment on above: The drugs N-Acetylcy steine and Metamizole may falsely depress this assay. Reference Range HDL <40 mg/dL Low HDL Cholesterol HDL >or= 60 mg/dL High HDL Cholesterol Serum or plasma cholesterol in VLDL measurement (mass/volume)on 02-12-2022 Cholesterol in VLDL [Mass/Vol] 53 mg/dL 5-40 [facility] Work Phone: [phone] Serum or plasma creatinine m easurement (mass/volume)on 02-12-2022 Creatinine [Mass/Vol] 0.72 mg/dL 0.55-1.02 [facility] Work Phone: Comment on above: The validity of the calculated GFR & GFRAA in patients over 70 years has not been determined. Clinical correlation is essential. Serum or plasma low density lipoprotein (LDL) cholesterol measurement (mass/volume)on 02-12-2022 Cholesterol in LDL [Mass/Vol] 115 mg/dL 0-130 [facility] Work Phone: Serum or plasma urea nitroge n measurement (mass/volume)on 02-12-2022 Urea nitrogen [Mass/Vol] 14 mg/dL 7-18 [facility] Work Phone: [phone] Thin prep Papanicolaou smear with manual screeningon 02-12-2022 Thin prep Papanicolaou smear with manual screening 14 U/L 15-37 [facility] Work Phone: [phone] Thin prep Papanicolaou smear with manual screening 5 5-15 [facility] Work Phone: Basophil percentageon 2021 Basophil percentage < 0.9 mg/dL 0.55-1.02 [facility] Work Phone: No Panel Informationon 01-26 Bedside Estimated GFR (eGFR) > 60.0000 mL/min >60 [facility] Work Phone: Laboratory - Microbiology an d Antimicrobial susceptibilityon 12-08-2021 SARS-CoV-2 (COVID-19) RNA ANI+probe Ql (Unsp spec) Not detected Not Detect [facility] Work Phone: Comment on above: Normal Reference Ran ge: Not DetectedMethod:(RT-PCR) real-time reverse transcriptase PCRLuminex Memrise Instrument*The Food and Drug Administration (FDA) has [...] assay SARS-CoV-2 (COVID-19) Ag IA.rapid Ql (Resp) [facility] Work Phone: Vital Signs Date Time Vital Sign Value Performing Clinician Faci lity 12-18-2024 09:28-0400 Body temperature 98.2 [degF] Dr. Xena Chan MD Work Phone: [facility] 12-18-2024 09:28-0400 Diastolic blood pressure 66 mm[Hg] Dr. Xena Chan MD Work Phone: [facility] 12-18-2024 09:28-0400 Heart rate 87 /min Dr. Xena Chan MD Work Phone: [facility] 12-18-2024 09:28-0400 Respiratory rate 16 /min Dr. Xena Chan MD Work Phone: [facility] 12-18-2024 09:28-0400 SaO2% (BldA) [Mass fraction] 94 % Dr. Xena Chan MD Work Phone: [facility] 12-18-2024 09:28-0400 Systolic blood pressure 109 mm[Hg] Dr. Xena Chan MD Work Phone: [facility] 12-18-2024 05:47-0400 Body height 157.[address] Xena Chan MD Work Phone: [facility] 12-18-2024 05:47-0400 Body mass index (BMI) [Ratio] 33.3 kg/m2 Dr. Xena Chan MD Work Phone: [facility] 12-18-2024 05:47-0400 Body weight 82.[address] Xena Chan MD Work Phone: [facility] 06-16-2022 05:48-0500 Diastolic blood pressure 75 mm[Hg] Dr. Xena Chan Work Phone: [facility] 06-16-2022 05:48-0500 Heart rate 78 /min Dr. Xena Chan Work Phone: [facility] 06-16-2022 05:48-0500 Respiratory rate 18 /min Dr. Xena Chan Work Phone: [facility] 06-16-2022 05:48-0500 SaO2% (BldA) [Mass fraction] 96 % Dr. Xena Chan Work Phone: [facility] 06-16-2022 05:48-0500 Systolic blood pressure 138 mm[Hg] Dr. Xena Chan Work Phone: [facility] 06-16-2022 00:30-0500 Body height 157.[address] Xena Chan Work Phone: [facility] 06-16-2022 00:30-0500 Body mass index (BMI) [Ratio] 36.1 kg/m2 Dr. Xena Chan Work Phone: [facility] 06-16-2022 00:30-0500 Body temperature 96.9 [degF] Dr. Xena Chan Work Phone: [facility] 06-16-2022 00:30-0500 Body weight 89.[address] Xena Chan Work Phone: [facility] 06-13-2022 14:15-0500 Body temperature 97.6 [degF] Dr. Xena Chan Work Phone: [facility] 06-13-2022 14:15-0500 Diastolic blood pressure 74 mm[Hg] Dr. Xena Chan Work Phone: [facility] 06-13-2022 14:15-0500 Heart rate 86 /min Dr. Xena Chan Work Phone: [facility] 06-13-2022 14:15-0500 Respiratory rate 18 /min Dr. Xena Chan Work Phone: [facility] 06-13-2022 14:15-0500 SaO2% (BldA) [Mass fraction] 93 % Dr. Xena Chan Work Phone: [facility] 06-13-2022 14:15-0500 Systolic blood pressure 163 mm[Hg] Dr. Xena Chan Work Phone: [facility] 06-13-2022 09:36-0500 Inhaled oxygen flow rate 2 L/min Dr. Xena Chan Work Phone: [facility] 06-13-2022 06:00-0500 Body weight [address] Xena Chan Work Phone: [facility] 06-12-2022 10:18-0500 Body height 158.[address] Xena Chan Work Phone: [facility] Work Phone: 06-11-2022 15:06-0500 Body mass index (BMI) [Ratio] 33.1 kg/m2 Dr. Xena Chan Work Phone: [facility] 06-11-2022 15:03-0500 Body temperature 98 [degF] Dr. Xena Chan Work Phone: [facility] Work Phone: 06-11-2022 15:03-0500 Diastolic blood pressure 55 mm[Hg] Dr. Xena Chan Work Phone: [facility] Work Phone: 06-11-2022 15:03-0500 Heart rate 99 /min Dr. Xena Chan Work Phone: [facility] Work Phone: 06-11-2022 15:03-0500 Respiratory rate 16 /min Dr. Xena Chan Work Phone: [facility] Work Phone: 06-11-2022 15:03-0500 SaO2% (BldA) [Mass fraction] 93 % Dr. Xena Chan Work Phone: [facility] Work Phone: 06-11-2022 15:03-0500 Systolic blood pressure 132 mm[Hg] Dr. Xena Chan Work Phone: [facility] Work Phone: 06-10-2022 20:16-0500 Body height 152.[address] Xena Chan Work Phone: [facility] Work Phone: 06-10-2022 20:16-0500 Body mass index (BMI) [Ratio] 34.7 kg/m2 Dr. Xena Chan Work Phone: [facility] Work Phone: 06-10-2022 20:16-0500 Body weight 80.[address] Xena Chan Work Phone: [facility] Work Phone: Encounters Encounter Date Encounter Type Care Provider Facility Start: 12-18-2024 End: 12-18-2024 Emergency department patient visit Dr. Xena Chan MD Work Phone: -Emergency Department Work Phone: Start: 11-12-2023 Orders Only Chiid love MD Work Phone: General Surgery Comment on above: Ventral hernia witho ut obstruction or gangrene (Primary Dx) Start: 11-13-2022 Telephone encounter Xena quintana MD Work Phone: NOC Comment on above: Follow Up Phone Call (All Clear) Start: 11-06-2022 End: 11-06-2022 ambulatory XENA CHAN Facility:[facility] Start: 11-02-2022 End: 11-06-2022 Evaluation and management of inpatient XENA CHAN Facility:[facility] Start: 09-10-2022 End: 09-10-[address] Xena Chan Work Phone: [facility] Work Phone: Start: 09-10-2022 End: 09-10-[address] Xena Chan Work Phone: [facility] Start: 08-31-2022 Non-patient / Non-visit Dr. Eleazar Chan Work Phone: [facility] Start: 08-31-2022 End: 08-31-[address] Xena Chan Work Phone: [facility] Work Phone: Start: 08-31-2022 End: 08-31-[address] Xena Chan Work Phone: [facility]-Cardiovascula r Services Start: 06-16-2022 End: 06-16-2022 Emergency department patient visit Dr. Xena Chan Work Phone: [facility]-Emergency Department Start: 06-13-2022 Non-patient / Non-visit Dr. Eleazar Chan Work Phone: [facility] Start: 06-13-2022 Non-patient / Non-visit Dr. Eleazar Chan Work Phone: [facility] Start: 06-12-2022 Non-patient / Non-visit Dr. Eleazar Chan Work Phone: [facility] Start: 06-12-2022 Non-patient / Non-visit Dr. Eleazar Chan Work Phone: [facility] Start: 06-11-2022 Non-patient / Non-visit Dr. Eleazar Chan Work Phone: [facility] Start: 06-11-2022 End: 12-10-2022 Evaluation and management of inpatient Dr. Xena Chan Work Phone: [facility]-Medical Surgical 3 Start: 06-11-2022 Non-patient / Non-visit Dr. Eleazar Chan Work Phone: [facility] Start: 02-12-2022 End: 02-12-2022 Patient encounter procedure [facility]-Laboratory Start: 01-26-2022 End: 01-26-2022 Patient encounter procedure [facility]-Cat Scan, [facility] Start: 12-19-2021 End: 12-19-2021 Patient encounter procedure [facility]-Radiology, [place] Start: 12-08-2021 End: 12-08-2021 Patient encounter procedure [facility]-Laboratory, Specimen Procedures Date Procedure Procedure Detail Performing Clinician Start: 12-18-[address] Xena Chan MD Work Phone: Start: 12-18-2024 CT of head without contrast Dr. Xena Chan MD Work Phone: Start: 12-18-2024 Computed tomography of abdomen and pelvis with intravenous contrast Dr. Xena Chan MD Work Phone: Start: 11-02-2022 Antibody screen XENA CHAN Comment on above: Order Comment: Speci men Type: BLOOD SPECIMENOrdering Facility: [facility] Address: [address] [place] [address] Performed By: #### T SCR ####CC [facility] BLOOD BANKCLIA [id number] [address] [place] Start: 09-10-2022 MRI of [...] Author Start: 11-06-2025 DIABETES SCREEN DIABETES SCREEN [facility] Start: 11-06-2025 Diabetes Screening Diabetes Screenin g [facility] Start: 03-05-2024 Influenza vaccination Influenz a Vaccine (Season Ended) [facility] Start: 11-22-2023 End: 11-22-2023 Patient encounter procedure 11/22/2023 1:30 PM EDT Office Visit General Surgery [facility] [address] [address] Chidi Gonzalez MD [address] [place] [address] abdominal hernia/mesh General Surgery Comment on above: abdominal hernia/mes h Start: 07-05-2023 Advance Directive Discussion Advance Directive Discussion [facility] Start: 07-05-2023 Behavioral Health Screening Behavioral Health Screening [facility] Start: 03-05-2023 Covid-19 Vaccine ( season) Covid-19 Vaccine ( season) [facility] Start: 03-05-2023 Influenza vaccination INFLUENZ A (Season Ended) [facility] Start: 07-05-2022 ADVANCE DIRECTIVE DISCUSSION ADVANCE DIRECTIVE DISCUSSION [facility] Start: 07-05-2022 DEPRESSION ASSESSMENT DEPRESSION ASS ESSMENT [facility] Start: 06-13-2022 Patient discharge [facility] Start: 06-13-2022 [facility] Start: 06-11-2022 Oxygen therapy [facility] Start: 06-11-2022 Referral to general surgeon [facility] Start: 06-11-2022 Following clinical pathway protocol [facility] Start: 06-11-2022 Assessment of risk o f venous thromboembolism [facility] Start: 06-11-2022 Catheterization of vein [facility] Start: 06-11-2022 Incentive spirometry [facility] Start: 06-11-2022 Insertion of cathete r into peripheral vein [facility] Start: 06-11-2022 Measuring intake and output [facility] Start: 06-11-2022 Providing care accor ding to standard [facility] Start: 06-11-2022 Provision of activit y privileges [facility] Start: 06-11-2022 [facility] Start: 06-11-2022 Admission procedure [facility] Start: 06-11-2022 Inhalation therapy procedure [facility] Start: 06-11-2022 Patient referral to dietitian [facility] Start: 08-07-2021 COVID-19 VACCINE (4 - Booster for Moderna series) COVID-19 VACCINE (4 - Booster for Moderna series) [facility] Start: 2018 BONE DENSITY BONE DENSITY [facility] Start: 2018 Screening for osteoporosis Bone Density Screening [facility] Start: 2013 RSV Vaccine (1 - 1-d ose 60+ series) RSV Vaccine (1 - 1-dose 60+ series) [facility] Start: 2003 SHINGRIX VACCINE (1 of 2) GARCIA GRIX VACCINE (1 of 2) [facility] Start: 1998 COLOGUARD (FIT-DNA) COLOGUARD (FIT-D NA) [facility] Start: 1998 Colonoscopy COLONOSCOPY [facility] Start: 1998 COLORECTAL CANCER SCREENING COLORECTAL CANCER SCREENING [facility] Start: [address] COLONOGRAPHY [facility] Start: 1998 FECAL OCCULT BLOOD FECAL OCCULT BLOO D [facility] Start: 1998 Lipid panel Lipid Screening [facility] Start: 1998 LIPID SCREEN LIPID SCREEN [facility] Start: 1998 Screening for malign ant neoplasm of colon [facility] Start: 1998 SIGMOIDOSCOPY SIGMOIDOSCOPY [facility] Start: 1993 Mammography MAMMOGRAM [facility] Start: 1993 Screening for malign ant neoplasm of breast Mammogram Screening [facility] Start: 1983 Zoledronic acid therapy ALPHA- 1 ANTITRYPSIN DEFICIENCY SCREENING [facility] Start: 1972 Urine microalbumin profile [facility] Start: 1971 ANNUAL PCP TEAM CREDIT SUPPORT SPECIALIST BEAU DISEASE VISIT ANNUAL PCP TEAM CHRONIC DISEASE VISIT [facility] Start: 1971 BP CONTROLLED (<130/80) BP CONTROLLE D (<130/80) [facility] Start: 1971 HEPATITIS C SCREENING HEPATITIS C [facility] Start: 1971 Hepatitis C screening Hepatitis C [facility] Start: 1971 SPIROMETRY SPIROMETRY [facility] Start: 1959 Pneumococcal Vaccine : 65+ (1 of 2 - PCV) Pneumococcal Vaccine: 65+ (1 of 2 - PCV) [facility] Start: 1959 PNEUMOCOCCAL: 65+ (1 - PCV) PNEUMOCOCCAL: 65+ (1 - PCV) [facility] Bilirubin measuremen t, urine [facility] End: 12-11-2024 CT Abdomen and Pelvis WO contrast CT ABD/PEL WO IVCON Radiology Routine Ventral hernia without obstruction or gangrene 1 Occurrences starting 11/12/2023 until 12/11/2024 [facility] Work Phone: Comment on above: 1 Occurrences starti ng 11/12/2023 until 12/11/2024 Hemoglobin [Presence ] in Urine [facility] Measurement of keton es in urine using dipstick [facility] Microscopic urinalysis [facility] Patient Education [facility] Work Phone: Patient referral [facility] Work Phone: pH of Urine [facility] Specific gravity of Urine [facility] Urine blood test [place] [facility] Urine dipstick for glucose [facility] Urine dipstick for leukocyte esterase [facility] Urine dipstick for nitrite [facility] Urine dipstick for protein [facility] Urine examination [facility] Urine microscopy: epithelial cells [facility] Urine Microscopy: wh ite cells [facility] Urobilinogen [Presen ce] in Urine [facility] Immunizations Immunization Date Immunization Notes Care Provider Fa cili 05-08-2020 influenza virus vacc ine, unspecified formulation Chidi Gonzalez MD Work Phone: [facility] Payers Date Payer Category Payer Self-pay [id number] 2020 Medicaid [id number] 2020 Medicaid MEDICAID [facility] MEDICAID [id number] 2020-Present [phone] [address] [place] [address] Medicaid [id number] 2018 Medicare [id number] 2018 Medicare MEDICARE MEDICAR E A AND B [id number] 2018-Present [phone] [address] [address] [place] [address] Medicare [id number] Unknown [id number] Social History Date Type Detail Facility Start: 03-06-2021 End: 06-15-2022 Tobacco smoking status NHIS Unknown if ever smoked [facility] Start: 1955 Sex Assigned At Female [facility] Start: 1955 Sex Assigned At Not on file [facility] Start: 11-02-2022 History of Social function [facility] Start: 11-02-2022 Area Deprivation Index Area De privation Index Answer Date Recorded National Score (1-100), lower number is lower risk 68 11/02/2022 State Score (1-10), lower number is lower risk Not on file 11/02/2022 Data from: https://www.neighborhood atlas.medicine.[facility].edu/ . Last address used for calculation [address] 11/02/2022 [facility] National Score (1-10 0), lower number is lower risk 68 [facility] Start: 10-23-2023 Gender identity Identifies as female gender (finding) [facility] Start: 10-23-2023 Sexual orientation Heterosexual (fin ding) [facility] Start: 12-18-2024 Tobacco smoking stat us IDIS Smokes tobacco daily (finding) [facility] Goals Date Patient Goal Desired Activity /State Functional Status Date Assessment Result Facility 06-13-2022 Functional status Ambulates [facility] Work Phone: Mental Status Date Assessment Result Facility 06-13-2022 Cognitive function Voice/Name [facility] Work Phone: Clinical Notes 11-02-2022 to 12-18-2024 Telephone Encounter - Cynthia Trinh - 11/13/2022 11:16 AM EDT Note Date & Type Note Facility 12-18-2024 Discharge summary [facility] 12-18-2024 Radiology Diagnostic study note [facility] Imaging Services [address], [place] [address] Abdomen/Pelvis W IV Cont ONLY MR#: [id number] Acct: [id number] Name: LIDIA ONEILL Rep #: [id number] : 1955 F 69 From: Michael Hargrove MD PCP: Dr. Xena Chan MD Status: REG ER Study:Abdomen/Pelvis W IV Cont ONLY Date of E xam: 12/18/24 Exam# [id number] Ordering Dr: Jeremy Jo MD PROCEDURE: ABDOMEN/PELVIS W IV CONT ONLY 12/18/2024 REASON FOR EXAM: ABD PAIN ?? SBO VS OTHER TECHNIQUE: ABDOMEN/PELVIS W IV CONT ONLY. Coronal and Sagittal reconstruction series were provided. ORAL CONTRAST TYPE: None. AMOUNT: mL CONTRAST: Isovue-350 VOLUME: 100 mL One or more dose reduction techniques were used (e.g., Automated exposure control, adjustment of the mA and/or kV according to patient size, use of iterative reconstruction technique. RADIATION DOSE SUMMARY: CTDlvol: 22.7 mGy DLP: 1144 mGycm COMPARISON: 06/11/2022. FINDINGS: Prior cholecystectomy. Moderate recurrent partial small bowel obstruction. Transition zone in the right lower quadrant without evidence of bowel perforation or pneumatosis intestinalis. Moderate amount of fecal residue in the large bowels. Calcified atheromatous plaques of the aorta and iliac arteries. Scattered right renal simple cysts are noted with the largest measuring 1.2 cm. Benign chronic finding. No follow-up is needed. Left lateral anterior abdominal wall hernia containing nonincarcerated segment of the descending colon on the current exam. Infraumbilical anterior abdominal wall hernia containing nonincarcerated small bowel loop. Surgical changes of the anterior abdominal wall. Prior cholecystectomy. Surgical changes of the distal colon, unchanged. Diffuse spondylosis. Mild emphysema. Normal liver. Normal spleen. Normal pancreas. Normal bilateral adrenal glands. Normal size of the right kidney. There is no right renal mass. There are no right renal calculi. There is no right hydronephrosis. Normal visualized right ureter. Normal size of the left kidney. There is no left renal mass. There are no leftrenal calculi. There is no left hydronephrosis. Normal visualized left ureter. There is no demonstrated peritoneal fluid. Normal inferior vena cava. Normal retroperitoneum. Normal urinary bladder. There is no pelvic mass lesion or lymphadenopathy. There is no pelvic fluid. CT/Abdomen/Pelvis W IV Cont ONLY IMPRESSION: Prior cholecystectomy. Moderate recurrent partial small bowel obstruction. Transition zone in the right lower quadrant without evidence of bowel perforation or pneumatosis intestinalis. Moderate amount of fecal residue in the large bowels. Calcified atheromatous plaques of the aorta and iliac arteries. Scattered right renal simple cysts are noted with the largest measuring 1.2 cm. Benign chronic finding. No follow-up is needed. Left lateral anterior abdominal wall hernia containing nonincarcerated segment of the descending colon on the current exam. Infraumbilical anterior abdominal wall hernia containing nonincarcerated small bowel loop. Surgical changes of the anterior abdominal wall. Prior cholecystectomy. Surgical changes of the distal colon, unchanged. Diffuse spondylosis. Reading Location: [id number] CC: Dr. Xena Chan MD; Dr. Donovan Jo MD ~ Service Order Expediter: Signed [facility] 12-18-2024 Radiology Diagnostic study note [facility] Imaging Services [address], [place] [address] Brain/Head without Contrast MR#: [id number] Acct: [id number] Name: LIDIA ONEILL Rep #: [id number] : 1955 F 69 From: Michael Hargrove MD PCP: Dr. Xena Chan MD Status: REG ER Study:Brain/Head without Contrast Date of Exa m: 12/18/24 Exam# [id number] Ordering Dr: Jeremy Jo MD PROCEDURE: BRAIN/HEAD WITHOUT CONTRAST 12/18/2024 REASON FOR EXAM: FALL WITH POSTERIOR HEAD TRAUMA. SCALP HEMATOMA. TECHNIQUE: BRAIN/HEAD WITHOUT CONTRAST Coronal and Sagittal reconstruction series were provided. One or more dose reduction techniques were used (e.g., Automated exposure control, adjustment of the mA and/or kV according to patient size, use of iterative reconstruction technique. RADIATION DOSE SUMMARY: CTDlvol: 8.3 MGy DLP: 812.98 mGycm COMPARISON: MRI of the head on 09/10/2022. FINDINGS: Mild right parietal acute subgaleal soft tissue hematoma. Mild diffuse cortical atrophy, commensurate with the patient's age. Scattered hypodense foci in the periventricular and subcortical white matter suggestive of chronic ischemic white matter disease. Normal size of the ventricles and extra-axial spaces for the patient's age. Normal basal ganglia and thalami. Normal brainstem. Normal cerebellum. There is no demonstrated extra-axial, intraparenchymal, or intraventricular hemorrhage. There are no findings of an acute ischemic infarction. Normal calvarium. There is no demonstrated fracture. Normal soft tissue structures. Normal visualized paranasal sinuses. CT/Brain/Head without Contrast IMPRESSION: Mild right parietal acute subgaleal soft tissue hematoma. No CT evidence of an acute traumatic brain abnormality. Reading Location: [facility] CC: Dr. Xena Chan MD; Dr. Donovan Jo MD ~ Service Order Expediter: Signed [facility] 11-13-2022 Miscellaneous Notes PATIENT INFORMATION Record ID: [id number] Patient Name: Lidia Oneill Hospital: [facility] [place] Attending: Tio Ferreira Center: General Surgery INSTRUCTIONS Continue with script and ensure patient has number or is given number to appointment center [phone] All Clear All Clear SURVEY INFORMATION Medical/Nurse Rail Operations Controller: Cynthia Madrigal 1. Your discharge instructions are [...] steroid doesn't help. documented in this encounter [facility] 11-06-2022 Note HNO ID: [id number] Author: MARYCRUZ Reese Service: Care Management Author Type: Bridal Sales Consultant Type: Care Mgt Progress Note Filed: 11/06/2022 2:27 PM Note Text: CARE MANAGEMENT/ SOCIAL WORK HIGH RISK PSYCHOSOCIAL ASSESSMENT SERVICE DATE: November 06, 2022 SERVICE TIME: 2:24 PM Reason for Admission: SBO (small bowel obstruction) ([facility]) [K56.609] Reason for Social Work Contact: Transportation [...] no resources to pay for transport to [place]. Ticket to ride issued to pt. Pt is aware that this is a one-time voucher. She will be responsible for coordinating transportation if she returns to main campus in the future. No further needs identified for SW intervention at this time. SIGNATURE: MARYCRUZ Reese PATIENT NAME: Lidia Oneill DATE: November 06, 2022 TIME: 2:24 PM CONTACT #: [phone] [facility] 11-05-2022 Note HNO ID: [id number] Author: Kassandra Banks MD Service: General Surgery [...] - mIVF - MM pain control - [facility] Kassandra Banks MD Acute Care Surgery (ACS) Day Floor Pager: [phone] Acute Care Surgery (ACS) Day Consults Pager: [phone] On nights (6 pm to 6 am) and on Weekends/Holidays, please page the on-call pager: [phone] ___ ___ Subjective: Endorses passing gas, no N/V/BM C/o [...] Labs: CBC, BMP, MG, PHOS Recent Labs 11/04/2251811/03/22 0632 11/02/22 1222 WBC 6.84 9.68 19.77* [...] OBSTRUCTION. Intake and Output: Date 11/04/22699 - 11/05/2265811/05/22699 - 11/06/22 0659 Shift 6586-5162 3102-2605 1629-7839 24 Hour Total 3106-7838 6501-6006 6601-1194 24 Hour Total INTAKE PO 0 0 [...] 1 Patch TRANSDERM (more content not included)... [facility] 11-05-2022 Note HNO ID: [id number] Author: Trevin Nunez RN Service: ? Author Type: Registered Nurse Type: Nursing Progress Note Filed: 11/05/2022 3:04 AM Note Text: Pager [phone]. Updated on completion of EKG [facility] 11-04-2022 Note HNO ID: [id number] Author: MARYCRUZ Reese Service: Care Management Author Type: Bridal Sales Consultant Type: Care Mgt Initial Assessment Filed: 11/04/2022 [...] needs arise. SIGNATURE: MARYCRUZ Reese PATIENT NAME: Lidai Oneill DATE: November 04, 2022 TIME: 1:15 PM CONTACT #: [phone] [facility] 11-02-2022 Note HNO ID: [id number] Author: RT Hardeep(R) Service: Radiology Author Type: [...] DATE: November 02, 2022 TIME: 1:57 PM [facility] Discharge summary Note Date/Time December 18, 2024 8:54am [facility] Medical Records Department [address] [place] [address] Emergency Department Summary 12/18/24 MR#: [id number] Acct: [id number] Name: LIDIA ONEILL Rep #:[id number] : 1955 69 From: Donovan Jo MD PCP: Dr. Xena Chan MD Status:REG ER Location: ED HPI HPI - GI History of Present Illness Chief Complaint: Fall Detail of Chief Complaint: Abdominal pain and fall. Informant: patient Abdominal Pain/Flank Pain Onset: Today Context: Gradual Onset Timing: Continuous Quality: Aching Location: Diffuse Current Severity: Moderate Maximum Severity: Moderate Worsened by: Nothing Relieved by: Nothing Nausea/Vomiting/Emesis GI Symptom: Positive for Nausea Onset: Today Severity: Mild Diarrhea/Melena/Hematochezia GI Symptom: Positive for - (Chronic constipation history. Last bowel movement yesterday.); Negative for Diarrhea, Melena or Hematochezia Associated Symptoms Associated Symptoms: Negative for Dysuria, Frequency, Hematuria or Urgency Narrative Narrative: 69-year-old female history of COPD chronic constipation prior bowel obstructions. Prior cholecystectomy and hysterectomy. States she still has her appendix. She has been constipated. She took 3 suppositories at home without relief. She states 11 PM last night pain got a lot worse. Pain is diffuse. Aching. Also epigastric. Denies any dysuria. Her last significant bowel movement was yesterday. She denies any fever. She has had 8 prior abdominal surgeries she states. 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 Aphthous ulcer Acute bronchitis, unspecified ARDS (adult respiratory distress syndrome) Pneumonia COPD (chronic obstructive pulmonary disease) Hyperlipidemia HTN (hypertension) History of coma H/O sepsis History of ectopic Home Medications ?Medication ?Instructions ?Recorded ?Last Taken ?Type acetaminophen 325 mg capsule 1,000 mg PO ONCE PRN Pain 11/11/20 06/10/22 History albuterol sulfate 90 mcg/actuation 2 puff inhalation Q 2H PRN PRN 11/11/20 06/10/22 History aerosol inhaler Shortness Of Breath amitriptyline 25 mg tablet 100 mg PO QHS sleep 1 06/10/22 History budesonide-formoterol HFA 160 1 puff inhalation BID co pd 11/11/20 06/10/22 History mcg-4.5 mcg/actuation aerosol inhaler calcium carbonate (Tums) 200 mg PO Q2H PRN PRN gerd 0 11/11/20 Unknown History candesartan 4 mg tablet 4 mg PO QHS bp 11/11/20 12/0 12/24 History cyclobenzaprine 10 mg tablet 10 mg PO TID pain 1 06/09/22 History docusate sodium 100 mg capsule 100 mg PO BID PRN Const ipation 11/11/20 06/09/22 History (Colace) fluticasone propionate 50 2 spray intranasal DAILY all ergies 11/11/20 06/09/22 History mcg/actuation nasal spray,suspension herbalife PO meal replacement 11/11/20 Unknown History icey hot topical 11/11/20 Unknown His tory mecobalamin (vitamin B12) 1,000 1,000 mcg PO DAILY sup plement 11/11/20 06/09/22 History mcg chewable tablet polyethylene glycol 3350 17 gram 17 g PO DAILY PRN Con stipation 11/11/20 Unknown History oral powder packet (Miralax) red yeast rice 600 mg capsule 600 mg PO DAILY supplmen t 11/11/20 06/09/22 History linaclotide 290 mcg capsule 290 mcg PO DAILY constipat ion 06/11/22 06/09/22 History (Linzess) Allergy/AdvReac Type Severity Reaction Status Date / Time morphine Allergy Swelling, Verified 12/18/24 05:46 Rash, Itching Penicillins Allergy Swelling, Verified 12/18/24 05:46 Rash, Itching Family History Mother Hypertension Heart disease Pacemaker Cervical cancer Father Diabetes Aunt Colon cancer Aunt Breast cancer Uncle CHF (congestive heart failure) Surgical History H/O tracheostomy History of colon surgery H/O: hysterectomy H/O total hysterectomy with removal of both tubes and ovaries History of cholecystectomy Social History household members: other details: sister Smoking Status: Current every day smoker tobacco type: cigarettes alcohol intake: never what type of physical activity do you participate in: none do you feel safe at home: Yes ROS ROS ED ROS Narrative Abdominal pain. Nausea. Fall with head injury. Brief LOC. Constitutional Constitutional ED: Denies chills or fever(s) ENT ENT ED: Denies ear pain Cardiovascular Cardiovascular: Denies chest pain Respiratory/Chest Respiratory/Chest: Denies cough or dyspnea Gastrointestinal Gastrointestinal: Reports abdominal pain, constipation and nausea; Denies diarrhea, melena or vomiting Genitourinary Genitourinary ED: Denies dysuria, hematuria or urinary frequency Musculoskeletal Musculoskeletal: Denies arthralgias or back pain Integumentary Denies abscess Neurologic Neurologic: Denies paresthesias Psychiatric Psychiatric: Denies anxiety or depression Endocrine Endocrinology: Denies polydipsia Hematologic/Lymphatic Hematologic/Lymphatic: Denies easy bleeding or easy bruising Allergic/Immunologic Allergic/Immunologic ED: Denies mouth swelling, tongue swelling or urticaria EXAM Physical Exam Narrative Exam Narrative: 69-year-old female vital signs are stable afebrile. Pulse ox 94% on room air nohypoxia. H EENT exam pupils round react to light. Moist mucous membranes. No trauma to her face. Posterior scalp has a 2 inch hematoma. No laceration. No blood. C-spine and neck nontender. Back and spine nontender. Lungs clear to auscultation bilaterally. Heart regular rhythm rate about 80 no murmur. Chest wall ribs nontender. Abdomen soft diffusely tender. Mildly distended. Positive bowel sounds. No mass. No pulsatile mass. Moving all 4 extremities. Nontender no deformity. Normal application performance engineer strength. Normal dorsi plantarflexion. Neurologically she is awake alert. Answer questions following commands. GCS of15. Const Vital Signs: 12/18/24 05:47 12/18/24 05:47 Temperature 98.1 F Temperature Source Oral Pulse Rate 82 Respiratory Rate 22 H Respiratory Effort Normal Respiratory Depth Normal Respiratory Pattern Normal Blood Pressure 151/74 H Blood Pressure Mean 99 Pulse Ox 94 96 Oxygen Delivery Method Room Air Positive well nourished and well developed; Negative for cachectic, contracturesor unkempt General Appearance ED: well developed and NAD; Negative for unkempt, cachectic or contractures Nutritional Appearance: Negative for cachectic HEENT Reports moist mucous membranes HEENT Narrative: Posterior scalp 2 inch diameter hematoma no laceration. Tender. normocephalic, trauma and tenderness Eyes PERRL and EOMs intact bilaterally General Eye ED: Negative for pale conjunctiva or scleral icterus Neck no lymphadenopathy, supple and no JVD General: Negative for tenderness Carotids: Negative for other Resp normal respiratory effort and clear to auscultation bilaterally Effort and Inspection: Negative for respiratory distress Auscultation: Negative for rales, rhonchi or wheezes Cardio regular rate, regular rhythm, S1 normal heart sound, S2 normal heart sound and no murmurs Rate: Negative for bradycardia or tachycardic Rhythm: Negative for abnormal rhythm GI no masses; Negative for non-tender or non-distended GI Narrative: Mildly distended tender abdomen. Diffusely tender. Bowel sounds present. No pulsatile mass. No right upper or right lower quadrant specific tenderness. Inspection: abdominal distention Auscultation: hypoactive bowel sounds Palpation: soft and tender; Negative for guarding, rigid, hepatomegaly, splenomegaly, hernia, mass, pulsatile mass or rebound tenderness present Back/Spine no CVA tenderness General Back: Negative for CVA tenderness Cervical Spine: Negative for cervical spine tenderness Thoracic Spine / Upper Back: Negative for thoracic spinal tenderness Lumbar Spine / Lower Back: Negative for lumbar spinal tenderness Extremity full ROM General Extremety ED: Negative for edema or tenderness General Extremity: Negative for edema Neuro CN's II-XII intact bilaterally and moves all extremities Sensorium / Orientation: alert, oriented to person, oriented to place and oriented to time; Negative for orientation impaired, confused or lethargic Motor Exam: strength 5/5 throughout Psych mental status grossly normal and thought process normal Appearance: Negative for unkempt Attitude: No agitated Mood & Affect: Negative for depressed, anxious or tearful Skin no wounds General Skin Exam: Negative for jaundice Lesions: no lesions Rashes: no rashes MDM MDM MDM Narrative Medical decision making narrative: 69-year-old female tripped and fell going in the bathroom hit the back of her head with a hematoma. Brief LOC. Obtain a CAT scan of her brain. Primary reason she is here though is that she has had abdominal pain since 11 PM last night. She has a history of bowel obstructions and multiple abdominal surgeries. CAT scan and labs will be obtained for that. She will be given Dilaudid for pain and Zofran for nausea. Repeat exam patient is doing better at 7:30 AM. She did have a small amount of emesis. We are awaiting her CAT scan interpretations. I did review them. She also requested she had outpatient labs ordered which we have already done a CBC and a CMP. She was open we could do the lipid profile and a TSH which I added to her labs but are not specific to today's workup. This can be followed up as an outpatient by her primary care physician. Awaiting CT abdomen results. Patient be turned over to the a.m. physician. He will check the official CAT scan read from the radiologist to make final disposition. History & Record Review Discussion w/independent historian: Patient Additional record(s) reviewed:: Prior inpatient record, Prior outpatient record,Prior ED visit and Prior labs Lab Data Attestation: I reviewed the patient's lab results. Lab results narrative: CBC shows an elevated white count of 15.8. H&H of 17 and 51. Platelets 276. Chemistry shows sodium 134. Gap 15. Normal BUN and creatinine of 18 and 0.7. Glucose 123. Liver enzymes are normal. Amylase 60. Lipase normal at 19. CT brain shows soft tissue hematoma posterior scalp. No acute bleed. Reviewed by me and read by the radiologist. Labs: Laboratory Results - last 24 hr 12/18/24 06:38 WBC 15.8 H RBC 5.91 H Hgb 17.8 H Hct 51.7 H MCV 87.5 MCH 30.1 MCHC 34.4 RDW Std Deviation 42.9 RDW Coeff of Chrissy 13.4 Plt Count 276 MPV 10.7 Immature Gran % (Auto) 0.600 Neut % (Auto) 84.4 H Lymph % (Auto) 8.0 L Da[place]hin % (Auto) 5.9 Eos % (Auto) 0.3 Baso % (Auto) 0.8 Absolute Neuts (auto) 13.4 H Absolute Lymphs (auto) 1.26 Nucleated RBC % 0 Sodium 134 Potassium 4.5 Chloride 97 L Carbon Dioxide 22.1 Anion Gap 15 BUN 18 Creatinine 0.76 Estim Creat Clear Calc 64.25 Est GFR (MDRD) Non-Af 84 BUN/Creatinine Ratio 23.6 H Glucose 123 H Lactic Acid 1.7 Calcium 10.0 Total Bilirubin 0.26 AST 21 ALT 20 Alkaline Phosphatase 85 Total Protein 7.8 Albumin 4.4 Globulin 3.4 Albumin/Globulin Ratio 1.3 Amylase 60 Lipase 19 Radiography Diagnostic Testing: Clinical Impression(s) from Imaging Studies Abdomen/Pelvis CT 12/18/24 06:16 IMPRESSION: Prior cholecystectomy. Moderate recurrent partial small bowel obstruction. Transition zone in the right lower quadrant without evidence of bowel perforation or pneumatosis intestinalis. Moderate amount of fecal residue in the large bowels. Calcified atheromatous plaques of the aorta and iliac arteries. Scattered right renal simple cysts are noted with the largest measuring 1.2 cm. Benign chronic finding. No follow-up is needed. Left lateral anterior abdominal wall hernia containing nonincarcerated segment of the descending colon on the current exam. Infraumbilical anterior abdominal wall hernia containing nonincarcerated small bowel loop. Surgical changes of the anterior abdominal wall. Prior cholecystectomy. Surgical changes of the distal colon, unchanged. Diffuse spondylosis. Reading [facility] 12/18/24 06:18 IMPRESSION: Mild right parietal acute subgaleal soft tissue hematoma. No CT evidence of an acute traumatic brain abnormality. Reading Location: [place] [address] Discharge Plan Dx/Rx/DC Orders Clinical Impression: Fall, Abdominal pain, Acute head trauma, Contusion of scalp, Leukocytosis Disposition Disposition: Acute Care Hospital [facility] What to do if you have Problems For any increased pain, shortness of breath, bleeding, nausea or vomiting, chestpain, or any unexpected problems, contact your Primary Care Provider. Call [employer] [facility] ([phone]) or report to the closest Emergency Room. Call 911 if necessary. 12/18/24 0803 <Electronically signed by Donovan Jo MD> Cosigner Signature (if applicable): CC: Dr. Xena Chan MD ~ Signed ADDENDUM by Dr. Jose Lewis DO on 12/18/24 at 0854 Patient case signed out to me by Dr. Jo to follow-up on her CT abdomen pelvis. Patient's CT abdomen pelvis with IV contrast showed a moderate recurrent partialsmall bowel obstruction. Transition zone in the right lower quadrant without evidence of bowel perforation or pneumatosis intestinalis. Moderate amount of fecal residue in the large bowel. Calcified and erythematous plaques of the aorta and iliac arteries. Scattered right renal simple cysts are noted with thelargest measuring 1.2 cm benign chronic finding. No follow-up needed. Left lateral anterior wall hernia containing nonincarcerated segment of the descending colon and the current exam. Infraumbilical anterior abdominal wall hernia containing nonincarcerated small bowel loop. Surgical changes of the anterior abdominal wall. Prior cholecystectomy. Surgical change of the distal colon unchanged. Diffuse spondylosis. Called to hospitalist and had surgery on page as well as spoke with the hospitalist Dr. Francisco who states that upon reviewing the records last time she was here they referred her to [facility] for the bowel obstruction andis unclear whether she ultimately went there or not. He states that he would reach out to the general surgeon on-call Dr. Alan. 1 back in and reevaluated the patient again and she states that last time she was up there the surgeon that she had states that he did not want to have to perform a emergent operation on her and since she was getting better while therethey decided to hold off on surgery. I advised the patient that they are requesting that I transfer to [facility] as the general surgeon on-call here is recommending this. She states that she will not go to [facility] as last time she was there they did not want to operate on her. Patient states that she will leave AGAINST MEDICAL ADVICE. Discussed the risks and benefits of this such as worsening bowel obstruction leading perforation leading to septic shock leading to which she verbalized understanding of. She is advised to be nothing by mouth for the next 24 hours and then do clear liquid diet and advance as tolerated. Hospitalist Dr. 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 We did add on a free T3 and T4 to her workup as her TSH was elevated and primary care team states that they will follow-up on this as well. Patient was advised to return with worsening symptoms and concerns she is agreeable this plan. 12/18/24 [id number]<Electronically signed by Jose Lewis DO> Cosigner Signature (if applicable): cc: Dr. Xena Chan MD ~* Signed [facility] Work Phone: Evaluation noteNo assessment information available [facility] Work Phone: Evaluation note* Diagnosis Onset Date Resolution Status Abdominal pain acute Abdominal wall hernia acute Burn acute Complete small bowel obstruction acute H/O tracheostomy acute History of cholecystectomy a cute History of colon surgery acu te Incisional hernia of anterio r abdominal wall with obstruction acute Leukocytosis acute COPD (chronic obstructive pulmonary disease) chronic [facility] Work Phone: Evaluation note* Diagnosis Onset Date Resolution Status Abdominal pain acute Abdominal wall hernia acute Burn acute Complete small bowel obstruction acute H/O tracheostomy acute History of cholecystectomy a cute History of colon surgery acu te Leukocytosis acute COPD (chronic obstructive pulmonary disease) chronic [facility] Work Phone: Evaluation note* Diagnosis Ventral hernia without obstruction or gangrene- Primary Ventral hernia, unspecified, without mention of obstruction or gangrene documented in this encounter [facility] Discharge instructions Additional Instructions Your primary care physician sent in lactulose that you need to take as prescribed. Use the Zofran dissolvable tablet under your tongue as prescribed. Remain nothing by mouth for the remainder of the day and then advance to a clear liquid diet for a few days and then advance as tolerated from there. Return with worsening symptoms or any concerns. Your CT scan of your abdomen did show that you have a bowel obstruction currently. As we discussed here we recommended you be transferred to [facility] for further evaluation management the risks of signing out AGAINST MEDICAL ADVICE are worsening bowel obstruction leading to bowel perforation. This could then lead to severe infection causing bloodstream infection. After this this could ultimately lead you to . Return with any other concerns or worsening symptoms.[facility] Work Phone: Reason for referral (narrative)No reason for referral [facility] Work Phone: Chief Complaint and Reason for Visit Chief [...] COPD (chronic obstructive pulmonary disease) Chief Complaint Admit Date fall December 18, 2024 5:45 am Family History No Family History Records Found Relationship Condition Age at Onset Recorded Date/T linda mother Hypertension Unknown Cardiac disease Unknown Presence of cardiac pacemaker Unknown Malignant neoplasm of cervix Unknown father Diabetes mellitus Unknown aunt Malignant neoplasm of colon Unknown aunt Malignant neoplasm of breast Unknown uncle Congestive heart failure Unknown Advance Directives No Advanced Directives Records Found Advance Directive Response Recorded Date/ Time Living Will No June 10 9:15pm Power of Distance Education Teacher No June 10, 2022 9:15pm Advance Directive Response Recorded Date/ Time Living Will No June 11 3:06pm Power of Distance Education Teacher No June 11, 2022 3:06pm Advance Directive Response Recorded Date/ Time Living Will No June 16 12:32am Power of Distance Education Teacher No June 16, 2022 12:32am Advance Directive Response Recorded Date/ Time Living Will No June 16 1:32am Power of Distance Education Teacher No June 16, 2022 1:32am Advance Directive Response Recorded Date/ Time Do you have a Healthcare Power of Distance Education Teacher? No December 18, 2024 5:47am Summary Purpose Reason for Referral Specialty Diagnoses / Procedures Referred By Contac t Referred To Contact CT IMAGING Diagnoses Ventral hernia without obstruction or gangrene Procedures CT ABD/PEL WO IVCON CT ABD & PELVIS W/O CONTRAST Chidi Gonzalez MD [address] [place] [address] [place] [address] Referral ID Status Reason Start Date Expiration Date Visits Requested Visits Authorized [id number] Pending Review Auto-Generat ed Referral 11/12/2023 12/11/2024 [...] MD Primary Care Provider Active Team Status: Inactive Member Role Status Dates Dr. Xena Chan MD Primary Care Provider Active Start: December 18, 2024 End: December 18, 2024 Dr. Donovan Jo MD Emergency Provider Active S tart: December 18, 2024 End: December 18, 2024 Team Status: Active Member Role Status Dates [...] Admit Provider, Other Provider Act mauricio Dr. Kyrei Nicole MD Other Provider Active Dr. Tejinder [...] Dr. Lawrence Chan MD Attending Provider Active Negative Notcher Relationship Specialty Start Date End Date Xena Chan MD [address] [place] [address] PCP - General Family Medicine 11/02/22 Negative Notcher Relationship Specialty Start Date End Date Xena Chan MD [address] [place] [id number] PCP - General Family Medicine 11/02/22 Source Comments (unrecognize d section and content) In the event this informatio n is protected by the Federal Confidentiality of Alcohol and Drug Abuse Patient Records regulations: The Federal rules restrict any use of the information to criminally investigate or prosecute any alcohol or drug abuse patient.[facility] the event this information is protected by the Federal Confidentiality of Alcohol and Drug Abuse Patient Records regulations: The Federal rules restrict any use of the information to criminally investigate or prosecute any alcohol or drug abuse patient.[facility] Reason for Visit (unrecogniz ed section and content) Reason Comments Follow Up Phone Call All Clear INFORMATION SOURCE (unrecogn ized section and content) DATE CREATED AUTHOR 11/15/2022 [facility] DATE CREATED AUTHOR AUTHOR'Jarrod BRIONES 12/25/2024 [facility] FOR RECORDS PERTAINING TO PATIENTS WHO ARE [...] BE BASED ON THE PRIMARY CLINICAL RECORDS. [employer] [facility]. provides no warranty or guarantee of the accuracy or completeness of information in this document.
--- NOTE | 2025-01-11 04:55 | RAD_ITS ---
PROCEDURE: ABDOMEN SINGLE VIEW (PORTABLE) 01/11/2025 REASON FOR EXAM: SBO TECHNIQUE: ABDOMEN SINGLE VIEW (PORTABLE) COMPARISON: 01/10/2025 CT FINDINGS: NG tube is seen at the stomach body. Distended small bowel loops. Increased fecal loading suggesting constipation. RAD/Abdomen Single View (Portable) IMPRESSION: NG tube is seen at the stomach body. Distended small bowel loops. [facility]
[2025-01-11 06:16] LABS: Hematocrit 45.3 % (37-47); Hemoglobin 15.6 g/dL (12.0-15.0); Immature Granulocytes Count 0.020 X10^3/uL (0.0-0.0); Mean Corp Hgb Conc 34.4 g/dL (32-36); Mean Corpuscular Volume 88.8 fL (81-99); Mean Platelet Vol. 10.8 fl (6.2-12.0); NRBC Flagged by Analyzer 0 % (0-5); Platelet Count 266 K/mm3 (150-450); RBC Distribution Width CV 13.6 % (11.6-14.6); RBC Distribution Width SD 44.3 fl (35.1-43.9); Red Blood Count 5.10 M/mm3 (4.2-5.4); White Blood Count 8.4 K/mm3 (4.4-11.0)
[2025-01-11 06:56] LABS: Anion Gap 11 (5-15); BUN 17 mg/dL (4-19); BUN/Creat Ratio 26.3 RATIO (10-20); Calcium,Total 8.7 mg/dL (7.6-11.0); Carbon Dioxide 24.8 mmol/L (21.0-32.0); Chloride 101 mmol/L (98-108); Estimated Creatinine Clearance 63.31 ml/min (50-250); Glucose 112 mg/dL (70-99); Potassium 4.3 mmol/L (3.3-5.1)
--- NOTE | 2025-01-11 07:03 | PCM.PN.HOSP ---
Reason for Visit Reason for Visit: Diagnoses Unspecified intestinal obstruction, unspecified as to partial versus complete obstruction (01/10/25) Unspecified abdominal pain (01/10/25) Nausea (01/10/25) Subjective Subjective Patient's since admission with improvement status post NG tube placement however she still having intermittent waves of abdominal discomfort and increased distention as well as cramping. She denies any current nausea or emesis initially upon evaluation but during evaluation had bouts of abdominal cramping and did request nausea medicines at that time. Discussed plan with also general surgery presents with noted intention for small bowel follow-through to which patient is amenable. Patient continues to deny any recent flatus or bowel movement. Patient denies fevers, chills, emesis, chest pain or dyspnea. Objective Data Objective Data Vital Signs: Vital Signs Temp Pulse Resp BP Pulse Ox O2 Del Method O2 Flow Rate 98.1 F 87 18 142/61 H 92 Nasal Cannula 2 01/11/25 03:43 01/11/25 03:43 01/11/25 03:43 01/11/25 03:43 01/11/25 03:43 01/11/25 03:43 01/11/25 03:43 Oxygen Flow Rate (L/min) 2 Oxygen Delivery Method Nasal Cannula Weight: 177 lb 0.499 oz Body Mass Index (BMI) 31.8 Intake & Output: Intake and Output for Last 24 Hours 01/09/25 01/10/25 01/11/25 23:59 23:59 23:59 Intake Total 1030 / 1030 901.67 / 901.67 Output Total 1000 / 1000 300 / 300 Balance 601.67 / 601.67 Lab / Micro Data 01/11/25 04:49 01/11/25 04:49 Labs: Laboratory Results - last 24 hr 01/10/25 11:39: WBC 15.0 H, RBC 6.04 H, Hgb 18.0 H*, Hct 52.7 H, MCV 87.3, MCH 29.8, MCHC 34.2, RDW Std Deviation 43.1, RDW Coeff of Chrissy 13.4, Plt Count 345, MPV 10.8, Immature Gran % (Auto) 0.700, Neut % (Auto) 82.4 H, Lymph % (Auto) 10.1 L, [place] % (Auto) 6.0, Eos % (Auto) 0.1, Baso % (Auto) 0.7, Absolute Neuts (auto) 12.4 H, Absolute Lymphs (auto) 1.51, Nucleated RBC % 0, Sodium Cancelled, Potassium Cancelled, Chloride Cancelled, Carbon Dioxide Cancelled, Anion Gap Cancelled, BUN Cancelled, Creatinine Cancelled, Estim Creat Clear Calc Cancelled, Est GFR (MDRD) Non-Af Cancelled, BUN/Creatinine Ratio Cancelled, Glucose Cancelled, Lactic Acid 2.1 H*, Calcium Cancelled, Total Bilirubin Cancelled, AST Cancelled, ALT Cancelled, Alkaline Phosphatase Cancelled, Total Protein Cancelled, Albumin Cancelled, Globulin Cancelled, Albumin/Globulin Ratio Cancelled, Lipase Cancelled 01/10/25 12:32: Urine Color Yellow, Urine Clarity Clear, Urine pH 7.0, Ur Specific [place] 1.010, Urine Protein 30 H, Urine Glucose (UA) Normal, Urine Ketones Negative, Urine Occult Blood 25 H, Urine Nitrite Negative, Urine Bilirubin Negative, Urine Urobilinogen Normal, Ur Leukocyte Esterase Negative, Urine RBC 0-5 SEEN, Urine WBC 0 SEEN, Ur Squamous Epith Cells 0 SEEN, Urine Bacteria 0 SEEN, Hyaline Casts 0-5 SEEN, Urine Mucus 0 SEEN 01/10/25 12:50: Sodium 136, Potassium 4.0, Chloride 102, Carbon Dioxide 21.4, Anion Gap 12, BUN 19, Creatinine 0.70, Estim Creat Clear Calc 63.52, Est GFR (MDRD) Non-Af 93, BUN/Creatinine Ratio 27.7 H, Glucose 112 H, Calcium 8.1, Phosphorus 3.7, Magnesium 1.7, Total Bilirubin 0.28, AST 27, ALT 27, Alkaline Phosphatase 81, Total Protein 6.2, Albumin 3.4, Globulin 2.8, Albumin/Globulin Ratio 1.2, Lipase 15 01/10/25 17:11: Lactic Acid 1.3 01/11/25 04:49: WBC 8.4, RBC 5.10, Hgb 15.6 H, Hct 45.3, MCV 88.8, MCH 30.6, MCHC 34.4, RDW Std Deviation 44.3 H, RDW Coeff of Chrissy 13.6, Plt Count 266, MPV 10.8, Immature Gran % (Auto) 0.200, Neut % (Auto) 61.4, Lymph % (Auto) 20.4, [place] % (Auto) 16.0 H, Eos % (Auto) 1.5, Baso % (Auto) 0.5, Absolute Neuts (auto) 5.2, Absolute Lymphs (auto) 1.71, Nucleated RBC % 0, Sodium 136, Potassium 4.3, Chloride 101, Carbon Dioxide 24.8, Anion Gap 11, BUN 17, Creatinine 0.65 L, Estim Creat Clear Calc 63.31, Est GFR (MDRD) Non-Af 94, BUN/Creatinine Ratio 26.3 H, Glucose 112 H, Calcium 8.7, TSH 17.800 H Radiography Diagnostic Testing: Radiology Impression Abdomen/Pelvis CT 01/10/25 11:17 IMPRESSION: Fatty infiltration of the liver. Recurrent distal small bowel obstruction. Fecal material is seen in the colon. Prior anastomosis at the level of the rectum. Status post cholecystectomy. Reading Location: [place] [address] KUB X-Ray 01/10/25 14:20 IMPRESSION: Tip of the orogastric tube is in the body of the stomach. Moderate amount of fecal material is seen in the colon. Reading Location: [facility] KUB X-Ray 01/11/25 04:55 IMPRESSION: NG tube is seen at the stomach body. Distended small bowel loops. Reading Location: [place] [address] Physical Exam Narrative Physical Examination: General: Awake, alert, oriented x 3 and cooperative, seated upright in the WI bed, initially comfortable appearing but did have a bout of increased abdominal cramping during evaluation with visible discomfort. Skin: Normal color, normal turgor, no icterus, no cyanosis except occasional stage ecchymoses. HEENT: AT/NC, EOMI, PERRLA, mildly dry MM, NG in place. Lungs: Mildly diminished, greater bases, appropriate effort, no rales, ronchi or wheezing. Heart: Regular rate and rhythm; no gallop, rub audible. Abdomen: Soft, no specific tenderness to palpation although patient does report episode during discussions of increased cramping, no obvious marked distention, absent bowel sounds. Extremities: No cyanosis, clubbing, or edema. Neurological: Patient awake, alert, oriented as noted, cognitive function intact; pupils equally reactive to light and accommodation, cranial nerves grossly normal, moving all 4 extremities, no focal deficits, strength moderately globally decreased secondary to acute presentation complaints Psychiatric: Affect appears fatigued otherwise normal, no acute evidence of depressive or anxiety feelings. Assessment & Plan Assessment/Plan (1) Small bowel obstruction: PLAN: Plan The patient is a 69 y/o F w/ PMHx: Obesity, Hx VTE, COPD, HTN, HLD, Hx SBO, Tobacco use who presents to [facility] 01[facility]25 with history of abdominal discomfort, nausea starting the evening prior progressively worsening with last bowel movement 2 days previous prompting eventual ED evaluation. #1. Abdominal pain, nausea w/ SBO with mild lactic acidosis: In the ED work-up included CT A/P w/ recurrent distal small bowel obstruction with fecal material seen in the colon, prior anastomosis at the level of the rectum. Admitted to medical surgical floor, maintained on IVFs, LA repeat 1.3, corrected, continue NGT to suction, strict I&Os, IV pain/anti-emetics PRN, serial KUB as needed to montior bowel function, PPI IV, maintain NPO on bowel rest. General surgery consulted and following. Noted plan for possible suppositories and SBFT. #2. Hypertension: Holding oral regimen, PRN IV hydralazine in the interim. #3. Hyperlipidemia: Not on statin therapy, noted herbal supplementation, holding. #4. Chronic COPD with allergic rhinitis: Will temporarily hold home inhaler and transition to ATC budesonide, PRN albuterol, HOB, IS parameters. Holding fluticasone temporarily. #5. Tobacco Abuse: Encouraged cessation, inpatient consultation per RT, NR if desired. #6. Hx VTE: Not chronically anticoagulated, maintain on chemoprophylaxis. #7. Obesity: Weight loss and lifestyle changes encouraged. #8. DVT prophylaxis: Lovenox. #9. CODE status: Full Code; however, she notes if any necesssity for recurrent bowel surgery she would prefer transition to comfort care. Charges/Coding Visit Charges Inpatient E&M: 94796 Subs Hosp L3
[2025-01-11] MEDS: Albuterol 2.5 MG/3 ML VIAL.NEB. INHALATION ×2 (07:09→13:02)
[2025-01-11] MEDS: Budesonide Respules 0.5 MG/2 ML AMPUL.NEB. INHALATION (07:10)
--- NOTE | 2025-01-11 07:40 | NURSING ---
pt to xray
--- NOTE | 2025-01-11 08:06 | PCM.PN.SRG ---
Subjective Subjective Patient is evaluated resting comfortably in bed. She notes her pain/discomfort has improved, however she continues to have intermittment waves of pain. She denies any nausea, vomiting. She denies passing flatus or having a BM. Objective Data Objective Data Vital Signs: Vital Signs Temp Pulse Resp BP Pulse Ox O2 Del Method O2 Flow Rate 98.1 F 89 20 H 142/61 H 93 Nasal Cannula 2 01/11/25 03:43 01/11/25 07:10 01/11/25 07:10 01/11/25 03:43 01/11/25 07:57 01/11/25 07:57 01/11/25 07:57 Oxygen Flow Rate (L/min) 2 Oxygen Delivery Method Nasal Cannula Weight: 177 lb 0.499 oz Body Mass Index (BMI) 31.8 Intake & Output: Intake and Output for Last 24 Hours 01/09/25 01/10/25 01/11/25 23:59 23:59 23:59 Intake Total 1030 / 1030 901.67 / 901.67 Output Total 1000 / 1000 300 / 300 Balance 601.67 / 601.67 Lab / Micro Data 01/11/25 04:49 01/11/25 04:49 Labs: Laboratory Results - last 24 hr 01/10/25 11:39: WBC 15.0 H, RBC 6.04 H, Hgb 18.0 H*, Hct 52.7 H, MCV 87.3, MCH 29.8, MCHC 34.2, RDW Std Deviation 43.1, RDW Coeff of Chrissy 13.4, Plt Count 345, MPV 10.8, Immature Gran % (Auto) 0.700, Neut % (Auto) 82.4 H, Lymph % (Auto) 10.1 L, [place] % (Auto) 6.0, Eos % (Auto) 0.1, Baso % (Auto) 0.7, Absolute Neuts (auto) 12.4 H, Absolute Lymphs (auto) 1.51, Nucleated RBC % 0, Sodium Cancelled, Potassium Cancelled, Chloride Cancelled, Carbon Dioxide Cancelled, Anion Gap Cancelled, BUN Cancelled, Creatinine Cancelled, Estim Creat Clear Calc Cancelled, Est GFR (MDRD) Non-Af Cancelled, BUN/Creatinine Ratio Cancelled, Glucose Cancelled, Lactic Acid 2.1 H*, Calcium Cancelled, Total Bilirubin Cancelled, AST Cancelled, ALT Cancelled, Alkaline Phosphatase Cancelled, Total Protein Cancelled, Albumin Cancelled, Globulin Cancelled, Albumin/Globulin Ratio Cancelled, Lipase Cancelled 01/10/25 12:32: Urine Color Yellow, Urine Clarity Clear, Urine pH 7.0, Ur Specific [place] 1.010, Urine Protein 30 H, Urine Glucose (UA) Normal, Urine Ketones Negative, Urine Occult Blood 25 H, Urine Nitrite Negative, Urine Bilirubin Negative, Urine Urobilinogen Normal, Ur Leukocyte Esterase Negative, Urine RBC 0-5 SEEN, Urine WBC 0 SEEN, Ur Squamous Epith Cells 0 SEEN, Urine Bacteria 0 SEEN, Hyaline Casts 0-5 SEEN, Urine Mucus 0 SEEN 01/10/25 12:50: Sodium 136, Potassium 4.0, Chloride 102, Carbon Dioxide 21.4, Anion Gap 12, BUN 19, Creatinine 0.70, Estim Creat Clear Calc 63.52, Est GFR (MDRD) Non-Af 93, BUN/Creatinine Ratio 27.7 H, Glucose 112 H, Calcium 8.1, Phosphorus 3.7, Magnesium 1.7, Total Bilirubin 0.28, AST 27, ALT 27, Alkaline Phosphatase 81, Total Protein 6.2, Albumin 3.4, Globulin 2.8, Albumin/Globulin Ratio 1.2, Lipase 15 01/10/25 17:11: Lactic Acid 1.3 01/11/25 04:49: WBC 8.4, RBC 5.10, Hgb 15.6 H, Hct 45.3, MCV 88.8, MCH 30.6, MCHC 34.4, RDW Std Deviation 44.3 H, RDW Coeff of Chrissy 13.6, Plt Count 266, MPV 10.8, Immature Gran % (Auto) 0.200, Neut % (Auto) 61.4, Lymph % (Auto) 20.4, [place] % (Auto) 16.0 H, Eos % (Auto) 1.5, Baso % (Auto) 0.5, Absolute Neuts (auto) 5.2, Absolute Lymphs (auto) 1.71, Nucleated RBC % 0, Sodium 136, Potassium 4.3, Chloride 101, Carbon Dioxide 24.8, Anion Gap 11, BUN 17, Creatinine 0.65 L, Estim Creat Clear Calc 63.31, Est GFR (MDRD) Non-Af 94, BUN/Creatinine Ratio 26.3 H, Glucose 112 H, Calcium 8.7, TSH 17.800 H Radiography Diagnostic Testing: Radiology Impression Abdomen/Pelvis CT 01/10/25 11:17 IMPRESSION: Fatty infiltration of the liver. Recurrent distal small bowel obstruction. Fecal material is seen in the colon. Prior anastomosis at the level of the rectum. Status post cholecystectomy. [facility] 01/10/25 14:20 IMPRESSION: Tip of the orogastric tube is in the body of the stomach. Moderate amount of fecal material is seen in the colon. [facility] 01/11/25 04:55 IMPRESSION: NG tube is seen at the stomach body. Distended small bowel loops. Reading Location: [place] [address] Physical Exam HEENT HEENT Narrative: Nose- NG tube intact GI GI Narrative: Abdomen- soft, obese, slightly distended. Tenderness to palpation at the umbilicus and right lower quadrant. Hypoactive bowel sounds Assessment & Plan Assessment/Plan (1) Small bowel obstruction: (2) Intractable abdominal pain: (3) Intractable nausea: PLAN: Plan I am following this patient in conjunction with Dr. Alan. She will independently evaluate this patient Labs reviewed Order small bowel follow-through Patient continues to be adamant that she does not want any surgical intervention even if the small bowel follow-through is abnormal Patient would like to discuss with case management about her insurance We will continue to monitor this patient Charges/Coding Visit Charges Inpatient E&M: 80299 Subs Hosp L2
--- NOTE | 2025-01-11 08:15 | RAD_ITS ---
EXAM: Modified Gastrografin small bowel follow-through examination. CLINICAL HISTORY: Small-bowel obstruction. COMPARISON: Prior study dated January 11, 2025 and 501 in the morning. TECHNIQUE: Gastrografin was given to the patient. Through the NG tube. FINDINGS: Imaging was obtained immediately following the ingestion of Gastrografin as well as at 3 hours and 6 hours. On the initial images, there is a large amount of fecal material seen in the colon. The gas pattern is otherwise unremarkable. At 3 hours, contrast is seen within the colon. At 6 hours, contrast is seen down to the rectum. RAD/Small Bowel Series Only IMPRESSION: No evidence of small-bowel obstruction at this time. Large amount of fecal material seen in the colon. Reading Location: [facility]
[2025-01-11] MEDS: Pantoprazole Sodium 40 MG in 0.9% Normal Saline (100mL MB+) 100 ML 330 MG IV ×2 (08:46→20:51)
[2025-01-11] MEDS: 0.9% Saline Lock 10 ML Syringe IV (08:47)
--- NOTE | 2025-01-11 13:25 | CHAPLAIN ---
Type of Pastoral Visit _x__ Initial Visit ___ Follow-up Visit ___ On-call Visit ___ General Patient Visit ___ Spiritual Assessment ___ Family Conference ___ Bereavement ___ Rapid Response ___ Code Blue ___ Other (describe below) Pastoral Care Referral From _x__ Patient ___ Family ___ Nurse ___ Physician ___ Acid Patroller ___ Small Piece Cutter ___ Other (describe below) Sacrament/Intervention _x__ Active listening ___ Anointing ___ Religion ___ Bereavement ___ Communion _x__ Betty exploration ___ ___ Life review _x__ Prayer ___ Reconciliation ___ Sacrament of Sick _x__ Supportive presence ___ Wedding ___ Other (describe below) Pastoral Comments patient is welcoming and immediately asks about advent perspectives and betty; pt speaks of her health history and the current situation; pt wants prayer support and also acknowledges that there have been some positive results of treatments already; pt pursues more information on local churches and video messages; pt is given presence, time for listening, and prayer
--- NOTE | 2025-01-11 14:47 | CASEMGMT ---
KENZIE ROMEO Assessment: Face to Face with pt for initial transition planning/care coordination assessment. KENZIE ROMEO introduced self and role at [facility], pt voices understanding and consents to assessment. Pt is A&O x4 and answers all questions appropriately at this time. Pt sitting up in bed in no distress with NG in. Care providers, pharmacy, and demographics verified/updated. Admitting Dx: distal SBO Strata Score: 2 PCP:Dustin Specialists:Denies Preferred Pharmacy:[facility] Insurance: [facility], [facility] crossover Prescription Benefit: yes LNOK: Lima Pickens, sister Living Arrangements: Pt lives alone in a single story apt with no steps to enter. Pt reports she is I in ADL/IADLs and denies concerns at home. Transportation: Pt drives self and denies concerns with transportation. DME:denies HHC/SNF: Pt has had HHC while in [place] and denies SNF stays. Pt states no concerns with going home at time of dc. 6 cl=18, pt refused PT. Pt does not anticipate any homegoing needs. Pt speaks of a previous colostomy in the past. Pt states no further concerns/needs. CM to follow. Advised pt to ask CM if any further questions/concerns/needs arise, voices understanding. Pt Goal: Home Plan: Home Essence ESPINO CM
--- NOTE | 2025-01-11 16:03 | CASEMGMT ---
Social Work- SW met with pt per pt request to bedside nurse. SW introduced self and role; pt agreeable to meeting. Pt reports that she would like an ICD code for bowel resection and SW to verify if the procedure would be covered. Pt reports that she was told by someone that MCR and [facility] will not cover procedure and because of that, pt would like to have code status in the venet of a bowel perforation, be made DNR. Pt does not want to be DNR for other medical events. SW encouraged pt to complete HCPOA and living will so that her wishes can be carried out. Pt reports that she is estranged from both sisters, her only family, and does not have anyone to act as HCPOA. Pt declines to complete living will, stating that it is your job to find out what I need; reporting that because she is in the hospital, staff needs to verify coverage of procedure for pt. SW provided support and education that coverage can not be guaranteed for a procedure that pt is not currently needing. SW guided pt through conversation as to code status being determined by coverage. Pt remained adamant that she would not change her decision on code status, completing directives, or insistence of needing ICD code and verified coverage. SW again attempted to provide education on why coverage cannot be guaranteed. Pt reported that she did not have any additional SW needs. PEEWEE followed up with SW printing worker supervisor to collaborate on pt request. MARYCRUZ Santa
[2025-01-12 04:29] VITALS: BP 126/53; PULSE 84; RESP 18; TEMP 36.7; O2SAT 93
[2025-01-12] MEDS: Lactated Ringers 1,000 ML 100 ML IV (04:32)
--- NOTE | 2025-01-12 04:45 | RAD_ITS ---
PROCEDURE: ABDOMEN SINGLE VIEW (PORTABLE) 01/12/2025 REASON FOR EXAM: SBO TECHNIQUE: ABDOMEN SINGLE VIEW (PORTABLE) COMPARISON: 01/11/2025 FINDINGS: Oral contrast is seen throughout the mildly distended colon. No definite obstruction RAD/Abdomen Single View (Portable) IMPRESSION: Oral contrast is seen throughout the mildly distended colon with no definite ob struction [facility]
[2025-01-12 06:00] VITALS: BMI 31.8
[2025-01-12 06:30] LABS: Hematocrit 41.2 % (37-47); Hemoglobin 13.5 g/dL (12.0-15.0); Immature Granulocytes Count 0.030 X10^3/uL (0.0-0.0); Mean Corp Hgb Conc 32.8 g/dL (32-36); Mean Corpuscular Volume 90.4 fL (81-99); Mean Platelet Vol. 10.7 fl (6.2-12.0); NRBC Flagged by Analyzer 0 % (0-5); Platelet Count 200 K/mm3 (150-450); RBC Distribution Width CV 13.7 % (11.6-14.6); RBC Distribution Width SD 45.7 fl (35.1-43.9); Red Blood Count 4.56 M/mm3 (4.2-5.4); White Blood Count 8.3 K/mm3 (4.4-11.0)
--- NOTE | 2025-01-12 07:00 | PCM.PN.HOSP ---
Reason for Visit Reason for Visit: Diagnoses Unspecified intestinal obstruction, unspecified as to partial versus complete obstruction (01/10/25) Unspecified abdominal pain (01/10/25) Nausea (01/10/25) Subjective Subjective Patient clinically improved with no further obstruction identified on small bowel follow-through with onset of bowel movements. Patient is been tolerating clear liquids and transition to fluids without issue. Patient evaluated general surgery this morning and cleared for discharge. Patient notes intention to follow-up with [facility] general surgeon but is not sure exactly who yet as her previous surgeon has since retired. Patient denies fevers, chills, nausea, emesis, abdominal pain, chest pain or dyspnea. Objective Data Objective Data Vital Signs: Vital Signs Temp Pulse Resp BP Pulse Ox O2 Del Method O2 Flow Rate 98.1 F 84 18 126/53 H 93 Room Air 2 01/12/25 04:29 01/12/25 04:29 01/12/25 04:29 01/12/25 04:29 01/12/25 04:29 01/12/25 04:01/11/25 13:49 Oxygen Flow Rate (L/min) 2 Oxygen Delivery Method Room Air Weight: 177 lb 7.554 oz Body Mass Index (BMI) 31.8 Intake & Output: Intake and Output for Last 24 Hours 01/10/25 01/11/25 01/12/25 23:59 23:59 23:59 Intake Total 1030 / 1030 3046.67 / 3046.67 768.33 / 768.33 Output Total 1000 / 1000 525 / 525 Balance 2521.67 / 2521.67 768.33 / 768.33 Lab / Micro Data 01/12/25 05:52 01/12/25 05:52 Labs: Laboratory Results - last 24 hr 01/12/25 05:52: WBC 8.3, RBC 4.56, Hgb 13.5, Hct 41.2, MCV 90.4, MCH 29.6, MCHC 32.8, RDW Std Deviation 45.7 H, RDW Coeff of Chrissy 13.7, Plt Count 200, MPV 10.7, Immature Gran % (Auto) 0.400, Neut % (Auto) 64.9, Lymph % (Auto) 21.3, [place] % (Auto) 11.3 H, Eos % (Auto) 1.7, Baso % (Auto) 0.4, Absolute Neuts (auto) 5.4, Absolute Lymphs (auto) 1.77, Nucleated RBC % 0 Radiography Diagnostic Testing: Radiology Impression Small Bowel X-Ray 01/11/25 08:15 IMPRESSION: No evidence of small-bowel obstruction at this time. Large amount of fecal material seen in the colon. Reading Location: [facility]-1 KUB X-Ray 01/12/25 04:45 IMPRESSION: Oral contrast is seen throughout the mildly distended colon with no definite obstruction Reading Location: [place] [id number] Physical Exam Narrative Physical Examination: General: Awake, alert, oriented x 3 and cooperative, seated upright in the MS bed, eating this morning without any issue, notes feeling improved and eager for discharge. Skin: Normal color, normal turgor, no icterus, no cyanosis except occasional stage ecchymoses. HEENT: AT/NC, EOMI, PERRLA, MMM. Lungs: Mildly diminished, greater bases, appropriate effort, no rales, ronchi or wheezing. Heart: Regular rate and rhythm; no gallop, rub audible. Abdomen: Soft, NTTP, no marked distention, improved normalized bowel sounds, no distention. Extremities: No cyanosis, clubbing, or edema. Neurological: Patient awake, alert, oriented as noted, cognitive function intact; pupils equally reactive to light and accommodation, cranial nerves grossly normal, moving all 4 extremities, no focal deficits, strength improved, mildly global decrease. Psychiatric: Affect appears normal, requesting discharge, no acute evidence of depressive or anxiety feelings. Assessment & Plan Assessment/Plan (1) Small bowel obstruction: PLAN: Plan The patient is a 69 y/o F w/ PMHx: Obesity, Hx VTE, COPD, HTN, HLD, Hx SBO, Tobacco use who presents to the [facility] ED on 01/10/25 with history of abdominal discomfort, nausea starting the evening prior progressively worsening with last bowel movement 2 days previous prompting eventual ED evaluation. #1. Abdominal pain, nausea w/ SBO with mild lactic acidosis: In the ED work-up included CT A/P w/ recurrent distal small bowel obstruction with fecal material seen in the colon, prior anastomosis at the level of the rectum. Admitted to medical surgical floor, maintained on IVFs, LA repeat 1.3, corrected, initially maintain NG tube with strict I's and O's, repeat KUB with clinical improvement, small bowel follow-through initiated with no further obstructive process identified with onset of bowel movement and flatus. Patient 01/11/2025 initiated clear liquids and tolerated full transition 01/12/2025. Evaluated by general surgery and cleared for discharge therefore given clinical improvement 01/12/2025 quicker than expected we will plan discharge to home per patient preference with follow-up outpatient with PCP as well as [facility] surgery at her own discretion but did also offer Dr. Alan and Dr. Villalobos office information. #2. Hypertension: Initially held oral regimen, PRN IV hydralazine. #3. Hyperlipidemia: Not on statin therapy, noted herbal supplementation, held during presentation. #4. Chronic COPD with allergic rhinitis: Temporarily held home inhaler and maintained on ATC budesonide, PRN albuterol, HOB, IS parameters. Holding fluticasone temporarily. #5. Tobacco Abuse: Encouraged cessation, inpatient consultation per RT, NR if desired. #6. Hx VTE: Not chronically anticoagulated, maintained on chemoprophylaxis. #7. Obesity: Weight loss and lifestyle changes encouraged. #8. DVT prophylaxis: Lovenox. #9. CODE status: Full Code; however, she notes if any necessity for recurrent bowel surgery she would prefer transition to comfort care. Charges/Coding Visit Charges Inpatient E&M: 48898 Subs Hosp L2
[2025-01-12 07:13] LABS: AST(SGOT) 19 U/L (<=31); Alanine Aminotransfer ALT/SGPT 19 U/L (<=34); Albumin, Serum 3.3 g/dL (3.4-4.8); Alkaline Phosphatase 73 U/L (35-104); Anion Gap 7 (5-15); BUN 8 mg/dL (4-19); BUN/Creat Ratio 13.6 RATIO (10-20); Calcium,Total 8.5 mg/dL (7.6-11.0); Carbon Dioxide 27.5 mmol/L (21.0-32.0); Chloride 105 mmol/L (98-108); Estimated Creatinine Clearance 63.39 ml/min (50-250); Globulin 2.6 g/dL (2.2-4.2); Glucose 97 mg/dL (70-99); Potassium 4.5 mmol/L (3.3-5.1)
[2025-01-12 07:23] VITALS: PULSE 80; RESP 16; O2SAT 85
[2025-01-12] MEDS: Budesonide Respules 0.5 MG/2 ML AMPUL.NEB. INHALATION (07:23)
[2025-01-12] MEDS: Albuterol 2.5 MG/3 ML VIAL.NEB. INHALATION (07:23)
--- NOTE | 2025-01-12 07:49 | DCINST_ITS ---
Discharge Instructions Diet Discharge Diet: - (Please continue gentle diet/cardiac focused and advance over the next several days unless otherwise instructed per Surgery Service.) DC O2, CPAP, BIPAP needs Home O2 Discharge instructions: No Dressing / Incision Discharge Activity: - (Strongly encourage routine activity, frequent walks.) May resume sexual activity in: No Restrictions Weight Bearing Status: Weight bearing as tolerated Dressing / Incision Call your doctor if you observe: Fever of 101 or Higher, Uncontrolled pain and - (Recurrent abdominal pain, distention, lack of flatus or bowel movement.) Follow Up Care Test Results: Test results from this visit will be discussed in further detail at your follow- up appointment, if applicable. Discharge Plan Admission Admit Date/Time: 01/10/25 13:17 Primary Reason for Your Visit: SBO with intractable abdominal pain, N/V Attending Provider: Thais Richards Primary Care Provider: Xena Chan Consulting Providers: Kimberlee Alan; Paco Gibson Instructions Patient Instructions: Small Bowel Obstruction Discharge Orders/Prescriptions Prescriptions: Continued albuterol sulfate 90 mcg/actuation HFA aerosol inhaler 2 puff inhalation Q2H PRN PRN (Reason: Shortness Of Breath) amitriptyline 25 mg tablet 100 mg PO QHS candesartan 4 mg tablet 4 mg PO QHS cyclobenzaprine 10 mg tablet 10 mg PO TID fluticasone propionate 50 mcg/actuation spray,suspension 2 spray intranasal DAILY budesonide-formoterol 160-4.5 mcg/actuation HFA aerosol inhaler 1 puff inhalation BID polyethylene glycol 3350 [Miralax] 17 gram powder in packet 17 g PO DAILY PRN (Reason: Constipation) docusate sodium [Colace] 100 mg capsule 100 mg PO BID PRN (Reason: Constipation) mecobalamin (vitamin B12) 1,000 mcg tablet,chewable 1,000 mcg PO DAILY red yeast rice 600 mg capsule 600 mg PO DAILY Rx Instructions: give with meal/snack calcium carbonate [Tums] 200 mg calcium (500 mg) tablet,chewable 200 mg PO Q2H PRN PRN (Reason: gerd) Linzess 290 mcg Capsule 290 mcg PO DAILY ondansetron 4 mg tablet,disintegrating 4 mg PO Q6H PRN (Reason: nausea and vomiting) Qty: 20 0RF Referrals / Follow Up: Xena Chan MD [Primary Care Provider] - (Follow-up with PCP within 3-5 days to review admission.) Kimberlee Alan MD [Med Staff - Active Staff] - (Follow-up with Surgery as needed/instructed.) Disposition Disposition (needs filled in before D/C Order can be placed): Home, Self Care
--- NOTE | 2025-01-12 07:50 | DS.PCM_ITS ---
Providers Date of Admission: 01/10/25 Date of Discharge: 01/12/25 Primary Care Physician: Dr. Xena Chan MD Consultations 01/10/25 14:41 Consult: General Surgery Routine Consulting Provider: Kimberlee Alan Reason for Consult: Distal SBO, recurrent SBO. EMERGENT Consult: No MD Notified: Yes Date Notified: 01/10/25 Time Notified: 14:41 Method of Notification: ED Physician Initiated Reason For Visit: DISTAL SBO Diagnosis Discharge Diagnosis (1) Small bowel obstruction: Status: Acute Code(s): K56.609 - Unspecified intestinal obstruction, unspecified as to partial versus complete obstruction Plan: DISCHARGE DIAGNOSES: #1. Abdominal pain, nausea w/ SBO with mild lactic acidosis, likely secondary to dehydration component #2. Hypertension #3. Hyperlipidemia #4. Chronic COPD with allergic rhinitis #5. Tobacco Abuse #6. Hx VTE #7. Obesity Medications at Discharge Home Medications albuterol sulfate 90 mcg/actuation aerosol inhaler 2 puff inhalation Q2H PRN PRN Shortness Of Breath 11/11/20 amitriptyline 25 mg tablet 100 mg PO QHS sleep 11/11/20 budesonide-formoterol HFA 160 mcg-4.5 mcg/actuation aerosol inhaler 1 puff inhalation BID copd 11/11/20 calcium carbonate (Tums) 200 mg PO Q2H PRN PRN gerd 11/11/20 candesartan 4 mg tablet 4 mg PO QHS bp 11/11/20 cyclobenzaprine 10 mg tablet 10 mg PO TID pain 11/11/20 docusate sodium 100 mg capsule (Colace) 100 mg PO BID PRN Constipation 11/11/20 fluticasone propionate 50 mcg/actuation nasal spray,suspension 2 spray intranasal DAILY allergies 11/11/20 mecobalamin (vitamin B12) 1,000 mcg chewable tablet 1,000 mcg PO DAILY supplement 11/11/20 polyethylene glycol 3350 17 gram oral powder packet (Miralax) 17 g PO DAILY PRN Constipation 11/11/20 red yeast rice 600 mg capsule 600 mg PO DAILY supplment 11/11/20 linaclotide 290 mcg capsule (Linzess) 290 mcg PO DAILY constipation 06/11/22 ondansetron 4 mg disintegrating tablet 4 mg PO Q6H PRN nausea and vomiting #20 tabs 12/18/24 Hospital Course Operations None Procedures None Summary of Care Provided Minutes Spent on Discharge: 35 Hospital Course: The patient is a 69 y/o F w/ PMHx: Obesity, Hx VTE, COPD, HTN, HLD, Hx SBO, Tobacco use who presented to the [facility] ED on 01/10/25 with history of abdominal discomfort, nausea starting the evening prior progressively worsening with last bowel movement 2 days previous prompting eventual ED evaluation. In the ED work- up included CT A/P w/ recurrent distal small bowel obstruction with fecal material seen in the colon, prior anastomosis at the level of the rectum. Admitted to medical surgical floor, maintained on IVFs, LA repeat 1.3, corrected, initially maintain NG tube with strict I's and O's, repeat KUB with clinical improvement, small bowel follow-through initiated with no further obstructive process identified with onset of bowel movement and flatus. Patient 01/11/2025 initiated clear liquids and tolerated full transition 01/12/2025. Evaluated by general surgery and cleared for discharge therefore given clinical improvement 01/12/2025 quicker than expected we will plan discharge to home per patient preference with follow-up outpatient with PCP as well as [facility] surgery at her own discretion but did also offer Dr. Alan and Dr. Villalobos office information. Weight / BMI Weight Weight: 177 lb 7.554 oz Body Mass Index (BMI) 31.8 ABG / Lab / Microbiology Data 01/12/25 05:52 01/12/25 05:52 Laboratory: Laboratory Results - last 24 hr 01/12/25 05:52: WBC 8.3, RBC 4.56, Hgb 13.5, Hct 41.2, MCV 90.4, MCH 29.6, MCHC 32.8, RDW Std Deviation 45.7 H, RDW Coeff of Chrissy 13.7, Plt Count 200, MPV 10.7, Immature Gran % (Auto) 0.400, Neut % (Auto) 64.9, Lymph % (Auto) 21.3, [place] % (Auto) 11.3 H, Eos % (Auto) 1.7, Baso % (Auto) 0.4, Absolute Neuts (auto) 5.4, Absolute Lymphs (auto) 1.77, Nucleated RBC % 0, Sodium 139, Potassium 4.5, Chloride 105, Carbon Dioxide 27.5, Anion Gap 7, BUN 8, Creatinine 0.60 L, Estim Creat Clear Calc 63.39, Est GFR (MDRD) Non-Af 96, BUN/Creatinine Ratio 13.6, Glucose 97, Calcium 8.5, Total Bilirubin 0.42, AST 19, ALT 19, Alkaline Phosphatase 73, Total Protein 5.9, Albumin 3.3 L, Globulin 2.6, Albumin/Globulin Ratio 1.3 Radiography Diagnostic Testing: Radiology Impression Small Bowel X-Ray 01/11/25 08:15 IMPRESSION: No evidence of small-bowel obstruction at this time. Large amount of fecal material seen in the colon. Reading Location: [facility]-1 KUB X-Ray 01/12/25 04:45 IMPRESSION: Oral contrast is seen throughout the mildly distended colon with no definite obstruction Reading [facility] Instructions Discharge Diet: - (Please continue gentle diet/cardiac focused and advance over the next several days unless otherwise instructed per Surgery Service.) May resume sexual activity in: No Restrictions Weight Bearing Status: Weight bearing as tolerated Call your doctor if you observe: Fever of 101 or Higher, Uncontrolled pain and - (Recurrent abdominal pain, distention, lack of flatus or bowel movement.) DC O2, CPAP, BIPAP Needs Home O2 Discharge instructions: No Meaningful Use Info Meaningful Use Meaningful Use Diagnoses (Choose all that apply): None applicable Discharge Plan Admission Admit Date/Time: 01/10/25 13:17 Primary Reason for Your Visit: SBO with intractable abdominal pain, N/V Attending Provider: Thais Richards Primary Care Provider: Xena Chan Consulting Providers: Kimberlee Alan; Paco Gibson Instructions Patient Instructions: Small Bowel Obstruction Discharge Orders/Prescriptions Prescriptions: Continued albuterol sulfate 90 mcg/actuation HFA aerosol inhaler 2 puff inhalation Q2H PRN PRN (Reason: Shortness Of Breath) amitriptyline 25 mg tablet 100 mg PO QHS candesartan 4 mg tablet 4 mg PO QHS cyclobenzaprine 10 mg tablet 10 mg PO TID fluticasone propionate 50 mcg/actuation spray,suspension 2 spray intranasal DAILY budesonide-formoterol 160-4.5 mcg/actuation HFA aerosol inhaler 1 puff inhalation BID polyethylene glycol 3350 [Miralax] 17 gram powder in packet 17 g PO DAILY PRN (Reason: Constipation) docusate sodium [Colace] 100 mg capsule 100 mg PO BID PRN (Reason: Constipation) mecobalamin (vitamin B12) 1,000 mcg tablet,chewable 1,000 mcg PO DAILY red yeast rice 600 mg capsule 600 mg PO DAILY Rx Instructions: give with meal/snack calcium carbonate [Tums] 200 mg calcium (500 mg) tablet,chewable 200 mg PO Q2H PRN PRN (Reason: gerd) Linzess 290 mcg Capsule 290 mcg PO DAILY ondansetron 4 mg tablet,disintegrating 4 mg PO Q6H PRN (Reason: nausea and vomiting) Qty: 20 0RF Referrals / Follow Up: Xena Chan MD [Primary Care Provider] - (Follow-up with PCP within 3-5 days to review admission.) Kimberlee Alan MD [Med Staff - Active Staff] - (Follow-up with Surgery as needed/instructed.) Disposition Disposition (needs filled in before D/C Order can be placed): Home, Self Care Charges/Coding Visit Charges Inpatient E&M: 38932 Disch Hosp >30min
--- NOTE | 2025-01-12 07:58 | PCM.PN.SRG ---
Subjective Subjective Patient seen and evaluated on rounds this morning. Patient seems to be doing well. She notes several bowel movements and is feeling much improved. This morning's x-ray of her abdomen is nonobstructive. She has been tolerating clear liquid diet Objective Data Objective Data Vital Signs: Vital Signs Temp Pulse Resp BP Pulse Ox O2 Del Method O2 Flow Rate 98.1 F 84 18 126/53 H 93 Room Air 2 01/12/25 04:01/12/25 04:01/12/25 04:01/12/25 04:01/12/25 04:01/12/25 04:01/11/25 13:49 Oxygen Flow Rate (L/min) 2 Oxygen Delivery Method Room Air Weight: 177 lb 7.554 oz Body Mass Index (BMI) 31.8 Intake & Output: Intake and Output for Last 24 Hours 01/10/25 01/11/25 01/12/25 23:59 23:59 23:59 Intake Total 1030 / 1030 3046.67 / 3046.67 768.33 / 768.33 Output Total 1000 / 1000 525 / 525 Balance 2521.67 / 2521.67 768.33 / 768.33 Lab / Micro Data 01/12/25 05:52 01/12/25 05:52 Labs: Laboratory Results - last 24 hr 01/12/25 05:52: WBC 8.3, RBC 4.56, Hgb 13.5, Hct 41.2, MCV 90.4, MCH 29.6, MCHC 32.8, RDW Std Deviation 45.7 H, RDW Coeff of Chrissy 13.7, Plt Count 200, MPV 10.7, Immature Gran % (Auto) 0.400, Neut % (Auto) 64.9, Lymph % (Auto) 21.3, [place] % (Auto) 11.3 H, Eos % (Auto) 1.7, Baso % (Auto) 0.4, Absolute Neuts (auto) 5.4, Absolute Lymphs (auto) 1.77, Nucleated RBC % 0, Sodium 139, Potassium 4.5, Chloride 105, Carbon Dioxide 27.5, Anion Gap 7, BUN 8, Creatinine 0.60 L, Estim Creat Clear Calc 63.39, Est GFR (MDRD) Non-Af 96, BUN/Creatinine Ratio 13.6, Glucose 97, Calcium 8.5, Total Bilirubin 0.42, AST 19, ALT 19, Alkaline Phosphatase 73, Total Protein 5.9, Albumin 3.3 L, Globulin 2.6, Albumin/Globulin Ratio 1.3 Radiography Diagnostic Testing: Radiology Impression Small Bowel X-Ray 01/11/25 08:15 IMPRESSION: No evidence of small-bowel obstruction at this time. Large amount of fecal material seen in the colon. Reading Location: [facility]-1 KUB X-Ray 01/12/25 04:45 IMPRESSION: Oral contrast is seen throughout the mildly distended colon with no definite obstruction Reading Location: [place] [id number] Physical Exam Narrative She is alert and oriented x 3. She is in no acute distress. Abdomen is soft nontender nondistended Assessment & Plan Assessment/Plan (1) Small bowel obstruction: PLAN: Plan The patient is a 69-year-old female admitted with possible small bowel obstruction. This seems to be resolved. She is passing gas and having bowel movements and tolerating diet. Would recommend slowly advancing her diet. Once tolerating diet she can be discharged to home.
[2025-01-12 10:55] VITALS: BP 132/68; PULSE 83; RESP 16; TEMP 36.8; O2SAT 92
== END 2025-01-12 11:18 | disposition home or self-care (01) | DRG 389 ==
LOC: ED 13:24 → MS3 14:11
PROVIDERS: Admitting Provider Internal Medicine; Emergency Provider Emergency Medicine; PCP Family Medicine; Visit Provider Family Medicine
DX: K56.609 Unspecified intestinal obstruction, unspecified as to partial versus complete obstruction (principal); E87.20 Acidosis, unspecified; Z66 Do not resuscitate; J44.9 Chronic obstructive pulmonary disease, unspecified; I10 Essential (primary) hypertension; Z68.32 Body mass index [BMI] 32.0-32.9, adult; E78.5 Hyperlipidemia, unspecified; F17.210 Nicotine dependence, cigarettes, uncomplicated; J30.9 Allergic rhinitis, unspecified; E66.9 Obesity, unspecified; Z86.718 Personal history of other venous thrombosis and embolism; Z79.51 Long term (current) use of inhaled steroids; Z79.899 Other long term (current) drug therapy
CPT/HCPCS: 36415; 74018; 74177; 74250; 80048; 80053; 81001; 83605; 83690; 83735; 84100; 84443; 85025; 94640; 94668; 99285; 99406; Q9967; A4216; J2405

== ENCOUNTER → 2025-03-01 | Outpatient (CLI) | payer MEDICARE, MEDICAID, SELFPAY ==
[2025-03-01 18:21] LABS: Free T3 2.4 pg/mL (2.18-3.98)
== END | disposition home or self-care (01) ==
LOC: BFHLAB 13:43
PROVIDERS: PCP Family Medicine; Visit Provider Family Medicine
DX: E03.9 Hypothyroidism, unspecified (principal)
CPT/HCPCS: 36415; 84439; 84443; 84481; 86376; 86800